=== PATIENT | male | born 1970 | race Caucasian/White ===

== ENCOUNTER 2020-05-20 10:20 | Outpatient (CLI) | payer MEDICAID, SELFPAY ==
[2020-05-22 00:15] LABS: COVID-19 RT-PCR Result NEGATIVE (Negative)
== END 2020-05-20 10:40 ==
PROVIDERS: PCP Family Medicine; Visit Provider Surgery
DX: Z01.818 Encounter for other preprocedural examination (principal)
CPT/HCPCS: U0003

== ENCOUNTER 2020-05-25 12:01 | Day surgery (SDC) | payer MEDICAID, SELFPAY ==
--- NOTE | 2020-05-24 04:38 | W.PREOPHP ---
Date of service: 05/24/20 Assessment and Plan Assessment and plan (1) Rectal cancer: Status: Acute Assessment and plan: A\\ Mr. Huang is a pleasant 49-year-old gentleman who unfortunately was diagnosed with T3 rectal cancer. He will be starting neoadjuvant chemotherapy in the near future and we have been asked by the oncologist Dr. Hunt to place a Mediport. COVID-19 Test was performed and is negative P\\ 1. Will discharge patient today 05/24/20 and will do surgery tomorrow. Patient was reminded not to eat after midnight. No chewing tobacco, gum of lozanges after midnight. May have water up until 9 am. He is to arrive at hospital at 12. 2. Subclavian vein Mediport placement under fluoroscopy. Risks, benefits, complications of Mediport placement were reviewed with the patient. Complications include but are not limited to bleeding, infection, wound dehiscence, skin necrosis, seroma, hematoma, injury to subclavian vein or superior vena cava, pneumothorax, venous thrombosis and malfunction of the port. Questions were entertained and answered to his satisfaction and he wished to proceed. No guarantees were given or implied. History of Present Illness History of Present Illness Chief Complaint: Rectal Cancer Narrative: Mr. Huang is a pleasant 41-year-old gentleman who was just diagnosed with rectal cancer, T3c, Nx, M0. He is scheduled to start chemotherapy in the next week or so. We were asked by his oncologist to place a Mediport for the chemotherapy. He has lost about 30 lb over the last few months. He is having frequent BM's and urgency. He continues to have rectal bleeding due to the rectal mass. His CEA has gone from 20 to 125 in a short amount of time. The plan is for neoadjuvant CHemotherapy and radiation, followed by surgery. PMHx is significant for alcoholism Unfortunately the patient ate 2 chocolate chip cookies and drank fluid at 6 am. This was discussed with anesthesia. The patient would not be able to have surgery until 2 pm. Review of Systems Constitutional Constitutional: Denies fever(s), Denies headache(s), Reports poor appetite and Reports weight loss Eyes Eyes: Denies change in vision ENT Ears, Nose, Mouth, and Throat: Denies change in voice, Denies dysphagia, Denies headache(s) and Denies hoarseness Cardiovascular Cardiovascular: Denies chest pain, Denies chest pain at rest, Denies irregular heart rhythm, Denies palpitations, Denies dyspnea and Denies dyspnea on exertion Respiratory Respiratory: Denies cough, Denies hemoptysis, Denies dyspnea and Denies dyspnea on exertion Gastrointestinal Gastrointestinal: Reports as per HPI, Denies dysphagia, Denies dyspepsia, Denies heartburn, Reports vomiting and Reports other (dry heaves) Genitourinary Genitourinary: Denies oliguria and Denies difficulty urinating Musculoskeletal Musculoskeletal: Reports system reviewed and no additional complaints, except as documented Integumentary/Breasts Skin/Breast: Reports system reviewed and no additional complaints, except as documented Neurologic Neurologic: Reports system reviewed and no additional complaints, except as documented and Denies headache(s) Psychiatric Psychiatric: Reports anxiety and Reports depression Endocrine Endocrine: Reports system reviewed and no additional complaints, except as documented and Denies palpitations Hematologic/Lymphatic Hematologic/Lymphatic: Denies easy bleeding, Denies easy bruising and Denies lymphadenopathy PFSH Medical History Excessive drinking alcohol (Acute) Surgical History (Updated 05/24/20 @ 04:47 by Dora Garcia MD) H/O esophagogastroduodenoscopy (Chronic) Hx of colonoscopy (Chronic) Family History (Updated 05/24/20 @ 04:52 by Dora Garcia MD) Father Colon cancer Paternal Uncle Brain malignancy Maternal Grandmother Brain malignancy Social History Smoking/Tobacco Use Status: Current every day Tobacco Type: smokeless tobacco Alcohol Intake: current Alcohol Intake frequency: 3 or more drinks per day Alcohol type: beer Drug use: Never Substance use type: does not use Details: 12 pack a day Do you feel safe at home: Yes Do you feel safe in your relationship?: Yes Meds Home Medications and Allergies Home Medications Medication Instructions Recorded Confirmed Type prochlorperazine maleate 10 mg PO .EVERY 6 HRS PRN 05/20/20 05/20/20 History Boost ml PO 05/24/20 History Allergies Allergy/AdvReac Type Severity Reaction Status Date / Time No Known Allergies Allergy Unverified 09/23/19 14:46 Exam Const General: cooperative, comfortable and no acute distress Orientation: alert and oriented x3 HENMT Head: normocephalic and atraumatic Resp Effort & Inspection: normal respiratory effort Auscultation: clear to auscultation bilaterally Cardio Rate: regular rate Rhythm: regular rhythm Heart Sounds: no gallops, no murmurs and no rubs GI Inspection: normal to inspection Palpation: soft, no hepatosplenomegaly and nontender Rectal Exam: deferred General: deferred
--- NOTE | 2020-05-24 04:55 | W.PM.DSUDISC ---
Discharge Plan Disposition Patient Disposition: HOME Condition: Stable Discharge Details Reason For Visit: RECTAL CA Attending Provider: Dora Garcia Primary Care Provider: Freddy Juarez Home Meds and New Rx's Prescriptions: Continued prochlorperazine maleate 10 mg tablet 10 mg PO .EVERY 6 HRS PRN (Reason: Nausea) RF: 0 Boost 0.04 gram- 1 kcal/mL Liquid PO RF: 0 Discharge Instructions Instructions: Tunneled Central Lines (DC) Additional Instructions: Activity at Home after surgery: 1. Make sure you walk outside at least 4 times per day 2. You should be able to climb a flight of stairs 3. No driving while in pain or taking pain medications 4. Do not lift arm above your head for long periods of time Diet, Nutrition, & wound healin. Avoid alcohol until after you are recovered from your surgery 2. Make sure to eat plenty of lean protein (meat, fish, eggs, cottage cheese, beans) 3. Eat a variety of fruits and vegetables. Eat plenty of high fiber foods to avoid constipation. 4. Drink plenty of liquids to stay hydrated and avoid constipation Pain Medications: 1. Tylenol 650 mg every 6 hours and Ibuprofen 600 mg every 6 hours ( May alternate between the 2 medications every 3 hours) 2. If a narcotic has been prescribed take as directed only for breakthrough pain For Constipation: 1. Take Milk of Magnesia or MiraLax as needed for constipation Other: 1. You may shower daily. Do not scrub the incisions 2. Do not soak the incisions for 1 week 3. You may alternate ice and heat as needed for pain and swelling Wound Care: 1. Keep the incisions clean and dry Please call our office if you develop: 1. Fevers >101.5 2. Nausea or Vomiting 3. Worsening pain 4. Redness and thick discharge from the wounds 5. Shortness of Breath If after hours please call the Hospital at and ask to speak to the on-call surgeon Activity:: Activity as Tolerated Shower/Bathe:: 24 hours Diet:: As Tolerated DS: Diagnosis Discharge Diagnosis (1) Rectal cancer: Status: Acute
--- NOTE | 2020-05-24 04:59 | W.PM.OP ---
Date of service: 05/24/20 Operative Note Operative Note DATE OF PROCEDURE: 05/24/20 PRE-OP DIAGNOSIS: Rectal Cancer, IV access needed for Chemotherapy POST-OP DIAGNOSIS: same PROCEDURE: Subclavian vein Single lumen Mediport placement SURGEON: Dora Garcia ANESTHESIA: MAC (ASA/ ) and local (exparel mixed with 0.25% Bupivocaine) PATHOLOGY: none sent COMPLICATIONS: None Patient was transported to: same day Patient's condition: stable Indications: Mr. Huang is a pleasant 49-year-old gentleman who was recently diagnosed with a T3 rectal cancer. He will be starting neoadjuvant chemotherapy in the near future. I have been asked by Dr. Hunt to place a single-lumen Mediport for chemotherapy. Risks, benefits, complications of Mediport placement were reviewed with the patient. Complications include but are not limited to bleeding, infection, wound dehiscence, skin necrosis, seroma, hematoma, injury to subclavian vein or superior vena cava, pneumothorax, venous thrombosis and malfunction of the port. Questions were entertained and answered to his satisfaction and he wished to proceed. No guarantees were given or implied. Procedure Description: After informed consent was obtained the patient was taken to the operating room and placed in supine position. The patient was placed under deep sedation and once comfortable the right and left chest were prepped and draped in a sterile surgical fashion. At this point a timeout was done. The patient's name, date of , procedure to be done, potential complications, DVT prophylaxis, antibiotic given were all reviewed. Fire risk was assessed. Next 2% lidocaine mixed with half percent Marcaine with epi was injected around the clavicle on the left side as well as along the old scar and into the subcutaneous tissue. A power port kit was opened and using the large 18-gauge needle the subclavian vein was found and venous blood was easily aspirated. The syringe was removed and the guidewire was placed without any difficulty into the subclavian vein. The needle was removed. Fluoroscopy was then done which confirmed the placement of the guidewire. A small incision was made in the skin with the guidewire entered. The old scar was also opened with a 15 blade. Using cautery a new pocket was created for the port. Using the tunneler the catheter was tunneled from the newly created pocket to the guidewire. The dilator and sheath were then placed over the guidewire into the subclavian vein. The dilator and guidewire were removed. The catheter was then advanced through the sheath into the subclavian vein. While holding the catheter in place at the skin the sheath was removed. Fluoroscopy was then used again and the catheter was noted to be within the atrium and so it was pulled up until it was just above the atrium. The catheter was then cut to the right length and attached to the port. The port was placed into the pocket and fit snugly. The port was flushed with normal saline. 10 cc of blood was then withdrawn and discarded and then 20 cc of blood were drawn out of the port and placed into a red, green, blue and purple top and sent to the lab. The port was then flushed with another 10 cc of normal saline and then heparin. The skin was closed using 4-0 Vicryl. The skin was cleaned and dried and skin affix was applied to the port site as well as to the small stab incision underneath the clavicle. The patient was woken up and taken back to same day surgery in stable condition. Sponge, instrument, and needle counts were correct at the end of the case. A stat chest x-ray was ordered and done in same-day surgery it was read by me and it looked good good positioning of the catheter and no pneumothorax.
--- NOTE | 2020-05-25 06:57 | ROE_ITS ---
Date of service: 05/25/20 Time of Service: 15:20 Operative Note Operative Note DATE OF PROCEDURE: 05/25/20 PRE-OP DIAGNOSIS: rectal cancer IV access needed for chemotherapy POST-OP DIAGNOSIS: same PROCEDURE: Left Subclavian vein port-a-cath placement SURGEON: Dora Garcia ANESTHESIA: MICHELLEA (Kellie Ma CRNA) ESTIMATED BLOOD LOSS: 5 PATHOLOGY: none sent COMPLICATIONS: None Patient was transported to: same day Patient's condition: stable Implants: Power Port isp MRI REF [id number] EXP 2021-07-20 Indications: Mr. Huang is a pleasant 49-year-old gentleman who unfortunately was diagnosed with T3 rectal cancer. He will be starting neoadjuvant chemotherapy in the near future and we have been asked by the oncologist Dr. Hunt to place a Mediport. Procedure Description: After informed consent was obtained the patient was taken to the operating room and placed in supine position. The patient was placed under deep sedation and once comfortable the left chest was prepped and draped in a sterile surgical fashion. At this point a timeout was done. The p atient's name, date of , procedure to be done, potential complications, DVT prophylaxis, antibiotic given were all reviewed. Fire risk was assessed. Next 2% lidocaine mixed with half percent Marcaine with epi was injected around the clavicle on the left side. A power port kit was opened and using the large 18-gauge needle the subclavian vein was found and venous blood was easily aspirated. The syringe was removed and the guidewire was placed without any difficulty into the subclavian vein. The needle was removed. Fluoroscopy was then done which confirmed the placement of the guidewire. A small incision was made in the skin were the guidewire entered. The local anesthetic was injected into the dermis and subcutaneous tissue about an inch above the left nipple.using a 15 blade a 2 cm incision was made into the skin. Using cautery a pocket was created for the port. Using the tunneler the catheter was tunneled from the newly created pocket to the guidewire. The di lator and sheath were then placed over the guidewire into the subclavian vein. The dilator and guidewire were removed. The catheter was then advanced through the sheath into the subclavian vein. While holding the catheter in place at the skin the sheath was removed. Fluoroscopy was then used again and the catheter was noted to be within the atrium and so it was pulled up until it was just abov e the atrium. The catheter was then cut to the right length and attached to the port. The port was placed into the pocket and fit snugly. The port was then flushed with another 10 cc of heparin. The skin was closed using 4-0 Vicryl. The skin was cleaned and dried and skin affix was applied to the port site as well as to the small stab incision underneath the clavicle. The patient was woken up and taken back to same day surgery in stable condition. Sponge, instrument, and needle counts were correct at the end of the case. A stat chest x-ray was ordered and done in same-day surgery it was read by me and it looked in good position and I did not see a pneumothorax.
--- NOTE | 2020-05-25 06:59 | W.PM.DSUDISC ---
Discharge Plan Disposition Patient Disposition: HOME Condition: Stable Discharge Details Reason For Visit: RECTAL CA Attending Provider: Dora Garcia Primary Care Provider: Freddy Juarez Home Meds and New Rx's Prescriptions: Continued prochlorperazine maleate 10 mg tablet 10 mg PO .EVERY 6 HRS PRN (Reason: Nausea) RF: 0 Boost 0.04 gram- 1 kcal/mL Liquid 180 ml PO PRN PRNRF: 0 Discharge Instructions Instructions: Tunneled Central Lines (DC) Additional Instructions: Activity at Home after surgery: 1. Make sure you walk outside at least 4 times per day 2. You should be able to climb a flight of stairs 3. No driving while in pain or taking pain medications 4. Do not lift arm above your head for long periods of time Diet, Nutrition, & wound healin. Avoid alcohol until after you are recovered from your surgery 2. Make sure to eat plenty of lean protein (meat, fish, eggs, cottage cheese, beans) 3. Eat a variety of fruits and vegetables. Eat plenty of high fiber foods to avoid constipation. 4. Drink plenty of liquids to stay hydrated and avoid constipation Pain Medications: 1. Tylenol 650 mg every 6 hours and Ibuprofen 600 mg every 6 hours ( May alternate between the 2 medications every 3 hours) 2. If a narcotic has been prescribed take as directed only for breakthrough pain For Constipation: 1. Take Milk of Magnesia or MiraLax as needed for constipation Other: 1. You may shower daily. Do not scrub the incisions 2. Do not soak the incisions for 1 week 3. You may alternate ice and heat as needed for pain and swelling Wound Care: 1. Keep the incisions clean and dry Please call our office if you develop: 1. Fevers >101.5 2. Nausea or Vomiting 3. Worsening pain 4. Redness and thick discharge from the wounds 5. Shortness of Breath If after hours please call the Hospital at and ask to speak to the on-call surgeon Activity:: Activity as Tolerated Shower/Bathe:: 24 hours Diet:: As Tolerated Discharge Orders Discharge Orders: Discharge Order (Routine); Ordered 05/24/20 Ordered By: Dora Garcia DS: Diagnosis Discharge Diagnosis (1) Rectal cancer: Status: Acute
[2020-05-25 12:03] VITALS: BP 132/91; PULSE 100; RESP 18; TEMP 36.8; O2SAT 97
[2020-05-25] MEDS: Lactated Ringers 1,000 ML 80 ML IV (12:30)
--- NOTE | 2020-05-25 13:30 | DI.RAD_ITS ---
EXAM: RF LINE PLACEMENT OR CLINICAL HISTORY: cancer. TECHNIQUE: 2D and realtime digital imaging was performed. CONTRAST MATERIAL: Oral barium Oral water soluble contrast was administered. COMPARISON: No exams were available for comparison FINDINGS: C-arm fluoroscopy was utilized by Dr. Garcia during placement subclavian catheter. Hard copy shows left subclavian catheter insertion with the tip overlying the superior vena cava. Fluoro time 14 seconds IMPRESSION:
[2020-05-25] MEDS: ceFAZolin 2 GM/50 ML BAG IVPB (15:09)
[2020-05-25] MEDS: Lidocaine 2% Multi-Dose 50 ML VIAL (15:18)
[2020-05-25] MEDS: Heparin 500 UNITS/5 ML SYRINGE (15:23)
--- NOTE | 2020-05-25 16:00 | DI.RAD_ITS ---
EXAM: XR PORTABLE CHEST AP POST LINE CLINICAL HISTORY: s/p port placement TECHNIQUE: COMPARISON: No exams were available for comparison FINDINGS: Portable AP chest at 1610 hours. Heart is not enlarged. Lungs are predominantly clear with some pre dominantly linear areas of scarring and/or atelectasis at the left lung base, consolidation or mass n ot entirely excluded, follow-up PA and lateral chest recommended. There is a left Port-A-Cath in position the tip of which lies in the superior vena cava. No pneumoth orax identified. IMPRESSION: Port-A-Cath in good position. No pneumothorax. Left basilar radiodensities of questionable signific ance, pneumonia or neoplasm not excluded, PA and lateral chest suggested for follow-up in the absence of prior studies.
[2020-05-25 16:30] VITALS: BP 136/103; PULSE 86; RESP 16; TEMP 36.4; O2SAT 96
--- NOTE | 2020-05-26 10:41 | PDOC.ANES ---
Date of service: 05/26/20 Time of Service: 10:41 Anesthesia Note Report Anesthesia Note: On post-op call patient expressed concerns over his feeling nauseated and dizzy once he got home. I contact him at home and discussed that sometimes anesthesia medications can make you feel that way and that he should feel better by the end of the day. He states that his nausea and dizziness are resolved this morning, but that he still feels a little weak. We discussed that it is possible for medication residual to have some effects for 24 hrs, and the medications combine with surgery can effect people for a day or so. All his questions where answered.
== END 2020-05-25 16:44 | disposition home or self-care (01) ==
LOC: SUR 12:02
PROVIDERS: PCP Family Medicine; Visit Provider Surgery
PROC: (CPT 36561; principal; 2020-05-25 13:15)
DX: C20 Malignant neoplasm of rectum (principal); Z45.2 Encounter for adjustment and management of vascular access device
CPT/HCPCS: 36561; 71045; 77001; NC; C1788; J0690; J2001; J3010

== ENCOUNTER 2020-06-17 04:39 | Outpatient (RCR) | payer MEDICAID, SELFPAY ==
[2020-06-03] MEDS: Heparin 500 UNITS/5 ML SYRINGE IV (09:28)
[2020-06-03] MEDS: Normal Saline Flush 10 ML SYR IVP (09:28)
[2020-06-03 09:33] LABS: Abs Immature Grans 0.02 10^3/uL (0.0-0.06); Absolute Basophil Count 0.04 10^3/uL (0.0-0.2); Absolute Eosinophil Count 0.19 10^3/uL (0.0-0.7); Absolute Lymphocyte Count 0.98 10^3/uL (1.2-3.4); Absolute Monocyte Count 0.52 10^3/uL (0.1-0.8); Basophils % 1.1; Eosinophils % 5.1; HCT 33.2 % (40.0-50.0); HGB 10.2 g/dL (13.5-17.5); Immature Grans % 0.5; Lymphocytes % 26.1; MCH 23.6 pg (27.0-33.0); MCHC 30.7 % (32.0-36.0); MCV 76.9 fL (80-95); MPV 9.3 fL (8.0-11.0); Monocytes % 13.9; Neutrophils % 53.3; Nucleated RBC 0 %; Platelet Count 320 10^3/uL (130-400); RBC 4.32 10^6/uL (4.36-5.78); RDW 18.7 % (11.8-14.1); RDW-SD 51.2 fL; WBC 3.75 10^3/uL (4.4-10.8)
[2020-06-03 10:00] LABS: ALT 88 U/L (16-63); AST 96 U/L (15-37); Alkaline Phosphatase 182 U/L (46-116); Anion Gap 5.2 mmol/L (3-11); BUN 10 mg/dL (7-18); Bilirubin, Total 0.4 mg/dL (0.2-1.0); CO2 28.8 mmol/L (21.0-32.0); CREATININE 0.86 mg/dL (0.70-1.30); Calcium 8.7 mg/dL (8.5-10.1); Chloride 103 mmol/L (98-107); Glucose 121 mg/dL (74-106); Potassium 4.5 mmol/L (3.5-5.1); Sodium 137 mmol/L (136-145)
[2020-06-06 09:12] LABS: CEA 28.9 ng/mL (See Note)
[2020-06-17] MEDS: Normal Saline Flush 10 ML SYR IVP ×2 (09:40→10:07)
[2020-06-17] MEDS: Heparin 500 UNITS/5 ML SYRINGE IV (09:40)
[2020-06-17 10:06] LABS: Abs Immature Grans 0.02 10^3/uL (0.0-0.06); Absolute Basophil Count 0.01 10^3/uL (0.0-0.2); Absolute Eosinophil Count 0.15 10^3/uL (0.0-0.7); Absolute Lymphocyte Count 1.03 10^3/uL (1.2-3.4); Absolute Monocyte Count 0.26 10^3/uL (0.1-0.8); Basophils % 0.5; Eosinophils % 6.9; HCT 34.1 % (40.0-50.0); HGB 10.2 g/dL (13.5-17.5); Immature Grans % 0.9; Lymphocytes % 47.5; MCH 24.2 pg (27.0-33.0); MCHC 29.9 % (32.0-36.0); MPV 9.3 fL (8.0-11.0); Neutrophils % 32.2; Nucleated RBC 0 %; Platelet Count 361 10^3/uL (130-400); RBC 4.21 10^6/uL (4.36-5.78); RDW 20.3 % (11.8-14.1); RDW-SD 54.3 fL; WBC 2.17 10^3/uL (4.4-10.8)
[2020-06-17 10:14] LABS: ALT 101 U/L (16-63); AST 75 U/L (15-37); Albumin 3.1 g/dL (3.4-5.0); Alkaline Phosphatase 139 U/L (46-116); BUN 6 mg/dL (7-18); Bilirubin, Total 0.2 mg/dL (0.2-1.0); CREATININE 0.79 mg/dL (0.70-1.30); Calcium 8.7 mg/dL (8.5-10.1); Chloride 107 mmol/L (98-107); Glucose 108 mg/dL (74-106); Potassium 4.2 mmol/L (3.5-5.1); Sodium 142 mmol/L (136-145); Total Protein 6.9 g/dL (6.4-8.2)
[2020-06-17 10:32] LABS: Anisocytosis 2+; Basophilic Stippling Present; Diff Comment Diff Reviewed; Hypochromasia 1+; Macrocytosis 1+; Microcytosis 1+; Poikilocytes 1+
[2020-06-20 09:14] LABS: CEA 19.5 ng/mL (See Note)
== END 2020-06-20 23:59 | disposition home or self-care (01) ==
LOC: INF 04:39
PROVIDERS: PCP Family Medicine; Visit Provider Internal Medicine Hematology & Oncology
DX: C20 Malignant neoplasm of rectum (principal); Z45.2 Encounter for adjustment and management of vascular access device
CPT/HCPCS: 36591; 80053; 82378; 85025

== ENCOUNTER 2020-07-15 04:29 | Outpatient (RCR) | payer MEDICAID, SELFPAY ==
[2020-06-21] MEDS: Heparin 500 UNITS/5 ML SYRINGE IV (09:35)
[2020-06-21] MEDS: Normal Saline Flush 10 ML SYR IVP (09:35)
[2020-06-21 09:42] LABS: Abs Immature Grans 0.01 10^3/uL (0.0-0.06); Absolute Basophil Count 0.02 10^3/uL (0.0-0.2); Absolute Lymphocyte Count 1.15 10^3/uL (1.2-3.4); Absolute Monocyte Count 0.41 10^3/uL (0.1-0.8); Absolute Neutrophil Count 0.91 10^3/uL (1.2-6.7); Basophils % 0.7; Eosinophils % 7.4; HCT 34.9 % (40.0-50.0); HGB 10.7 g/dL (13.5-17.5); Immature Grans % 0.4; Lymphocytes % 42.6; MCH 24.8 pg (27.0-33.0); MCHC 30.7 % (32.0-36.0); MCV 80.8 fL (80-95); MPV 9.1 fL (8.0-11.0); Monocytes % 15.2; Neutrophils % 33.7; Nucleated RBC 0 %; Platelet Count 263 10^3/uL (130-400); RBC 4.32 10^6/uL (4.36-5.78); RDW 20.9 % (11.8-14.1); RDW-SD 58.3 fL
[2020-06-21 10:01] LABS: Anisocytosis 1+; Basophilic Stippling Present; Diff Comment Diff Reviewed; Hypochromasia 1+
[2020-06-21 10:02] LABS: ALT 110 U/L (16-63); AST 90 U/L (15-37); Albumin 3.3 g/dL (3.4-5.0); Alkaline Phosphatase 153 U/L (46-116); Anion Gap 8.8 mmol/L (3-11); BUN 9 mg/dL (7-18); Bilirubin, Total 0.4 mg/dL (0.2-1.0); CO2 25.2 mmol/L (21.0-32.0); CREATININE 0.82 mg/dL (0.70-1.30); Calcium 8.7 mg/dL (8.5-10.1); Chloride 105 mmol/L (98-107); Glucose 120 mg/dL (74-106); Polychromasia Present; Potassium 4.4 mmol/L (3.5-5.1); Sodium 139 mmol/L (136-145)
[2020-06-21 18:37] LABS: CEA 18.6 ng/mL (See Note)
[2020-06-29] MEDS: Normal Saline Flush 10 ML SYR IVP (10:48)
[2020-06-29] MEDS: Heparin 500 UNITS/5 ML SYRINGE IV (10:49)
[2020-06-29 10:54] LABS: Abs Immature Grans 0.06 10^3/uL (0.0-0.06); Absolute Basophil Count 0.04 10^3/uL (0.0-0.2); Absolute Eosinophil Count 0.11 10^3/uL (0.0-0.7); Absolute Lymphocyte Count 1.24 10^3/uL (1.2-3.4); Absolute Monocyte Count 0.69 10^3/uL (0.1-0.8); Absolute Neutrophil Count 2.65 10^3/uL (1.2-6.7); Basophils % 0.8; Eosinophils % 2.3; HCT 35.7 % (40.0-50.0); HGB 10.9 g/dL (13.5-17.5); Immature Grans % 1.3; Lymphocytes % 25.9; MCH 24.6 pg (27.0-33.0); MCHC 30.5 % (32.0-36.0); MCV 80.6 fL (80-95); MPV 9.2 fL (8.0-11.0); Monocytes % 14.4; Neutrophils % 55.3; Nucleated RBC 0 %; Platelet Count 331 10^3/uL (130-400); RBC 4.43 10^6/uL (4.36-5.78); RDW 20.4 % (11.8-14.1); RDW-SD 58.8 fL; WBC 4.79 10^3/uL (4.4-10.8)
[2020-06-29 11:07] LABS: Diff Comment RBC Morph Reviewed
[2020-06-29 11:08] LABS: Anisocytosis 2+; Poikilocytes 1+; Polychromasia Present
[2020-06-29 11:11] LABS: ALT 81 U/L (16-63); AST 58 U/L (15-37); Albumin 3.2 g/dL (3.4-5.0); Alkaline Phosphatase 129 U/L (46-116); BUN 8 mg/dL (7-18); Bilirubin, Total 0.3 mg/dL (0.2-1.0); CREATININE 0.85 mg/dL (0.70-1.30); Calcium 8.7 mg/dL (8.5-10.1); Chloride 104 mmol/L (98-107); Glucose 110 mg/dL (74-106); Potassium 4.1 mmol/L (3.5-5.1); Sodium 139 mmol/L (136-145); Total Protein 6.9 g/dL (6.4-8.2)
[2020-07-15] MEDS: Heparin 500 UNITS/5 ML SYRINGE IV (08:52)
[2020-07-15] MEDS: Normal Saline Flush 10 ML SYR IVP (08:52)
[2020-07-15 08:55] LABS: Abs Immature Grans 0.04 10^3/uL (0.0-0.06); Absolute Basophil Count 0.03 10^3/uL (0.0-0.2); Absolute Eosinophil Count 0.19 10^3/uL (0.0-0.7); Absolute Lymphocyte Count 1.18 10^3/uL (1.2-3.4); Absolute Monocyte Count 0.42 10^3/uL (0.1-0.8); Absolute Neutrophil Count 1.73 10^3/uL (1.2-6.7); Basophils % 0.8; Eosinophils % 5.3; HCT 36.6 % (40.0-50.0); HGB 11.3 g/dL (13.5-17.5); Immature Grans % 1.1; Lymphocytes % 32.9; MCH 25.7 pg (27.0-33.0); MCHC 30.9 % (32.0-36.0); MCV 83.2 fL (80-95); MPV 9.1 fL (8.0-11.0); Monocytes % 11.7; Neutrophils % 48.2; Nucleated RBC 0 %; Platelet Count 221 10^3/uL (130-400); RDW 21.9 % (11.8-14.1); RDW-SD 64.7 fL; WBC 3.59 10^3/uL (4.4-10.8)
[2020-07-15 09:08] LABS: ALT 59 U/L (16-63); AST 49 U/L (15-37); Albumin 3.3 g/dL (3.4-5.0); Alkaline Phosphatase 121 U/L (46-116); Anion Gap 7.2 mmol/L (3-11); BUN 5 mg/dL (7-18); Bilirubin, Total 0.4 mg/dL (0.2-1.0); CO2 25.8 mmol/L (21.0-32.0); Calcium 8.8 mg/dL (8.5-10.1); Chloride 106 mmol/L (98-107); Glucose 92 mg/dL (74-106); Potassium 4.1 mmol/L (3.5-5.1); Sodium 139 mmol/L (136-145); Total Protein 6.8 g/dL (6.4-8.2)
[2020-07-15 22:12] LABS: CEA 11.5 ng/mL (See Note)
== END 2020-07-20 23:59 | disposition home or self-care (01) ==
LOC: INF 04:29
PROVIDERS: PCP Family Medicine; Visit Provider Internal Medicine Hematology & Oncology
DX: C20 Malignant neoplasm of rectum (principal); Z45.2 Encounter for adjustment and management of vascular access device
CPT/HCPCS: 36591; 80053; 82378; 85025

== ENCOUNTER 2020-08-19 03:48 | Outpatient (RCR) | payer MEDICAID, SELFPAY ==
[2020-07-29] MEDS: Heparin 500 UNITS/5 ML SYRINGE IV (10:37)
[2020-07-29] MEDS: Normal Saline Flush 10 ML SYR IVP (10:38)
[2020-07-29 10:49] LABS: Abs Immature Grans 0.23 10^3/uL (0.0-0.06); Absolute Basophil Count 0.04 10^3/uL (0.0-0.2); Absolute Eosinophil Count 0.14 10^3/uL (0.0-0.7); Absolute Lymphocyte Count 1.23 10^3/uL (1.2-3.4); Absolute Monocyte Count 0.36 10^3/uL (0.1-0.8); Absolute Neutrophil Count 2.62 10^3/uL (1.2-6.7); Basophils % 0.9; HCT 40.2 % (40.0-50.0); HGB 12.6 g/dL (13.5-17.5); Lymphocytes % 26.6; MCH 26.7 pg (27.0-33.0); MCHC 31.3 % (32.0-36.0); MCV 85.2 fL (80-95); MPV 9.3 fL (8.0-11.0); Monocytes % 7.8; Neutrophils % 56.7; Nucleated RBC 0 %; Platelet Count 237 10^3/uL (130-400); RBC 4.72 10^6/uL (4.36-5.78); RDW 22.6 % (11.8-14.1); WBC 4.62 10^3/uL (4.4-10.8)
[2020-07-29 11:04] LABS: ALT 78 U/L (16-63); AST 54 U/L (15-37); Albumin 3.4 g/dL (3.4-5.0); Alkaline Phosphatase 157 U/L (46-116); Anion Gap 11.5 mmol/L (3-11); BUN 5 mg/dL (7-18); Bilirubin, Total 0.2 mg/dL (0.2-1.0); CO2 23.5 mmol/L (21.0-32.0); CREATININE 0.78 mg/dL (0.70-1.30); Calcium 8.9 mg/dL (8.5-10.1); Chloride 106 mmol/L (98-107); Glucose 115 mg/dL (74-106); Potassium 4.2 mmol/L (3.5-5.1); Sodium 141 mmol/L (136-145); Total Protein 7.1 g/dL (6.4-8.2)
[2020-07-29 18:45] LABS: CEA 9.4 ng/mL (See Note)
== END 2020-08-20 23:59 | disposition home or self-care (01) ==
LOC: INF 03:48
PROVIDERS: PCP Family Medicine; Visit Provider Internal Medicine Hematology & Oncology
DX: C20 Malignant neoplasm of rectum (principal); Z45.2 Encounter for adjustment and management of vascular access device
CPT/HCPCS: 36591; 80053; 82378; 85025

== ENCOUNTER 2020-08-30 00:51 | Outpatient (CLI) | payer MEDICAID, SELFPAY ==
--- NOTE | 2020-08-30 10:48 | DI.RAD_ITS ---
EXAM: RF CATHETER PATENCY CHECK W CLINICAL HISTORY: METASTATIC RECTAL CA,C20,C77.5,MEDIPORT NOT DRAW BLOOD,CHECK PLACEMENT,FX TECHNIQUE: 2D and realtime digital imaging was performed. CONTRAST MATERIAL: Water soluble contrast was administered. COMPARISON: No exams were available for comparison FINDINGS: Fluoroscopy was provided for Dr. Kwong during the performance of a MediPort evaluation. There is no evidence of obstruction of the MediPort. No extravasation of contrast is noted. Findings were disc ussed with the [facility] on the date of the examination. Fluoro time: 1 minute RADIATION DOSE DELIVERED:
== END 2020-08-30 01:11 ==
PROVIDERS: PCP Family Medicine; Visit Provider Internal Medicine Hematology & Oncology
DX: C20 Malignant neoplasm of rectum (principal); C77.5 Secondary and unspecified malignant neoplasm of intrapelvic lymph nodes
CPT/HCPCS: 76000

== ENCOUNTER 2020-09-09 04:49 | Outpatient (RCR) | payer MEDICAID, SELFPAY ==
[2020-08-26] MEDS: Normal Saline Flush 10 ML SYR IVP (14:00)
[2020-08-26] MEDS: Heparin 500 UNITS/5 ML SYRINGE IV (14:00)
[2020-08-26 14:58] LABS: Abs Immature Grans 0.02 10^3/uL (0.0-0.06); Absolute Basophil Count 0.04 10^3/uL (0.0-0.2); Absolute Eosinophil Count 0.03 10^3/uL (0.0-0.7); Absolute Lymphocyte Count 1.02 10^3/uL (1.2-3.4); Absolute Monocyte Count 0.55 10^3/uL (0.1-0.8); Absolute Neutrophil Count 3.88 10^3/uL (1.2-6.7); Basophils % 0.7; Eosinophils % 0.5; HGB 12.7 g/dL (13.5-17.5); Immature Grans % 0.4; Lymphocytes % 18.4; MCH 28.3 pg (27.0-33.0); MCHC 32.6 % (32.0-36.0); MCV 87.1 fL (80-95); MPV 9.3 fL (8.0-11.0); Monocytes % 9.9; Neutrophils % 70.1; Nucleated RBC 0 %; Platelet Count 165 10^3/uL (130-400); RBC 4.48 10^6/uL (4.36-5.78); RDW 20.4 % (11.8-14.1); RDW-SD 64.5 fL; WBC 5.54 10^3/uL (4.4-10.8)
[2020-08-26 15:01] LABS: ALT 75 U/L (16-63); AST 92 U/L (15-37); Albumin 3.5 g/dL (3.4-5.0); Alkaline Phosphatase 187 U/L (46-116); Anion Gap 15.8 mmol/L (3-11); BUN 3 mg/dL (7-18); Bilirubin, Total 0.4 mg/dL (0.2-1.0); CO2 22.2 mmol/L (21.0-32.0); CREATININE 0.71 mg/dL (0.70-1.30); Calcium 8.4 mg/dL (8.5-10.1); Chloride 102 mmol/L (98-107); Glucose 94 mg/dL (74-106); Potassium 3.8 mmol/L (3.5-5.1); Sodium 140 mmol/L (136-145); Total Protein 7.2 g/dL (6.4-8.2)
[2020-08-26 15:10] LABS: Anisocytosis 2+; Diff Comment RBC Morph Reviewed
[2020-08-29 16:44] LABS: CEA 9.1 ng/ml
[2020-09-09] MEDS: Normal Saline Flush 10 ML SYR IVP (13:40)
[2020-09-09] MEDS: Heparin 500 UNITS/5 ML SYRINGE IV (13:40)
[2020-09-09 14:07] LABS: Abs Immature Grans 0.18 10^3/uL (0.0-0.06); Absolute Basophil Count 0.07 10^3/uL (0.0-0.2); Absolute Eosinophil Count 0.11 10^3/uL (0.0-0.7); Absolute Lymphocyte Count 1.21 10^3/uL (1.2-3.4); Absolute Monocyte Count 1.22 10^3/uL (0.1-0.8); Absolute Neutrophil Count 4.68 10^3/uL (1.2-6.7); Basophils % 0.9; Eosinophils % 1.5; HCT 39.9 % (40.0-50.0); HGB 12.9 g/dL (13.5-17.5); Immature Grans % 2.4; Lymphocytes % 16.2; MCH 29.7 pg (27.0-33.0); MCHC 32.3 % (32.0-36.0); MCV 91.9 fL (80-95); MPV 9.5 fL (8.0-11.0); Monocytes % 16.3; Neutrophils % 62.7; Nucleated RBC 0 %; Platelet Count 172 10^3/uL (130-400); RBC 4.34 10^6/uL (4.36-5.78); RDW 18.7 % (11.8-14.1); RDW-SD 62.1 fL; WBC 7.47 10^3/uL (4.4-10.8)
[2020-09-09 14:14] LABS: ALT 135 U/L (16-63); AST 81 U/L (15-37); Albumin 3.5 g/dL (3.4-5.0); Alkaline Phosphatase 244 U/L (46-116); Anion Gap 8.8 mmol/L (3-11); BUN 3 mg/dL (7-18); Bilirubin, Total 0.2 mg/dL (0.2-1.0); CO2 28.2 mmol/L (21.0-32.0); CREATININE 0.78 mg/dL (0.70-1.30); Calcium 9.1 mg/dL (8.5-10.1); Chloride 104 mmol/L (98-107); Glucose 121 mg/dL (74-106); Sodium 141 mmol/L (136-145); Total Protein 7.3 g/dL (6.4-8.2)
== END 2020-09-19 23:59 | disposition home or self-care (01) ==
LOC: INF 04:49
PROVIDERS: PCP Family Medicine; Visit Provider Internal Medicine Hematology & Oncology
DX: C20 Malignant neoplasm of rectum (principal); Z45.2 Encounter for adjustment and management of vascular access device
CPT/HCPCS: 36415; 36591; 80053; 82378; 85025

== ENCOUNTER 2020-09-23 03:44 | Outpatient (CLI) | payer MEDICAID, SELFPAY ==
--- NOTE | 2020-09-23 | DI.CT_ITS ---
EXAM: CT CHEST/ABD/PEL W CLINICAL HISTORY: RECTAL CA METASTAZIED TO LYMPH NODE,C20,C77.5,ASSESS TREATMENT RESPONSE. TECHNIQUE: Imaging Protocol: Axial computed tomography images with coronal and sagittal reformatted images were created and reviewed CONTRAST MATERIAL: Intravenous: Omnipaque 350 Contrast volume:100 ml Oral: Yes COMPARISON: Prior CT scan 04/30/2010 FINDINGS: CHEST: LUNGS: Mild benign-appearing increased markings are noted in the lingular segment of the left lung. No ominous pulmonary nodules. There are no pleural effusions.. No significant findings in the trach ea and mainstem bronchi. MEDIASTINUM: There is no hilar nor mediastinal adenopathy. Visualized thyroid unremarkable.There is n o axillary or supraclavicular adenopathy. CARDIAC: Heart size is normal. There is no pericardial effusion.Caliber of the thoracic aorta is wit hin normal limits. OSSEOUS: No significant osseous lesions.. ABDOMEN: There is no ascites. LIVER: Liver is profoundly hypodense implying severe steatosis. There are no discrete focal hepatic lesions identified GALLBLADDER/BILIARY: No obvious gallbladder pathology. CBD is not dilated. PANCREAS: Pancreatic head and body appear unremarkable. There are densities just above the pancreati c tail which have similar density to the pancreas and are probably benign given that this is unchange d from 2010. SPLEEN: Spleen is not enlarged. There are no intrasplenic lesions. Splenic and portal veins are julian nt. ADRENALS: There are no significant adrenal masses. KIDNEYS: No calculi nor hydronephrosis. No solid renal masses. No cysts evident. ABDOMINAL AORTA: Abdominal aorta is not enlarged and there is no [id number] adenopat hy. ABDOMINAL WALL/GI: No evidence of signature anterior abdominal wall hernia. No bowel obstruction. Abnormal thickening of the rectum consistent with an annular malignant lesion. There are no prominen t regional lymph nodes noted. No free fluid. There is no bowel obstruction above this level. There is sigmoid diverticula but without evidence of obvious acute diverticulitis. No appendicitis. PELVIS: LYMPH NODES: There is no intrapelvic nor inguinal adenopathy. GI: No evidence of appendicitis.No evidence of sigmoid diverticulitis. URINARY BLADDER: No calculi nor masses evident REPRODUCTIVE: Prostate gland is not enlarged. Seminal vesicles appear unremarkable. OSSEOUS: No significant osseous lesions. IMPRESSION: 1. There is an ominous area of abnormal mural thickening of the rectum which is highly suspicious for malignancy. There is no obvious adjacent no regional adenopathy. No free fluid. 2. No metastatic lesions evident in the liver although the liver is noted the be profoundly hypodense implying severe steatosis. 3. There are no lytic osseous lesions identified. 4. There are densities adjacent to the pancreatic tail which exhibit similar density to the pancreati c parenchyma there possibly just developmental extension of the pancreatic tail given that these appe ar unchanged from prior CT scan of 2009. No other significant pancreatic findings. RADIATION DOSE DELIVERED: 1,604.32mGy.cm Total DLP DATA REPOSITORY: All CT scans at this facility are submitted to the National Radiology Data Registry (NRDR) Dose Index Registry (DIR) with the [employer] (A[employer]). RADIATION OPTIMIZATION: All CT scans at this facility use at least one of these dose optimization te chniques: automated exposure control; mA and/or kV adjustment per patient size (includes targeted exa ms where dose is matched to clinical indication); or iterative reconstruction.
[2020-09-23] MEDS: Omnipaque 350 MG/ML 50 ML BTL IJ (08:11)
[2020-09-23] MEDS: Breeza Beverage 473 ML BTL PO ×2 (08:12)
[2020-09-23] MEDS: Omnipaque 350 MG/ML 100 ML BTL IV (09:42)
[2020-09-23] MEDS: Normal Saline Flush 10 ML SYR IVP (09:43)
[2020-09-23] MEDS: Normal Saline - Diluent 50 ML VIAL IV (09:43)
== END 2020-09-23 04:04 ==
PROVIDERS: PCP Family Medicine; Visit Provider Internal Medicine Hematology & Oncology
DX: C20 Malignant neoplasm of rectum (principal); C77.5 Secondary and unspecified malignant neoplasm of intrapelvic lymph nodes
CPT/HCPCS: 74177; 80053; 71260; 82378; 85025; J3490; Q9967

== ENCOUNTER 2020-10-18 02:49 | Outpatient (RCR) | payer MEDICAID, SELFPAY ==
[2020-09-23] MEDS: Normal Saline Flush 10 ML SYR IVP (08:06)
[2020-09-23 08:22] LABS: Abs Immature Grans 0.19 10^3/uL (0.0-0.06); Absolute Basophil Count 0.04 10^3/uL (0.0-0.2); Absolute Lymphocyte Count 1.51 10^3/uL (1.2-3.4); Absolute Monocyte Count 0.75 10^3/uL (0.1-0.8); Absolute Neutrophil Count 2.99 10^3/uL (1.2-6.7); Basophils % 0.7; Eosinophils % 1.8; HCT 38.9 % (40.0-50.0); HGB 12.9 g/dL (13.5-17.5); Immature Grans % 3.4; Lymphocytes % 27.1; MCH 30.5 pg (27.0-33.0); MCHC 33.2 % (32.0-36.0); MPV 9.7 fL (8.0-11.0); Monocytes % 13.4; Neutrophils % 53.6; Nucleated RBC 0 %; Platelet Count 198 10^3/uL (130-400); RBC 4.23 10^6/uL (4.36-5.78); RDW 17.7 % (11.8-14.1); RDW-SD 59.7 fL; WBC 5.58 10^3/uL (4.4-10.8)
[2020-09-23 08:33] LABS: ALT 101 U/L (16-63); AST 56 U/L (15-37); Albumin 3.4 g/dL (3.4-5.0); Alkaline Phosphatase 244 U/L (46-116); Anion Gap 6.7 mmol/L (3-11); BUN 6 mg/dL (7-18); Bilirubin, Total 0.2 mg/dL (0.2-1.0); CO2 26.3 mmol/L (21.0-32.0); CREATININE 0.82 mg/dL (0.70-1.30); Calcium 8.4 mg/dL (8.5-10.1); Chloride 103 mmol/L (98-107); Glucose 89 mg/dL (74-106); Potassium 3.9 mmol/L (3.5-5.1); Sodium 136 mmol/L (136-145)
[2020-09-23] MEDS: Heparin 500 UNITS/5 ML SYRINGE IV (08:45)
[2020-09-23 17:40] LABS: CEA 5.5 ng/mL (See Note)
[2020-10-07] MEDS: Normal Saline Flush 10 ML SYR IVP (14:39)
[2020-10-07] MEDS: Heparin 500 UNITS/5 ML SYRINGE IV (14:40)
[2020-10-07 15:17] LABS: Abs Immature Grans 0.27 10^3/uL (0.0-0.06); Absolute Basophil Count 0.03 10^3/uL (0.0-0.2); Absolute Eosinophil Count 0.03 10^3/uL (0.0-0.7); Absolute Lymphocyte Count 1.09 10^3/uL (1.2-3.4); Absolute Monocyte Count 1.41 10^3/uL (0.1-0.8); Absolute Neutrophil Count 6.69 10^3/uL (1.2-6.7); Basophils % 0.3; Eosinophils % 0.3; HCT 35.3 % (40.0-50.0); HGB 11.6 g/dL (13.5-17.5); Immature Grans % 2.8; Lymphocytes % 11.4; MCH 30.8 pg (27.0-33.0); MCHC 32.9 % (32.0-36.0); MCV 93.6 fL (80-95); MPV 9.6 fL (8.0-11.0); Monocytes % 14.8; Neutrophils % 70.4; Nucleated RBC 0 %; Platelet Count 152 10^3/uL (130-400); RBC 3.77 10^6/uL (4.36-5.78); RDW 16.4 % (11.8-14.1); RDW-SD 54.9 fL; WBC 9.52 10^3/uL (4.4-10.8)
[2020-10-07 15:34] LABS: ALT 101 U/L (16-63); AST 76 U/L (15-37); Albumin 3.4 g/dL (3.4-5.0); Alkaline Phosphatase 242 U/L (46-116); Anion Gap 10.9 mmol/L (3-11); BUN 6 mg/dL (7-18); Bilirubin, Total 0.2 mg/dL (0.2-1.0); CO2 25.1 mmol/L (21.0-32.0); CREATININE 0.72 mg/dL (0.70-1.30); Calcium 8.8 mg/dL (8.5-10.1); Chloride 101 mmol/L (98-107); Glucose 116 mg/dL (74-106); Potassium 3.4 mmol/L (3.5-5.1); Sodium 137 mmol/L (136-145)
[2020-10-07 22:29] LABS: CEA 3.8 ng/mL (See Note)
[2020-10-18] MEDS: Normal Saline Flush 10 ML SYR IVP (11:09)
[2020-10-18] MEDS: Heparin 500 UNITS/5 ML SYRINGE IV (11:09)
[2020-10-18 11:17] LABS: Abs Immature Grans 0.03 10^3/uL (0.0-0.06); Absolute Basophil Count 0.03 10^3/uL (0.0-0.2); Absolute Eosinophil Count 0.05 10^3/uL (0.0-0.7); Absolute Lymphocyte Count 0.78 10^3/uL (1.2-3.4); Absolute Neutrophil Count 4.11 10^3/uL (1.2-6.7); Basophils % 0.5; Eosinophils % 0.9; HCT 37.8 % (40.0-50.0); HGB 12.4 g/dL (13.5-17.5); Immature Grans % 0.5; Lymphocytes % 13.9; MCH 30.8 pg (27.0-33.0); MCHC 32.8 % (32.0-36.0); Monocytes % 10.7; Neutrophils % 73.5; Nucleated RBC 0 %; Platelet Count 197 10^3/uL (130-400); RBC 4.02 10^6/uL (4.36-5.78); RDW 15.4 % (11.8-14.1); RDW-SD 53.6 fL
[2020-10-18 11:32] LABS: ALT 56 U/L (16-63); AST 43 U/L (15-37); Albumin 3.3 g/dL (3.4-5.0); Alkaline Phosphatase 170 U/L (46-116); Anion Gap 7.3 mmol/L (3-11); BUN 6 mg/dL (7-18); Bilirubin, Total 0.3 mg/dL (0.2-1.0); CO2 25.7 mmol/L (21.0-32.0); CREATININE 0.84 mg/dL (0.70-1.30); Calcium 8.5 mg/dL (8.5-10.1); Chloride 103 mmol/L (98-107); Glucose 92 mg/dL (74-106); Potassium 4.3 mmol/L (3.5-5.1); Sodium 136 mmol/L (136-145); Total Protein 6.9 g/dL (6.4-8.2)
[2020-10-18 17:30] LABS: CEA 5.5 ng/mL (See Note)
== END 2020-10-20 23:59 | disposition home or self-care (01) ==
LOC: INF 02:49
PROVIDERS: PCP Family Medicine; Visit Provider Internal Medicine Hematology & Oncology
DX: C20 Malignant neoplasm of rectum (principal); Z45.2 Encounter for adjustment and management of vascular access device
CPT/HCPCS: 36591; 80053; 82378; 85025

== ENCOUNTER 2020-11-18 04:57 | Outpatient (RCR) | payer MEDICAID, SELFPAY ==
[2020-10-31] MEDS: Normal Saline Flush 10 ML SYR IVP (11:11)
[2020-10-31] MEDS: Heparin 500 UNITS/5 ML SYRINGE IV (11:12)
[2020-10-31 11:19] LABS: Abs Immature Grans 0.06 10^3/uL (0.0-0.06); Absolute Basophil Count 0.03 10^3/uL (0.0-0.2); Absolute Eosinophil Count 0.12 10^3/uL (0.0-0.7); Absolute Lymphocyte Count 0.83 10^3/uL (1.2-3.4); Absolute Neutrophil Count 2.21 10^3/uL (1.2-6.7); Basophils % 0.8; Eosinophils % 3.4; HCT 38.5 % (40.0-50.0); HGB 12.7 g/dL (13.5-17.5); Immature Grans % 1.7; Lymphocytes % 23.4; MCH 31.6 pg (27.0-33.0); MCV 95.8 fL (80-95); Monocytes % 8.5; Neutrophils % 62.2; Nucleated RBC 0 %; Platelet Count 138 10^3/uL (130-400); RBC 4.02 10^6/uL (4.36-5.78); RDW 14.9 % (11.8-14.1); RDW-SD 52.4 fL; WBC 3.55 10^3/uL (4.4-10.8)
[2020-10-31 11:31] LABS: ALT 44 U/L (16-63); AST 31 U/L (15-37); Albumin 3.4 g/dL (3.4-5.0); Alkaline Phosphatase 168 U/L (46-116); Anion Gap 7.3 mmol/L (3-11); BUN 6 mg/dL (7-18); Bilirubin, Total 0.3 mg/dL (0.2-1.0); CO2 26.7 mmol/L (21.0-32.0); CREATININE 0.93 mg/dL (0.70-1.30); Calcium 8.8 mg/dL (8.5-10.1); Chloride 104 mmol/L (98-107); Glucose 142 mg/dL (74-106); Potassium 4.1 mmol/L (3.5-5.1); Sodium 138 mmol/L (136-145)
[2020-10-31 17:07] LABS: CEA 6.6 ng/mL (See Note)
[2020-11-11] MEDS: Normal Saline Flush 10 ML SYR IVP (13:30)
[2020-11-11] MEDS: Heparin 500 UNITS/5 ML SYRINGE IV (13:31)
[2020-11-11 13:43] LABS: Abs Immature Grans 0.02 10^3/uL (0.0-0.06); Absolute Basophil Count 0.02 10^3/uL (0.0-0.2); Absolute Eosinophil Count 0.03 10^3/uL (0.0-0.7); Absolute Monocyte Count 0.29 10^3/uL (0.1-0.8); Basophils % 0.6; Eosinophils % 0.9; HCT 36.6 % (40.0-50.0); HGB 12.2 g/dL (13.5-17.5); Immature Grans % 0.6; Lymphocytes % 15.3; MCH 31.8 pg (27.0-33.0); MCHC 33.3 % (32.0-36.0); MCV 95.3 fL (80-95); MPV 8.8 fL (8.0-11.0); Monocytes % 8.9; Neutrophils % 73.7; Nucleated RBC 0 %; Platelet Count 191 10^3/uL (130-400); RBC 3.84 10^6/uL (4.36-5.78); RDW 14.6 % (11.8-14.1); WBC 3.26 10^3/uL (4.4-10.8)
[2020-11-11 13:55] LABS: ALT 46 U/L (16-63); AST 37 U/L (15-37); Albumin 3.1 g/dL (3.4-5.0); Alkaline Phosphatase 137 U/L (46-116); Anion Gap 12.7 mmol/L (3-11); BUN 5 mg/dL (7-18); Bilirubin, Total 0.3 mg/dL (0.2-1.0); CO2 24.3 mmol/L (21.0-32.0); CREATININE 0.78 mg/dL (0.70-1.30); Calcium 8.7 mg/dL (8.5-10.1); Chloride 102 mmol/L (98-107); Glucose 117 mg/dL (74-106); Potassium 3.7 mmol/L (3.5-5.1); Sodium 139 mmol/L (136-145); Total Protein 6.7 g/dL (6.4-8.2)
[2020-11-11 22:19] LABS: CEA 10.3 ng/mL (See Note)
[2020-11-18] MEDS: Heparin 500 UNITS/5 ML SYRINGE IV (12:07)
[2020-11-18] MEDS: Normal Saline Flush 10 ML SYR IVP (12:07)
[2020-11-18 12:22] LABS: Abs Immature Grans 0.02 10^3/uL (0.0-0.06); Absolute Basophil Count 0.01 10^3/uL (0.0-0.2); Absolute Eosinophil Count 0.06 10^3/uL (0.0-0.7); Absolute Lymphocyte Count 0.46 10^3/uL (1.2-3.4); Absolute Monocyte Count 0.35 10^3/uL (0.1-0.8); Absolute Neutrophil Count 1.63 10^3/uL (1.2-6.7); Basophils % 0.4; Eosinophils % 2.4; HCT 37.2 % (40.0-50.0); HGB 12.5 g/dL (13.5-17.5); Immature Grans % 0.8; Lymphocytes % 18.2; MCH 32.3 pg (27.0-33.0); MCHC 33.6 % (32.0-36.0); MCV 96.1 fL (80-95); MPV 8.8 fL (8.0-11.0); Monocytes % 13.8; Neutrophils % 64.4; Nucleated RBC 0 %; Platelet Count 129 10^3/uL (130-400); RBC 3.87 10^6/uL (4.36-5.78); RDW 15.8 % (11.8-14.1); RDW-SD 55.7 fL; WBC 2.53 10^3/uL (4.4-10.8)
[2020-11-18 12:37] LABS: ALT 40 U/L (16-63); AST 33 U/L (15-37); Albumin 3.3 g/dL (3.4-5.0); Alkaline Phosphatase 125 U/L (46-116); Anion Gap 8.9 mmol/L (3-11); BUN 5 mg/dL (7-18); Bilirubin, Total 0.4 mg/dL (0.2-1.0); CO2 24.1 mmol/L (21.0-32.0); CREATININE 0.8 mg/dL (0.70-1.30); Calcium 8.6 mg/dL (8.5-10.1); Chloride 103 mmol/L (98-107); Glucose 131 mg/dL (74-106); Sodium 136 mmol/L (136-145); Total Protein 6.9 g/dL (6.4-8.2)
[2020-11-18 22:20] LABS: CEA 12.8 ng/mL (See Note)
== END 2020-11-20 23:59 | disposition home or self-care (01) ==
LOC: INF 04:57
PROVIDERS: PCP Family Medicine; Visit Provider Internal Medicine Hematology & Oncology
DX: C20 Malignant neoplasm of rectum (principal); Z45.2 Encounter for adjustment and management of vascular access device
CPT/HCPCS: 36591; 80053; 82378; 85025

== ENCOUNTER 2020-12-16 12:00 | Outpatient (RCR) | payer MEDICAID, SELFPAY ==
[2020-11-25] MEDS: Normal Saline Flush 10 ML SYR IVP (12:10)
[2020-11-25] MEDS: Heparin 500 UNITS/5 ML SYRINGE IV (12:10)
[2020-11-25 12:30] LABS: Abs Immature Grans 0.02 10^3/uL (0.0-0.06); Absolute Basophil Count 0.01 10^3/uL (0.0-0.2); Absolute Eosinophil Count 0.08 10^3/uL (0.0-0.7); Absolute Lymphocyte Count 0.43 10^3/uL (1.2-3.4); Absolute Monocyte Count 0.32 10^3/uL (0.1-0.8); Absolute Neutrophil Count 1.67 10^3/uL (1.2-6.7); Basophils % 0.4; Eosinophils % 3.2; HCT 37.5 % (40.0-50.0); HGB 12.8 g/dL (13.5-17.5); Immature Grans % 0.8; MCH 33.4 pg (27.0-33.0); MCHC 34.1 % (32.0-36.0); MCV 97.9 fL (80-95); MPV 8.9 fL (8.0-11.0); Monocytes % 12.6; Nucleated RBC 0 %; Platelet Count 151 10^3/uL (130-400); RBC 3.83 10^6/uL (4.36-5.78); RDW 16.8 % (11.8-14.1); RDW-SD 60.2 fL; WBC 2.53 10^3/uL (4.4-10.8)
[2020-11-25 12:45] LABS: ALT 49 U/L (16-63); AST 45 U/L (15-37); Albumin 3.3 g/dL (3.4-5.0); Alkaline Phosphatase 123 U/L (46-116); Anion Gap 9.3 mmol/L (3-11); BUN 4 mg/dL (7-18); Bilirubin, Total 0.3 mg/dL (0.2-1.0); CO2 25.7 mmol/L (21.0-32.0); CREATININE 0.7 mg/dL (0.70-1.30); Calcium 8.6 mg/dL (8.5-10.1); Chloride 104 mmol/L (98-107); Glucose 116 mg/dL (74-106); Potassium 3.9 mmol/L (3.5-5.1); Sodium 139 mmol/L (136-145)
[2020-11-25 22:11] LABS: CEA 11.3 ng/mL (See Note)
[2020-12-02 12:09] LABS: Abs Immature Grans 0.01 10^3/uL (0.0-0.06); Absolute Basophil Count 0.01 10^3/uL (0.0-0.2); Absolute Eosinophil Count 0.06 10^3/uL (0.0-0.7); Absolute Lymphocyte Count 0.25 10^3/uL (1.2-3.4); Basophils % 0.4; Eosinophils % 2.3; HCT 36.1 % (40.0-50.0); HGB 12.5 g/dL (13.5-17.5); Immature Grans % 0.4; Lymphocytes % 9.5; MCH 33.5 pg (27.0-33.0); MCHC 34.6 % (32.0-36.0); MCV 96.8 fL (80-95); MPV 9.3 fL (8.0-11.0); Monocytes % 11.4; Nucleated RBC 0 %; Platelet Count 153 10^3/uL (130-400); RBC 3.73 10^6/uL (4.36-5.78); RDW 17.1 % (11.8-14.1); RDW-SD 60.4 fL; WBC 2.63 10^3/uL (4.4-10.8)
[2020-12-02 12:22] LABS: ALT 54 U/L (16-63); AST 45 U/L (15-37); Albumin 3.3 g/dL (3.4-5.0); Alkaline Phosphatase 118 U/L (46-116); Anion Gap 8.9 mmol/L (3-11); BUN 6 mg/dL (7-18); Bilirubin, Total 0.3 mg/dL (0.2-1.0); CO2 25.1 mmol/L (21.0-32.0); CREATININE 0.8 mg/dL (0.70-1.30); Calcium 8.6 mg/dL (8.5-10.1); Chloride 102 mmol/L (98-107); Glucose 115 mg/dL (74-106); Potassium 3.8 mmol/L (3.5-5.1); Sodium 136 mmol/L (136-145); Total Protein 6.9 g/dL (6.4-8.2)
[2020-12-02 18:53] LABS: CEA 9.4 ng/mL (See Note)
[2020-12-09 12:31] LABS: ALT 53 U/L (16-63); AST 45 U/L (15-37); Albumin 3.4 g/dL (3.4-5.0); Alkaline Phosphatase 123 U/L (46-116); Anion Gap 8.2 mmol/L (3-11); BUN 5 mg/dL (7-18); Bilirubin, Total 0.3 mg/dL (0.2-1.0); CO2 27.8 mmol/L (21.0-32.0); CREATININE 0.8 mg/dL (0.70-1.30); Calcium 8.9 mg/dL (8.5-10.1); Chloride 103 mmol/L (98-107); Glucose 119 mg/dL (74-106); Sodium 139 mmol/L (136-145); Total Protein 7.2 g/dL (6.4-8.2)
[2020-12-09 13:06] LABS: Abs Immature Grans 0.01 10^3/uL (0.0-0.06); Absolute Basophil Count 0.02 10^3/uL (0.0-0.2); Absolute Eosinophil Count 0.09 10^3/uL (0.0-0.7); Absolute Lymphocyte Count 0.27 10^3/uL (1.2-3.4); Absolute Monocyte Count 0.34 10^3/uL (0.1-0.8); Absolute Neutrophil Count 1.39 10^3/uL (1.2-6.7); Basophils % 0.9; Eosinophils % 4.2; HCT 36.4 % (40.0-50.0); HGB 12.5 g/dL (13.5-17.5); Immature Grans % 0.5; Lymphocytes % 12.7; MCHC 34.3 % (32.0-36.0); MCV 98.9 fL (80-95); MPV 9.1 fL (8.0-11.0); Neutrophils % 65.7; Nucleated RBC 0 %; Platelet Count 170 10^3/uL (130-400); RBC 3.68 10^6/uL (4.36-5.78); RDW 17.2 % (11.8-14.1); RDW-SD 61.4 fL; WBC 2.12 10^3/uL (4.4-10.8)
[2020-12-16 12:15] LABS: Abs Immature Grans 0.01 10^3/uL (0.0-0.06); Absolute Basophil Count 0.02 10^3/uL (0.0-0.2); Absolute Eosinophil Count 0.07 10^3/uL (0.0-0.7); Absolute Monocyte Count 0.38 10^3/uL (0.1-0.8); Absolute Neutrophil Count 1.91 10^3/uL (1.2-6.7); Basophils % 0.7; Eosinophils % 2.6; HCT 37.5 % (40.0-50.0); HGB 13.2 g/dL (13.5-17.5); Immature Grans % 0.4; Lymphocytes % 11.2; MCH 34.6 pg (27.0-33.0); MCHC 35.2 % (32.0-36.0); MCV 98.4 fL (80-95); MPV 8.9 fL (8.0-11.0); Monocytes % 14.1; Nucleated RBC 0 %; Platelet Count 176 10^3/uL (130-400); RBC 3.81 10^6/uL (4.36-5.78); RDW 16.8 % (11.8-14.1); RDW-SD 60.2 fL; WBC 2.69 10^3/uL (4.4-10.8)
[2020-12-16 12:40] LABS: ALT 58 U/L (16-63); AST 45 U/L (15-37); Albumin 3.2 g/dL (3.4-5.0); Alkaline Phosphatase 123 U/L (46-116); Anion Gap 10.3 mmol/L (3-11); BUN 5 mg/dL (7-18); Bilirubin, Total 0.3 mg/dL (0.2-1.0); CO2 23.7 mmol/L (21.0-32.0); CREATININE 0.8 mg/dL (0.70-1.30); Calcium 8.4 mg/dL (8.5-10.1); Chloride 103 mmol/L (98-107); Glucose 103 mg/dL (74-106); Potassium 4.1 mmol/L (3.5-5.1); Sodium 137 mmol/L (136-145); Total Protein 6.9 g/dL (6.4-8.2)
== END 2020-12-18 23:59 | disposition home or self-care (01) ==
LOC: INF 12:00
PROVIDERS: PCP Family Medicine; Visit Provider Internal Medicine Hematology & Oncology
DX: C20 Malignant neoplasm of rectum (principal); Z45.2 Encounter for adjustment and management of vascular access device
CPT/HCPCS: 36415; 80053; 96523; 82378; 85025

== ENCOUNTER 2021-01-05 00:50 | Outpatient (CLI) | payer MEDICAID, SELFPAY ==
[2021-01-05] MEDS: Omnipaque 350 MG/ML 50 ML BTL IJ (08:57)
[2021-01-05] MEDS: Breeza Beverage 473 ML BTL PO ×2 (08:58→08:59)
[2021-01-05] MEDS: Omnipaque 350 MG/ML 100 ML BTL IJ (10:25)
[2021-01-05] MEDS: Normal Saline - Diluent 50 ML VIAL IV (10:31)
[2021-01-05] MEDS: Normal Saline Flush 10 ML SYR IVP (10:32)
--- NOTE | 2021-01-05 10:32 | DI.CT_ITS ---
EXAM: CT CHEST/ABD/PEL W CLINICAL HISTORY: RECTAL CA METASTASIZED TO LYMPH NODE,C20,C77.5,ASSESS TREATMENT RESPONSE. TECHNIQUE: Imaging Protocol: Axial computed tomography images with coronal and sagittal reformatted images were created and reviewed CONTRAST MATERIAL: Intravenous: Omnipaque 350 Contrast volume:100 ml Oral: yes COMPARISON: CT CT CHEST/ABD/PEL W from 09/23/2020 FINDINGS: CHEST: Thyroid: Unremarkable. Tracheobronchial tree: Patent where visualized. Mediastinum and Jeanne: No dominant adenopathy or fluid collection. Pulmonary parenchyma: No consolidation or dominant measurable mass. Bibasilar atelectasis. Pleura: No effusion or pneumothorax. Lymph nodes: Within normal limits. Aorta: Thoracic portion non-dilated. Heart: Normal size. Mild coronary artery calcifications. Bones: No significant degenerative changes. No lytic or blastic lesions. Soft tissues: Port overlying the left pectoral muscle. ABDOMEN: Liver: Enlarged. Severe hepatic steatosis.. No measurable mass. Gallbladder and biliary tract: No radiodense calculus or dilation. Pancreas: Normal density, no abnormal calcifications or inflammatory process. Spleen: Normal. Kidneys: Normal size, contour and axis. No radiodense stones or obstructive uropathy. No masses seen. Adrenal glands: No masses seen. Aorta: Abdominal portion non-dilated. Lymph nodes: Tiny para aortic lymph nodes, 10 millimeters in size are less common not visibly changed . Multiple tiny scattered mesenteric lymph nodes, less than a centimeter in size, not visibly change d. PELVIS: Bladder: Symmetric distention, no gross wall thickening. Bowel: Normal appendix. Mild sigmoid diverticulosis. Focal area of wall thickening in the rectum, l ess prominent when compared with the previous exam. Peritoneal cavity: No ascites, collection or mesenteric inflammatory response. Bones: Degenerative disc changes at L4-5 and L5-S1. No lytic or blastic lesions. Reproductive organs: Within normal limits. Lymph nodes: Tiny perirectal lymph nodes, left less than 5 millimeters in size. No significant ascencio e. IMPRESSION: Interval decrease in prominence rectal mass. Stable tiny para-aortic, mesenteric and perirectal lymp h nodes. Severe hepatic steatosis. No new findings. RADIATION DOSE DELIVERED: 1,696.32mGy.cm Total DLP DATA REPOSITORY: All CT scans at this facility are submitted to the National Radiology Data Registry (NRDR) Dose Index Registry (DIR) with the [employer] (ACR). RADIATION OPTIMIZATION: All CT scans at this facility use at least one of these dose optimization te chniques: automated exposure control; mA and/or kV adjustment per patient size (includes targeted exa ms where dose is matched to clinical indication); or iterative reconstruction.
== END 2021-01-05 01:10 ==
PROVIDERS: PCP Family Medicine; Visit Provider Nurse Practitioner Family
DX: C20 Malignant neoplasm of rectum (principal); C77.5 Secondary and unspecified malignant neoplasm of intrapelvic lymph nodes; K76.0 Fatty (change of) liver, not elsewhere classified
CPT/HCPCS: 74177; 71260; J3490; Q9967

== ENCOUNTER 2021-01-15 13:23 | Inpatient (IN) | payer MEDICAID, SELFPAY ==
[2021-01-15] VITALS (30 sets, daily range): BP systolic 112–149; BP diastolic 85–101; PULSE 84–114; RESP 16–26; TEMP 36–37.3; O2SAT 88–95
--- NOTE | 2021-01-15 13:30 | RT.EKG_ITS ---
APPROVED REPORT Exam: Resting ECG Patient Location: E HR:96 bpm ECG Measurements Heart Rate 96 AXIS NJ 141 P 45 QRSd 96 QRS -14 QT 337 T 37 QTc 427 Conclusion Sinus rhythm...normal P axis, V-rate 60- 99 I have reviewed and interpreted ECG and agree with software generated interpretation.
--- NOTE | 2021-01-15 13:37 | W.ED.GENAD ---
Discharge Plan Disposition Patient Disposition: [facility] INPATIENT Condition: Stable Discharge Details Clinical Impression: Nausea and vomiting, Acute pancreatitis, Alcohol withdrawal Primary Care Provider: Freddy Juarez ED Provider: Susanna Leonardo Home Meds and New Rx's Prescriptions: No Action prochlorperazine maleate 10 mg tablet 10 mg PO .EVERY 6 HRS PRN (Reason: Nausea) RF: 0 Boost 0.04 gram- 1 kcal/mL Liquid 180 ml PO PRN PRNRF: 0 Medical Decision Making 50-year-old male with a history of chronic daily alcohol abuse and rectal cancer diagnosed 1 year ago with completion of chemotherapy in the last few months and of radiation of the last few weeks presents for nausea and dry heaving for the last few weeks. Heart rate 110s on arrival. Blood pressure 124/104. Patient appears in no acute distress without tremors or diaphoresis. Patient does not appear to be acutely in alcohol withdrawal. EKG on arrival notes a rate of 96, sinus, no STEMI, nondiagnostic. Abdomen soft and nontender. No focal deficits. Inspection of rectum note hyperpigmentation of skin but no abscess mass or hemorrhoids. Differential diagnosis includes viral illness, gastroenteritis, radiation reaction, alcohol withdrawal, electrolyte abnormality, dehydration, UTI, etc. Will place an IV, bolus IV fluids, screening labs, CT abdomen and pelvis and give Zofran and reassess. Labs and imaging reviewed. White blood cell count 2.48 which has been patient's baseline for several months. Hemoglobin 13. Platelets 154. AST 122. ALT 88. Alk phos 282. Lipase 986. Troponin negative. Urinalysis negative. Alcohol 88. UDS negative. CT abdomen and pelvis notes: IMPRESSION: 1. Severe fatty liver disease is again noted. 2. No significant change in rectal wall thickening and perirectal inflammatory change consistent with history of rectal carcinoma. Case discussed with hospitalist who accepts patient for admission for acute pancreatitis and potential for alcohol withdrawal. Dr. Lujan evaluated patient at bedside. He has ordered phenobarbital for treatment of alcohol withdrawal. Medical Records Medical records reviewed: Yes I reviewed the patient's medical records. Imaging Data Radiologic Study: Radiologist's impression: CT Abdomen And Pelvis With Contrast Exam date and time: 01/15/2021 2:34 PM Age: 50 years old Clinical indication: Other: Vomiting, elevated lfts, lipase, R/O gallstones TECHNIQUE: Imaging protocol: Computed tomography of the abdomen and pelvis with contrast. Contrast material: OMNIPAQUE 350; Contrast volume: 100 ml; Contrast route: INTRAVENOUS (IV); COMPARISON: CT CHEST/ABD/PEL W 01/05/2021 10:25 AM FINDINGS: Liver: Severe diffuse decreased density of the liver. Gallbladder and bile ducts: Normal. No calcified stones. No ductal dilation. Pancreas: Normal. No ductal dilation. Spleen: Normal. No splenomegaly. Adrenal glands: Normal. No mass. Kidneys and ureters: Normal. No hydronephrosis. Stomach and bowel: No significant change in rectal wall thickening and perirectal inflammatory change. This may be secondary to neoplasm or treatment of neoplasm. Appendix: No evidence of appendicitis. Intraperitoneal space: Unremarkable. No free air. No significant fluid collection. Vasculature: Unremarkable. No abdominal aortic aneurysm. Lymph nodes: Unremarkable. No enlarged lymph nodes. Urinary bladder: Unremarkable as visualized. Reproductive: Unremarkable as visualized. Bones/joints: Chronic degenerative changes of the spine are present. Soft tissues: Unremarkable. IMPRESSION: 1. Severe fatty liver disease is again noted. 2. No significant change in rectal wall thickening and perirectal inflammatory change consistent with history of rectal carcinoma. Lab Data Lab results reviewed: Yes I reviewed the patient's lab results. Labs: Laboratory Tests Range/Units 01/15/21 01/15/21 01/15/21 13:40 13:40 14:51 WBC (4.4-10.8) 10^3/uL 2.48 L RBC (4.36-5.78) 10^6/uL 4.12 L Hgb (13.5-17.5) g/dL 13.9 Hct (40.0-50.0) % 40.5 MCV (80-95) fL 98.3 H MCH (27.0-33.0) pg 33.7 H MCHC (32.0-36.0) % 34.3 RDW (11.8-14.1) % 14.2 H Plt Count (130-400) 10^3/uL 154 MPV (8.0-11.0) fL 9.2 Immature Gran % 0.4 Neutrophils % 69.0 Lymphocytes % 13.7 Monocytes % 10.9 Eosinophils % 4.8 Basophils % 1.2 Nucleated RBC % % 0 Absolute Neutrophils (1.2-6.7) 10^3/uL 1.71 Absolute Lymphocytes (1.2-3.4) 10^3/uL 0.34 L Absolute Monocytes (0.1-0.8) 10^3/uL 0.27 Absolute Eosinophils (0.0-0.7) 10^3/uL 0.12 Absolute Basophils (0.0-0.2) 10^3/uL 0.03 Sodium (136-145) mmol/L 136 Potassium (3.5-5.1) mmol/L 3.6 Chloride (98-107) mmol/L 98 Carbon Dioxide (21.0-32.0) mmol/L 24.0 Anion Gap (3-11) mmol/L 14.0 H BUN (7-18) mg/dL 4 L Creatinine (0.70-1.30) mg/dL 0.8 Estimated GFR/1.73 m2 (mL/min/1.73m2) >= 60.00 Glucose (74-106) mg/dL 118 H Calcium (8.5-10.1) mg/dL 8.9 Magnesium (1.8-2.4) mg/dL 2.1 Total Bilirubin (0.2-1.0) mg/dL 0.6 AST (15-37) U/L 122 H ALT (16-63) U/L 88 H Alkaline Phosphatase (46-116) U/L 282 H Troponin I (<0.06) ng/mL < 0.05 Total Protein (6.4-8.2) g/dL 7.5 Albumin (3.4-5.0) g/dL 3.4 Lipase (73-393) U/L 986 H Urine Color (Yellow) Urine Clarity (Clear) Urine pH (5-8) Ur Specific [place] (1.005-1.025) Urine Protein (Negative) mg/dL Urine Ketones (Negative) mg/dL Urine Blood (Negative) Urine Nitrite (Negative) Urine Bilirubin (Negative) Urine Urobilinogen (Up TO 0.2) EU/dL Ur Leukocyte Esterase (Negative) Urine Glucose (Negative) mg/dL Urine Opiates Screen (Negative) Negative Urine Methadone Screen (Negative) Negative Ur Barbiturates Screen (Negative) Negative Ur Tricyclics Screen (Negative) Negative Ur Amphetamines Screen (Negative) Negative U Benzodiazepines Scrn (Negative) Negative Urine Cocaine Screen (Negative) Negative Ur THC Screen (Negative) Negative Ethyl Alcohol (<3) mg/dL 88.8 Range/Units 01/15/21 14:51 WBC (4.4-10.8) 10^3/uL RBC (4.36-5.78) 10^6/uL Hgb (13.5-17.5) g/dL Hct (40.0-50.0) % MCV (80-95) fL MCH (27.0-33.0) pg MCHC (32.0-36.0) % RDW (11.8-14.1) % Plt Count (130-400) 10^3/uL MPV (8.0-11.0) fL Immature Gran % Neutrophils % Lymphocytes % Monocytes % Eosinophils % Basophils % Nucleated RBC % % Absolute Neutrophils (1.2-6.7) 10^3/uL Absolute Lymphocytes (1.2-3.4) 10^3/uL Absolute Monocytes (0.1-0.8) 10^3/uL Absolute Eosinophils (0.0-0.7) 10^3/uL Absolute Basophils (0.0-0.2) 10^3/uL Sodium (136-145) mmol/L Potassium (3.5-5.1) mmol/L Chloride (98-107) mmol/L Carbon Dioxide (21.0-32.0) mmol/L Anion Gap (3-11) mmol/L BUN (7-18) mg/dL Creatinine (0.70-1.30) mg/dL Estimated GFR/1.73 m2 (mL/min/1.73m2) Glucose (74-106) mg/dL Calcium (8.5-10.1) mg/dL Magnesium (1.8-2.4) mg/dL Total Bilirubin (0.2-1.0) mg/dL AST (15-37) U/L ALT (16-63) U/L Alkaline Phosphatase (46-116) U/L Troponin I (<0.06) ng/mL Total Protein (6.4-8.2) g/dL Albumin (3.4-5.0) g/dL Lipase (73-393) U/L Urine Color (Yellow) Yellow Urine Clarity (Clear) Clear Urine pH (5-8) 6.0 Ur Specific [place] (1.005-1.025) <= 1.005 Urine Protein (Negative) mg/dL Negative Urine Ketones (Negative) mg/dL Negative Urine Blood (Negative) Negative Urine Nitrite (Negative) Negative Urine Bilirubin (Negative) Negative Urine Urobilinogen (Up TO 0.2) EU/dL 0.2 Ur Leukocyte Esterase (Negative) Negative Urine Glucose (Negative) mg/dL Negative Urine Opiates Screen (Negative) Urine Methadone Screen (Negative) Ur Barbiturates Screen (Negative) Ur Tricyclics Screen (Negative) Ur Amphetamines Screen (Negative) U Benzodiazepines Scrn (Negative) Urine Cocaine Screen (Negative) Ur THC Screen (Negative) Ethyl Alcohol (<3) mg/dL ECG Data Attestation: I personally reviewed and interpreted this ECG (s) as follows: Interpretation: Rate of 96, sinus, no acute ST elevation or depression. IA 141. QRS 96. QTc 427. HPI General Mode of arrival: ambulatory. Date/Time Provider Initiated Documentation: 01/15/21 13:29. Limitations to Documentation: no limitations. Information obtained by: patient. HPI Narrative: Patient is a 50 yo M w/ a h/o rectal cancer and alcohol abuse who presents to the ED w/ a c/o nausea and dry heaves for the past few weeks. Patient states he was diagnosed with rectal cancer 1 year ago and finished chemotherapy several months ago and radiation a few weeks ago. Patient states he has had dry heaving and nausea for the past 2 weeks since finishing radiation. Patient states he has not been able to vomit or bring up any vomitus has only been dry heaving. He does admit to frequent watery bloody diarrhea which he states is not new and has had this since his rectal cancer diagnosis. Patient denies any fever, cough, chest pain, shortness of breath, abdominal pain, urinary symptoms. He denies any recent hospital admissions or new medications. Related Data Home Medications Medication Instructions Recorded Confirmed prochlorperazine maleate 10 mg PO .EVERY 6 HRS PRN 05/20/20 01/15/21 Boost 180 ml PO PRN PRN 05/24/20 01/15/21 Allergies Allergy/AdvReac Type Severity Reaction Status Date / Time No Known Allergies Allergy Unverified 01/15/21 13:31 General Stated Complaint: Nausea/Vomit/Diar FARHAN: 3 Review of Systems All systems reviewed & are unremarkable except as noted in HPI and below Constitutional Constitutional: Reports as per HPI, Denies chills, Reports fatigue, Denies fever(s), Reports lethargy and Reports poor appetite Eyes Eyes: Denies blurry vision ENT Ears, Nose, Mouth, and Throat: Denies dizziness, Denies sore throat and Denies throat swelling Cardiovascular Cardiovascular: Denies chest pain and Denies dyspnea Respiratory Respiratory: Denies cough and Denies dyspnea Gastrointestinal Gastrointestinal: Denies abdominal pain, Reports diarrhea, Reports nausea and Denies vomiting Genitourinary Genitourinary: Denies hematuria and Denies dysuria Musculoskeletal Musculoskeletal: Denies back pain and Denies numbness Integumentary/Breasts Skin/Breast: Denies lesions and Denies rash Neurologic Neurologic: Denies dizziness, Denies localized weakness and Denies numbness Endocrine Endocrine: Reports fatigue Allergic/Immunologic Allergic/Immunologic: Denies throat swelling [facility] Medical History (Updated 01/15/21 @ 17:37 by Susanna Leonardo DO) Alcohol abuse Rectal cancer Surgical History H/O esophagogastroduodenoscopy Hx of colonoscopy Family History (Updated 05/24/20 @ 04:52 by Dora Garcia MD) Father Colon cancer Paternal Uncle Brain malignancy Maternal Grandmother Brain malignancy Social History Smoking/Tobacco Use Status: Current every day Tobacco Type: smokeless tobacco Smoking risk assessment performed?: Yes Alcohol Intake: current Alcohol Intake frequency: 3 or more drinks per day Alcohol type: beer Drug use: Never Substance use type: does not use Details: 12 pack a day Do you feel safe at home: Yes Do you feel safe in your relationship?: Yes Exam Const General: cooperative and no acute distress Orientation: alert, awake and oriented x3 HENMT Head: normal to inspection Face and sinus: normal facial exam Eyes General: appearance normal, both eyes and all related structures EOM: EOM intact bilaterally Neck Neck: normal visual inspection and No submandibular swelling Lymphatic: no lymphadenopathy noted Chest Chest: normal inspection of the chest and no tenderness Resp Effort & Inspection: normal respiratory effort and able to speak in complete sentences Auscultation: clear to auscultation bilaterally Cardio Rate: regular rate Rhythm: regular rhythm GI Inspection: normal to inspection Palpation: soft, not firm, not rigid and nontender Auscultation: normal bowel sounds Rectal Exam: other (skin appears dark in color around rectum) Skin General skin exam: no rashes or lesions noted Neuro General: patient alert, patient awake and patient oriented x3 Cognition: normal cognition Speech: speech normal Motor: muscle tone normal throughout Sensory Exam: no sensory deficits noted Extrem General: normal to inspection, full ROM, capillary refill normal, no calf tenderness bilaterally and no edema Psych Appearance: grossly normal Mental Status: mental status grossly normal Speech and Movement: speech and movement normal Affect: normal affect Course Vital Signs Vital signs: Vital Signs Temperature 97.0 F L 01/15/21 13:28 Pulse 114 H 01/15/21 13:28 Respiratory Rate 20 01/15/21 13:28 Blood Pressure 124/101 H 01/15/21 13:28 Pulse Oximetry 95 01/15/21 13:28 Temperature 97.0 F L 01/15/21 13:28 Temperature Source Skin 01/15/21 13:28 Pulse 114 H 01/15/21 13:28 Respiratory Rate 20 01/15/21 13:28 Respiratory Effort Non-Labored 01/15/21 13:31 Blood Pressure 124/101 H 01/15/21 13:28 Blood Pressure Position Sitting 01/15/21 13:28 Pulse Oximetry 95 01/15/21 13:28 Oxygen Delivery Method Room Air 01/15/21 13:28 Oxygen Flow Rate 0 01/15/21 13:28 Pain Level 0 01/15/21 13:28
[2021-01-15 13:47] LABS: Abs Immature Grans 0.01 10^3/uL (0.0-0.06); Absolute Basophil Count 0.03 10^3/uL (0.0-0.2); Absolute Eosinophil Count 0.12 10^3/uL (0.0-0.7); Absolute Lymphocyte Count 0.34 10^3/uL (1.2-3.4); Absolute Monocyte Count 0.27 10^3/uL (0.1-0.8); Absolute Neutrophil Count 1.71 10^3/uL (1.2-6.7); Basophils % 1.2; Eosinophils % 4.8; HCT 40.5 % (40.0-50.0); HGB 13.9 g/dL (13.5-17.5); Immature Grans % 0.4; Lymphocytes % 13.7; MCH 33.7 pg (27.0-33.0); MCHC 34.3 % (32.0-36.0); MCV 98.3 fL (80-95); MPV 9.2 fL (8.0-11.0); Monocytes % 10.9; Nucleated RBC 0 %; Platelet Count 154 10^3/uL (130-400); RBC 4.12 10^6/uL (4.36-5.78); RDW 14.2 % (11.8-14.1); RDW-SD 52.1 fL; WBC 2.48 10^3/uL (4.4-10.8)
[2021-01-15] MEDS: Ondansetron 4 MG/2 ML VIAL IVP (14:00)
[2021-01-15] MEDS: Normal Saline 1,000 ML 1000 ML IV (14:00)
[2021-01-15] MEDS: Normal Saline Flush 10 ML SYR IVP ×2 (14:01→18:35)
[2021-01-15 14:02] LABS: ALT 88 U/L (16-63); AST 122 U/L (15-37); Albumin 3.4 g/dL (3.4-5.0); Alkaline Phosphatase 282 U/L (46-116); BUN 4 mg/dL (7-18); Bilirubin, Total 0.6 mg/dL (0.2-1.0); CREATININE 0.8 mg/dL (0.70-1.30); Calcium 8.9 mg/dL (8.5-10.1); Chloride 98 mmol/L (98-107); ETHANOL BLOOD 88.8 mg/dL (<3); Glucose 118 mg/dL (74-106); Lipase 986 U/L (73-393); Magnesium 2.1 mg/dL (1.8-2.4); Potassium 3.6 mmol/L (3.5-5.1); Sodium 136 mmol/L (136-145); Total Protein 7.5 g/dL (6.4-8.2); Troponin I < 0.05 ng/mL (<0.06)
--- NOTE | 2021-01-15 14:26 | DI.CT_ITS ---
EXAM: CT ABDOMEN PELVIS W CLINICAL HISTORY: vomiting, elevated LFTs, lipase, r/o gallstones. TECHNIQUE: Imaging Protocol: Axial computed tomography images with coronal and sagittal reformatted images were created and reviewed CONTRAST MATERIAL: Intravenous: Omnipaque 100cc Oral: None COMPARISON: CT CT CHEST/ABD/PEL W from 01/05/2021 FINDINGS: VISUALIZED LUNG BASES: Mild atelectasis again noted. No pleural effusions. ABDOMEN: There is no ascites. LIVER: Profound hypodensity of the liver again noted consistent with severe hepatic steatosis. There are no metastatic appearing lesions in the liver. GALLBLADDER/BILIARY: No obvious acute gallbladder pathology. CBD is not dilated. PANCREAS: No evidence of pancreatic mass nor dilatation of the pancreatic duct. SPLEEN: Spleen is not enlarged. No obvious intrasplenic lesions. Splenic and portal veins are paten t. ADRENALS: There are no significant adrenal masses. KIDNEYS:No cysts evident. No solid renal masses. No calculi nor hydronephrosis.. Both ureters are slightly prominent caliber entire distance but without calculus or mass at the ureterovesical junctio ns nor within the urinary bladder. ABDOMINAL AORTA: Abdominal aorta is not enlarged. LYMPH NODES:There is no retroperitineal nor paraaortic adenopathy. ABDOMINAL WALL/GI: No evidence of significant anterior abdominal wall hernia. No bowel obstruction. PELVIS: GI: No evidence of appendicitis.There is sigmoid diverticuli without evidence of acute diverticulitis .There is thickening of the wall of the rectum perirectal streaking. No drainable fluid collection. No prominent adenopathy. LYMPH NODES: There is no intrapelvic nor inguinal adenopathy. REPRODUCTIVE: Prostate size upper normal. URINARY BLADDER: No calculi nor obvious masses evident OSSEOUS: No significant osseous lesions. Chronic degenerative disc disease lower lumbar spine IMPRESSION: 1. Severe [place] steatosis is again noted. 2. Rectal wall thickening and perirectal inflammatory changes are again noted. No new fluid collecti on in this region. Apparently there was a history of rectal malignancy. RADIATION DOSE DELIVERED: 901.46mGy.cm Total DLP DATA REPOSITORY: All CT scans at this facility are submitted to the National Radiology Data Registry (NRDR) Dose Index Registry (DIR) with the [employer] (ACR). RADIATION OPTIMIZATION: All CT scans at this facility use at least one of these dose optimization te chniques: automated exposure control; mA and/or kV adjustment per patient size (includes targeted exa ms where dose is matched to clinical indication); or iterative reconstruction.
[2021-01-15] MEDS: Normal Saline - Diluent 50 ML VIAL IV (14:39)
[2021-01-15] MEDS: Omnipaque 350 MG/ML 100 ML BTL IJ (14:40)
[2021-01-15 15:00] LABS: Bilirubin Negative (Negative); Blood Negative (Negative); Clarity Clear (Clear); Glucose Negative (Negative); Ketones Negative (Negative); Leukocyte Esterase Negative (Negative); Nitrite Negative (Negative); Specific Gravity <= 1.005 (1.005-1.025); Urobilinogen 0.2 EU/dL (Up TO 0.2)
[2021-01-15 15:13] LABS: *AMPHETAMINES SCREEN URINE Negative (Negative); *BARBITURATES SCREEN URINE Negative (Negative); *BENZODIAZEPINES SCREEN URINE Negative (Negative); Cannabinoids THC Negative (Negative); Cocaine Screen,Urine Negative (Negative); METHADONE URINE SCREEN Negative (Negative); OPIATES URINE SCREEN Negative (Negative)
[2021-01-15 15:14] LABS: Tricyclic Antidepressants Negative (Negative)
--- NOTE | 2021-01-15 15:17 | DI.VRAD_ITS ---
PROCEDURE INFORMATION: Exam: CT Abdomen And Pelvis With Contrast Exam date and time: 01/15/2021 2:34 PM Age: 50 years old Clinical indication: Other: Vomiting, elevated lfts, lipase, R/O gallstones TECHNIQUE: Imaging protocol: Computed tomography of the abdomen and pelvis with contrast. Contrast material: OMNIPAQUE 350; Contrast volume: 100 ml; Contrast route: INTRAVENOUS (IV); COMPARISON: CT CHEST/ABD/PEL W 01/05/2021 10:25 AM FINDINGS: Liver: Severe diffuse decreased density of the liver. Gallbladder and bile ducts: Normal. No calcified stones. No ductal dilation. Pancreas: Normal. No ductal dilation. Spleen: Normal. No splenomegaly. Adrenal glands: Normal. No mass. Kidneys and ureters: Normal. No hydronephrosis. Stomach and bowel: No significant change in rectal wall thickening and perirectal inflammatory change. This may be secondary to neoplasm or treatment of neoplasm. Appendix: No evidence of appendicitis. Intraperitoneal space: Unremarkable. No free air. No significant fluid collection. Vasculature: Unremarkable. No abdominal aortic aneurysm. Lymph nodes: Unremarkable. No enlarged lymph nodes. Urinary bladder: Unremarkable as visualized. Reproductive: Unremarkable as visualized. Bones/joints: Chronic degenerative changes of the spine are present. Soft tissues: Unremarkable. IMPRESSION: 1. Severe fatty liver disease is again noted. 2. No significant change in rectal wall thickening and perirectal inflammatory change consistent with history of rectal carcinoma. Dictated and Authenticated by: Tai Arevalo MD. Ordering:МАРИНА Mullins MD
--- NOTE | 2021-01-15 15:44 | HPE_ITS ---
Date of service: 01/15/21 Time of Service: 15:44 Assessment and Plan Assessment and plan (1) Acute pancreatitis: Status: Acute Assessment and plan: Keep n.p.o., give IV fluids and antiemetics. Once his nausea and vomiting are controlled we will give him a trial of clear liquids and advance his diet as tolerated. We will repeat his labs in the morning Qualifiers: Pancreatitis type: alcohol induced Acute pancreatitis complication: no infection or necrosis Qualified Code(s): K85.20 - Alcohol induced acute pancreatitis without necrosis or infection (2) Alcohol withdrawal: Status: Acute Assessment and plan: Although patient has evidence of fatty liver changes on his CT scan the fact that he had normal LFTs about a month ago and the lack of cirrhotic changes on CT scanning suggest that he should be able to tolerate phenobarbital. Patient will be started on loading dose of 15 mg/kg of phenobarbital and then use phenobarbital 130 mg -260 mg IV every 30 minutes as needed CIWA scale greater than 8. We will also give him a banana bag. Qualifiers: Complication of substance-induced condition: uncomplicated Qualified Code(s): F10.230 - Alcohol dependence with withdrawal, uncomplicated (3) Nausea and vomiting: Status: Acute Assessment and plan: As above. Treat nausea and vomiting with as needed use of Zofran and Reglan. Start on a PPI for GI protection. Keep n.p.o. until nausea and vomiting are controlled then gradually reintroduce a clear liquid diet. Qualifiers: Vomiting type: bilious vomiting Qualified Code(s): R11.14 - Bilious vomiting History of Present Illness History of Present Illness Chief Complaint: nausea and vomiting Narrative: 50-year-old male with history of rectal carcinoma status post chemotherapy and radiation therapy which he received through [facility] and [facility] which she just completed a few we eks ago. He has a history of alcoholism and admits to drinking up to a 12 pack of beer per day. While he was undergoing chemotherapy he had cut down on his alcohol use but admits recently since completion of his treatments he has increased his alcohol intake. Says he has been severely nauseated and had protracted vomiting for the past week. He denies any hematemesis or melena. However he does have some chronic hematochezia with some bloody diarrhea which is not new since he was diagnosed with rectal carcinoma. He denies any abdominal pain, fever, chills, rigors, chest pain, dyspnea. He has had no loss of sense of taste or smell and to the best of his knowledge she has not been exposed to anybody with COVID-19. Evaluation emergency room demonstrated mild hypertension on admission with diastolic blood pressures in the high 90s to low 100s and systolic pressures into the 130s to 140s. He is tachycardic with heart rate in the low 100s. He is somewhat tremulous but not having any hallucinations or diaphoresis. His oxygen saturation is in the low to mid 90s on room air. Diagnostic work-up included routine labs and a CT scan of his abdomen. CBC demonstrates a mild leukopenia with a white count of 2480 with an absolute lymphocyte count of 340. CMP demonstrated normal electrolytes but an increase in anion gap of 14 with normal BUN and creatinine. Transaminases are modestly elevated with an AST of 122, ALT 88, alkaline phosphatase 282 with a normal total bilirubin of 0.6. 1 month ago his transaminases were nearly normal. His lipase is elevated at 986. Urine drug screen was negative for drugs of abuse his blood alcohol level was 88 mg/dL. CT of the abdomen and pelvis was performed and showed fatty liver changes and no significant change in his rectal wall thickening and perirectal inflammatory changes. Gallbladder and bile ducts were normal with no stones or dilatation and surprisingly pancreas appear to be normal. Patient was treated in the emergency department with a bolus of normal saline thousand mill liters and given 4 mg of Zofran for his nausea. Dr. Leonardo, emergency room attending, requested admission for treatment of intractable nausea and vomiting and acute pancreatitis. At this time his nasopharyngeal swab for Covid is pending and until this comes back negative he will be placed as a PUI. Review of Systems Constitutional Constitutional: Reports lethargy, Reports malaise and Reports poor appetite Cardiovascular Cardiovascular: Reports system reviewed and no additional complaints, except as documented Respiratory Respiratory: Reports system reviewed and no additional complaints, except as documented Gastrointestinal Gastrointestinal: Reports as per HPI Genitourinary Genitourinary: Reports system reviewed and no additional complaints, except as documented Musculoskeletal Musculoskeletal: Reports system reviewed and no additional complaints, except as documented Integumentary/Breasts Skin/Breast: Reports system reviewed and no additional complaints, except as documented Neurologic Neurologic: Reports system reviewed and no additional complaints, except as documented Psychiatric Psychiatric: Reports system reviewed and no additional complaints, except as documented Endocrine Endocrine: Reports system reviewed and no additional complaints, except as documented Hematologic/Lymphatic Hematologic/Lymphatic: Reports system reviewed and no additional complaints, except as documented Allergic/Immunologic Allergic/Immunologic: Reports system reviewed and no additional complaints, except as documented [facility] Medical History Alcohol abuse Rectal cancer Surgical History H/O esophagogastroduodenoscopy Hx of colonoscopy Family History Father Colon cancer Paternal Uncle Brain malignancy Maternal Grandmother Brain malignancy Social History Smoking/Tobacco Use Status: Current every day Tobacco Type: smokeless tobacco Smoking risk assessment performed?: Yes Alcohol Intake: current Alcohol Intake frequency: 3 or more drinks per day Alcohol type: beer Drug use: Never Substance use type: does not use Details: 12 pack a day Do you feel safe at home: Yes Do you feel safe in your relationship?: Yes Meds Home Medications and Allergies Allergies Allergy/AdvReac Type Severity Reaction Status Date / Time No Known Allergies Allergy Unverified 01/15/21 13:31 Home Medications Medication Instructions Recorded Confirmed Type prochlorperazine maleate 10 mg PO .EVERY 6 HRS PRN 05/20/20 01/15/21 History Boost 180 ml PO PRN PRN 05/24/20 01/15/21 History Exam Narrative Exam Narrative: Middle-age male who appears disheveled. HEENT is remarkable for dry mucous membranes Neck is supple no JVD normal carotid pulses slightly tachycardic but regular without bruits no adenopathy. Lungs are clear to auscultation Heart is regular but tachycardic without murmur rub Chest wall reveals left upper chest has a subcutaneous Mediport without palpable induration or fluctuance and no erythema. Abdomen soft nondistended no guarding or rebound tenderness no palpable masses no bruits. Extremities without peripheral cyanosis or edema no diaphoresis Neuro exam grossly intact he is somewhat tremulous in his hands. No focal cranial nerve deficits no focal motor deficits. Results Labs Result diagrams: 01/15/21 13:40 01/15/21 13:40 Labs: Laboratory Results - last 24 hr 01/15/21 01/15/21 01/15/21 13:40 13:40 14:51 WBC 2.48 L RBC 4.12 L Hgb 13.9 Hct 40.5 MCV 98.3 H MCH 33.7 H MCHC 34.3 RDW 14.2 H Plt Count 154 MPV 9.2 Immature Gran % 0.4 Neutrophils % 69.0 Lymphocytes % 13.7 Monocytes % 10.9 Eosinophils % 4.8 Basophils % 1.2 Nucleated RBC % 0 Absolute Neutrophils 1.71 Absolute Lymphocytes 0.34 L Absolute Monocytes 0.27 Absolute Eosinophils 0.12 Absolute Basophils 0.03 Sodium 136 Potassium 3.6 Chloride 98 Carbon Dioxide 24.0 Anion Gap 14.0 H BUN 4 L Creatinine 0.8 Estimated GFR/1.73 m2 >= 60.00 Glucose 118 H Calcium 8.9 Magnesium 2.1 Total Bilirubin 0.6 AST 122 H ALT 88 H Alkaline Phosphatase 282 H Troponin I < 0.05 Total Protein 7.5 Albumin 3.4 Lipase 986 H Urine Color Urine Clarity Urine pH Ur Specific [place] Urine Protein Urine Ketones Urine Blood Urine Nitrite Urine Bilirubin Urine Urobilinogen Ur Leukocyte Esterase Urine Glucose Urine Opiates Screen Negative Urine Methadone Screen Negative Ur Barbiturates Screen Negative Ur Tricyclics Screen Negative Ur Amphetamines Screen Negative U Benzodiazepines Scrn Negative Urine Cocaine Screen Negative Ur THC Screen Negative Ethyl Alcohol 88.8 01/15/21 14:51 WBC RBC Hgb Hct MCV MCH MCHC RDW Plt Count MPV Immature Gran % Neutrophils % Lymphocytes % Monocytes % Eosinophils % Basophils % Nucleated RBC % Absolute Neutrophils Absolute Lymphocytes Absolute Monocytes Absolute Eosinophils Absolute Basophils Sodium Potassium Chloride Carbon Dioxide Anion Gap BUN Creatinine Estimated GFR/1.73 m2 Glucose Calcium Magnesium Total Bilirubin AST ALT Alkaline Phosphatase Troponin I Total Protein Albumin Lipase Urine Color Yellow Urine Clarity Clear Urine pH 6.0 Ur Specific [place] <= 1.005 Urine Protein Negative Urine Ketones Negative Urine Blood Negative Urine Nitrite Negative Urine Bilirubin Negative Urine Urobilinogen 0.2 Ur Leukocyte Esterase Negative Urine Glucose Negative Urine Opiates Screen Urine Methadone Screen Ur Barbiturates Screen Ur Tricyclics Screen Ur Amphetamines Screen U Benzodiazepines Scrn Urine Cocaine Screen Ur THC Screen Ethyl Alcohol Last Vital Signs Temp 36.6 C 01/15/21 15:00 Pulse 93 H 01/15/21 15:00 Resp 16 01/15/21 15:00 BP 130/91 H 01/15/21 15:00 Pulse Ox 94 01/15/21 15:00 COVID-19 Screening Have you, or household traveled for leisure in last 14 days?: No Had IN PERSON contact w/suspected or confirmed C-19 person: No
[2021-01-15] MEDS: PHENobarbital 130 MG/ML VIAL 117 MG IVP (16:04)
[2021-01-15] MEDS: Normal Saline 50 ML 400 ML (16:05)
--- NOTE | 2021-01-15 16:34 | NUR.NOTE ---
Nursing Note: Called [facility] requesting inpatient dose of loading dose of Phenobarbital be released for ER use, Pharmacist would like to clarify dosing with Prescriber before given. Hospitalist name and # given to Pharmacist for clarification, KAVIN Haywood also aware and will text page Prescriber to contact Pharmacist. Pt will remain in the ER until loading dose administered, report given to KAVIN Haywood.
[2021-01-15 21:29] LABS: COVID-19 PCR Negative (Negative)
[2021-01-16] VITALS (16 sets, daily range): BP systolic 104–142; BP diastolic 75–100; PULSE 78–107; RESP 18–20; TEMP 36.4–37.4; O2SAT 89–95
--- NOTE | 2021-01-16 00:42 | NUR.NOTE ---
PT WAS SEEN BY OTHER STAFF TO BE USING CHEWING TOBACCO. EXPAINED TO PT THAT TOBACCO PRODUCTS ARE NOT ALLOWED IN HOSPITAL SETTING. ALSO, EXPAINED IT MAY NOT BE GOOD FOR HIS STOMACH AT THIS TIME. PT REPLIED BY SAYING YOU ARENT GOING TO TAKE MY TIN AWAY. ASSURED PT I WOULD NOT TAKE IT FROM HIM BUT HE NEEDS TO RESTRAIN FROM USING IT. OFFERED TO GET A NICOTINE SUBSTITUTE SUCH GUM OR AN INHALER. WHEN ASKED IF HE WOULD LIKE THIS PT SAID HE GUESSED SO. CLINICAL COORDINATOR AND NURSING SOLID WASTE ANALYST AWARE AND REQUESTED THIS NURSE SPEAK TO PT. ursing Note:
[2021-01-16] MEDS: Normal Saline Flush 10 ML SYR IVP ×3 (01:37→08:29)
[2021-01-16] MEDS: PHENobarbital 130 MG/ML VIAL IVP ×3 (01:38→08:28)
[2021-01-16 06:46] LABS: Absolute Basophil Count 0.02 10^3/uL (0.0-0.2); Absolute Eosinophil Count 0.11 10^3/uL (0.0-0.7); Absolute Lymphocyte Count 0.31 10^3/uL (1.2-3.4); Absolute Monocyte Count 0.29 10^3/uL (0.1-0.8); Basophils % 0.9; Eosinophils % 4.7; HGB 11.8 g/dL (13.5-17.5); Lymphocytes % 13.3; MCH 33.2 pg (27.0-33.0); MCHC 32.8 % (32.0-36.0); MCV 101.4 fL (80-95); MPV 9.5 fL (8.0-11.0); Monocytes % 12.4; Neutrophils % 68.7; Nucleated RBC 0 %; Platelet Count 127 10^3/uL (130-400); RBC 3.55 10^6/uL (4.36-5.78); RDW 14.3 % (11.8-14.1); RDW-SD 53.7 fL; WBC 2.33 10^3/uL (4.4-10.8)
[2021-01-16 07:10] LABS: PHOSPHORUS 3.5 mg/dL (2.6-4.7)
[2021-01-16 07:13] LABS: ETHANOL BLOOD < 3.0 mg/dL (<3)
[2021-01-16 07:14] LABS: ALT 62 U/L (16-63); AST 72 U/L (15-37); Albumin 2.8 g/dL (3.4-5.0); Alkaline Phosphatase 217 U/L (46-116); BUN 4 mg/dL (7-18); Bilirubin, Total 0.6 mg/dL (0.2-1.0); CREATININE 0.9 mg/dL (0.70-1.30); Calcium 8.5 mg/dL (8.5-10.1); Chloride 104 mmol/L (98-107); Glucose 117 mg/dL (74-106); Lipase 871 U/L (73-393); Magnesium 2.1 mg/dL (1.8-2.4); Potassium 4.2 mmol/L (3.5-5.1); Sodium 139 mmol/L (136-145); Total Protein 6.2 g/dL (6.4-8.2)
[2021-01-16] MEDS: MULTIVITAMIN 10 ML, THIAMINE 100 MG, FOLIC ACID 1 MG in DEXTROSE 5%-0.45% SALINE 1,000 ML 42 ML IV (08:30)
--- NOTE | 2021-01-16 09:47 | INITIAL_ITS ---
- If Service Date Differs Date of service: 01/16/21 Time of Service: 09:47 Care Management Initial Assess REASON FOR HOSPITALIZATION:: Acute pancreatitis PAST MEDICAL HISTORY/PAST SURGICAL HISTORY:: Medical History . Alcohol abuse. Rectal cancer. Surgical History . H/O esophagogastroduodenoscopy. Hx of colonoscopy PREVIOUS FUNCTIONAL STATUS/SOCIAL/FAMILY SUPPORTS:: Idris lives in a single family home in [facility] with his mother. He is currently from his . Idris has 2 children, a 1 1/2 year old son and a 2 1/2 year old daughter who are in his 's custody. Idris has 3 siblings, a brother and 2 sisters. He describes his sisters as supportive but his brother is not. Idris is unemployed and receives disability. CURRENT FUNCTIONAL STATUS:: Idris was sitting up in bed when CM met with him. He was irritable, stating that he had been sleeping well until the nurse came in and woke him up. He was disinclined to converse with CM after answering the questions posed, stating that he wanted to go back to sleep. ADVANCE DIRECTIVES:: None on file Has patient been provided with info about the portal/API?: Yes Did the patient sign up for the portal?: No CODE STATUS:: Full Code INSURANCE COVERAGE / FINANCIAL ISSUES:: Medicaid CURRENT HOME/COMMUNITY SERVICES/EQUIPMENT:: none currently PRIMARY CARE PHYSICIAN:: Freddy Juarez POTENTIAL DISCHARGE NEEDS:: Follow up with PCP and discharge plan of care PATIENT/FAMILY EDUCATION NEEDS:: Review of discharge instructions, folllow up plan, Limitations, Ask Me Three TRANSPORTATION:: via private vehicle with family/friends PLAN:: Idris will likely be discharged home with no new services. He will follow up with his PCP and discharge plan of care and transport with family. CM will continue to support patient and assess for discharge planning needs.
--- NOTE | 2021-01-16 10:03 | PGE_ITS ---
Date of Service Date of service: 01/16/21 Time of Service: 10:03 Assessment and Plan Assessment and plan (1) Nausea and vomiting: Status: Acute Assessment and plan: probably d/t alcoholic gastritis rather than from pancreatitis given the lack of CT findings on his pancreas and lack of abdominal pains. I will start him on protonix and carafate and discharge home this afternoon Qualifiers: Vomiting type: bilious vomiting Qualified Code(s): R11.14 - Bilious vomiting (2) Alcoholic gastritis: Status: Acute Assessment and plan: as above Qualifiers: Chronicity: unspecified Gastritis bleeding: without bleeding Qualified Code(s): K29.20 - Alcoholic gastritis without bleeding (3) Acute pancreatitis: Status: Acute Assessment and plan: he has lab evidence of pancreatitis but no structural changes on CT such as pancreatic edema, nor phlemgmon or pseudocyst nor peripancreatic edema/fluid. He has no gall stones. I think given that his presenting symptoms of protracted nausea and vomiting have improved and he tolerated a regular diet for breakfast suggests that his primary presenting problem was probably a gastritis rather than from pancreatitis. His lipase is only mildly elevated. I will check lipid profile from his a.m. labs to rule out other causes however given his chronic alcoholism, his elevated lipase comes as no surprise. Qualifiers: Pancreatitis type: alcohol induced Acute pancreatitis complication: no infection or necrosis Qualified Code(s): K85.20 - Alcohol induced acute pancreatitis without necrosis or infection (4) Alcohol withdrawal: Status: Acute Assessment and plan: patient has history of alcohol withdrawal, he was started on phenobarbital to head off any severe acute withdrawal. His CIWA scores have been relatively low. I think that he can be safely discharged without continued inpatient monitoring particularly given the long half life of phenobarbital. I do not think that he needs any outpatient meds for withdrawal. He will most likely go back to drinking alcohol now that his nausea has resolved. Qualifiers: Complication of substance-induced condition: uncomplicated Qualified Code(s): F10.230 - Alcohol dependence with withdrawal, uncomplicated Subjective Subjective Interval history since last seen: Patient denies any nausea or vomiting or abdominal pains. He feels a little anxious but no hallucinations. He has been receiving phenobarbital IV for alcohol withdrawal. He has had a total of 1417 mg total. His calculated limit is 25 mg/kg ideal body weight (74 kg) which corresponds to total dose of 1850 mg. His CIWA score has 0 to 8. current level is 7. He would like to be discharged. His lipase however is only down to 871 from 986 yesterday, however his LFT have improved (AST 72, ALT 62, alk. phos. 217 and total bili 0.6). I explained to Idris that as long as he continues to drink alcohol he is going to inflame his pancreas and cause alcoholic gastritis. Interestingly his CT of his abdomen did not show inflammatory changes (i.e. swelling of pancreas or peripancreatic edema) but more importantly no biliary obstruction such as mass or stones. I suspect that his protracted nausea and vomting are more d/t alcoholic gastritis than pancreatitis particularly since he has had no abdominal pains. I will put him on carafate and protnix. He would like to go home. I told him that if he is tolerating his lunch then he can be discharged this afternoon. Exam Narrative Exam Narrative: Middle-age male who appears to be calm nondiaphoretic alert and oriented person place time circumstance. Abdomen is obese but soft nontender nondistended normal active bowel sounds no masses no rebound tenderness or guarding. Objective Last Vital Signs Temp 36.8 C 01/16/21 07:57 Pulse 104 H 01/16/21 09:36 Resp 18 01/16/21 09:36 BP 126/93 H 01/16/21 09:36 Pulse Ox 95 01/16/21 09:36 Laboratory Results - last 24 hr 01/15/21 01/15/21 01/15/21 13:40 13:40 14:51 WBC 2.48 L RBC 4.12 L Hgb 13.9 Hct 40.5 MCV 98.3 H MCH 33.7 H MCHC 34.3 RDW 14.2 H Plt Count 154 MPV 9.2 Immature Gran % 0.4 Neutrophils % 69.0 Lymphocytes % 13.7 Monocytes % 10.9 Eosinophils % 4.8 Basophils % 1.2 Nucleated RBC % 0 Absolute Neutrophils 1.71 Absolute Lymphocytes 0.34 L Absolute Monocytes 0.27 Absolute Eosinophils 0.12 Absolute Basophils 0.03 Sodium 136 Potassium 3.6 Chloride 98 Carbon Dioxide 24.0 Anion Gap 14.0 H BUN 4 L Creatinine 0.8 Estimated GFR/1.73 m2 >= 60.00 Glucose 118 H Calcium 8.9 Phosphorus Magnesium 2.1 Total Bilirubin 0.6 AST 122 H ALT 88 H Alkaline Phosphatase 282 H Troponin I < 0.05 Total Protein 7.5 Albumin 3.4 Lipase 986 H Urine Color Urine Clarity Urine pH Ur Specific [place] Urine Protein Urine Ketones Urine Blood Urine Nitrite Urine Bilirubin Urine Urobilinogen Ur Leukocyte Esterase Urine Glucose Urine Opiates Screen Negative Urine Methadone Screen Negative Ur Barbiturates Screen Negative Ur Tricyclics Screen Negative Ur Amphetamines Screen Negative U Benzodiazepines Scrn Negative Urine Cocaine Screen Negative Ur THC Screen Negative Ethyl Alcohol 88.8 COVID-19 Source SARS-CoV-2 (PCR) 01/15/21 01/15/21 01/16/21 14:51 17:25 06:30 WBC RBC Hgb Hct MCV MCH MCHC RDW Plt Count MPV Immature Gran % Neutrophils % Lymphocytes % Monocytes % Eosinophils % Basophils % Nucleated RBC % Absolute Neutrophils Absolute Lymphocytes Absolute Monocytes Absolute Eosinophils Absolute Basophils Sodium 139 Potassium 4.2 Chloride 104 Carbon Dioxide 29.0 Anion Gap 6.0 BUN 4 L Creatinine 0.9 Estimated GFR/1.73 m2 >= 60.00 Glucose 117 H Calcium 8.5 Phosphorus Magnesium 2.1 Total Bilirubin 0.6 AST 72 H ALT 62 Alkaline Phosphatase 217 H Troponin I Total Protein 6.2 L Albumin 2.8 L Lipase 871 H Urine Color Yellow Urine Clarity Clear Urine pH 6.0 Ur Specific [place] <= 1.005 Urine Protein Negative Urine Ketones Negative Urine Blood Negative Urine Nitrite Negative Urine Bilirubin Negative Urine Urobilinogen 0.2 Ur Leukocyte Esterase Negative Urine Glucose Negative Urine Opiates Screen Urine Methadone Screen Ur Barbiturates Screen Ur Tricyclics Screen Ur Amphetamines Screen U Benzodiazepines Scrn Urine Cocaine Screen Ur THC Screen Ethyl Alcohol COVID-19 Source Nasopharyx SARS-CoV-2 (PCR) Negative 01/16/21 01/16/21 01/16/21 06:30 06:30 06:30 WBC 2.33 L RBC 3.55 L Hgb 11.8 L D Hct 36.0 L MCV 101.4 H D MCH 33.2 H MCHC 32.8 RDW 14.3 H Plt Count 127 L MPV 9.5 Immature Gran % 0.0 Neutrophils % 68.7 Lymphocytes % 13.3 Monocytes % 12.4 Eosinophils % 4.7 Basophils % 0.9 Nucleated RBC % 0 Absolute Neutrophils 1.60 Absolute Lymphocytes 0.31 L Absolute Monocytes 0.29 Absolute Eosinophils 0.11 Absolute Basophils 0.02 Sodium Potassium Chloride Carbon Dioxide Anion Gap BUN Creatinine Estimated GFR/1.73 m2 Glucose Calcium Phosphorus 3.5 Magnesium Total Bilirubin AST ALT Alkaline Phosphatase Troponin I Total Protein Albumin Lipase Urine Color Urine Clarity Urine pH Ur Specific [place] Urine Protein Urine Ketones Urine Blood Urine Nitrite Urine Bilirubin Urine Urobilinogen Ur Leukocyte Esterase Urine Glucose Urine Opiates Screen Urine Methadone Screen Ur Barbiturates Screen Ur Tricyclics Screen Ur Amphetamines Screen U Benzodiazepines Scrn Urine Cocaine Screen Ur THC Screen Ethyl Alcohol < 3.0 COVID-19 Source SARS-CoV-2 (PCR)
[2021-01-16 10:38] LABS: Calculated LDL 85 mg/dL (<100); Cholesterol 192 mg/dL (<200); HDL Cholesterol 91 mg/dL (40-60); Triglyceride 82 mg/dL (<150)
[2021-01-16] MEDS: Pantoprazole 40 MG TABCR PO (10:50)
[2021-01-16] MEDS: Sucralfate 1 GM TAB PO ×2 (11:59→15:53)
--- NOTE | 2021-01-16 15:28 | DSE_ITS ---
Date of service: 01/16/21 Time of Service: 15:28 DS: Diagnosis Discharge Diagnosis (1) Nausea and vomiting: Status: Resolved (2) Alcoholic gastritis: Status: Acute Asessment and Plan: Patient is advised that he needs to quit drinking alcohol. He has been given a prescription for Protonix and Carafate. (3) Acute pancreatitis: Status: Acute Asessment and Plan: Follow patient's lipase was elevated on admission at 986 and had declined slightly overnight 871 nevertheless he had no abdominal pain and his nausea and vomiting had resolved. Furthermore his transaminases improved overnight. Lipid profile showed no hypertriglyceridemia. Triglyceride level was 82 total cholesterol [address] imaging of his pancreas showed no pseudocyst or pancreatic phlegmon. In fact there is no evidence of pancreatic edema or peripancreatic fluid. CT also showed no abnormalities of his gallbladder or biliary tract. Patient's been advised that the only way to prevent recurrent alcoholic gastritis and pancreatitis is to refrain from drinking. (4) Alcohol withdrawal: Status: Acute Asessment and Plan: Patient experienced mild alcohol withdrawal symptoms even though he came in slightly intoxicated. He was medicated with phenobarbital which she tolerated quite well without being overly sedated. He did not experience severe withdrawal symptoms. At this point patient is being discharged but does not need further medications for alcohol withdrawal. Discharge Plan Disposition Patient Disposition: HOME Condition: Improving Discharge Details Reason For Visit: PANCREATITIS, ALCOHOLISM, INTRACTABLE VOMITING Admit Date/Time: 01/15/21 15:42 Admit Provider: Jason Phillips Attending Provider: Jason Phillips Primary Care Provider: Freddy Juarez Hospital Course Hospital Course: 50-year-old male with history of rectal carcinoma status post chemotherapy and radiation therapy which he received through [facility] and [facility] which she just completed a few weeks ago. He has a history of alcoholism and admits to drinking up to a 12 pack of beer per day. While he was undergoing chemotherapy he had cut down on his alcohol use but admits recently since completion of his treatments he has increased his alcohol intake. Says he has been severely nauseated and had protracted vomiting for the past week. He denies any hematemesis or melena. However he does have some chronic hematochezia with some bloody diarrhea which is not new since he was diagnosed with rectal carcinoma. He denies any abdominal pain, fever, chills, rigors, chest pain, dyspnea. He has had no loss of sense of taste or smell and to the best of his knowledge she has not been exposed to anybody with COVID-19. Work-up included routine labs including CBC CMP lipase as well as nasopharyngeal swab for SARS-CoV-2. Nasopharyngeal swab was negative for SARS-CoV-2. CBC showed a stable leukopenia and mild anemia. White count 2300 and hemoglobin 11.8 g. CMP shows normal electrolytes and normal BUN and creatinine. His liver transaminases were elevated with an AST of 122, ALT 88, alkaline phosphatase 282 with normal total bilirubin 0.6. CT imaging of the abdomen and pelvis was performed with contrast and showed fatty liver changes but no significant change in his rectal wall thickening. Gallbladder and bile ducts appear to be normal and pancreas appear to be normal. Nevertheless his lipase was elevated at 986. He was admitted as an acute pancreatitis secondary to alcoholism however in retrospect his protracted nausea and vomiting which was not associated with abdominal pain is more likely due to an alcoholic gastritis. Patient was made n.p.o. and given IV fluid hydration and antiemetics including Reglan and Zofran and he was put on Protonix. The next morning his diet was advanced to regular diet as the patient was hungry and denying any abdominal pain and had no further vomiting since admission. Carafate was added to his regimen. Because of his history of acute alcohol withdrawal the patient was feeling somewhat agitated he was started on phenobarbital for alcohol withdrawal prevention. He was started on phenobarbital at a dose of 15 mg/kg loading dose was additional doses of 130- 260 mg IV push every 30 minutes as needed CIWA scale greater than 8. On the day of discharge his highest CIWA scale was 10 at 820 in the morning. Early a fternoon his CIWA scale was down to 0. Patient was not having any hallucinations nor having any paresthesias and he had no further nausea or vomiting. Patient was desiring to return home and after he had had both his breakfast and lunch with no abdominal pain or nausea or vomiting he was deemed medically stable to be discharged home. I educated the patient regarding his need to quit drinking altogether and that if he continues drinking he is can have further nausea and vomiting and pancreatitis and gastritis. He will be sent home on a prescription of Protonix 40 mg daily along with Carafate 1 g before meals and at bedtime. Home Meds and New Rx's Prescriptions: New sucralfate [Carafate] 1 gram tablet 1 g PO QACHS Qty: 120 RF: 0 pantoprazole [Protonix] [address] for susp in packet 40 mg PO DAILY Qty: 30 RF: 0 Continued prochlorperazine maleate 10 mg tablet 10 mg PO .EVERY 6 HRS PRN (Reason: Nausea) RF: 0 Boost 0.04 gram- 1 kcal/mL Liquid 180 ml PO PRN PRNRF: 0 Discharge Instructions Instructions: Gastritis (DC), Pancreatitis (DC), Alcohol Dependence (DC), Alcohol Use Disorder (DC) Referrals: Freddy Juarez [Primary Care Provider] - 01/18/21 2:00 pm (call the office for follow up in the next week) Activity:: Activity as Tolerated Equipment/Supplies:: No Equipment Needed Diet:: Normal Diet Discharge Orders Discharge Orders: Discharge Order (Routine); Ordered 01/16/21 Ordered By: Jason Phillips DS: Summary Time Spent with Patient providing and/or coordinating discharge services: Less than 30 minutes Status at Discharge Functional status at discharge: independent ambulation Overall status at discharge: patient is progressing back to baseline Mental Status: mental status grossly normal Speech and Movement: speech and movement normal Mood: congruent mood Affect: normal affect Exam Narrative Exam Narrative: Middle-age male who appears to be calm nondiaphoretic alert and oriented person place time circumstance. Abdomen is obese but soft nontender nondistended normal active bowel sounds no masses no rebound tenderness or guarding. Psych Mental Status: mental status grossly normal Speech and Movement: speech and movement normal Mood: congruent mood Affect: normal affect DS: Data Vitals/I&O Vitals and I&O: Vital Signs Temperature 36.4 C L 01/16/21 11:40 Temperature Source Tympanic 01/16/21 07:57 Pulse 92 H 01/16/21 11:40 Pulse Rhythm Regular 01/15/21 23:35 Pulse 102 H 01/15/21 17:50 Respiratory Rate 18 01/16/21 11:40 Respiratory Effort Non-Labored 01/16/21 08:00 Respiratory Depth Normal 01/16/21 08:00 Respiratory Pattern Normal 01/16/21 08:00 Blood Pressure 124/90 01/16/21 11:40 Blood Pressure Mean 94 01/15/21 17:58 Blood Pressure Position Sitting 01/15/21 13:28 Pulse Oximetry 95 01/16/21 11:40 Oxygen Delivery Method Room Air 01/16/21 11:40 Oxygen Flow Rate 0 01/16/21 11:40 Pain Level 0 01/16/21 11:40 Comment 01/16/21 05:00 Intake & Output 01/15/21 01/16/21 01/16/21 23:59 11:59 23:59 Intake Total 1913.333 / 0379.833 6974 / 2710 240 / 2710 Output Total 250 / 250 900 / 900 Balance 1663.333 / 6746.646 9520 / 1810 240 / 1810 Weight 81.647 kg 93.2 kg Intake: IV 1913.333 / 1959.169 7381 / 1840 Oral 630 / 870 240 / 870 Output: Urine 250 / 250 900 / 900 Other: Urine Color [place] Yellow Urine Appearance Clear Urine Odor Normal Normal Comment pt voided independently Emesis Description Retching None Voiding Methods Toilet Urinal Data Completed and Pending Labs on day of discharge: Labs from last 24 hours 01/16/21 01/16/21 01/16/21 06:30 06:30 06:30 WBC RBC Hgb Hct MCV MCH MCHC RDW Plt Count MPV Immature Gran % Neutrophils % Lymphocytes % Monocytes % Eosinophils % Basophils % Nucleated RBC % Absolute Neutrophils Absolute Lymphocytes Absolute Monocytes Absolute Eosinophils Absolute Basophils Sodium Potassium Chloride Carbon Dioxide Anion Gap BUN Creatinine Estimated GFR/1.73 m2 Glucose Calcium Phosphorus 3.5 Magnesium Total Bilirubin AST ALT Alkaline Phosphatase Total Protein Albumin Triglycerides 82 Total Cholesterol 192 LDL Cholesterol, Calc 85 HDL Cholesterol 91 Lipase Ethyl Alcohol < 3.0 COVID-19 Source SARS-CoV-2 (PCR) 01/16/21 01/16/21 01/15/21 06:30 06:30 17:25 WBC 2.33 L RBC 3.55 L Hgb 11.8 L D Hct 36.0 L MCV 101.4 H D MCH 33.2 H MCHC 32.8 RDW 14.3 H Plt Count 127 L MPV 9.5 Immature Gran % 0.0 Neutrophils % 68.7 Lymphocytes % 13.3 Monocytes % 12.4 Eosinophils % 4.7 Basophils % 0.9 Nucleated RBC % 0 Absolute Neutrophils 1.60 Absolute Lymphocytes 0.31 L Absolute Monocytes 0.29 Absolute Eosinophils 0.11 Absolute Basophils 0.02 Sodium 139 Potassium 4.2 Chloride 104 Carbon Dioxide 29.0 Anion Gap 6.0 BUN 4 L Creatinine 0.9 Estimated GFR/1.73 m2 >= 60.00 Glucose 117 H Calcium 8.5 Phosphorus Magnesium 2.1 Total Bilirubin 0.6 AST 72 H ALT 62 Alkaline Phosphatase 217 H Total Protein 6.2 L Albumin 2.8 L Triglycerides Total Cholesterol LDL Cholesterol, Calc HDL Cholesterol Lipase 871 H Ethyl Alcohol COVID-19 Source Nasopharyx SARS-CoV-2 (PCR) Negative [facility] Medical History Alcohol abuse Rectal cancer Surgical History H/O esophagogastroduodenoscopy Hx of colonoscopy Family History Father Colon cancer Paternal Uncle Brain malignancy Maternal Grandmother Brain malignancy Social History Smoking/Tobacco Use Status: Current every day Tobacco Type: smokeless tobacco Smoking risk assessment performed?: Yes Alcohol Intake: current Alcohol Intake frequency: 3 or more drinks per day Alcohol type: beer Drug use: Never Substance use type: does not use Details: 12 pack a day Do you feel safe at home: Yes Do you feel safe in your relationship?: Yes
== END 2021-01-16 16:32 | disposition home or self-care (01) | DRG 391 ==
LOC: ER 17:37 → MS 18:11
PROVIDERS: Admitting Provider Internal Medicine; Emergency Provider Physician Assistant; PCP Family Medicine; Visit Provider Internal Medicine
DX: K29.20 Alcoholic gastritis without bleeding (principal); K85.20 Alcohol induced acute pancreatitis without necrosis or infection; F10.239 Alcohol dependence with withdrawal, unspecified; K92.1 Melena; R11.14 Bilious vomiting; K76.0 Fatty (change of) liver, not elsewhere classified; Z20.822 Contact with and (suspected) exposure to COVID-19; Z72.0 Tobacco use; Z85.048 Personal history of other malignant neoplasm of rectum, rectosigmoid junction, and anus; Z92.3 Personal history of irradiation
CPT/HCPCS: 36415; 80053; 80061; 80307; 83690; 87635; 93005; 96361; 96365; 96375; 99220; 99232; 99238; 99285; 74177; 80320; 81003; 83735; 84100; 84484; 85025; 93010; 99223; J2405; J2560; J3490

== ENCOUNTER 2021-01-29 20:38 | Inpatient (IN) | payer MEDICAID, SELFPAY ==
[2021-01-29] VITALS (28 sets, daily range): BP systolic 130–158; BP diastolic 85–98; PULSE 84–123; RESP 18–27; TEMP 37.2; O2SAT 91–97
--- NOTE | 2021-01-29 21:00 | RT.EKG_ITS ---
APPROVED REPORT Exam: Resting ECG Patient Location: E HR:100 bpm ECG Measurements Heart Rate 100 AXIS AZ 144 P 39 QRSd 85 QRS -27 QT 328 T 32 QTc 423 Conclusion Sinus tachycardia...rate> 99 Normal [place] There are no significant changes compared to prior EKG performed on 01/15/2021 at 13:49.
--- NOTE | 2021-01-29 21:09 | ED.GENADUL_ITS ---
Discharge Plan Disposition Patient Disposition: [facility] INPATIENT Condition: Stable Discharge Details Clinical Impression: Alcohol withdrawal, Alcoholic gastritis, Alcoholic pancreatitis Primary Care Provider: Freddy Juarez ED Provider: Cinthia Guillen Medical Decision Making 50-year-old male presents the ER chief complaint of midepigastric abdominal pain and fullness. He rates his abdominal pain about a 7 out of 10. He states that this has been apparent and unchanged since discharge from the hospital for pancreatitis approximately 10 days ago. He does have a history of rectal cancer, alcoholic gastritis, pancreatitis and alcohol withdrawal. He states that he is unable to keep down any food. He is able to keep down liquids including alcohol which he reports has had about 7 beers today last drink was approximately 1 hour prior to arrival. He denies taking any antacids or medicine at home on a daily basis. He denies hematemesis. He does report rectal bleeding which he states is at his baseline he does have a history of rectal cancer and is being followed by [facility]. Labs show white blood cell count of 3.13 which is largely unchanged from, January 16 reading of 2.33, hemoglobin 13.6, hematocrit 39.4 platelets are 115 which which are decreased from 127 on January 16, lactate is 2.1, sodium 136, potassium 3.4, chloride 96, anion gap 15.8, BUN 3, creatinine 0.8 GFR greater than 60. His liver function tests are largely elevated from last result AST is 148 up from 72, ALT is 81 up from 62, alk phos is 352 up from 217, lipase is 822, 01/16/2021 lipase was 871. Urinalysis is negative for blood or any evidence of infection. Pending CT results will offer admission and discussion with hospitalist. CT ABDOMEN PELVIS W 01/15/2021 2:41 PM FINDINGS: Lungs: Mild bibasilar atelectasis. Liver: Marked fatty liver unchanged from prior study. Gallbladder and bile ducts: Normal. No calcified stones. No ductal dilation. Pancreas: Normal. No ductal dilation. Spleen: Normal. No splenomegaly. Adrenal glands: Normal. No mass. Kidneys and ureters: Normal. No hydronephrosis. Stomach and bowel: There is focal wall thickening involving the rectum with perirectal edema, unchanged from previous study. Appendix: No evidence of appendicitis. Intraperitoneal space: Unremarkable. No free air. No significant fluid collection. Vasculature: Unremarkable. No abdominal aortic aneurysm. Lymph nodes: Unremarkable. No enlarged lymph nodes. Urinary bladder: Unremarkable as visualized. Reproductive: Unremarkable as visualized. Bones/joints: Unremarkable. No acute fracture. Soft tissues: Small, fat containing periumbilical hernia again seen. IMPRESSION: 1. No change significant fatty infiltration of the liver. 2. No change proctitis, possible radiation related. Thank you for allowing us to participate in the care of your patient. Dictated and Authenticated by: Sayra Rodriguez MD [id number]: Discussed patient case and details with hospitalist Dr. Baptiste regarding admission. Dr. Baptiste is here in department for bedside evaluation.Patient to be admitted. Plan of care discussed with patient and he is in agreement. Medical Records Medical records reviewed: Yes I reviewed the patient's medical records. Lab Data Lab results reviewed: Yes I reviewed the patient's lab results. HPI General Date/Time Provider Initiated Documentation: 01/29/21 20:44 . Limitations to Documentation: no limitations . Information obtained by: patient, RN notes reviewed and old records reviewed . HPI Narrative: 50-year-old male presents the ER chief complaint of intractable vomiting, midepigastric abdominal pain and fullness. He rates his abdominal pain about a 7 out of 10. He states that this has been apparent and unchanged since discharge from the hospital for pancreatitis approximately 10 days ago. He does have a history of rectal cancer, alcoholic gastritis, pancreatitis and alcohol withdrawal. He states that he is unable to keep down any food. He is able to keep down liquids including alcohol which he reports has had about 7 beers today last drink was approximately 1 hour prior to arrival. He denies taking any antacids or medicine at home on a daily basis. He denies hematemesis. He does report rectal bleeding which he states is at his baseline he does have a history of rectal cancer and is being followed by [facility]. Upon initial exam he is tachycardic at 118, tremulous upper extremities. Related Data Allergies Allergy/AdvReac Type Severity Reaction Status Date / Time No Known Allergies Allergy Verified 01/29/21 21:43 General Stated Complaint: Abd Prob FARHAN: 3 Review of Systems Narrative: Constitutional: alert and oriented, disheveled, normal body habitus, appears uncomfortable. HEENT: Denies trauma, headaches, blurry vision, nasal discharge, sore throat, trouble swallowing. Chest: Denies chest pain, palpitations, irregular rhythm, hypertension. Respiratory: Denies Shortness of breath, cough, hemoptysis. GI: History of pancreatitis, reports abdominal midepigastric pain and fullness, history of rectal bleeding and rectal cancer. Denies vomiting blood. : Denies dysuria, hematuria, flank pain Neuro: Denies dizziness, blurry vision, syncope, headache or facial numbness. He is tremulous. Hematologic: Denies easy bruising, intolerance to heat or cold, hair loss. [facility] Medical History Alcohol abuse Rectal cancer Surgical History H/O esophagogastroduodenoscopy Hx of colonoscopy Family History Father Colon cancer Paternal Uncle Brain malignancy Maternal Grandmother Brain malignancy Social History Smoking/Tobacco Use Status: Current every day Tobacco Type: smokeless tobacco Smoking risk assessment performed?: Yes Alcohol Intake: current Alcohol Intake frequency: 3 or more drinks per day Alcohol type: beer Drug use: Never Substance use type: does not use Details: 12 pack a day. Cut self down to 6 or 7 beers today Do you feel safe at home: Yes Do you feel safe in your relationship?: Yes Exam Narrative Exam Narrative: Constitutional: Alert and oriented x3. Appears stated age. Normal body habitus. Head: Normocephalic, no trauma. Eyes: Pupils PERRLA, Red reflex noted, EOM's intact. Eyelids symmetrical without lesions, discharge, or swelling. ENT: Bilateral TM's WNL, External ear normal to inspection, no mastoid TTP, swelling, or erythema, Nasal turbinates WNL, no nasal discharge. Normal dentition, Posterior pharynx WNL, no exudate. Dry mucous membranes. Smooth glassy tongue. Chest: Tachycardic at 120, normal S1, S2, distal pulses intact. Resp: Lungs clear to auscultation bilaterally, no wheezes, rales, or rhonchi. Musculoskeletal: Normal gait, 5/5 strength to all four extremities. Does have upper extremity tremors. Skin: No suspicious rashes or lesions. Capillary refill less than 2 sec. Neurologic: Cranial nerves II-XII intact. Alert and oriented x 3. Hematologic/Lymphatic: No ecchymosis, no lymphadenopathy. Course Vital Signs Vital signs: Vital Signs Temperature 37.2 C 01/29/21 20:58 Pulse 118 H 01/29/21 20:58 Respiratory Rate 20 01/29/21 20:58 Blood Pressure 131/85 01/29/21 20:58 Pulse Oximetry 97 01/29/21 20:58 Temperature 37.2 C 01/29/21 20:58 Temperature Source Axillary 01/29/21 20:58 Pulse 118 H 01/29/21 20:58 Respiratory Rate 20 01/29/21 20:58 Respiratory Effort Non-Labored 01/29/21 21:02 Blood Pressure 131/85 01/29/21 20:58 Blood Pressure Position Sitting 01/29/21 20:58 Pulse Oximetry 97 01/29/21 20:58 Oxygen Delivery Method Room Air 01/29/21 20:58 Oxygen Flow Rate 0 01/29/21 20:58 Pain Level 0 01/29/21 20:58
[2021-01-29] MEDS: Normal Saline 1,000 ML 1000 ML IV (21:33)
[2021-01-29 21:36] LABS: Abs Immature Grans 0.01 10^3/uL (0.0-0.06); Absolute Basophil Count 0.02 10^3/uL (0.0-0.2); Absolute Eosinophil Count 0.04 10^3/uL (0.0-0.7); Absolute Lymphocyte Count 0.27 10^3/uL (1.2-3.4); Absolute Monocyte Count 0.22 10^3/uL (0.1-0.8); Absolute Neutrophil Count 2.57 10^3/uL (1.2-6.7); Basophils % 0.6; Eosinophils % 1.3; HCT 39.4 % (40.0-50.0); HGB 13.6 g/dL (13.5-17.5); Immature Grans % 0.3; Lymphocytes % 8.6; MCHC 34.5 % (32.0-36.0); MCV 95.6 fL (80-95); MPV 9.2 fL (8.0-11.0); Neutrophils % 82.2; Nucleated RBC 0 %; Platelet Count 115 10^3/uL (130-400); RBC 4.12 10^6/uL (4.36-5.78); RDW 13.7 % (11.8-14.1); RDW-SD 48.2 fL; WBC 3.13 10^3/uL (4.4-10.8)
[2021-01-29 21:37] LABS: Lactate 2.1 mmol/L (0.6-1.4)
[2021-01-29 21:53] LABS: Lipase 822 U/L (73-393)
[2021-01-29 21:58] LABS: ALT 81 U/L (16-63); AST 148 U/L (15-37); Albumin 3.6 g/dL (3.4-5.0); Alkaline Phosphatase 352 U/L (46-116); Anion Gap 15.8 mmol/L (3-11); BUN 3 mg/dL (7-18); Bilirubin, Total 0.9 mg/dL (0.2-1.0); CO2 24.2 mmol/L (21.0-32.0); CREATININE 0.8 mg/dL (0.70-1.30); Calcium 9.1 mg/dL (8.5-10.1); Chloride 96 mmol/L (98-107); Glucose 103 mg/dL (74-106); Potassium 3.4 mmol/L (3.5-5.1); Sodium 136 mmol/L (136-145); Total Protein 7.7 g/dL (6.4-8.2)
[2021-01-29 21:59] LABS: Troponin I < 0.05 ng/mL (<0.06)
[2021-01-29] MEDS: LORazepam 2 MG/ML VIAL 0.5 MG IVP (22:09)
[2021-01-29] MEDS: Pantoprazole 40 MG VIAL IVP (22:09)
[2021-01-29] MEDS: Omnipaque 350 MG/ML 100 ML BTL IJ (22:13)
[2021-01-29] MEDS: Normal Saline - Diluent 50 ML VIAL IV (22:14)
[2021-01-29 22:19] LABS: Bilirubin Negative (Negative); Blood Negative (Negative); Clarity Clear (Clear); Glucose Negative (Negative); Ketones Negative (Negative); Leukocyte Esterase Negative (Negative); Nitrite Negative (Negative); Urobilinogen 0.2 EU/dL (Up TO 0.2); pH 6.5 (5-8)
--- NOTE | 2021-01-29 22:25 | DI.CT_ITS ---
EXAM: CT ABDOMEN PELVIS W CLINICAL HISTORY: hx of Pancreatitis, rectal CA, abd pain. TECHNIQUE: Imaging Protocol: Axial computed tomography images with coronal and sagittal reformatted images were created and reviewed CONTRAST MATERIAL: Intravenous: Omnipaque 100cc Oral: None COMPARISON: CT CT ABDOMEN PELVIS W from 01/15/2021 FINDINGS: VISUALIZED LUNG BASES: No nodules nor pleural effusions evident. ABDOMEN: There is no ascites. LIVER: The liver is again noted be very hypodense implying severe steatosis, unchanged. There are no discrete focal hepatic lesions nor dilatation of intrahepatic ducts. GALLBLADDER/BILIARY: No obvious gallbladder pathology. CBD is not dilated. PANCREAS: No evidence of pancreatic mass nor dilatation of the pancreatic duct. SPLEEN: Spleen is not enlarged. No obvious intrasplenic lesions. Splenic and portal veins are paten t. ADRENALS: There are no significant adrenal masses. KIDNEYS:No cysts evident. No solid renal masses. No calculi nor hydronephrosis.. Both ureters are again noted be slightly prominent diameter throughout their length without evidence of calculi within the ureters and without evidence of obvious mass in the urinary bladder. There does appear to be so me thickening of the posterior wall of bladder. This may be related to radiation from rectal maligna ncy. ABDOMINAL AORTA: Abdominal aorta is not enlarged. LYMPH NODES:There is no retroperitineal nor paraaortic adenopathy. ABDOMINAL WALL/GI: No evidence of significant anterior abdominal wall hernia. There is circumferenti al thickening of the rectal wall and streaking in the perirectal fat, slightly more than previous. T his is most probably related to a combination of the malignancy and the radiation treatments. There is no drainable abscess in this region. PELVIS: GI: No evidence of appendicitis.There are sigmoid diverticuli but no evidence of obvious acute divert iculitis. LYMPH NODES: There is no intrapelvic nor inguinal adenopathy. REPRODUCTIVE: Age-appropriate URINARY BLADDER: Mild thickening of the posterior wall. This may be related to post radiation change . OSSEOUS: No significant osseous lesions. Multilevel chronic degenerative disc disease noted at L4-5 and L5-S1 levels. There is also Schmorl's node invagination into the inferior endplate of L3 incidentally noted. There are no lytic osseous l esions. Coccyx appears intact (rectal radiation treatment). IMPRESSION: 1. Compared to the prior CT scan 01/15/2021 there is again noted circumferential rectal thickening an d streaking in the perirectal tissues perhaps slightly increased from previous and this is most proba avni related to radiation treatment. There is no prominent regional lymphadenopathy nor adenopathy el sewhere in the pelvis and abdomen. There is no ascites. 2. The liver is again noted to be profoundly hypodense implying severe steatosis, unchanged. However , there no focal metastatic lesions evident in the liver. 3. No lytic osseous lesions identified. 4. Coccyx appears intact (rectal radiation treatment). RADIATION DOSE DELIVERED: 874.9mGy.cm Total DLP DATA REPOSITORY: All CT scans at this facility are submitted to the National Radiology Data Registry (NRDR) Dose Index Registry (DIR) with the [employer] (ACR). RADIATION OPTIMIZATION: All CT scans at this facility use at least one of these dose optimization te chniques: automated exposure control; mA and/or kV adjustment per patient size (includes targeted exa ms where dose is matched to clinical indication); or iterative reconstruction.
[2021-01-29 22:38] LABS: Source Nasal/Nares
--- NOTE | 2021-01-29 22:57 | DI.VRAD_ITS ---
PROCEDURE INFORMATION: Exam: CT Abdomen And Pelvis With Contrast Exam date and time: 01/29/2021 10:16 PM Age: 50 years old Clinical indication: Generalized; Prior surgery; Surgery date: 6+ months; Surgery type: Hernia repair years ago. ; Patient HX: Increasing abdominal pain. HX of pancreatitis. HX of rectal cancer x1 year ago. No current chemo or radiation treatments. TECHNIQUE: Imaging protocol: Computed tomography of the abdomen and pelvis with contrast. Radiation optimization: All CT scans at this facility use at least one of these dose optimization techniques: automated exposure control; mA and/or kV adjustment per patient size (includes targeted exams where dose is matched to clinical indication); or iterative reconstruction. Contrast material: OMNIPAQUE 350; Contrast volume: 100 ml; Contrast route: INTRAVENOUS (IV); COMPARISON: CT ABDOMEN PELVIS W 01/15/2021 2:41 PM FINDINGS: Lungs: Mild bibasilar atelectasis. Liver: Marked fatty liver unchanged from prior study. Gallbladder and bile ducts: Normal. No calcified stones. No ductal dilation. Pancreas: Normal. No ductal dilation. Spleen: Normal. No splenomegaly. Adrenal glands: Normal. No mass. Kidneys and ureters: Normal. No hydronephrosis. Stomach and bowel: There is focal wall thickening involving the rectum with perirectal edema, unchanged from previous study. Appendix: No evidence of appendicitis. Intraperitoneal space: Unremarkable. No free air. No significant fluid collection. Vasculature: Unremarkable. No abdominal aortic aneurysm. Lymph nodes: Unremarkable. No enlarged lymph nodes. Urinary bladder: Unremarkable as visualized. Reproductive: Unremarkable as visualized. Bones/joints: Unremarkable. No acute fracture. Soft tissues: Small, fat containing periumbilical hernia again seen. IMPRESSION: 1. No change significant fatty infiltration of the liver. 2. No change proctitis, possible radiation related. Dictated and Authenticated by: Sayra Rodriguez MD. Ordering:ANNA MARIE Vicente MD
--- NOTE | 2021-01-29 23:30 | HPE_ITS ---
Date of service: 01/29/21 Time of Service: 23:30 Assessment and Plan Assessment and plan (1) Alcoholism: Status: Acute Assessment and plan: Alcoholism, with signs early withdrawal, and nausea related to some unknown combination of pancreatitis, gastritis and alcoholic hepatitis. Will place NPO, PPI, IVF and withdrawal protocol with banana bag and CIWA. Will also start scheduled low dose Librium and give single dose beta lucila. History of Present Illness History of Present Illness Chief Complaint: nausea Narrative: 50 male alcoholic, here with 2 weeks of nausea/anorexia. 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 In ER w/u of note for tremulousness, EtOH 26, Lipase 822, AST 148, ALT 81, CT showing fatty liver, no signs pancreatitis. Patient given Ativan 0.5, Protonix 40 and admitted for further management. Review of Systems All systems reviewed & are unremarkable except as noted in HPI and below PFSH Medical History Alcohol abuse Rectal cancer Surgical History H/O esophagogastroduodenoscopy Hx of colonoscopy Family History Father Colon cancer Paternal Uncle Brain malignancy Maternal Grandmother Brain malignancy Social History Smoking/Tobacco Use Status: Current every day Tobacco Type: smokeless tobacco Smoking risk assessment performed?: Yes Alcohol Intake: current Alcohol Intake frequency: 3 or more drinks per day Alcohol type: beer Drug use: Never Substance use type: does not use Details: 12 pack a day. Cut self down to 6 or 7 beers today Do you feel safe at home: Yes Do you feel safe in your relationship?: Yes Meds Home Medications and Allergies Allergies Allergy/AdvReac Type Severity Reaction Status Date / Time No Known Allergies Allergy Verified 01/29/21 21:43 Exam Narrative Exam Narrative: 135/86, 98, 37.2, 20, 93% RA. HEENT atraumatic, anicteric; neck supple; lungs clear; guzman RRR; abdomen soft and NT; xtremities w/o edema; neuro resting tremor, Ox3, moves all 4s. Results Labs Result diagrams: 01/29/21 21:30 01/29/21 21:30 Labs: Laboratory Results - last 24 hr 01/29/21 01/29/21 01/29/21 21:30 21:30 21:30 WBC RBC Hgb Hct MCV MCH MCHC RDW Plt Count MPV Immature Gran % Neutrophils % Lymphocytes % Monocytes % Eosinophils % Basophils % Nucleated RBC % Absolute Neutrophils Absolute Lymphocytes Absolute Monocytes Absolute Eosinophils Absolute Basophils VBG Lactate 2.1 H Sodium 136 Potassium 3.4 L Chloride 96 L Carbon Dioxide 24.2 Anion Gap 15.8 H BUN 3 L Creatinine 0.8 Estimated GFR/1.73 m2 >= 60.00 Glucose 103 Calcium 9.1 Magnesium 2.0 Total Bilirubin 0.9 AST 148 H ALT 81 H Alkaline Phosphatase 352 H Troponin I < 0.05 Total Protein 7.7 Albumin 3.6 Lipase 822 H Urine Color Urine Clarity Urine pH Ur Specific [place] Urine Protein Urine Ketones Urine Blood Urine Nitrite Urine Bilirubin Urine Urobilinogen Ur Leukocyte Esterase Urine Glucose Ethyl Alcohol 26.0 COVID-19 Source 01/29/21 01/29/21 01/29/21 21:30 22:00 22:35 WBC 3.13 L RBC 4.12 L Hgb 13.6 Hct 39.4 L MCV 95.6 H MCH 33.0 MCHC 34.5 RDW 13.7 Plt Count 115 L MPV 9.2 Immature Gran % 0.3 Neutrophils % 82.2 Lymphocytes % 8.6 Monocytes % 7.0 Eosinophils % 1.3 Basophils % 0.6 Nucleated RBC % 0 Absolute Neutrophils 2.57 Absolute Lymphocytes 0.27 L Absolute Monocytes 0.22 Absolute Eosinophils 0.04 Absolute Basophils 0.02 VBG Lactate Sodium Potassium Chloride Carbon Dioxide Anion Gap BUN Creatinine Estimated GFR/1.73 m2 Glucose Calcium Magnesium Total Bilirubin AST ALT Alkaline Phosphatase Troponin I Total Protein Albumin Lipase Urine Color Yellow Urine Clarity Clear Urine pH 6.5 Ur Specific [place] 1.010 Urine Protein Negative Urine Ketones Negative Urine Blood Negative Urine Nitrite Negative Urine Bilirubin Negative Urine Urobilinogen 0.2 Ur Leukocyte Esterase Negative Urine Glucose Negative Ethyl Alcohol COVID-19 Source Nasal/nares Last Vital Signs Temp 37.2 C 01/29/21 20:58 Pulse 102 H 01/29/21 23:00 Resp 20 01/29/21 23:10 BP 135/86 01/29/21 23:00 Pulse Ox 93 01/29/21 23:10 COVID-19 Screening Have you, or household traveled for leisure in last 14 days?: No Had IN PERSON contact w/suspected or confirmed C-19 person: No
[2021-01-29] MEDS: Metoprolol 25 MG TAB PO (23:48)
[2021-01-30 00:47] VITALS: BP 147/95; PULSE 88; RESP 19; TEMP 37.4; O2SAT 95
[2021-01-30 00:55] VITALS: BP 158/97; PULSE 84; RESP 25; TEMP 37.2; O2SAT 93
[2021-01-30] MEDS: LORazepam 1 MG TAB PO/SL (01:43)
[2021-01-30] MEDS: MAGNESIUM SULFATE 8.12 MEQ, MULTIVITAMIN 10 ML, THIAMINE 100 MG, FOLIC ACID 1 MG in Nor... 168.867 MG IV (01:43)
[2021-01-30] MEDS: chlordiazePOXIDE 25 MG CAP PO ×2 (01:51→08:27)
[2021-01-30 07:11] LABS: ALT 70 U/L (16-63); AST 112 U/L (15-37); Lipase 726 U/L (73-393)
[2021-01-30 07:15] VITALS: BP 161/95; PULSE 85; RESP 18; TEMP 37.1; O2SAT 97
[2021-01-30] MEDS: Pantoprazole 40 MG VIAL IVP (08:27)
[2021-01-30] MEDS: Normal Saline Flush 10 ML SYR IVP (08:28)
--- NOTE | 2021-01-30 08:41 | INITIAL_ITS ---
- If Service Date Differs Date of service: 01/30/21 Time of Service: 08:41 Care Management Initial Assess REASON FOR HOSPITALIZATION:: Alcoholism PAST MEDICAL HISTORY/PAST SURGICAL HISTORY:: Medical History . Alcohol abuse. Rectal cancer. Surgical History . H/O esophagogastroduodenoscopy. Hx of colonoscopy PREVIOUS FUNCTIONAL STATUS/SOCIAL/FAMILY SUPPORTS:: Idris lives in a single family home in [facility] with his mother. He is currently from his . Idris has 2 children, a 1 1/2 year old son and a 2 1/2 year old daughter who are in his 's custody. Idris has 3 siblings, a brother and 2 sisters. He describes his sisters as supportive but his brother is not. Idris is unemployed and receives disability. ADVANCE DIRECTIVES:: None on file Has patient been provided with info about the portal/API?: Yes Did the patient sign up for the portal?: No CODE STATUS:: Full Code INSURANCE COVERAGE / FINANCIAL ISSUES:: Medicaid CURRENT HOME/COMMUNITY SERVICES/EQUIPMENT:: none PRIMARY CARE PHYSICIAN:: Freddy Juarez POTENTIAL DISCHARGE NEEDS:: Follow up with PCP and discharge plan of care PATIENT/FAMILY EDUCATION NEEDS:: Review of discharge instructions, folllow up plan, Limitations, Ask Me Three TRANSPORTATION:: via private vehicle with family/friends PLAN:: Idris will likely be discharged home with no new services. He will follow up with his PCP and discharge plan of care and transport with family. CM will continue to support patient and assess for discharge planning needs.
--- NOTE | 2021-01-30 08:53 | W.PM.DS.N ---
Date of service: 01/30/21 Time of Service: 08:53 DS: Diagnosis Discharge Diagnosis (1) Alcoholism: Status: Acute Discharge Plan Disposition Patient Disposition: HOME Condition: Stable Discharge Details Reason For Visit: ALCOHOLISM, NAUSEA Admit Date/Time: 01/29/21 23:39 Admit Provider: Mitch Baptiste Attending Provider: Mitch Baptiste Primary Care Provider: Freddy Juarez Hospital Course Hospital Course: This is a 50 year old male with history of alcohol abuse, pancreatitis, with recent hospitalization for pancreatitis who presented to the ED with c/o recurrent abdominal pain. He continue to drink and last drank 1 hour prior to arrival. His labs show elevated liver function and lipase. he is given IV fluids and admitted to med/surg for fluids, bowel rest and pain management. overnight his symptoms resolved and he began tolerating a regular diet and requesting discharge. He will be discharged with recommendation to avoid alcohol and start omeprazole for gastritis. he will follow up with pcp or return sooner for new or worsening symptoms. discussed with DR Acevedo [place] Meds and New Rx's Prescriptions: New omeprazole magnesium [Acid Traffic Signal Repairer (omeprazole)] 20 mg capsule,delayed release(DR/EC) 20 mg PO BID Qty: 60 RF: 0 Discharge Instructions Instructions: Abuse of Alcohol (DC), Acute Nausea and Vomiting (DC) Additional Instructions: avoid alcohol clear liquids and advance as tolerated Stand Alone Forms: Nursing Discharge Form Referrals: Freddy Juarez [Primary Care Provider] - 02/07/21 1:40 am Activity:: Activity as Tolerated Equipment/Supplies:: No Equipment Needed Diet:: As Tolerated Discharge Orders Discharge Orders: Discharge Order (Routine); Ordered 01/30/21 Ordered By: Karissa Portillo Discharge Data Discharge Date/Time-TO BE ENTERED AT DEPARTURE: 01/30/21 09:54 DS: Summary Time Spent with Patient providing and/or coordinating discharge services: Less than 30 minutes Status at Discharge Functional status at discharge: independent ambulation Overall status at discharge: patient is back to baseline Mental Status: mental status grossly normal Speech and Movement: speech and movement normal Mood: congruent mood Affect: normal affect Exam Narrative Exam Narrative: Constitutional: Alert and oriented x3. Appears stated age. Normal body habitus. Head: Normocephalic, no trauma. Chest: RRR, pink dry well perfused Resp: respirations even and unlabored Musculoskeletal: Normal gait, 5/5 strength to all four extremities. Skin: No rashes or lesions. Capillary refill less than 2 sec. Neurologic: Alert and oriented x 3. Hematologic/Lymphatic: No ecchymosis, no lymphadenopathy. Psych Mental Status: mental status grossly normal Speech and Movement: speech and movement normal Mood: congruent mood Affect: normal affect DS: Data Vitals/I&O Vitals and I&O: Vital Signs Temperature 37.1 C 01/30/21 07:15 Temperature Source Tympanic 01/30/21 07:15 Pulse 85 01/30/21 07:15 Pulse Rhythm Regular 01/30/21 00:47 Pulse 99 H 01/29/21 23:40 Respiratory Rate 18 01/30/21 07:15 Respiratory Effort Non-Labored 01/30/21 00:47 Respiratory Depth Normal 01/30/21 00:47 Respiratory Pattern Normal 01/30/21 00:47 Blood Pressure 161/95 H 01/30/21 07:15 Blood Pressure Mean 110 01/29/21 23:39 Blood Pressure Position Sitting 01/29/21 20:58 Pulse Oximetry 97 01/30/21 07:15 Oxygen Delivery Method Room Air 01/30/21 07:15 Oxygen Flow Rate 0 01/30/21 07:15 Pain Level 0 01/30/21 00:55 Intake & Output 01/29/21 01/29/21 01/30/21 11:59 23:59 11:59 Intake Total 1000 / 1000 1013.2 / 1013.2 Balance 1000 / 1000 1013.2 / 1013.2 Weight 80.2 kg Intake: IV 1000 / 1000 1013.2 / 1013.2 Other: Urine Appearance Clear Data Completed and Pending Labs on day of discharge: Labs from last 24 hours 01/30/21 01/29/21 01/29/21 06:18 22:35 22:00 WBC RBC Hgb Hct MCV MCH MCHC RDW Plt Count MPV Immature Gran % Neutrophils % Lymphocytes % Monocytes % Eosinophils % Basophils % Nucleated RBC % Absolute Neutrophils Absolute Lymphocytes Absolute Monocytes Absolute Eosinophils Absolute Basophils VBG Lactate Sodium Potassium Chloride Carbon Dioxide Anion Gap BUN Creatinine Estimated GFR/1.73 m2 Glucose Calcium Magnesium Total Bilirubin AST 112 H ALT 70 H Alkaline Phosphatase Troponin I Total Protein Albumin Lipase 726 H Urine Color Yellow Urine Clarity Clear Urine pH 6.5 Ur Specific [place] 1.010 Urine Protein Negative Urine Ketones Negative Urine Blood Negative Urine Nitrite Negative Urine Bilirubin Negative Urine Urobilinogen 0.2 Ur Leukocyte Esterase Negative Urine Glucose Negative Ethyl Alcohol COVID-19 Source Nasal/nares SARS-CoV-2 (PCR) Pending 01/29/21 01/29/21 01/29/21 21:30 21:30 21:30 WBC 3.13 L RBC 4.12 L Hgb 13.6 Hct 39.4 L MCV 95.6 H MCH 33.0 MCHC 34.5 RDW 13.7 Plt Count 115 L MPV 9.2 Immature Gran % 0.3 Neutrophils % 82.2 Lymphocytes % 8.6 Monocytes % 7.0 Eosinophils % 1.3 Basophils % 0.6 Nucleated RBC % 0 Absolute Neutrophils 2.57 Absolute Lymphocytes 0.27 L Absolute Monocytes 0.22 Absolute Eosinophils 0.04 Absolute Basophils 0.02 VBG Lactate 2.1 H Sodium 136 Potassium 3.4 L Chloride 96 L Carbon Dioxide 24.2 Anion Gap 15.8 H BUN 3 L Creatinine 0.8 Estimated GFR/1.73 m2 >= 60.00 Glucose 103 Calcium 9.1 Magnesium 2.0 Total Bilirubin 0.9 AST 148 H ALT 81 H Alkaline Phosphatase 352 H Troponin I < 0.05 Total Protein 7.7 Albumin 3.6 Lipase Urine Color Urine Clarity Urine pH Ur Specific [place] Urine Protein Urine Ketones Urine Blood Urine Nitrite Urine Bilirubin Urine Urobilinogen Ur Leukocyte Esterase Urine Glucose Ethyl Alcohol COVID-19 Source SARS-CoV-2 (PCR) 01/29/21 21:30 WBC RBC Hgb Hct MCV MCH MCHC RDW Plt Count MPV Immature Gran % Neutrophils % Lymphocytes % Monocytes % Eosinophils % Basophils % Nucleated RBC % Absolute Neutrophils Absolute Lymphocytes Absolute Monocytes Absolute Eosinophils Absolute Basophils VBG Lactate Sodium Potassium Chloride Carbon Dioxide Anion Gap BUN Creatinine Estimated GFR/1.73 m2 Glucose Calcium Magnesium Total Bilirubin AST ALT Alkaline Phosphatase Troponin I Total Protein Albumin Lipase 822 H Urine Color Urine Clarity Urine pH Ur Specific [place] Urine Protein Urine Ketones Urine Blood Urine Nitrite Urine Bilirubin Urine Urobilinogen Ur Leukocyte Esterase Urine Glucose Ethyl Alcohol 26.0 COVID-19 Source SARS-CoV-2 (PCR) [facility] Medical History Alcohol abuse Rectal cancer Surgical History H/O esophagogastroduodenoscopy Hx of colonoscopy Family History Father Colon cancer Paternal Uncle Brain malignancy Maternal Grandmother Brain malignancy Social History Smoking/Tobacco Use Status: Current every day Tobacco Type: smokeless tobacco Smoking risk assessment performed?: Yes Alcohol Intake: current Alcohol Intake frequency: 3 or more drinks per day Alcohol type: beer Drug use: Never Substance use type: does not use Details: 12 pack a day. Cut self down to 6 or 7 beers today Do you feel safe at home: Yes Do you feel safe in your relationship?: Yes
[2021-01-30 09:55] LABS: COVID-19 PCR Negative (Negative)
== END 2021-01-30 09:54 | disposition home or self-care (01) | DRG 433 ==
LOC: ER 23:50 → MS 01-30 00:39
PROVIDERS: Admitting Provider General Practice; Emergency Provider Registered Nurse Emergency; PCP Family Medicine; Visit Provider General Practice
DX: K70.10 Alcoholic hepatitis without ascites (principal); F10.239 Alcohol dependence with withdrawal, unspecified; K62.5 Hemorrhage of anus and rectum; K29.20 Alcoholic gastritis without bleeding; Z85.048 Personal history of other malignant neoplasm of rectum, rectosigmoid junction, and anus; Z72.0 Tobacco use
CPT/HCPCS: 36415; 80053; 83690; 87635; 93005; 96361; 96374; 96375; 99222; 99285; 74177; 80320; 81003; 83605; 83735; 84450; 84460; 84484; 85025; 93010; 99238; J2060; J3490

== ENCOUNTER 2021-05-06 17:47 | Inpatient (IN) | payer MEDICAID, SELFPAY ==
[2021-05-06 18:01] VITALS: BP 131/94; PULSE 89; RESP 18; TEMP 36.6; O2SAT 99
--- NOTE | 2021-05-06 18:18 | W.ED.GENAD ---
Discharge Plan Disposition Patient Disposition: [facility] INPATIENT Condition: Stable Discharge Details Clinical Impression: Alcoholic pancreatitis, Vomiting Admit Date/Time: 05/06/21 21:25 Admit Provider: Mitch Pierce Attending Provider: Mitch Pierce Primary Care Provider: Freddy Juarez ED Provider: Cinthia Guillen Discharge Data Discharge Date/Time-TO BE ENTERED AT DEPARTURE: 05/06/21 23:16 Medical Decision Making 50-year-old male with a history of rectal cancer status post colostomy placement in February, alcoholic gastritis, alcoholic pancreatitis presents with nausea vomiting unable to keep anything down for the last month and dry heaving. He is an alcoholic he does did endorse 4 beers today. He denies any hemataemesis or hematochezia. Denies any pain no chest pain abdominal pain no dysuria. He does endorse urinary urgency, exertional shortness of breath. No fever no chills. CBC shows white blood cell count 2.94 which is largely at patient's baseline, hemoglobin 12.2, hematocrit 38.6, sodium 134 chloride 97, anion gap 11.8 BUN 3 creatinine 0.9 GFR greater than 60. Glucose 118 transaminitis noted with AST 189, ALT 115, alk phos 396 lipase is greater than 1000, 1139. Urinalysis within normal limits no leukocytes no nitrites. Suspect pancreatitis versus alcoholic hepatitis, will add on a CT abdomen pelvis with contrast. V rad CT abdomen pelvis with contrast: IMPRESSION: 1. Mild peripancreatic fat stranding likely acute interstitial edematous pancreatitis. Correlate with lipase. No discrete peripancreatic fluid collection. No evidence of pancreatic necrosis. 2. No evidence of splenic or portal vein thrombus. 3. Hepatic steatosis. Thank you for allowing us to participate in the care of your patient. Dictated and Authenticated by: Silvana Salinas MD Discussed CT results and lab results with patient and family who verbalized understanding. Will page hospitalist for possible admission for alcoholic pancreatitis and vomiting. Patient is beginning to have some upper extremity tremors last alcohol intake was at approximately 5 PM. 2122: Spoke with Dr. Pierce regarding patient case and details he agrees to accept patient for admission for alcoholic pancreatitis. Verified with greenhouse florist that [facility] can manage CIWA protocols on the floor. Patient remained hemodynamically stable throughout stay, transported to floor by staff research scientist. HPI General Mode of arrival: ambulatory. Date/Time Provider Initiated Documentation: 05/06/21 18:09. Limitations to Documentation: no limitations. Information obtained by: patient. HPI Narrative: 50-year-old male with a history of rectal cancer status post colostomy placement in February, alcoholic gastritis, alcoholic pancreatitis presents with nausea vomiting unable to keep anything down for the last month and dry heaving. He is an alcoholic he does did endorse 4 beers today. He denies any hemataemesis or hematochezia. Denies any pain no chest pain abdominal pain no dysuria. He does endorse urinary urgency, exertional shortness of breath. No fever no chills. Related Data Home Medications Medication Instructions Recorded Confirmed Unknown [No Known Home Meds] 05/06/21 05/06/21 Allergies Allergy/AdvReac Type Severity Reaction Status Date / Time No Known Allergies Allergy Verified 05/06/21 18:07 General Stated Complaint: Nausea/Vomit/Diar FARHAN: 3 Review of Systems Narrative: Constitutional: Negative for weight loss, alert and oriented, well groomed, thin, positive fatigue, weakness. HEENT: Denies trauma, headaches, blurry vision, nasal discharge, sore throat, trouble swallowing. Chest: Denies chest pain, palpitations, irregular rhythm, hypertension. Respiratory: Denies Shortness of breath, cough, hemoptysis. GI: Denies abdominal pain, constipation. Positive nausea vomiting, colostomy with loose stools. : Denies dysuria, hematuria, flank pain, rectal bleeding. Neuro: Denies dizziness, blurry vision, syncope, headache or facial numbness. Generalized weakness. Hematologic: Denies easy bruising, intolerance to heat or cold, hair loss. PFS Medical History Alcohol abuse Rectal cancer Surgical History H/O esophagogastroduodenoscopy Hx of colonoscopy Family History Father Colon cancer Paternal Uncle Brain malignancy Maternal Grandmother Brain malignancy Social History Smoking/Tobacco Use Status: Current every day Tobacco Type: smokeless tobacco Smoking risk assessment performed?: Yes Alcohol Intake: current Alcohol Intake frequency: 3 or more drinks per day Alcohol type: beer Drug use: Never Substance use type: does not use Details: 12 pack a day. Cut self down to 6 or 7 beers today Do you feel safe at home: Yes Do you feel safe in your relationship?: Yes Exam Narrative Exam Narrative: Constitutional: Alert and oriented x3. Appears stated age. Thin body habitus. Head: Normocephalic, no trauma. Eyes: Pupils PERRLA, Red reflex noted, EOM's intact. Eyelids symmetrical without lesions, discharge, or swelling. ENT: Bilateral TM's WNL, External ear normal to inspection, no mastoid TTP, swelling, or erythema, Nasal turbinates WNL, no nasal discharge. Normal dentition, Posterior pharynx WNL, no exudate. Chest: RRR, Normal S1, S2, distal pulses intact. Resp: Lungs clear to auscultation bilaterally, no wheezes, rales, or rhonchi. Abdomen: Soft, nondistended nontender to palpation all 4 quadrants, does have a stoma noted to the left upper quadrant with brownish-yellow loose watery stools noted in the colostomy bag. Musculoskeletal: Normal gait, 5/5 strength to all four extremities. Skin: No suspicious rashes or lesions. Capillary refill less than 2 sec. Neurologic: Cranial nerves II-XII intact. Alert and oriented x 3. DTR's intact. Hematologic/Lymphatic: No ecchymosis, no lymphadenopathy. Course Vital Signs Vital signs: Vital Signs Temperature 36.6 C 05/06/21 18:01 Pulse 89 05/06/21 18:01 Respiratory Rate 18 05/06/21 18:01 Blood Pressure 131/94 H 05/06/21 18:01 Pulse Oximetry 99 05/06/21 18:01 Temperature 36.6 C 05/06/21 18:01 Temperature Source Temporal Artery Scan 05/06/21 18:01 Pulse 89 05/06/21 18:01 Respiratory Rate 18 05/06/21 18:01 Respiratory Effort Non-Labored 05/06/21 18:07 Blood Pressure 131/94 H 05/06/21 18:01 Blood Pressure Position Sitting 05/06/21 18:01 Pulse Oximetry 99 05/06/21 18:01 Oxygen Delivery Method Room Air 05/06/21 18:01 Oxygen Flow Rate 0 05/06/21 18:01 Pain Level 8 05/06/21 18:01
[2021-05-06 18:30] LABS: Abs Immature Grans 0.01 10^3/uL (0.0-0.06); Absolute Basophil Count 0.02 10^3/uL (0.0-0.2); Absolute Eosinophil Count 0.07 10^3/uL (0.0-0.7); Absolute Lymphocyte Count 0.42 10^3/uL (1.2-3.4); Absolute Monocyte Count 0.29 10^3/uL (0.1-0.8); Absolute Neutrophil Count 2.13 10^3/uL (1.2-6.7); Basophils % 0.7; Eosinophils % 2.4; HCT 38.6 % (40.0-50.0); HGB 12.2 g/dL (13.5-17.5); Immature Grans % 0.3; Lymphocytes % 14.3; MCHC 31.6 % (32.0-36.0); MCV 85.4 fL (80-95); MPV 8.8 fL (8.0-11.0); Monocytes % 9.9; Neutrophils % 72.4; Nucleated RBC 0 %; Platelet Count 180 10^3/uL (130-400); RBC 4.52 10^6/uL (4.36-5.78); RDW 15.1 % (11.8-14.1); RDW-SD 47.1 fL; WBC 2.94 10^3/uL (4.4-10.8)
[2021-05-06 18:45] LABS: Lipase 1139 U/L (73-393)
[2021-05-06 18:50] LABS: ALT 115 U/L (16-63); AST 189 U/L (15-37); Albumin 3.5 g/dL (3.4-5.0); Alkaline Phosphatase 396 U/L (46-116); Anion Gap 11.8 mmol/L (3-11); BUN 3 mg/dL (7-18); Bilirubin, Total 0.4 mg/dL (0.2-1.0); CO2 25.2 mmol/L (21.0-32.0); CREATININE 0.9 mg/dL (0.70-1.30); Calcium 8.9 mg/dL (8.5-10.1); Chloride 97 mmol/L (98-107); Glucose 118 mg/dL (74-106); Magnesium 2.1 mg/dL (1.8-2.4); Potassium 3.7 mmol/L (3.5-5.1); Sodium 134 mmol/L (136-145); Total Protein 7.9 g/dL (6.4-8.2)
--- NOTE | 2021-05-06 19:00 | DI.CT_ITS ---
Exam(s) CT ABDOMEN PELVIS W EXAM: CT ABDOMEN PELVIS W CLINICAL HISTORY: Vomiting, R/O Pancreatitis. TECHNIQUE: Imaging Protocol: Axial computed tomography images with coronal and sagittal reformatted images were created and reviewed CONTRAST MATERIAL: Intravenous: Omnipaque 100cc Oral: None COMPARISON: CT CT ABDOMEN PELVIS W from 01/29/2021 FINDINGS: VISUALIZED LUNG BASES: Mild atelectasis in the left lung base again noted.. There is a 2-3 millimete r noncalcified nodule in the lateral basal segment of the left lower lobe evident.. Not evident prev iously. Therefore possibly significant. There are no pleural effusions. ABDOMEN: There is no ascites. LIVER: Liver is again noted be profoundly hypodense implying severe steatosis. However there is also now a new subcapsular nodule in the anterior left hepatic lobe measuring 7 x 7 millimeters, not prev iously present. Therefore somewhat concerning given the history here. GALLBLADDER/BILIARY: No obvious acute gallbladder pathology. CBD is not dilated. PANCREAS: No evidence of pancreatic mass nor dilatation of the pancreatic duct. However, there appea rs to be some very mild streaking around the pancreatic body and tail now evident. SPLEEN: Spleen is not enlarged. No obvious intrasplenic lesions. Splenic and portal veins are paten t. ADRENALS: There are no significant adrenal masses. KIDNEYS:No cysts evident. No solid renal masses. No calculi nor hydronephrosis.. ABDOMINAL AORTA: Abdominal aorta is not enlarged. LYMPH NODES:There is no retroperitineal nor paraaortic adenopathy. ABDOMINAL WALL: No evidence of significant anterior abdominal wall hernia. GI: There is now a left sided colostomy. This is located approximately 5 cm lateral to the umbilicus . There is no bowel obstruction. No free air. No abscess. Rectum has been removed. There is no f ree fluid or abscess in the pelvis. PELVIS: GI: No evidence of appendicitis.No evidence of sigmoid diverticulitis. LYMPH NODES: There is no intrapelvic nor inguinal adenopathy. REPRODUCTIVE: Prostate is not enlarged. URINARY BLADDER: Slight uniformly thickened urinary bladder wall. OSSEOUS: No significant osseous lesions. Chronic degenerative disc disease space narrowing at L4-5 and L5-S1 levels. Other disc spaces exhibi t normal height. IMPRESSION: 1. Compared to the CT scan of 01/29/2021 there has been interval removal of the rectum and there has been creation of a left-sided colostomy. This appears unremarkable and there is no bowel obstruction . No new masses nor fluid in the pelvis and no lymphadenopathy evident. 2. However, there is now a solitary 7 millimeter relatively hyperdense nodule in the subcapsular ante rior aspect of the left hepatic lobe, not previously present and therefore this small finding is susp icious for possible metastatic disease, given the history here. There are no other foci new focal he patic findings. Severe [place] steatosis is again noted. 3. There is a small 3 millimeter nodule now evident in the lateral basal segment of the left lower lo be. This may be significant given that it does not appear to been present on the prior study. Recom mend chest CT scan 4. There is very mild streaking around the pancreatic body and tail. Correlation a clinical and bloo d work findings of pancreatitis recommended. There is no peripancreatic fluid collection. RADIATION DOSE DELIVERED: 742.54mGy.cm Total DLP DATA REPOSITORY: All CT scans at this facility are submitted to the National Radiology Data Registry (NRDR) Dose Index Registry (DIR) with the [employer] (ACR). RADIATION OPTIMIZATION: All CT scans at this facility use at least one of these dose optimization te chniques: automated exposure control; mA and/or kV adjustment per patient size (includes targeted exa ms where dose is matched to clinical indication); or iterative reconstruction.
[2021-05-06 19:07] LABS: Bilirubin Negative (Negative); Blood Negative (Negative); Clarity Clear (Clear); Glucose Negative (Negative); Ketones Negative (Negative); Leukocyte Esterase Negative (Negative); Nitrite Negative (Negative); Specific Gravity <= 1.005 (1.005-1.025); Urobilinogen 0.2 EU/dL (Up TO 0.2); pH 5.5 (5-8)
[2021-05-06] MEDS: Omnipaque 350 MG/ML 100 ML BTL IJ (19:21)
[2021-05-06] MEDS: Ondansetron 4 MG/2 ML VIAL IVP (19:26)
[2021-05-06] MEDS: Normal Saline - Diluent 50 ML VIAL IV (19:36)
[2021-05-06] MEDS: Normal Saline Flush 10 ML SYR IVP (19:36)
--- NOTE | 2021-05-06 19:57 | DI.VRAD_ITS ---
PROCEDURE INFORMATION: Exam: CT Abdomen And Pelvis With Contrast Exam date and time: 05/06/2021 7:04 PM Age: 50 years old Clinical indication: Prior surgery; Surgery date: 1-6 months; Surgery type: H/o rectal cancer, surgery in February 2021; Patient HX: Vomiting, R/O pancreatitis TECHNIQUE: Imaging protocol: Computed tomography of the abdomen and pelvis with contrast. Total images: 1309 Radiation optimization: All CT scans at this facility use at least one of these dose optimization techniques: automated exposure control; mA and/or kV adjustment per patient size (includes targeted exams where dose is matched to clinical indication); or iterative reconstruction. Contrast material: OMNIPAQUE 350; Contrast volume: 100 ml; Contrast route: INTRAVENOUS (IV); COMPARISON: CT ABDOMEN PELVIS W 01/29/2021 10:17 PM FINDINGS: Liver: The liver is diffusely low in attenuation. Gallbladder and bile ducts: Normal. No calcified stones. No ductal dilation. Pancreas: There is mild peripancreatic inflammatory fat stranding. No peripancreatic fluid collection. The pancreas enhances homogeneously. No peripancreatic gas. Spleen: Normal. No splenomegaly. Adrenal glands: Normal. No mass. Kidneys and ureters: There are simple appearing cysts in the left kidney. Stomach and bowel: There is a left lower quadrant end colostomy. The rectum is absent. No dilated loops of bowel to suggest obstruction. Appendix: No evidence of appendicitis. Intraperitoneal space: Unremarkable. No free air. No significant fluid collection. Vasculature: No evidence of splenic or portal vein thrombus. No abdominal aortic aneurysm. Lymph nodes: Unremarkable. No enlarged lymph nodes. Urinary bladder: Unremarkable as visualized. Reproductive: Unremarkable as visualized. Bones/joints: Unremarkable. No acute fracture. Soft tissues: Unremarkable. IMPRESSION: 1. Mild peripancreatic fat stranding likely acute interstitial edematous pancreatitis. Correlate with lipase. No discrete peripancreatic fluid collection. No evidence of pancreatic necrosis. 2. No evidence of splenic or portal vein thrombus. 3. Hepatic steatosis. Dictated and Authenticated by: Silvana Salinas MD. Ordering:ANNA MARIE Vicente MD
[2021-05-06] MEDS: Normal Saline 1,000 ML 1000 ML IV (20:00)
--- NOTE | 2021-05-06 21:40 | W.PM.HP.N ---
Date of service: 05/06/21 Time of Service: 21:40 Assessment and Plan Assessment and plan (1) Acute pancreatitis: Start date: 05/06/21 Status: Acute Assessment and plan: This is a 50-year-old gentleman presenting with intractable nausea and vomiting over the last several week and minimal abdominal pain but having elevated serum lipase and CT findings consistent with acute pancreatitis without abscess or pseudocyst. Patient will be treated with IV fluids and bowel rest with patient desiring clear fluids and feeling hungry at this time. This will be started slowly and if patient has recurrent nausea vomiting he should remain n.p.o. Trend lipase and symptoms. Qualifiers: Acute pancreatitis complication: no infection or necrosis Pancreatitis type: alcohol induced Qualified Code(s): K85.20 - Alcohol induced acute pancreatitis without necrosis or infection (2) Alcoholic gastritis: Start date: 05/06/21 Status: Acute Assessment and plan: IV PPI and advance diet slowly. Patient should stop drinking alcohol. He may need repeat EGD if persistent symptoms. Just will not need to be done during this acute hospitalization. Qualifiers: Chronicity: unspecified Gastritis bleeding: without bleeding Qualified Code(s): K29.20 - Alcoholic gastritis without bleeding (3) Alcoholic hepatitis without ascites: Start date: 05/06/21 Status: Acute Assessment and plan: Patient's liver enzymes are elevated with drinking a 12 pack of beer daily. Trend lab and supportive care with symptom treatment. Long-term he should stop alcohol. (4) Alcoholism: Status: Chronic Assessment and plan: Patient is a chronic alcoholic and now with his additional problems with rectal cancer needs to consider outpatient alcohol cessation treatment program for better support systems are maintained abstinence of alcohol abuse. (5) Rectal cancer: Status: Chronic Assessment and plan: Patient is follow-up at [facility] for rectal cancer. He has lost about 20 pounds since diagnosis and needs close monitoring with his PCP with dietary supplementation as needed. This problem appears to be stable and most likely not contribute to his acute problem. History of Present Illness History of Present Illness Chief Complaint: Persistent nausea and vomiting with daily alcohol intake Narrative: This is a 50-year-old male patient who is status post radiation and chemotherapy for rectal cancer since February 2021 status post colostomy placement in the same month. For the last 3 weeks he has been having difficulty holding food down with persistent nausea and vomiting denying hematemesis or change in bowel habits. He has had no melena or hematochezia. He denies any significant abdominal pain and has had some urinary urgency but no dysuria. He has lost 20 pounds since his diagnosis of rectal cancer but most of his loss in the last several weeks. He does drink a 12 pack of beer daily and has had problems with alcoholism and self treatment for mood disorder in the past. He does have a family history of alcoholism. In the ED he was evaluated and found to have elevated lipase with CT findings of pancreatitis without abscess. He also had elevated liver functions indicating alcoholic hepatitis. The patient does not have a history of alcoholic cirrhosis and has had an EGD with no mention of esophageal varices. He denies any bleeding with his emesis as mentioned. He is with his mother and his fairly active and independent. Review of Systems Narrative: 13 point review of systems otherwise unrevealing or stable. [facility] Medical History Alcohol abuse Rectal cancer Surgical History H/O esophagogastroduodenoscopy Hx of colonoscopy Family History Father Colon cancer Paternal Uncle Brain malignancy Maternal Grandmother Brain malignancy Social History Smoking/Tobacco Use Status: Current every day Tobacco Type: smokeless tobacco Smoking risk assessment performed?: Yes Alcohol Intake: current Alcohol Intake frequency: 3 or more drinks per day Alcohol type: beer Drug use: Never Substance use type: does not use Details: 12 pack a day. Cut self down to 6 or 7 beers today Do you feel safe at home: Yes Do you feel safe in your relationship?: Yes Meds Allergies and Home Medications Allergies Allergy/AdvReac Type Severity Reaction Status Date / Time No Known Allergies Allergy Verified 05/06/21 18:07 Home Medications Medication Instructions Recorded Confirmed Type lorazepam See Rx Instructions .ROUTE 05/07/21 Rx .COMPLEX PRN #30 tab Exam Narrative Exam Narrative: General: Patient appears appropriate for age, thin but not cachectic. He is comfortable and in no acute distress. He does have a flattened affect with poor eye contact and slowed speech. He is alert and oriented x3. HEENT: Normocephalic, eyes with pupils equal and reactive to light symmetrically, extraocular movement intact and sclera anicteric. Oropharynx with slightly dry mucosa and fair dentition. Neck: Supple without JVD. Lungs: Fair aeration and clear to auscultation and percussion. Back: Stooped posture without CVA tenderness. Heart: Regular rate and rhythm with no murmurs or gallops appreciated. Abdomen: Slightly protuberant but soft to palpation with no guarding or focalizing tenderness. No palpable hepatosplenomegaly. Colostomy bag in left lower quadrant full of brown stool and gas. Genitalia/rectal: Exam deferred. Extremities: Without clubbing, cyanosis or pitting edema. Peripheral pulses intact. Skin: Pale, warm and dry. Neuro: Cranial nerves II to XII grossly intact, no focalizing motor deficits. Psych: Flattened affect with depressed mood. Slow monotonous tone to voice. No abnormal thought processes. Remote and recent memory grossly intact. Results Imaging EKG: report reviewed Imaging Studies: Exam: CT Abdomen And Pelvis With Contrast Exam date and time: 05/06/2021 7:04 PM Age: 50 years old Clinical indication: Prior surgery; Surgery date: 1-6 months; Surgery type: H/o rectal cancer, surgery in February 2021; Patient HX: Vomiting, R/O pancreatitis TECHNIQUE: Imaging protocol: Computed tomography of the abdomen and pelvis with contrast. Total images: 1309 Radiation optimization: All CT scans at this facility use at least one of these dose optimization techniques: automated exposure control; mA and/or kV adjustment per patient size (includes targeted exams where dose is matched to clinical indication); or iterative reconstruction. Contrast material: OMNIPAQUE 350; Contrast volume: 100 ml; Contrast route: INTRAVENOUS (IV); COMPARISON: CT ABDOMEN PELVIS W 01/29/2021 10:17 PM FINDINGS: Liver: The liver is diffusely low in attenuation. Gallbladder and bile ducts: Normal. No calcified stones. No ductal dilation. Pancreas: There is mild peripancreatic inflammatory fat stranding. No peripancreatic fluid collection. The pancreas enhances homogeneously. No peripancreatic gas. Spleen: Normal. No splenomegaly. Adrenal glands: Normal. No mass. Kidneys and ureters: There are simple appearing cysts in the left kidney. Stomach and bowel: There is a left lower quadrant end colostomy. The rectum is absent. No dilated loops of bowel to suggest obstruction. Appendix: No evidence of appendicitis. Intraperitoneal space: Unremarkable. No free air. No significant fluid collection. Vasculature: No evidence of splenic or portal vein thrombus. No abdominal aortic aneurysm. Lymph nodes: Unremarkable. No enlarged lymph nodes. Urinary bladder: Unremarkable as visualized. Reproductive: Unremarkable as visualized. Bones/joints: Unremarkable. No acute fracture. Soft tissues: Unremarkable. IMPRESSION: 1. Mild peripancreatic fat stranding likely acute interstitial edematous pancreatitis. Correlate with lipase. No discrete peripancreatic fluid collection. No evidence of pancreatic necrosis. 2. No evidence of splenic or portal vein thrombus. 3. Hepatic steatosis. Labs Result diagrams: 05/07/21 06:33 05/07/21 06:33 Labs: Laboratory Results - last 24 hr 05/06/21 05/06/21 05/06/21 18:15 18:22 18:22 WBC RBC Hgb Hct MCV MCH MCHC RDW Plt Count MPV Immature Gran % Neutrophils % Lymphocytes % Monocytes % Eosinophils % Basophils % Nucleated RBC % Absolute Neutrophils Absolute Lymphocytes Absolute Monocytes Absolute Eosinophils Absolute Basophils Sodium 134 L Potassium 3.7 Chloride 97 L Carbon Dioxide 25.2 Anion Gap 11.8 H BUN 3 L Creatinine 0.9 Estimated GFR/1.73 m2 >= 60.00 Glucose 118 H Calcium 8.9 Magnesium 2.1 Total Bilirubin 0.4 AST 189 H ALT 115 H Alkaline Phosphatase 396 H Total Protein 7.9 Albumin 3.5 Lipase 1139 H Urine Color Yellow Urine Clarity Clear Urine pH 5.5 Ur Specific [place] <= 1.005 Urine Protein Negative Urine Ketones Negative Urine Blood Negative Urine Nitrite Negative Urine Bilirubin Negative Urine Urobilinogen 0.2 Ur Leukocyte Esterase Negative Urine Glucose Negative 05/06/21 18:22 WBC 2.94 L RBC 4.52 Hgb 12.2 L Hct 38.6 L MCV 85.4 MCH 27.0 MCHC 31.6 L RDW 15.1 H Plt Count 180 MPV 8.8 Immature Gran % 0.3 Neutrophils % 72.4 Lymphocytes % 14.3 Monocytes % 9.9 Eosinophils % 2.4 Basophils % 0.7 Nucleated RBC % 0 Absolute Neutrophils 2.13 Absolute Lymphocytes 0.42 L Absolute Monocytes 0.29 Absolute Eosinophils 0.07 Absolute Basophils 0.02 Sodium Potassium Chloride Carbon Dioxide Anion Gap BUN Creatinine Estimated GFR/1.73 m2 Glucose Calcium Magnesium Total Bilirubin AST ALT Alkaline Phosphatase Total Protein Albumin Lipase Urine Color Urine Clarity Urine pH Ur Specific [place] Urine Protein Urine Ketones Urine Blood Urine Nitrite Urine Bilirubin Urine Urobilinogen Ur Leukocyte Esterase Urine Glucose Last Vital Signs Temp 36.6 C 05/06/21 18:01 Pulse 89 05/06/21 18:01 Resp 18 05/06/21 18:01 BP 131/94 H 05/06/21 18:01 Pulse Ox 99 05/06/21 18:01
[2021-05-06 21:55] VITALS: BP 116/85; PULSE 96; RESP 16; O2SAT 93
[2021-05-06] MEDS: LORazepam 2 MG/ML VIAL 1 MG IVP (21:55)
[2021-05-06 22:16] LABS: *AMPHETAMINES SCREEN URINE Negative (Negative); *BARBITURATES SCREEN URINE Negative (Negative); *BENZODIAZEPINES SCREEN URINE Negative (Negative); Cannabinoids THC Negative (Negative); Cocaine Screen,Urine Negative (Negative); METHADONE URINE SCREEN Negative (Negative); OPIATES URINE SCREEN Negative (Negative)
[2021-05-06 22:21] LABS: Tricyclic Antidepressants Negative (Negative)
[2021-05-06 22:34] LABS: Source Nasal/Nares
[2021-05-06 22:59] VITALS: BP 147/63; PULSE 106; RESP 20; TEMP 37.2; O2SAT 96
[2021-05-06 23:23] LABS: COVID-19 PCR Negative (Negative)
[2021-05-06 23:58] VITALS: BP 110/76; PULSE 104; RESP 16; TEMP 37.2; O2SAT 95
[2021-05-07] MEDS: Normal Saline 1,000 ML 150 ML IV ×2 (00:40→06:45)
[2021-05-07] MEDS: Normal Saline Flush 10 ML SYR IVP (00:40)
[2021-05-07] MEDS: Pantoprazole 40 MG VIAL IVP (00:40)
[2021-05-07 02:15] VITALS: BP 114/73; PULSE 93; RESP 20; TEMP 37.2; O2SAT 95
[2021-05-07] MEDS: LORazepam 1 MG TAB PO/SL ×4 (02:16→11:44)
[2021-05-07 04:40] VITALS: BP 123/72; PULSE 99; RESP 18; TEMP 37.3; O2SAT 96
[2021-05-07 06:42] VITALS: BP 126/85; PULSE 86; RESP 18; TEMP 37.6; O2SAT 96
[2021-05-07 06:58] LABS: Abs Immature Grans 0.02 10^3/uL (0.0-0.06); Absolute Basophil Count 0.02 10^3/uL (0.0-0.2); Absolute Eosinophil Count 0.07 10^3/uL (0.0-0.7); Absolute Monocyte Count 0.33 10^3/uL (0.1-0.8); Absolute Neutrophil Count 1.99 10^3/uL (1.2-6.7); Basophils % 0.7; Eosinophils % 2.5; HGB 10.5 g/dL (13.5-17.5); Immature Grans % 0.7; Lymphocytes % 14.1; MCH 27.1 pg (27.0-33.0); MCHC 31.8 % (32.0-36.0); MCV 85.3 fL (80-95); MPV 10.2 fL (8.0-11.0); Monocytes % 11.7; Neutrophils % 70.3; Nucleated RBC 0 %; Platelet Count 145 10^3/uL (130-400); RBC 3.87 10^6/uL (4.36-5.78); RDW 15.5 % (11.8-14.1); RDW-SD 47.7 fL; WBC 2.83 10^3/uL (4.4-10.8)
[2021-05-07 07:16] LABS: INR 1.1 (0.9-1.1); Prothrombin Time 10.6 sec (9.3-11.0)
[2021-05-07 07:41] LABS: ALT 87 U/L (16-63); AST 126 U/L (15-37); Albumin 2.9 g/dL (3.4-5.0); Alkaline Phosphatase 315 U/L (46-116); Anion Gap 9.6 mmol/L (3-11); BUN 4 mg/dL (7-18); Bilirubin, Total 0.6 mg/dL (0.2-1.0); CO2 26.4 mmol/L (21.0-32.0); CREATININE 0.7 mg/dL (0.70-1.30); Calcium 8.4 mg/dL (8.5-10.1); Chloride 107 mmol/L (98-107); Glucose 92 mg/dL (74-106); Potassium 4.2 mmol/L (3.5-5.1); Sodium 143 mmol/L (136-145); Total Protein 6.5 g/dL (6.4-8.2)
[2021-05-07 07:48] LABS: Lipase 874 U/L (73-393)
[2021-05-07 08:00] VITALS: BP 127/82; PULSE 89; RESP 16; TEMP 37.7; O2SAT 96
[2021-05-07 08:53] VITALS: BP 120/78; PULSE 92; RESP 18; TEMP 37.1; O2SAT 96
[2021-05-07 11:30] VITALS: BP 122/81; PULSE 90; RESP 18; TEMP 37.3; O2SAT 95
--- NOTE | 2021-05-07 12:33 | DSE_ITS ---
Date of service: 05/07/21 Time of Service: 12:33 DS: Diagnosis Discharge Diagnosis (1) Acute pancreatitis: Status: Acute (2) Alcoholic gastritis: Status: Acute (3) Alcoholic hepatitis without ascites: Status: Acute (4) Alcoholism: Status: Chronic (5) Rectal cancer: Status: Chronic Discharge Plan Disposition Patient Disposition: HOME Condition: Stable Discharge Details Reason For Visit: Acute pancreatitis,alcoholic hepatitis,Alcoholism, Admit Date/Time: 05/06/21 21:25 Admit Provider: Mitch Pierce Attending Provider: Mitch Pierce Primary Care Provider: Freddy Juarez Hospital Course Hospital Course: This is a 50-year-old male with a history of rectal cancer status post diverting colostomy placement in February, alcoholic gastritis, alcoholic pancreatitis presents with nausea vomiting unable to keep anything down for the last month and dry heaving. He endorses drinking 4 beers on the day of admission. He denied any hemataemesis or hematochezia. No chest pain, abdominal pain. He endorsed urinary urgency, but no dysuria. No exertional shortness of breath. No fever no chills. He was admitted and placed on alcohol withdrawal precautions and ativan prn for withdrawal symptoms. He did tolerate clear liquids. He required no pain medications and felt he could return home and maintain hydration. He would like to stop drinking and was planning to taper off alcohol. He will, instead, go home on a lorazepam taper and continue to abstain from alcohol. A football coach consult was obtained. He was amenable to continuing contact with football coach and interested in community resource options to support him in his efforts to remain sober. Follow up with PCP in 1-2 weeks. Home Meds and New Rx's Prescriptions: New lorazepam 1 mg tablet See Rx Instructions .ROUTE .COMPLEX PRNQty: 30 RF: 0 Discharge Instructions Instructions: Pancreatitis (DC), Abuse of Alcohol (DC) Stand Alone Forms: Nursing Discharge Form Referrals: Freddy Juarez [Primary Care Provider] - Activity:: Activity as Tolerated Equipment/Supplies:: No Equipment Needed Diet:: As Tolerated Discharge Orders Discharge Orders: Discharge Order (Routine); Ordered 05/07/21 Ordered By: Skip Acevedo DS: Summary Time Spent with Patient providing and/or coordinating discharge services: Less than 30 minutes Status at Discharge Functional status at discharge: independent ambulation Overall status at discharge: patient is progressing back to baseline Mental Status: mental status grossly normal Speech and Movement: speech clear Mood: congruent mood Affect: normal affect Exam Const General: cooperative and no acute distress Nutritional Appearance: thin Orientation: alert and oriented x3 Neck Neck: full ROM Resp Effort & Inspection: normal respiratory effort Auscultation: clear to auscultation bilaterally and diminished lung sounds Cardio Rate: regular rate Rhythm: regular rhythm Heart Sounds: S1 normal and S2 normal GI Palpation: soft and nontender Auscultation: normal bowel sounds Skin General skin exam: no rashes or lesions noted Neuro General: no focal motor deficits and not confused Motor: tremor (Bilateral hands) Extrem General: no pedal edema and no calf tenderness Psych Mental Status: mental status grossly normal Speech and Movement: speech clear Mood: congruent mood Affect: normal affect DS: Data Vitals/I&O Vitals and I&O: Vital Signs Temperature 37.3 C 05/07/21 11:30 Temperature Source Tympanic 05/07/21 11:30 Pulse 90 05/07/21 11:30 Pulse Rhythm Regular 05/07/21 08:50 Respiratory Rate 18 05/07/21 11:30 Respiratory Effort Non-Labored 05/07/21 08:50 Respiratory Depth Normal 05/07/21 08:50 Respiratory Pattern Normal 05/07/21 08:50 Blood Pressure 122/81 05/07/21 11:30 Blood Pressure Position Sitting 05/06/21 18:01 Pulse Oximetry 95 05/07/21 11:30 Oxygen Delivery Method Room Air 05/07/21 11:30 Oxygen Flow Rate 0 05/07/21 11:30 Pain Level 0 05/07/21 11:30 Comment 05/06/21 21:55 Intake & Output 05/06/21 05/07/21 05/07/21 23:59 11:59 23:59 Intake Total 1000 / 1000 1332.5 / 1332.5 Output Total 875 / 875 Balance 1000 / 1000 457.5 / 457.5 Weight 70.4 kg 70.9 kg Intake: IV 1000 / 1000 932.5 / 932.5 Oral 400 / 400 Output: Urine 800 / 800 Stool 75 / 75 Other: Urine Color Yellow Urine Appearance Clear Urine Odor Normal Stool Characteristics Soft Voiding Methods Urinal Data Completed and Pending Labs on day of discharge: Labs from last 24 hours 05/07/21 05/07/21 05/07/21 06:33 06:33 06:33 WBC 2.83 L RBC 3.87 L Hgb 10.5 L Hct 33.0 L MCV 85.3 MCH 27.1 MCHC 31.8 L RDW 15.5 H Plt Count 145 MPV 10.2 Immature Gran % 0.7 Neutrophils % 70.3 Lymphocytes % 14.1 Monocytes % 11.7 Eosinophils % 2.5 Basophils % 0.7 Nucleated RBC % 0 Absolute Neutrophils 1.99 Absolute Lymphocytes 0.40 L Absolute Monocytes 0.33 Absolute Eosinophils 0.07 Absolute Basophils 0.02 PT INR Sodium 143 Potassium 4.2 Chloride 107 Carbon Dioxide 26.4 Anion Gap 9.6 BUN 4 L Creatinine 0.7 Estimated GFR/1.73 m2 >= 60.00 Glucose 92 Calcium 8.4 L Phosphorus Magnesium Total Bilirubin 0.6 AST 126 H ALT 87 H Alkaline Phosphatase 315 H Total Protein 6.5 Albumin 2.9 L Lipase 874 H Urine Color Urine Clarity Urine pH Ur Specific [place] Urine Protein Urine Ketones Urine Blood Urine Nitrite Urine Bilirubin Urine Urobilinogen Ur Leukocyte Esterase Urine Glucose Urine Opiates Screen Urine Methadone Screen Ur Barbiturates Screen Ur Tricyclics Screen Ur Amphetamines Screen U Benzodiazepines Scrn Urine Cocaine Screen Ur THC Screen COVID-19 Source SARS-CoV-2 (PCR) 05/07/21 05/07/21 05/06/21 06:33 06:33 22:30 WBC RBC Hgb Hct MCV MCH MCHC RDW Plt Count MPV Immature Gran % Neutrophils % Lymphocytes % Monocytes % Eosinophils % Basophils % Nucleated RBC % Absolute Neutrophils Absolute Lymphocytes Absolute Monocytes Absolute Eosinophils Absolute Basophils PT 10.6 INR 1.1 Sodium Potassium Chloride Carbon Dioxide Anion Gap BUN Creatinine Estimated GFR/1.73 m2 Glucose Calcium Phosphorus 4.0 Magnesium Total Bilirubin AST ALT Alkaline Phosphatase Total Protein Albumin Lipase Urine Color Urine Clarity Urine pH Ur Specific [place] Urine Protein Urine Ketones Urine Blood Urine Nitrite Urine Bilirubin Urine Urobilinogen Ur Leukocyte Esterase Urine Glucose Urine Opiates Screen Urine Methadone Screen Ur Barbiturates Screen Ur Tricyclics Screen Ur Amphetamines Screen U Benzodiazepines Scrn Urine Cocaine Screen Ur THC Screen COVID-19 Source Nasal/Nares SARS-CoV-2 (PCR) Negative 05/06/21 05/06/21 05/06/21 18:22 18:22 18:22 WBC 2.94 L RBC 4.52 Hgb 12.2 L Hct 38.6 L MCV 85.4 MCH 27.0 MCHC 31.6 L RDW 15.1 H Plt Count 180 MPV 8.8 Immature Gran % 0.3 Neutrophils % 72.4 Lymphocytes % 14.3 Monocytes % 9.9 Eosinophils % 2.4 Basophils % 0.7 Nucleated RBC % 0 Absolute Neutrophils 2.13 Absolute Lymphocytes 0.42 L Absolute Monocytes 0.29 Absolute Eosinophils 0.07 Absolute Basophils 0.02 PT INR Sodium 134 L Potassium 3.7 Chloride 97 L Carbon Dioxide 25.2 Anion Gap 11.8 H BUN 3 L Creatinine 0.9 Estimated GFR/1.73 m2 >= 60.00 Glucose 118 H Calcium 8.9 Phosphorus Magnesium 2.1 Total Bilirubin 0.4 AST 189 H ALT 115 H Alkaline Phosphatase 396 H Total Protein 7.9 Albumin 3.5 Lipase 1139 H Urine Color Urine Clarity Urine pH Ur Specific [place] Urine Protein Urine Ketones Urine Blood Urine Nitrite Urine Bilirubin Urine Urobilinogen Ur Leukocyte Esterase Urine Glucose Urine Opiates Screen Urine Methadone Screen Ur Barbiturates Screen Ur Tricyclics Screen Ur Amphetamines Screen U Benzodiazepines Scrn Urine Cocaine Screen Ur THC Screen COVID-19 Source SARS-CoV-2 (PCR) 05/06/21 05/06/21 18:15 18:15 WBC RBC Hgb Hct MCV MCH MCHC RDW Plt Count MPV Immature Gran % Neutrophils % Lymphocytes % Monocytes % Eosinophils % Basophils % Nucleated RBC % Absolute Neutrophils Absolute Lymphocytes Absolute Monocytes Absolute Eosinophils Absolute Basophils PT INR Sodium Potassium Chloride Carbon Dioxide Anion Gap BUN Creatinine Estimated GFR/1.73 m2 Glucose Calcium Phosphorus Magnesium Total Bilirubin AST ALT Alkaline Phosphatase Total Protein Albumin Lipase Urine Color Yellow Urine Clarity Clear Urine pH 5.5 Ur Specific [place] <= 1.005 Urine Protein Negative Urine Ketones Negative Urine Blood Negative Urine Nitrite Negative Urine Bilirubin Negative Urine Urobilinogen 0.2 Ur Leukocyte Esterase Negative Urine Glucose Negative Urine Opiates Screen Negative Urine Methadone Screen Negative Ur Barbiturates Screen Negative Ur Tricyclics Screen Negative Ur Amphetamines Screen Negative U Benzodiazepines Scrn Negative Urine Cocaine Screen Negative Ur THC Screen Negative COVID-19 Source SARS-CoV-2 (PCR) [facility] Medical History Alcohol abuse Rectal cancer Surgical History H/O esophagogastroduodenoscopy Hx of colonoscopy Family History Father Colon cancer Paternal Uncle Brain malignancy Maternal Grandmother Brain malignancy Social History Smoking/Tobacco Use Status: Current every day Tobacco Type: smokeless tobacco Smoking risk assessment performed?: Yes Alcohol Intake: current Alcohol Intake frequency: 3 or more drinks per day Alcohol type: beer Drug use: Never Substance use type: does not use Details: 12 pack a day. Cut self down to 6 or 7 beers today Do you feel safe at home: Yes Do you feel safe in your relationship?: Yes
== END 2021-05-07 13:56 | disposition home or self-care (01) | DRG 439 ==
LOC: ER 21:35 → MS 22:54
PROVIDERS: Admitting Provider Family Medicine; Emergency Provider Registered Nurse Emergency; PCP Family Medicine; Visit Provider Family Medicine
DX: K85.20 Alcohol induced acute pancreatitis without necrosis or infection (principal); C20 Malignant neoplasm of rectum; K29.70 Gastritis, unspecified, without bleeding; F10.20 Alcohol dependence, uncomplicated; F17.210 Nicotine dependence, cigarettes, uncomplicated; Z93.3 Colostomy status; Z20.822 Contact with and (suspected) exposure to COVID-19
CPT/HCPCS: 36415; 80053; 80307; 83690; 87635; 96361; 96374; 96375; 99285; 74177; 81003; 83735; 84100; 85025; 85610; 99223; 99239; J2060; J2405; J3490

== ENCOUNTER 2021-07-18 12:33 | Outpatient (RCR) | payer MEDICAID, SELFPAY ==
[2021-07-18 13:34] LABS: Abs Immature Grans 0.01 10^3/uL (0.0-0.06); Absolute Basophil Count 0.03 10^3/uL (0.0-0.2); Absolute Eosinophil Count 0.06 10^3/uL (0.0-0.7); Absolute Monocyte Count 0.45 10^3/uL (0.1-0.8); Absolute Neutrophil Count 2.21 10^3/uL (1.2-6.7); Basophils % 0.9; Eosinophils % 1.7; HCT 34.2 % (40.0-50.0); HGB 10.4 g/dL (13.5-17.5); Immature Grans % 0.3; Lymphocytes % 20.2; MCH 25.9 pg (27.0-33.0); MCHC 30.4 % (32.0-36.0); MCV 85.1 fL (80-95); MPV 9.2 fL (8.0-11.0); Neutrophils % 63.9; Nucleated RBC 0 %; Platelet Count 231 10^3/uL (130-400); RBC 4.02 10^6/uL (4.36-5.78); RDW 15.7 % (11.8-14.1); RDW-SD 49.3 fL; WBC 3.46 10^3/uL (4.4-10.8)
[2021-07-18 13:43] LABS: ALT 39 U/L (16-63); AST 35 U/L (15-37); Albumin 3.5 g/dL (3.4-5.0); Alkaline Phosphatase 140 U/L (46-116); Anion Gap 6.9 mmol/L (3-11); BUN 8 mg/dL (7-18); Bilirubin, Total 0.3 mg/dL (0.2-1.0); CO2 28.1 mmol/L (21.0-32.0); CREATININE 0.8 mg/dL (0.70-1.30); Calcium 8.9 mg/dL (8.5-10.1); Chloride 105 mmol/L (98-107); Glucose 95 mg/dL (74-106); Potassium 4.3 mmol/L (3.5-5.1); Sodium 140 mmol/L (136-145); Total Protein 7.3 g/dL (6.4-8.2)
[2021-07-18 23:24] LABS: CEA <2.0 ng/mL (See Note)
== END 2021-07-20 23:59 | disposition home or self-care (01) ==
LOC: INF 12:33
PROVIDERS: PCP Family Medicine; Visit Provider Internal Medicine Hematology & Oncology
DX: C20 Malignant neoplasm of rectum (principal)
CPT/HCPCS: 36415; 80053; 82378; 85025

== ENCOUNTER 2021-08-14 07:39 | Outpatient (CLI) | payer MEDICAID, SELFPAY ==
--- NOTE | 2021-08-14 | DI.CT_ITS ---
Exam(s) CT CHEST/ABD/PEL W EXAM: CT CHEST/ABD/PEL W CLINICAL HISTORY: RECTAL CA,S/P CHEMO,RT,RESTAGING EXAM,INDETERMINATE LIVER AND LUNG NODULES. TECHNIQUE: Imaging Protocol: Axial computed tomography images with coronal and sagittal reformatted images were created and reviewed CONTRAST MATERIAL: Intravenous: Omnipaque 350 Contrast volume:100 ml Oral: Yes. Oral contrast was administered for bowel opacification. COMPARISON: CT CT CHEST/ABD/PEL W from 09/23/[address] CHEST/ABD/PEL W from 09/23/[address] ABDOMEN PELVIS W from 01/15/[address] ABDOMEN PELVIS W from 01/29/[address] ABDOMEN PELVIS W from 01/29/[address] ABDOMEN PELVIS W from 05/06/[address] ABDOMEN PELVIS W from 05/06/2021 FINDINGS: CHEST: LUNGS: In the right lung there is a noncalcified subpleural nodule measuring 5 millimeter in the righ t lower lobe, not previously present on the September 2020 study and therefore possibly metastatic. T here are no other significant focal right lung findings. In the left lung the small 2 millimeter sub pleural nodule in the lateral basal segment of the left lower lobe is unchanged. There are also unch anged atelectasis-infiltrate markings in the lingular segment of the left lung. There are no pleural effusions. MEDIASTINUM: There is no hilar nor mediastinal adenopathy. Visualized thyroid unremarkable. CARDIAC: Heart size is normal. There is no pericardial effusion.Caliber of the thoracic aorta is wit hin normal limits. OSSEOUS: No significant osseous lesions.. ABDOMEN: There is no ascites. LIVER: Profound hepatic steatosis is again noted. There are no new significant findings in the right lobe. In the anterior subcapsular aspect of the left hepatic lobe there is a concerning nodule whic h was not evident in September 2020 nor on the study of 01/15/2021 nor on 01/30/2021. It was evident on 05/06/2021 but has slightly increased in size. Previously measured 7 x 7 millimeters. Presently measures 12 by 13mm. Most probably metastatic. GALLBLADDER/BILIARY: No obvious gallbladder pathology. CBD is not dilated. PANCREAS: No evidence of pancreatic mass nor dilatation of the pancreatic duct. SPLEEN: Spleen is not enlarged. There are no intrasplenic lesions. Splenic and portal veins are julian nt. ADRENALS: There are no significant adrenal masses. KIDNEYS: No calculi nor hydronephrosis. No solid renal masses. No cysts evident. ABDOMINAL AORTA: Abdominal aorta is not enlarged. LYMPH NODES: There is no retroperitoneal nor paraaortic adenopathy. ABDOMINAL WALL: Appearance of the left-sided colostomy is stable. Rectum is surgically absent GI: There is no evidence of bowel obstruction. PELVIS: LYMPH NODES: There is no intrapelvic nor inguinal adenopathy. GI: No evidence of appendicitis.No evidence of diverticulitis. URINARY BLADDER: No calculi nor masses evident REPRODUCTIVE: Prostate gland not enlarged. OSSEOUS: No significant osseous lesions. IMPRESSION: 1. There is a new 5 millimeter subpleural nodule in the right lung which measures 5 millimeter and th is probably metastatic. This was not evident on the prior CT scan of September 2020. The smaller nod ule in the left lower lobe is unchanged in size. No other pulmonary nodules. No pleural effusions. No intrathoracic adenopathy. 2. Solitary metastatic lesion left hepatic lobe has increased from 7 millimeters to 1.3mm size 3. Hepatic steatosis again noted. No ascites. 4. RADIATION DOSE DELIVERED: 1,806.37mGy.cm Total DLP DATA REPOSITORY: All CT scans at this facility are submitted to the National Radiology Data Registry (NRDR) Dose Index Registry (DIR) with the [employer] (ACR). RADIATION OPTIMIZATION: All CT scans at this facility use at least one of these dose optimization te chniques: automated exposure control; mA and/or kV adjustment per patient size (includes targeted exa ms where dose is matched to clinical indication); or iterative reconstruction.
[2021-08-14] MEDS: Omnipaque 350 MG/ML 100 ML BTL IJ (09:28)
[2021-08-14] MEDS: Normal Saline - Diluent 50 ML VIAL IV (09:29)
[2021-08-14] MEDS: Normal Saline Flush 10 ML SYR IVP (09:30)
[2021-08-14] MEDS: Breeza Beverage 473 ML BTL PO (09:31)
[2021-08-14] MEDS: Omnipaque 350 MG/ML 50 ML BTL IJ (09:33)
== END 2021-08-14 07:59 ==
PROVIDERS: PCP Family Medicine; Visit Provider Internal Medicine Hematology & Oncology
DX: C20 Malignant neoplasm of rectum (principal); C77.5 Secondary and unspecified malignant neoplasm of intrapelvic lymph nodes; Z92.21 Personal history of antineoplastic chemotherapy; Z92.3 Personal history of irradiation; R91.1 Solitary pulmonary nodule; J98.4 Other disorders of lung; K76.0 Fatty (change of) liver, not elsewhere classified; K76.89 Other specified diseases of liver
CPT/HCPCS: 74177; 71260; J3490; Q9967

== ENCOUNTER 2021-09-22 01:08 | Inpatient (IN) | payer MEDICAID, SELFPAY ==
[2021-09-22] VITALS (27 sets, daily range): BP systolic 128–148; BP diastolic 72–92; PULSE 73–106; RESP 17–31; TEMP 36.5–37.2; O2SAT 91–98
--- NOTE | 2021-09-22 01:16 | ED.GENADUL_ITS ---
Discharge Plan Disposition Patient Disposition: [facility] INPATIENT Condition: Poor Discharge Details Clinical Impression: Alcohol withdrawal, Alcoholic pancreatitis Primary Care Provider: Freddy Juarez ED Provider: Blaine Welch Home Meds and New Rx's Prescriptions: No Action No Known Home Meds RF: 0 Medical Decision Making Patient presenting with acute alcohol withdrawal due to his attempt to wean himself off alcohol. He is tachycardic though blood pressure is reasonable. He has a benign abdomen. He is tremulous throughout. Will place IV and check labo ratory studies. Given his report of liver problems and follow-up with liver specialist next month will not use phenobarbital. Will score CIWA and dose with Ativan. Will determine disposition based on labs and response to benzodiazepine. Patient denies alcohol withdrawal seizures in the past. He is here with family who is supportive. Patient markedly improved with just 2 mg of IV Ativan. Laboratory studies significant for neutropenia which is chronic as well as anemia which is chronic. Liver function mildly elevated as it has been in the past. Lipase elevated consistent with pancreatitis. Electrolytes and renal function normal. He does have a little anion gap which should respond to fluids. Due to be pancreatitis we will make him n.p.o. Thiamine 100 mg IV ordered and then will start D5 LR. Case discussed with hospitalist for admission for management of alcohol withdrawal and alcohol pancreatitis. Given how well he responded to just a single dose of Ativan suspect he will be okay on [facility] telemetry bed which hospitalist agrees with. Medical Records Medical records reviewed: Yes I reviewed the patient's medical records. Lab Data Lab results reviewed: Yes I reviewed the patient's lab results. ECG Data Attestation: I personally reviewed and interpreted this ECG (s) as follows: Prior ECG tracings: available for review Interpretation: see EKG HPI General Mode of arrival: ambulatory . Date/Time Provider Initiated Documentation: 09/22/21 01:16 . Limitations to Documentation: no limitations . Information obtained by: patient . HPI Narrative: Patient presents to the ED with shakes, nausea, dry heaves, epigastric pain after decreasing the amount of alcohol he typically drinks in the last 24 hours. Patient has history of alcoholism. He does report periods of sobriety but then starts drinking again thinking he can control it and ultimately spiraling back out of control. At this point in time he is drinking about a 12 pack of beer a day. Today he has had only four. Symptoms began in the afternoon and continued to get worse tonight. Denies fever, chest pain, shortness of breath, neurologic change. Does have prior history of pancreatitis from drinking. Also reports history of liver problems and is supposed to see a liver specialist next week. Has had treatment for rectal cancer and has a colostomy in the left lower quadrant. Related Data Home Medications Medication Instructions Recorded Confirmed Unknown [No Known Home Meds] 09/22/21 09/22/21 Allergies Allergy/AdvReac Type Severity Reaction Status Date / Time No Known Allergies Allergy Verified 09/22/21 01:19 General FARHAN: 3 Review of Systems Narrative: 08/03 Review of Systems completed and is negative except as stated above in HPI (Systems reviewed: Const, Eyes, ENT, Resp, CV, GI, , MSK, Skin, Neuro) PFSH Active Problem List Alcoholic hepatitis without ascites (Acute) Vomiting (Acute) Alcoholism (Chronic) Alcoholic pancreatitis (Acute) Alcoholic gastritis (Acute) Acute pancreatitis (Acute) Alcohol withdrawal (Acute) Excessive drinking alcohol (Acute) Medical History (Updated 09/22/21 @ 02:32 by Blaine Welch MD) Alcohol abuse Colostomy in place Rectal cancer Surgical History H/O esophagogastroduodenoscopy History of colon resection Hx of colonoscopy Family History Father Colon cancer Paternal Uncle Brain malignancy Maternal Grandmother Brain malignancy Social History Smoking/Tobacco Use Status: Current every day Tobacco Type: smokeless tobacco Smoking risk assessment performed?: Yes Alcohol Intake: current Alcohol Intake frequency: 3 or more drinks per day Alcohol type: beer Drug use: Never Substance use type: does not use Details: 12 pack a day. Cut self down to 6 or 7 beers today Do you feel safe at home: Yes Do you feel safe in your relationship?: Yes Exam Narrative Exam Narrative: Const: WDWN male in NAD. HEENT: NC/AT. Normal facial exam. Eyes: Normal conjunctiva and sclera. Neck: Supple. Trachea midline. Lungs: Normal respiratory effort. Cor: RRR. Good radial pulses. GI: Soft. NT/ND. No guarding or rebound. Ostomy bag LLQ Neuro: A+O x 3. Normal speech, mentation. Cranial nerves II - XII grossly intact. No gross motor or sensory deficit. Diffuse significant tremor/shake Ext: No C/C/E. Skin: Warm and dry without rash. Critical Care Time Critical Care Time Critical Care Time: Yes Total Critical Care Time: 40 Attestation: Upon my evaluation, this patient had a high probability of imminent or life- threatening deterioration, which required my direct attention, intervention, and personal management. I have personally provided 40 minutes of critical care time exclusive of time spent on separately billable procedures. Time includes review of laboratory data, radiology results, discussion with consultants, and monitoring for potential decompensation. Interventions were performed as documented above.
--- NOTE | 2021-09-22 01:30 | RT.EKG_ITS ---
APPROVED REPORT Exam: Resting ECG Reason for Exam: alcohol withdrawal Patient Location: E HR:83 bpm ECG Measurements Heart Rate 83 AXIS IN 160 P 42 QRSd 90 QRS -15 QT 362 T 31 QTc 425 Conclusion Sinus rhythm...normal P axis, V-rate 60- 99 Normal [place] There are no significant changes compared to prior EKG performed on 01/29/2021 at 21:20.
[2021-09-22] MEDS: Normal Saline 1,000 ML 1000 ML IV (01:35)
[2021-09-22] MEDS: LORazepam 2 MG/ML VIAL IVP (01:36)
[2021-09-22 01:37] LABS: Absolute Basophil Count 0.04 10^3/uL (0.0-0.2); Absolute Eosinophil Count 0.06 10^3/uL (0.0-0.7); Absolute Lymphocyte Count 0.45 10^3/uL (1.2-3.4); Absolute Monocyte Count 0.27 10^3/uL (0.1-0.8); Absolute Neutrophil Count 1.19 10^3/uL (1.2-6.7); HCT 37.4 % (40.0-50.0); HGB 11.7 g/dL (13.5-17.5); Lymphocytes % 22.4; MCH 24.8 pg (27.0-33.0); MCHC 31.3 % (32.0-36.0); MCV 79.4 fL (80-95); MPV 8.9 fL (8.0-11.0); Monocytes % 13.4; Neutrophils % 59.2; Nucleated RBC 0 %; Platelet Count 158 10^3/uL (130-400); RBC 4.71 10^6/uL (4.36-5.78); RDW 18.1 % (11.8-14.1); RDW-SD 51.7 fL; WBC 2.01 10^3/uL (4.4-10.8)
[2021-09-22 01:56] LABS: ETHANOL BLOOD 80.3 mg/dL (<10); Lipase 863 U/L (73-393); Magnesium 2.1 mg/dL (1.8-2.4)
[2021-09-22 01:59] LABS: Troponin I < 0.05 ng/mL (<0.06)
[2021-09-22 02:00] LABS: ALT 124 U/L (16-63); AST 214 U/L (15-37); Albumin 4.1 g/dL (3.4-5.0); Alkaline Phosphatase 288 U/L (46-116); Anion Gap 15.9 mmol/L (3-11); BUN 6 mg/dL (7-18); Bilirubin, Total 0.9 mg/dL (0.2-1.0); CO2 24.1 mmol/L (21.0-32.0); CREATININE 0.9 mg/dL (0.70-1.30); Calcium 9.2 mg/dL (8.5-10.1); Chloride 96 mmol/L (98-107); Glucose 103 mg/dL (74-106); Potassium 3.9 mmol/L (3.5-5.1); Sodium 136 mmol/L (136-145); Total Protein 7.7 g/dL (6.4-8.2)
[2021-09-22] MEDS: THIAMINE 100 MG in Normal Saline 100 ML 200 MG IVPB (02:21)
[2021-09-22 02:45] LABS: Source Nasal/Nares
[2021-09-22] MEDS: DEXTROSE 5%-LACTATED RINGERS 1,000 ML 125 ML IV ×2 (02:48→10:45)
[2021-09-22 03:00] LABS: *AMPHETAMINES SCREEN URINE Negative (Negative); *BARBITURATES SCREEN URINE Negative (Negative); *BENZODIAZEPINES SCREEN URINE Negative (Negative); Cannabinoids THC Negative (Negative); Cocaine Screen,Urine Negative (Negative); METHADONE URINE SCREEN Negative (Negative); OPIATES URINE SCREEN Negative (Negative); Tricyclic Antidepressants Negative (Negative)
[2021-09-22] MEDS: LORazepam 1 MG TAB PO/SL ×5 (04:28→18:31)
--- NOTE | 2021-09-22 08:31 | W.PM.HP.N ---
Date of service: 09/22/21 Time of Service: 08:38 Assessment and Plan Assessment and plan (1) Alcoholic hepatitis without ascites: Status: Acute Assessment and plan: His liver functions are abnormal and will need to be followed. (2) Alcoholic pancreatitis: Status: Acute Assessment and plan: His lipase elevated is history is compatible with alcoholic pancreatitis similar to his previous episode. He feels hungry today and will start him on clear fluids and started on pantoprazole. Qualifiers: Chronicity: acute Acute pancreatitis complication: no infection or necrosis Qualified Code(s): K85.20 - Alcohol induced acute pancreatitis without necrosis or infection (3) Alcohol withdrawal: Status: Acute Assessment and plan: He received lorazepam in emergency department and his last dose was at 4 AM this morning. He does not appear to tremulous at this time. He will be started on thiamine and folic acid. I will have care management give him some resources for alcohol cessation management in the community. He does not want to go to a alcohol treatment center. Qualifiers: Complication of substance-induced condition: uncomplicated Qualified Code(s): F10.230 - Alcohol dependence with withdrawal, uncomplicated History of Present Illness History of Present Illness Chief Complaint: alcohol withdrawal and abd. pain Narrative: This 50-year-old male is here because of abdominal pain, nausea and vomiting and alcohol withdrawal. He states he drinks about 12 beers per day. It could be more than that. He thought about cutting down and says he drank only 4 beers yesterday. He had a alcohol counselor but he says that she sent a note saying she was not doing this counseling more per him. He has not gotten set up with anybody else. He was feeling shaky yesterday and came to the hospital earlier this morning. I am not sure he wants to quit alcohol completely. He cannot say when he was last sober but says he was able to cut down himself a while ago and drinks only 4-6 beers per day. He does not want flu vaccine but would accept a coronavirus vaccine. He chews tobacco daily but says he does not use this much and is aware this can cause cancer. He has 4 children a 2 and 3-year-old who he sees rarely and a 22 and 23-year-old children that he sees more often. He does have a history of pancreatitis and was here in the hospital recently. He did have colon cancer and has a colostomy now. He says has been functioning well. He also has a port in his left shoulder area that he says is clotted off but has not been removed. Review of Systems Constitutional Constitutional: Denies chills, Denies fever(s) and Reports weakness Cardiovascular Cardiovascular: Denies chest pain, Denies radiating jaw, neck or arm pain, Denies palpitations and Denies dyspnea Respiratory Respiratory: Denies dyspnea Gastrointestinal Gastrointestinal: Denies coffee ground emesis, Denies constipation, Denies diarrhea, Denies loose stools, Reports nausea, Reports vomiting and Denies hematemesis Genitourinary Genitourinary: Denies difficulty urinating and Denies dysuria Neurologic Neurologic: Denies convulsions, Reports tremor(s) and Reports weakness Endocrine Endocrine: Denies palpitations [facility] Active Problem List Alcoholic hepatitis without ascites (Acute) Vomiting (Acute) Alcoholism (Chronic) Alcoholic pancreatitis (Acute) Alcoholic gastritis (Acute) Acute pancreatitis (Acute) Alcohol withdrawal (Acute) Excessive drinking alcohol (Acute) Medical History (Updated 09/22/21 @ 02:32 by Blaine Welch MD) Alcohol abuse Colostomy in place Rectal cancer Surgical History H/O esophagogastroduodenoscopy History of colon resection Hx of colonoscopy Family History Father Colon cancer Paternal Uncle Brain malignancy Maternal Grandmother Brain malignancy Social History Smoking/Tobacco Use Status: Current every day Tobacco Type: smokeless tobacco Smoking risk assessment performed?: Yes Alcohol Intake: current Alcohol Intake frequency: 3 or more drinks per day Alcohol type: beer Drug use: Never Substance use type: does not use Details: 12 pack a day. Cut self down to 6 or 7 beers today Do you feel safe at home: Yes Do you feel safe in your relationship?: Yes Meds Allergies and Home Medications Allergies Allergy/AdvReac Type Severity Reaction Status Date / Time No Known Allergies Allergy Verified 09/22/21 01:19 Home Medications Medication Instructions Recorded Confirmed Type Unknown [No Known Home Meds] 09/22/21 09/22/21 History Exam Const General: cooperative, disheveled, not ill appearing, does not appear intoxicated and not lethargic Orientation: alert, awake and oriented x3 HENMT Mouth: oral mucosae normal and moist mucous membranes Eyes General: appearance normal, both eyes and all related structures Conjunctivae: conjunctivae normal Sclera: sclerae normal Pupils: PERRL EOM: EOM intact bilaterally Neck Neck: normal visual inspection and no lymphadenopathy Resp Effort & Inspection: normal respiratory effort and able to speak in complete sentences Auscultation: no rales, no rhonchi and no wheezes Cardio Rate: regular rate Rhythm: regular rhythm Heart Sounds: S1 normal, S2 normal, no gallops and no murmurs GI Inspection: normal to inspection Palpation: soft, no hepatosplenomegaly, nontender and No ascites Other: colostomy in RLQ Skin General skin exam: no rashes or lesions noted Neuro General: patient alert Speech: speech normal Motor: no tremors Extrem General: normal to inspection and no edema Results Labs Result diagrams: 09/22/21 01:33 09/22/21 01:33 Labs: Laboratory Results - last 24 hr 09/22/21 09/22/21 09/22/21 01:33 01:33 01:33 WBC 2.01 L RBC 4.71 Hgb 11.7 L Hct 37.4 L MCV 79.4 L MCH 24.8 L MCHC 31.3 L RDW 18.1 H Plt Count 158 MPV 8.9 Immature Gran % 0.0 Neutrophils % 59.2 Lymphocytes % 22.4 Monocytes % 13.4 Eosinophils % 3.0 Basophils % 2.0 Nucleated RBC % 0 Absolute Neutrophils 1.19 L Absolute Lymphocytes 0.45 L Absolute Monocytes 0.27 Absolute Eosinophils 0.06 Absolute Basophils 0.04 Sodium 136 Potassium 3.9 Chloride 96 L Carbon Dioxide 24.1 Anion Gap 15.9 H BUN 6 L Creatinine 0.9 Estimated GFR/1.73 m2 >= 60.00 Glucose 103 Calcium 9.2 Magnesium 2.1 Total Bilirubin 0.9 AST 214 H ALT 124 H Alkaline Phosphatase 288 H Troponin I < 0.05 Total Protein 7.7 Albumin 4.1 Lipase 863 H Urine Opiates Screen Urine Methadone Screen Ur Barbiturates Screen Ur Tricyclics Screen Ur Amphetamines Screen U Benzodiazepines Scrn Urine Cocaine Screen Ur THC Screen Ethyl Alcohol 80.3 H COVID-19 Source 09/22/21 09/22/21 02:35 02:40 WBC RBC Hgb Hct MCV MCH MCHC RDW Plt Count MPV Immature Gran % Neutrophils % Lymphocytes % Monocytes % Eosinophils % Basophils % Nucleated RBC % Absolute Neutrophils Absolute Lymphocytes Absolute Monocytes Absolute Eosinophils Absolute Basophils Sodium Potassium Chloride Carbon Dioxide Anion Gap BUN Creatinine Estimated GFR/1.73 m2 Glucose Calcium Magnesium Total Bilirubin AST ALT Alkaline Phosphatase Troponin I Total Protein Albumin Lipase Urine Opiates Screen Negative Urine Methadone Screen Negative Ur Barbiturates Screen Negative Ur Tricyclics Screen Negative Ur Amphetamines Screen Negative U Benzodiazepines Scrn Negative Urine Cocaine Screen Negative Ur THC Screen Negative Ethyl Alcohol COVID-19 Source Nasal/Nares Last Vital Signs Temp 37.0 C 09/22/21 07:43 Pulse 92 H 09/22/21 07:43 Resp 18 09/22/21 07:43 BP 147/92 H 09/22/21 07:43 Pulse Ox 93 09/22/21 07:43
--- NOTE | 2021-09-22 08:57 | PDOC.CMIN ---
- If Service Date Differs Date of service: 09/22/21 Time of Service: 08:57 Care Management Initial Assess REASON FOR HOSPITALIZATION:: Alcohol withdrawal, alcohol pancreatitis. PAST MEDICAL HISTORY/PAST SURGICAL HISTORY:: Active Problem List: Alcoholic hepatitis without ascites (Acute), Vomiting (Acute), Alcoholism (Chronic), Alcoholic pancreatitis (Acute), Alcoholic gastritis (Acute), Acute pancreatitis (Acute), Alcohol withdrawal (Acute), and Excessive drinking alcohol (Acute). Medical History: Alcohol abuse, Colostomy in place, and Rectal cancer. Surgical History: H/O esophagogastroduodenoscopy, History of colon resection, and Hx of colonoscopy. PREVIOUS FUNCTIONAL STATUS/SOCIAL/FAMILY SUPPORTS:: Idris lives in [facility] with his mother, Gabriella. He states he owns his own home but his ex- is currently living in it. Idris has 4 children: a 2 year old boy, a 3 year old daughter, and 2 adult sons. 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 He describes his sister and mother as supportive. Idris is independent with his ADLs at baseline. CURRENT FUNCTIONAL STATUS:: Idris is lying in bed when CM comes to meet with him. He appears drowsy but easily engages in conversation. He talks about going hunting with his father and shares how difficult this time of the year is for him because the two of them used to benavides and drink alcohol together. He states he had been doing really well with not drinking alcohol but then had a relapse. We discuss rehab and outpatient services. Idris would like time to think about his options before agreeing to referrals. He has worked with the [facility] in the past and is open to reconnecting with them. ADVANCE DIRECTIVES:: On file; Dae Guaman is appointed as Health Care Agent. Has patient been provided with info about the portal/API?: Yes Did the patient sign up for the portal?: No (Patient declines.) CODE STATUS:: Full Code INSURANCE COVERAGE / FINANCIAL ISSUES:: Medicaid. CURRENT HOME/COMMUNITY SERVICES/EQUIPMENT:: None. PRIMARY CARE PHYSICIAN:: Freddy Juarez MD ([facility]). POTENTIAL DISCHARGE NEEDS:: Follow up appointment with PCP, referral to rehab vs. outpatient substance use therapy, and plan of care. PATIENT/FAMILY EDUCATION NEEDS:: Review discharge instructions including limitations and follow up plan of care; discuss [employer] and self management. ANTICIPATED BARRIERS TO DISCHARGE:: No anticipated barriers to discharge at this time. TRANSPORTATION:: Via private vehicle with family. PLAN:: Idris will likely be discharged home with no services when medically cleared by provider. He will follow up with his PCP and plan of care as directed. He will be driven home via private vehicle by his mother when ready. CM will continue to follow.
[2021-09-22 09:10] LABS: COVID-19 PCR Negative (Negative)
[2021-09-22] MEDS: Folic Acid 1 MG TAB PO (10:44)
[2021-09-22] MEDS: Thiamine 100 MG TAB PO (10:44)
[2021-09-22] MEDS: Pantoprazole 40 MG TABCR PO (10:44)
[2021-09-22] MEDS: traMADol 50 MG TAB PO (11:58)
--- NOTE | 2021-09-23 09:34 | W.PM.DS.N ---
Date of service: 09/23/21 Time of Service: 00:30 DS: Diagnosis Discharge Diagnosis (1) Alcoholic hepatitis without ascites: Start date: 09/23/21 Start time: 00:30 Status: Acute Asessment and Plan: admitted for acute alcohol w/d, drinks up to 12 beers a day , but likely more. States he was down to 4 Active with drawal with Pacreatitis., abd pain, increased lipase, left AMA (2) Alcoholic pancreatitis: Start date: 09/23/21 Start time: 00:30 Status: Acute Asessment and Plan: as above (3) Alcohol withdrawal: Start date: 09/23/21 Start time: 00:30 Status: Acute Asessment and Plan: as above Discharge Plan Disposition Patient Disposition: AGAINST MEDICAL ADVICE Condition: Poor Discharge Details Reason For Visit: Alcohol Withdrawl,Alcohol Pancreatitis Admit Date/Time: 09/22/21 02:24 Admit Provider: Jordan Ji Attending Provider: Jordan Ji Primary Care Provider: Freddy Juarez Hospital Course Hospital Course: Patient admitted for alcohol w/d, see dx for note. He was also have belly pain with pancreatitis. He decided to leave, he wanted to go home and drink therefore he left against medical advice. Home Meds and New Rx's Prescriptions: No Action No Known Home Meds RF: 0 Discharge Instructions Activity:: Activity as Tolerated Equipment/Supplies:: No Equipment Needed Diet:: low fat diet Discharge Orders Discharge Orders: Discharge Order (Routine); Ordered 09/23/21 Ordered By: Alessandra Velazquez Discharge Data Discharge Date/Time-TO BE ENTERED AT DEPARTURE: 09/22/21 20:52 DS: Summary Time Spent with Patient providing and/or coordinating discharge services: Less than 30 minutes Status at Discharge Functional status at discharge: independent ambulation Overall status at discharge: patient is not back to baseline Mental Status: other Speech and Movement: other Mood: other Affect: other Exam Psych Mental Status: other Speech and Movement: other Mood: other Affect: other DS: Data Vitals/I&O Vitals and I&O: Vital Signs Temperature 36.9 C 09/22/21 16:07 Temperature Source Tympanic 09/22/21 16:07 Pulse 95 H 09/22/21 16:07 Pulse Rhythm Regular 09/22/21 16:33 Pulse 99 H 09/22/21 03:20 Respiratory Rate 17 09/22/21 16:07 Respiratory Effort Non-Labored 09/22/21 16:33 Respiratory Depth Normal 09/22/21 16:33 Respiratory Pattern Normal 09/22/21 16:33 Blood Pressure 133/90 09/22/21 16:07 Blood Pressure Position Supine 09/22/21 01:13 Pulse Oximetry 96 09/22/21 16:07 Oxygen Delivery Method Room Air 09/22/21 16:07 Oxygen Flow Rate 0 09/22/21 16:07 Pain Level 0 09/22/21 16:07 Comment 09/22/21 03:27 Intake & Output 09/22/21 09/22/21 09/23/21 11:59 23:59 11:59 Intake Total 2214.75 / 4002.667 1787.917 / 4002.667 Output Total 1575 / 2175 600 / 2175 Balance 639.75 / 5733.724 2247.917 / 1827.667 Weight 77.9 kg Intake: IV 2094.75 / 3042.667 947.917 / 3042.667 Oral 120 / 960 840 / 960 Output: Urine 1575 / 2175 600 / 2175 Other: Urine Color Light Makenzie Straw Urine Appearance Clear Clear Urine Odor Normal Normal Comment pt reports tremors affected use of urinal and contents spilled on the bed Voiding Methods Urinal Urinal # Voids 1 PFSH Active Problem List Alcoholic hepatitis without ascites (Acute) Vomiting (Acute) Alcoholism (Chronic) Alcoholic pancreatitis (Acute) Alcoholic gastritis (Acute) Acute pancreatitis (Acute) Alcohol withdrawal (Acute) Excessive drinking alcohol (Acute) Medical History Alcohol abuse Colostomy in place Rectal cancer Surgical History H/O esophagogastroduodenoscopy History of colon resection Hx of colonoscopy Family History Father Colon cancer Paternal Uncle Brain malignancy Maternal Grandmother Brain malignancy Social History Smoking/Tobacco Use Status: Current every day Tobacco Type: smokeless tobacco Smoking risk assessment performed?: Yes Alcohol Intake: current Alcohol Intake frequency: 3 or more drinks per day Alcohol type: beer Drug use: Never Substance use type: does not use Details: 12 pack a day. Cut self down to 6 or 7 beers today Do you feel safe at home: Yes Do you feel safe in your relationship?: Yes
== END 2021-09-22 20:52 | disposition left against medical advice (07) | DRG 432 ==
LOC: ER 02:32 → MS 03:23
PROVIDERS: Admitting Provider Family Medicine; Emergency Provider Emergency Medicine; PCP Family Medicine; Visit Provider Family Medicine
DX: K70.10 Alcoholic hepatitis without ascites (principal); K85.20 Alcohol induced acute pancreatitis without necrosis or infection; D64.9 Anemia, unspecified; D70.9 Neutropenia, unspecified; K29.20 Alcoholic gastritis without bleeding; Z93.3 Colostomy status; Z85.048 Personal history of other malignant neoplasm of rectum, rectosigmoid junction, and anus; Z20.822 Contact with and (suspected) exposure to COVID-19
CPT/HCPCS: 36415; 80053; 80307; 83690; 87635; 93005; 96361; 96365; 96375; 99291; 80320; 83735; 84484; 85025; 93010; 99235; J2060

== ENCOUNTER 2021-11-02 01:45 | Outpatient (CLI) | payer MEDICAID, SELFPAY ==
[2021-11-02 08:01] LABS: Abs Immature Grans 0.01 10^3/uL (0.0-0.06); Absolute Basophil Count 0.02 10^3/uL (0.0-0.2); Absolute Eosinophil Count 0.14 10^3/uL (0.0-0.7); Absolute Lymphocyte Count 0.72 10^3/uL (1.2-3.4); Absolute Monocyte Count 0.27 10^3/uL (0.1-0.8); Absolute Neutrophil Count 1.19 10^3/uL (1.2-6.7); Basophils % 0.9; HCT 39.3 % (40.0-50.0); HGB 12.3 g/dL (13.5-17.5); Immature Grans % 0.4; Lymphocytes % 30.6; MCH 25.8 pg (27.0-33.0); MCHC 31.3 % (32.0-36.0); MCV 82.6 fL (80-95); MPV 8.5 fL (8.0-11.0); Monocytes % 11.5; Neutrophils % 50.6; Nucleated RBC 0 %; Platelet Count 251 10^3/uL (130-400); RBC 4.76 10^6/uL (4.36-5.78); RDW 18.6 % (11.8-14.1); RDW-SD 56.8 fL; WBC 2.35 10^3/uL (4.4-10.8)
[2021-11-02] MEDS: Omnipaque 350 MG/ML 50 ML BTL PO (08:04)
[2021-11-02] MEDS: Breeza Beverage 473 ML BTL PO ×2 (08:05)
[2021-11-02 08:14] LABS: ALT 56 U/L (16-63); AST 52 U/L (15-37); Albumin 3.4 g/dL (3.4-5.0); Alkaline Phosphatase 133 U/L (46-116); Anion Gap 11.6 mmol/L (3-11); BUN 5 mg/dL (7-18); Bilirubin, Total 0.3 mg/dL (0.2-1.0); CO2 24.4 mmol/L (21.0-32.0); CREATININE 0.7 mg/dL (0.70-1.30); Calcium 8.3 mg/dL (8.5-10.1); Chloride 104 mmol/L (98-107); Glucose 94 mg/dL (74-106); Potassium 4.2 mmol/L (3.5-5.1); Sodium 140 mmol/L (136-145); Total Protein 7.3 g/dL (6.4-8.2)
--- NOTE | 2021-11-02 09:00 | DI.CT_ITS ---
Exam(s) CT CHEST/ABD/PEL W EXAM: CT CHEST/ABD/PEL W CLINICAL HISTORY: STAGE IV RECTAL CA, METS TO LIVER, C20, C78.7. TECHNIQUE: Imaging Protocol: Axial computed tomography images with coronal and sagittal reformatted images were created and reviewed CONTRAST MATERIAL: Intravenous: Omnipaque 350 Contrast volume:100 ml Oral: yes COMPARISON: CT CT CHEST/ABD/PEL W from 08/14/2021 FINDINGS: CHEST: A port is again noted overlying the left chest. Tracheobronchial tree: Patent where visualized. Mediastinum and Jeanne: No dominant adenopathy or fluid collection. Pulmonary parenchyma: New nodule right upper lobe 14 by 10 millimeters. Increase in size right upper lobe nodule now 9 millimeters in diameter. Slight interval increase in size of nodule peripherally in the right upper lobe, now 6 millimeters. 3 x 5 millimeter peripheral left lower lobe nodule. No consolidation.. Pleura: No effusion or pneumothorax. Lymph nodes: Within normal limits. Aorta: Thoracic portion non-dilated. Heart: Normal size. Bones: Unremarkable for age. No lytic or blastic lesions. ABDOMEN: Liver: Severe fatty infiltration. Interval increase in size of mass and anterior left lobe, now les uring 2.4 by 1.4 cm. No new lesions. Gallbladder and biliary tract: No radiodense calculus or dilation. Pancreas: Normal density, no abnormal calcifications or inflammatory process. Spleen: Normal. Kidneys: Normal size, contour and axis. No radiodense stones or obstructive uropathy. No masses seen. Adrenal glands: No masses seen. Aorta: Abdominal portion non-dilated. Lymph nodes: Within normal limits. Soft tissues: Stable appearance of left-sided colostomy. PELVIS: Bladder: Symmetric distention, no gross wall thickening. Bowel: Resection of rectum again noted. No visible recurrence mass. No obstruction or bowel wall th ickening. Peritoneal cavity: No ascites, collection or mesenteric inflammatory response. Bones: Unremarkable for age.. Reproductive organs: Within normal limits. IMPRESSION: Interval increase in size of pulmonary nodules as well as new nodules. Interval increase in size of metastasis in the left lobe of the liver. No new liver lesions. No juno dence of adenopathy in the chest abdomen or pelvis. RADIATION DOSE DELIVERED: 1,533.72mGy.cm Total DLP DATA REPOSITORY: All CT scans at this facility are submitted to the National Radiology Data Registry (NRDR) Dose Index Registry (DIR) with the [employer] (ACR). RADIATION OPTIMIZATION: All CT scans at this facility use at least one of these dose optimization te chniques: automated exposure control; mA and/or kV adjustment per patient size (includes targeted exa ms where dose is matched to clinical indication); or iterative reconstruction.
[2021-11-02] MEDS: Omnipaque 350 MG/ML 100 ML BTL IV (09:03)
[2021-11-02 18:46] LABS: CEA 4.3 ng/mL (See Note)
== END 2021-11-02 02:05 ==
PROVIDERS: PCP Family Medicine; Visit Provider Internal Medicine Hematology & Oncology
DX: C20 Malignant neoplasm of rectum (principal); C78.7 Secondary malignant neoplasm of liver and intrahepatic bile duct
CPT/HCPCS: 74177; 80053; 71260; 82378; 85025; J3490; Q9967

== ENCOUNTER 2021-12-18 07:14 | Emergency (ER) | payer MEDICAID, SELFPAY ==
[2021-12-18] VITALS (15 sets, daily range): BP systolic 117–148; BP diastolic 82–96; PULSE 70–102; RESP 11–31; TEMP 37; O2SAT 92–97
--- NOTE | 2021-12-18 07:35 | ED.GENADUL_ITS ---
Discharge Plan Disposition Patient Disposition: HOME Condition: Improving Discharge Details Clinical Impression: Vomiting, Alcohol abuse, Chronic pancreatitis, History of rectal cancer, Lung metastases, Liver metastases Primary Care Provider: Freddy Juarez ED Provider: Susanna Leonardo Home Meds and New Rx's Prescriptions: No Action No Known Home Meds 0RF Discharge Instructions Instructions: Abuse of Alcohol (ED), Acute Nausea and Vomiting (ED) Additional Instructions: Your lab work today is reassuring and shows no evidence of acute concerning findings. It does appear that you are mildly dehydrated. Drink plenty of fluids and get plenty of rest. Take the Zofran as needed and directed for nausea and vomiting. Take the Ativan if you develop symptoms of withdrawal if you stop drinking such as sweating, shaking or tremors. You were placed on care management list to help arrange for a follow-up appointment with your primary care doctor and with Dr. Hunt for further evaluation and discussion regarding your cancer. Return immediately to the emergency department if you develop any worsening or new concerning symptoms. Discharge Data Discharge Physician: Susanna Leonardo Medical Decision Making 0750 -- 51yo M w/ a history of daily alcohol abuse, alcoholic gastritis, alcoholic pancreatitis, rectal cancer with liver and lung mets status post colostomy placement in February 2021 treated with chemotherapy presents for general malaise, dry heaving and decreased appetite for 2 weeks. Vitals within normal limits. Patient appears nontoxic. No signs of alcohol withdrawal at this time. Differential diagnosis includes alcoholic gastritis, pancreatitis, gastroenteritis, electrolyte abnormality, dehydration. Will place an IV, bolus IV fluids, screening lab, banana bag, IV Pepcid and Zofran and reassess. 0900 -- white blood cell count 3 which is close to his baseline. Normal coags. Stable elevation of liver enzymes. Lipase 895 which is close to his chronic baseline. Alcohol level 66. Patient was stating he was starting to feel better. Will attempt p.o. challenge. 0940 -- patient states he is starting to feel some chills and a headache. Will continue IV fluid hydration, dose of IV Toradol and Ativan and reassess. 1000 -- patient vomiting after attempting to drink and feels shaky. A dose of Phenergan ordered. 1040 -- patient stood up to urinate and felt that shaky and off balance, Heart rate low 100s. Will continue IV hydration and give another dose of IV ativan. 1215 --patient feels much better and is requesting to go home. Discussed with patient that we can repeat a BMP to assess that his anion gap is improving but he declines and states he would like for me. He was given 2 tabs of Ativan to go to help with shakes but he states he plans on drinking again. He was given Zofran to go. Advised to follow up with the primary care doctor for re-evaluation. Patient was placed on care management's list to help arrange for a follow-up appointment with his primary care doctor and with Dr. Hunt. Usual and customary return precautions given prior to discharge. Medical Records Medical records reviewed: Yes I reviewed the patient's medical records. Lab Data Lab results reviewed: Yes I reviewed the patient's lab results. Labs: Laboratory Tests Range/Units 12/18/21 12/18/21 12/18/21 07:40 07:40 07:40 WBC (4.4-10.8) 10^3/uL 3.00 L RBC (4.36-5.78) 10^6/uL 4.63 Hgb (13.5-17.5) g/dL 12.9 L Hct (40.0-50.0) % 39.4 L MCV (80-95) fL 85.1 MCH (27.0-33.0) pg 27.9 MCHC (32.0-36.0) % 32.7 RDW (11.8-14.1) % 17.1 H Plt Count (130-400) 10^3/uL 205 MPV (8.0-11.0) fL 9.1 Immature Gran % 0.3 Neutrophils % 66.4 Lymphocytes % 16.7 Monocytes % 12.3 Eosinophils % 3.0 Basophils % 1.3 Nucleated RBC % % 0 Absolute Neutrophils (1.2-6.7) 10^3/uL 1.99 Absolute Lymphocytes (1.2-3.4) 10^3/uL 0.50 L Absolute Monocytes (0.1-0.8) 10^3/uL 0.37 Absolute Eosinophils (0.0-0.7) 10^3/uL 0.09 Absolute Basophils (0.0-0.2) 10^3/uL 0.04 PT (9.3-11.0) sec 11.0 INR (0.9-1.1) 1.1 APTT (21.0-27.5) sec 25.1 Sodium (136-145) mmol/L 134 L Potassium (3.5-5.1) mmol/L 3.6 Chloride (98-107) mmol/L 97 L Carbon Dioxide (21.0-32.0) mmol/L 21.8 Anion Gap (3-11) mmol/L 15.2 H BUN (7-18) mg/dL 3 L Creatinine (0.70-1.30) mg/dL 0.8 Estimated GFR/1.73 m2 (mL/min/1.73m2) >= 60.00 Glucose (74-106) mg/dL 103 Calcium (8.5-10.1) mg/dL 9.2 Magnesium (1.8-2.4) mg/dL 2.1 Total Bilirubin (0.2-1.0) mg/dL 0.8 AST (15-37) U/L 163 H ALT (16-63) U/L 94 H Alkaline Phosphatase (46-116) U/L 272 H Troponin I (<or=60) ng/L < 50 Total Protein (6.4-8.2) g/dL 7.7 Albumin (3.4-5.0) g/dL 3.6 Lipase (73-393) U/L 895 H Urine Color (Yellow) Urine Clarity (Clear) Urine pH (5-8) Ur Specific Santa (1.005-1.025) Urine Protein (Negative) mg/dL Urine Ketones (Negative) mg/dL Urine Blood (Negative) Urine Nitrite (Negative) Urine Bilirubin (Negative) Urine Urobilinogen (Up TO 0.2) EU/dL Ur Leukocyte Esterase (Negative) Urine Glucose (Negative) mg/dL Ethyl Alcohol (<10) mg/dL 66.9 H Range/Units 12/18/21 12/18/21 07:40 10:40 WBC (4.4-10.8) 10^3/uL RBC (4.36-5.78) 10^6/uL Hgb (13.5-17.5) g/dL Hct (40.0-50.0) % MCV (80-95) fL MCH (27.0-33.0) pg MCHC (32.0-36.0) % RDW (11.8-14.1) % Plt Count (130-400) 10^3/uL MPV (8.0-11.0) fL Immature Gran % Neutrophils % Lymphocytes % Monocytes % Eosinophils % Basophils % Nucleated RBC % % Absolute Neutrophils (1.2-6.7) 10^3/uL Absolute Lymphocytes (1.2-3.4) 10^3/uL Absolute Monocytes (0.1-0.8) 10^3/uL Absolute Eosinophils (0.0-0.7) 10^3/uL Absolute Basophils (0.0-0.2) 10^3/uL PT (9.3-11.0) sec INR (0.9-1.1) APTT (21.0-27.5) sec Sodium (136-145) mmol/L Potassium (3.5-5.1) mmol/L Chloride (98-107) mmol/L Carbon Dioxide (21.0-32.0) mmol/L Anion Gap (3-11) mmol/L BUN (7-18) mg/dL Creatinine (0.70-1.30) mg/dL Estimated GFR/1.73 m2 (mL/min/1.73m2) Glucose (74-106) mg/dL Calcium (8.5-10.1) mg/dL Magnesium (1.8-2.4) mg/dL Total Bilirubin (0.2-1.0) mg/dL AST (15-37) U/L ALT (16-63) U/L Alkaline Phosphatase (46-116) U/L Troponin I (<or=60) ng/L Total Protein (6.4-8.2) g/dL Albumin (3.4-5.0) g/dL Lipase (73-393) U/L Urine Color (Yellow) Yellow Urine Clarity (Clear) Clear Urine pH (5-8) 6.0 Ur Specific Santa (1.005-1.025) 1.015 Urine Protein (Negative) mg/dL Negative Urine Ketones (Negative) mg/dL Negative Urine Blood (Negative) Negative Urine Nitrite (Negative) Negative Urine Bilirubin (Negative) Negative Urine Urobilinogen (Up TO 0.2) EU/dL 0.2 Ur Leukocyte Esterase (Negative) Negative Urine Glucose (Negative) mg/dL Negative Ethyl Alcohol (<10) mg/dL Cancelled ECG Data Attestation: I personally reviewed and interpreted this ECG (s) as follows: Interpretation: Rate of 73, sinus, no STEMI, nondiagnostic. HPI General Mode of arrival: ambulatory . Date/Time Provider Initiated Documentation: 12/18/21 07:34 . Limitations to Documentation: no limitations . Information obtained by: patient . HPI Narrative: Pt is a 51yo M w/ a history of daily alcohol abuse, alcoholic gastritis, alcoholic pancreatitis, rectal cancer with liver and lung mets status post colostomy placement in February 2021 treated with chemotherapy presents for general malaise, dry heaving and decreased appetite for 2 weeks. Patient states he has mostly been dry heaving but has occasionally been vomiting clear phlegm. He denies any hematemesis or coffee-ground emesis. He states he has not eaten for several days. He does admit to occasional watery output in his colostomy bag but states it is mostly empty and filled with gas. Denies any hematochezia or melena. He does admit to upper abdominal discomfort at times. He states he drinks a 12 pack of beer daily, and states his last drink was at 6 AM. He states he has difficulty eating but has had no problem keeping alcohol down. He denies any symptoms of withdrawal. Patient was scheduled for liver resection at [facility] this month but states he canceled the surgery because he felt the surgeon was pushy and I had a bad feeling about it . He also states he was scheduled to start radiation this month but also canceled it due to his current symptoms. He states he has not reached out to his primary care doctor, oncologist or surgeon regarding his symptoms. Related Data Home Medications Medication Instructions Recorded Confirmed Unknown [No Known Home Meds] 09/22/21 12/18/21 Allergies Allergy/AdvReac Type Severity Reaction Status Date / Time No Known Allergies Allergy Verified 12/18/21 07:34 General Stated Complaint: GenMedical FARHAN: 3 Review of Systems All systems reviewed & are unremarkable except as noted in HPI and below Constitutional Constitutional: Reports as per HPI, Denies chills, Denies excessive sweating, Denies fatigue, Denies fever(s), Reports malaise and Reports poor appetite Eyes Eyes: Denies blurry vision ENT Ears, Nose, Mouth, and Throat: Denies dizziness, Denies sore throat and Denies throat swelling Cardiovascular Cardiovascular: Denies chest pain and Denies dyspnea Respiratory Respiratory: Denies cough and Denies dyspnea Gastrointestinal Gastrointestinal: Reports abdominal pain, Reports excessive flatus, Denies diarrhea, Reports nausea and Reports vomiting Genitourinary Genitourinary: Denies hematuria and Denies dysuria Musculoskeletal Musculoskeletal: Denies back pain and Denies numbness Integumentary/Breasts Skin/Breast: Denies lesions and Denies rash Neurologic Neurologic: Denies behavioral changes, Denies confusion, Denies dizziness, Denies localized weakness and Denies numbness Psychiatric Psychiatric: Denies behavioral changes, Denies confusion and Denies depression Endocrine Endocrine: Denies excessive sweating and Denies fatigue Hematologic/Lymphatic Hematologic/Lymphatic: Denies easy bruising and Denies lymphadenopathy Allergic/Immunologic Allergic/Immunologic: Denies throat swelling PFSH All Active Problems Vomiting (Acute) Alcohol abuse (Chronic) Chronic pancreatitis (Acute) History of rectal cancer (Acute) Lung metastases (Acute) Liver metastases (Acute) Alcoholic hepatitis without ascites (Acute) Vomiting (Acute) Alcoholism (Chronic) Alcoholic pancreatitis (Acute) Alcoholic gastritis (Acute) Acute pancreatitis (Acute) Alcohol withdrawal (Acute) Excessive drinking alcohol (Acute) Active Problem List Alcoholic hepatitis without ascites (Acute) Vomiting (Acute) Alcoholism (Chronic) Alcoholic pancreatitis (Acute) Alcoholic gastritis (Acute) Acute pancreatitis (Acute) Alcohol withdrawal (Acute) Excessive drinking alcohol (Acute) Medical History Alcohol abuse Colostomy in place Rectal cancer Surgical History H/O esophagogastroduodenoscopy History of colon resection Hx of colonoscopy Family History Father Colon cancer Paternal Uncle Brain malignancy Maternal Grandmother Brain malignancy Social History Smoking/Tobacco Use Status: Current every day Tobacco Type: smokeless tobacco Smoking risk assessment performed?: Yes Alcohol Intake: current Alcohol Intake frequency: 3 or more drinks per day Alcohol type: beer Drug use: Never Substance use type: does not use Details: 12 pack a day. Cut self down to 6 or 7 beers today Do you feel safe at home: Yes Do you feel safe in your relationship?: Yes Exam Const General: cooperative and ill appearing chronically Orientation: alert, awake and oriented x3 HENMT Head: normal to inspection Ears: hearing grossly normal bilaterally and external ears normal General nose exam: external nose normal Face and sinus: normal facial exam Mouth: oral mucosae normal Teeth and gingiva: poor dentition Throat: posterior oropharynx normal Eyes General: appearance normal, both eyes and all related structures Eyelids: eyelids normal Pupils: PERRL EOM: EOM intact bilaterally Neck Neck: normal visual inspection Lymphatic: no lymphadenopathy noted Chest Chest: normal inspection of the chest Resp Effort & Inspection: normal respiratory effort and able to speak in complete sentences Auscultation: clear to auscultation bilaterally Cardio Rate: regular rate Rhythm: regular rhythm GI Inspection: normal to inspection and other (Colostomy bag present left lower qu adrant, empty, mucosa appears normal. ) Palpation: soft, not firm, no guarding, no hepatosplenomegaly, no masses and nontender Auscultation: hypoactive bowel sounds Skin General skin exam: no rashes or lesions noted Neuro General: patient alert and patient awake Cognition: normal cognition Speech: speech normal Gait: normal gait Motor: muscle tone normal throughout Sensory Exam: no sensory deficits noted Extrem General: normal to inspection, full ROM and capillary refill normal Psych Appearance: grossly normal Mental Status: mental status grossly normal Speech and Movement: speech and movement normal Affect: normal affect Thought Process: normal Course Vital Signs Vital signs: Vital Signs Temperature 98.6 F 12/18/21 07:26 Pulse 88 12/18/21 07:26 Respiratory Rate 16 12/18/21 07:26 Blood Pressure 148/96 H 12/18/21 07:26 Pulse Oximetry 97 12/18/21 07:26 Temperature 98.6 F 12/18/21 07:26 Temperature Source Skin 12/18/21 07:26 Pulse 88 12/18/21 07:26 Respiratory Rate 16 12/18/21 07:26 Respiratory Effort 12/18/21 07:26 Blood Pressure 148/96 H 12/18/21 07:26 Blood Pressure Position Supine 12/18/21 07:26 Pulse Oximetry 97 12/18/21 07:26 Oxygen Delivery Method Room Air 12/18/21 07:26 Oxygen Flow Rate 0 12/18/21 07:26 Pain Level 4 12/18/21 07:26 PAWSS Have you Been Recently Intoxicated or Drunk Within the Last 30 days?: Yes Have you Ever Experienced Previous Episodes of Alcohol Withdrawal?: Yes Have you ever Experienced Withdrawal Seizures?: No Have you ever Experienced Delirium Tremens(DT)s?: No Have you ever undergone Alcohol Rehabilitation Treatment (i.e, inpt ot outpatient treatment programs)?: No Have you ever Experienced Blackouts?: No Have you ever Combined Alcohol with other Downers within the last 90 days?: No Have you ever Combined Alcohol with any other Substance of Abuse during the last 90 days?: No Positive Blood Alcohol level on Presentation? [PCS.BAL]: No Evidence of Increased Autonomic Activity (i.e. HR>120, tremor, sweating, agitation, nausea)?: No Result: 2
[2021-12-18] MEDS: Normal Saline 1,000 ML 1000 ML IV (07:50)
[2021-12-18] MEDS: Ondansetron 4 MG/2 ML VIAL IVP (07:54)
[2021-12-18 07:55] LABS: Abs Immature Grans 0.01 10^3/uL (0.0-0.06); Absolute Basophil Count 0.04 10^3/uL (0.0-0.2); Absolute Eosinophil Count 0.09 10^3/uL (0.0-0.7); Absolute Monocyte Count 0.37 10^3/uL (0.1-0.8); Absolute Neutrophil Count 1.99 10^3/uL (1.2-6.7); Basophils % 1.3; HCT 39.4 % (40.0-50.0); HGB 12.9 g/dL (13.5-17.5); Immature Grans % 0.3; Lymphocytes % 16.7; MCH 27.9 pg (27.0-33.0); MCHC 32.7 % (32.0-36.0); MCV 85.1 fL (80-95); MPV 9.1 fL (8.0-11.0); Monocytes % 12.3; Neutrophils % 66.4; Nucleated RBC 0 %; Platelet Count 205 10^3/uL (130-400); RBC 4.63 10^6/uL (4.36-5.78); RDW 17.1 % (11.8-14.1); RDW-SD 53.4 fL
[2021-12-18] MEDS: Famotidine 20 MG/2 ML VIAL IVP (07:57)
--- NOTE | 2021-12-18 08:00 | RT.EKG_ITS ---
APPROVED REPORT Exam: Resting ECG Reason for Exam: nausea, epigastric pain Patient Location: E HR:73 bpm ECG Measurements Heart Rate 73 AXIS ID 149 P 25 QRSd 99 QRS -17 QT 388 T 29 QTc 430 Conclusion Sinus rhythm...normal P axis, V-rate 60- 99. Sinus. No STEMI. I have reviewed and interpreted ECG and agree with software generated interpretation.
[2021-12-18 08:08] LABS: INR 1.1 (0.9-1.1); PTT Activated 25.1 sec (21.0-27.5)
[2021-12-18 08:33] LABS: ALT 94 U/L (16-63); AST 163 U/L (15-37); Albumin 3.6 g/dL (3.4-5.0); Alkaline Phosphatase 272 U/L (46-116); Anion Gap 15.2 mmol/L (3-11); BUN 3 mg/dL (7-18); Bilirubin, Total 0.8 mg/dL (0.2-1.0); CO2 21.8 mmol/L (21.0-32.0); CREATININE 0.8 mg/dL (0.70-1.30); Calcium 9.2 mg/dL (8.5-10.1); Chloride 97 mmol/L (98-107); ETHANOL BLOOD 66.9 mg/dL (<10); Glucose 103 mg/dL (74-106); Lipase 895 U/L (73-393); Magnesium 2.1 mg/dL (1.8-2.4); Potassium 3.6 mmol/L (3.5-5.1); Sodium 134 mmol/L (136-145); Total Protein 7.7 g/dL (6.4-8.2); Troponin I < 50 ng/L (<or=60)
[2021-12-18] MEDS: MAGNESIUM SULFATE 8.12 MEQ, MULTIVITAMIN 10 ML, THIAMINE 100 MG, FOLIC ACID 1 MG in Nor... 168.867 MG IV (09:12)
[2021-12-18] MEDS: Normal Saline 500 ML IV (09:25)
[2021-12-18] MEDS: Ketorolac 30 MG/ML VIAL IVP (09:58)
[2021-12-18] MEDS: Normal Saline Flush 10 ML SYR IVP (09:59)
[2021-12-18] MEDS: LORazepam 2 MG/ML VIAL 0.5 MG IVP ×2 (10:00→10:54)
--- NOTE | 2021-12-18 10:11 | NUR.NOTE ---
Administered Toradol & Ativan IVP as ordered and hung IVPB phenergan as ordered. Pt's CIWA at this time is a 9 for anxiety, tremors, nausea and headache. Pt asked can that medicine give you chest pain? Pt pointing to left nipple area and reported sharp pains that went away after approximately 5 seconds, instructed pt to call if chest pain returned or any other new symptoms, call light available and Dr Leonardo notified.
[2021-12-18 10:47] LABS: Bilirubin Negative (Negative); Blood Negative (Negative); Clarity Clear (Clear); Glucose Negative (Negative); Ketones Negative (Negative); Leukocyte Esterase Negative (Negative); Nitrite Negative (Negative); Specific Gravity 1.015 (1.005-1.025); Urobilinogen 0.2 EU/dL (Up TO 0.2)
--- NOTE | 2021-12-18 12:28 | NUR.NOTE ---
Nursing Note: Pt info given to pcp and care management to be seen next week for nausea & vomiting. Malia, ED
[2021-12-18] MEDS: LORazepam 0.5 MG TAB 1 MG PO (12:38)
[2021-12-18] MEDS: Ondansetron O.D.T. 4 MG TABEF, 3 TABS/BTL PO (12:39)
--- NOTE | 2022-01-03 16:49 | NUR.NOTE ---
Mag sulfate 8.12meq, multivitamin 10ml, thiamine 100mg, folic acid 1mg in NS 1000ML was stopped at 1230 pm due to discharge orders.
== END 2021-12-18 12:41 | disposition home or self-care (01) ==
PROVIDERS: Emergency Provider Physician Assistant; PCP Family Medicine
DX: R11.2 Nausea with vomiting, unspecified (principal); K86.0 Alcohol-induced chronic pancreatitis; F10.10 Alcohol abuse, uncomplicated; C20 Malignant neoplasm of rectum; C78.00 Secondary malignant neoplasm of unspecified lung; C78.7 Secondary malignant neoplasm of liver and intrahepatic bile duct; R10.13 Epigastric pain
CPT/HCPCS: 36415; 80053; 83690; 93005; 99284; 80320; 81003; 83735; 84484; 85025; 85610; 85730; 93010; J1885; J2060; J2405

== ENCOUNTER 2022-03-01 12:31 | Emergency (ER) | payer MEDICAID, SELFPAY ==
[2022-03-01 12:40] VITALS: BP 123/88; PULSE 93; RESP 16; TEMP 36.3; O2SAT 97
--- NOTE | 2022-03-01 13:23 | ED.GENADUL_ITS ---
Discharge Plan Disposition Patient Disposition: HOME Condition: Stable Discharge Details Clinical Impression: Alcohol intoxication, Nausea Primary Care Provider: Freddy Juarez ED Provider: Jason Morfin Home Meds and New Rx's Prescriptions: New ondansetron 4 mg tablet,disintegrating 4 mg PO TID 3 Days Qty: 9 0RF Discharge Instructions Instructions: Alcohol Intoxication (ED), Acute Nausea and Vomiting (ED) Additional Instructions: Zofran as directed. I strongly recommend that you decrease your alcohol intake. Plenty of fluids to avoid dehydration. Please watch for new or worsening symptoms and return to the ER for any concerns. If you had stopped taking all of your medications and are no longer going to proceed with any therapy, I strongly recommend that you reach out to your primary care provider tomorrow to make them aware of this and discuss ongoing options with his palliative care and/or hospice. Discharge Data Discharge Date/Time-TO BE ENTERED AT DEPARTURE: 03/01/22 15:08 Medical Decision Making 56-year-old gentleman, chronic alcohol abuse, reports metastatic rectal cancer, not taking any of his medications or pursuing therapy for his cancer, presents for acute on chronic abdominal pain, nausea, poor appetite, concern for dehydration. His mother reports that in the past when he is like this he has had a pancreatitis flareup. Plan is to obtain IV access, give IV Zofran and fluid and obtain routine screening laboratory values. I had a very transparent conversation both with the patient and his mother regarding his lack of proactivity and his own medical care and if he is truly not feeling to take any medications or seek any therapy for his cancer then he may want to talk with his primary care provider about palliative care and eventually hospice care if that is the direction he chooses. Both patient and mother understand this. Laboratory values reveal a white blood cell count of 3.27 hemoglobin 12.3 hematocrit 37.4 platelet count 100. All of this appears to be near his baseline, patient has had thrombocytopenia in the past. Potassium 3.6. Creatinine 0.8 with a GFR greater than 60. Glucose 126. Total bili 0.4 AST 120 ALT 65 alk phosphatase 221. Lipase 152. Urinalysis unremarkable. Alcohol level of 434. Patient received IV fluid and Zofran. No vomiting while under my care. Discussed laboratory values and work-up both with patient and mother. No signs of pancreatitis. Patient reports that he feels well and would like to be discharged. Mother is comfortable taking him home in his current condition. Again we discussed the gravity of his situation and the need to talk with his primary care provider about realistic expectations and potential for palliative care if he chooses to go that direction. Standard discharge and return precautions were provided. Patient understands, is agreeable to this plan, and has no additional questions or concerns upon discharge. This documentation was generated using [employer] system, please disregard any oddities of phrase or misspellings. Medical Records Medical records reviewed: Yes I reviewed the patient's medical records. Lab Data Lab results reviewed: Yes I reviewed the patient's lab results. Labs: Laboratory Tests Range/Units 03/01/22 03/01/22 03/01/22 13:40 13:50 13:50 WBC (4.4-10.8) 10^3/uL 3.27 L RBC (4.36-5.78) 10^6/uL 4.60 Hgb (13.5-17.5) g/dL 12.3 L Hct (40.0-50.0) % 37.4 L MCV (80-95) fL 81 MCH (27.0-33.0) pg 26.7 L MCHC (32.0-36.0) % 32.9 RDW (11.8-14.1) % 15.9 H Plt Count (130-400) 10^3/uL 100 L MPV (8.0-11.0) fL 9.8 Immature Gran % 0.3 Neutrophils % 37.0 Lymphocytes % 47.1 Monocytes % 11.0 Eosinophils % 3.1 Basophils % 1.5 Nucleated RBC % (0.0-0.3) % 0.0 Absolute Neutrophils (1.2-6.7) 10^3/uL 1.21 Absolute Lymphocytes (1.2-3.4) 10^3/uL 1.54 Absolute Monocytes (0.1-0.8) 10^3/uL 0.36 Absolute Eosinophils (0.0-0.7) 10^3/uL 0.10 Absolute Basophils (0.0-0.2) 10^3/uL 0.05 Sodium (136-145) mmol/L 136 Potassium (3.5-5.1) mmol/L 3.6 Chloride (98-107) mmol/L 97 L Carbon Dioxide (21.0-32.0) mmol/L 24.1 Anion Gap (3-11) mmol/L 14.9 H BUN (7-18) mg/dL 3 L Creatinine (0.70-1.30) mg/dL 0.8 Estimated GFR/1.73 m2 (mL/min/1.73m2) >= 60.00 Glucose (74-106) mg/dL 126 H Calcium (8.5-10.1) mg/dL 8.3 L Total Bilirubin (0.2-1.0) mg/dL 0.4 AST (15-37) U/L 120 H ALT (16-63) U/L 65 H Alkaline Phosphatase (46-116) U/L 221 H Total Protein (6.4-8.2) g/dL 8.0 Albumin (3.4-5.0) g/dL 3.9 Lipase (73-393) U/L 152 Urine Color (Yellow) Yellow Urine Clarity (Clear) Clear Urine pH (5-8) 5.5 Ur Specific [place] (1.005-1.025) <= 1.005 Urine Protein (Negative) mg/dL Negative Urine Ketones (Negative) mg/dL Negative Urine Blood (Negative) Negative Urine Nitrite (Negative) Negative Urine Bilirubin (Negative) Negative Urine Urobilinogen (Up TO 0.2) EU/dL 0.2 Ur Leukocyte Esterase (Negative) Negative Urine Glucose (Negative) mg/dL Negative Ethyl Alcohol (<10) mg/dL Range/Units 03/01/22 13:50 WBC (4.4-10.8) 10^3/uL RBC (4.36-5.78) 10^6/uL Hgb (13.5-17.5) g/dL Hct (40.0-50.0) % MCV (80-95) fL MCH (27.0-33.0) pg MCHC (32.0-36.0) % RDW (11.8-14.1) % Plt Count (130-400) 10^3/uL MPV (8.0-11.0) fL Immature Gran % Neutrophils % Lymphocytes % Monocytes % Eosinophils % Basophils % Nucleated RBC % (0.0-0.3) % Absolute Neutrophils (1.2-6.7) 10^3/uL Absolute Lymphocytes (1.2-3.4) 10^3/uL Absolute Monocytes (0.1-0.8) 10^3/uL Absolute Eosinophils (0.0-0.7) 10^3/uL Absolute Basophils (0.0-0.2) 10^3/uL Sodium (136-145) mmol/L Potassium (3.5-5.1) mmol/L Chloride (98-107) mmol/L Carbon Dioxide (21.0-32.0) mmol/L Anion Gap (3-11) mmol/L BUN (7-18) mg/dL Creatinine (0.70-1.30) mg/dL Estimated GFR/1.73 m2 (mL/min/1.73m2) Glucose (74-106) mg/dL Calcium (8.5-10.1) mg/dL Total Bilirubin (0.2-1.0) mg/dL AST (15-37) U/L ALT (16-63) U/L Alkaline Phosphatase (46-116) U/L Total Protein (6.4-8.2) g/dL Albumin (3.4-5.0) g/dL Lipase (73-393) U/L Urine Color (Yellow) Urine Clarity (Clear) Urine pH (5-8) Ur Specific [place] (1.005-1.025) Urine Protein (Negative) mg/dL Urine Ketones (Negative) mg/dL Urine Blood (Negative) Urine Nitrite (Negative) Urine Bilirubin (Negative) Urine Urobilinogen (Up TO 0.2) EU/dL Ur Leukocyte Esterase (Negative) Urine Glucose (Negative) mg/dL Ethyl Alcohol (<10) mg/dL 434.6 H HPI General Mode of arrival: ambulatory . Date/Time Provider Initiated Documentation: 03/01/22 12:57 . Limitations to Documentation: no limitations . Information obtained by: patient and family . HPI Narrative: This is a 51-year-old gentleman, history of chronic alcohol abuse, alcoholic pancreatitis, alcoholic gastritis, metastatic rectal cancer, presenting to the ER for evaluation of decreased appetite, nausea, vomiting, concern for dehydration. He states that he has stopped taking all medications and he is not pursuing any therapy for his stage IV rectal cancer. He denies recent illness, trauma, headache, fever, chest pain, shortness of breath, blood in his vomit, coffee-ground emesis, back pain, dysuria, hematuria, black tarry stools or bright red blood in his stools. Patient admits to drinking approximately 12 beers daily. He has no interest in stopping his alcohol intake. He reports occasionally having abdominal pain but denies any abdominal pain now. Related Data Home Medications Medication Instructions Recorded Confirmed ondansetron 4 mg disintegrating 4 mg PO TID 3 days #9 tabs 03/01/22 tablet Previous Rx's Medication Instructions Recorded ondansetron 4 mg disintegrating 4 mg PO TID 3 days #9 tabs 03/01/22 tablet Allergies Allergy/AdvReac Type Severity Reaction Status Date / Time No Known Allergies Allergy Verified 03/01/22 12:49 General Stated Complaint: Abd Prob FARHAN: 3 Review of Systems Constitutional Constitutional: Denies fever(s) and Denies weakness Cardiovascular Cardiovascular: Denies chest pain and Denies dyspnea Respiratory Respiratory: Denies cough and Denies dyspnea Gastrointestinal Gastrointestinal: Reports abdominal pain (None currently), Reports diarrhea (Occasional), Reports nausea and Reports vomiting Genitourinary Genitourinary: Denies dysuria Musculoskeletal Musculoskeletal: Denies back pain Integumentary/Breasts Skin/Breast: Denies rash Neurologic Neurologic: Denies weakness PFSH All Active Problems Alcohol intoxication (Acute) Nausea (Acute) Erectile dysfunction (Acute) Alcoholic hepatitis without ascites (Acute) Vomiting (Acute) Alcoholism (Chronic) Alcoholic pancreatitis (Acute) Alcoholic gastritis (Acute) Acute pancreatitis (Acute) Alcohol withdrawal (Acute) Excessive drinking alcohol (Acute) Medical History Alcohol abuse Colostomy in place Rectal cancer Surgical History H/O esophagogastroduodenoscopy History of colon resection Hx of colonoscopy Family History Father Colon cancer Paternal Uncle Brain malignancy Maternal Grandmother Brain malignancy Social History Smoking/Tobacco Use Status: Current every day Tobacco Type: smokeless tobacco Smoking risk assessment performed?: Yes Alcohol Intake: current Alcohol Intake frequency: 3 or more drinks per day Alcohol type: beer Drug use: Never Substance use type: does not use Details: 12 pack a day. Cut self down to 6 or 7 beers today Do you feel safe at home: Yes Do you feel safe in your relationship?: Yes Exam Const General: cooperative, comfortable, no acute distress and ill appearing chronically Orientation: alert, awake and oriented x3 Other: EtOH-like substance on breath HENMT Head: normal to inspection, normocephalic and atraumatic Face and sinus: normal facial exam Mouth: moist mucous membranes abnormal (Slightly dry) Eyes General: appearance normal, both eyes and all related structures Conjunctivae: conjunctivae normal Neck Neck: normal visual inspection, full ROM, trachea midline and supple Resp Effort & Inspection: normal respiratory effort and able to speak in complete sentences Auscultation: clear to auscultation bilaterally Cardio Rate: regular rate Rhythm: regular rhythm GI Palpation: soft, not firm, no guarding, no pulsatile masses and No ascites Auscultation: normal bowel sounds Back/Spine/Pelvis Back: No back tenderness Skin General skin exam: no rashes or lesions noted Neuro General: patient alert, patient awake, moves all extremities and no focal motor deficits Cognition: normal cognition Speech: speech normal Gait: normal gait Sensory Exam: no sensory deficits noted Psych Appearance: grossly normal Mental Status: mental status grossly normal Course Vital Signs Vital signs: Vital Signs Temperature 36.3 C L 03/01/22 12:40 Pulse 93 H 03/01/22 12:40 Respiratory Rate 16 03/01/22 12:40 Blood Pressure 123/88 03/01/22 12:40 Pulse Oximetry 97 03/01/22 12:40 Temperature 36.3 C L 03/01/22 12:40 Temperature Source Skin 03/01/22 12:40 Pulse 93 H 03/01/22 12:40 Respiratory Rate 16 03/01/22 12:40 Blood Pressure 123/88 03/01/22 12:40 Blood Pressure Position Sitting 03/01/22 12:40 Pulse Oximetry 97 03/01/22 12:40 Oxygen Delivery Method Room Air 03/01/22 12:40 Oxygen Flow Rate 0 03/01/22 12:40 Pain Level 8 03/01/22 12:40
[2022-03-01] MEDS: Normal Saline 1,000 ML 1000 ML IV (13:40)
[2022-03-01 13:50] LABS: Bilirubin Negative (Negative); Blood Negative (Negative); Clarity Clear (Clear); Glucose Negative (Negative); Ketones Negative (Negative); Leukocyte Esterase Negative (Negative); Nitrite Negative (Negative); Specific Gravity <= 1.005 (1.005-1.025); Urobilinogen 0.2 EU/dL (Up TO 0.2); pH 5.5 (5-8)
[2022-03-01 13:59] LABS: Abs Immature Grans 0.01 10^3/uL (0.0-0.06); Absolute Basophil Count 0.05 10^3/uL (0.0-0.2); Absolute Lymphocyte Count 1.54 10^3/uL (1.2-3.4); Absolute Monocyte Count 0.36 10^3/uL (0.1-0.8); Absolute Neutrophil Count 1.21 10^3/uL (1.2-6.7); Basophils % 1.5; Eosinophils % 3.1; HCT 37.4 % (40.0-50.0); HGB 12.3 g/dL (13.5-17.5); Immature Grans % 0.3; Lymphocytes % 47.1; MCH 26.7 pg (27.0-33.0); MCHC 32.9 % (32.0-36.0); MCV 81 fL (80-95); MPV 9.8 fL (8.0-11.0); Platelet Count 100 10^3/uL (130-400); RDW 15.9 % (11.8-14.1); RDW-SD 46.7 fL; WBC 3.27 10^3/uL (4.4-10.8)
[2022-03-01 14:15] LABS: ALT 65 U/L (16-63); AST 120 U/L (15-37); Albumin 3.9 g/dL (3.4-5.0); Alkaline Phosphatase 221 U/L (46-116); Anion Gap 14.9 mmol/L (3-11); BUN 3 mg/dL (7-18); Bilirubin, Total 0.4 mg/dL (0.2-1.0); CO2 24.1 mmol/L (21.0-32.0); CREATININE 0.8 mg/dL (0.70-1.30); Calcium 8.3 mg/dL (8.5-10.1); Chloride 97 mmol/L (98-107); Glucose 126 mg/dL (74-106); Lipase 152 U/L (73-393); Potassium 3.6 mmol/L (3.5-5.1); Sodium 136 mmol/L (136-145)
[2022-03-01 14:27] LABS: ETHANOL BLOOD 434.6 mg/dL (<10)
[2022-03-01 15:06] VITALS: BP 128/77; PULSE 85; RESP 20; TEMP 37.1; O2SAT 95
--- NOTE | 2022-03-02 13:37 | PDOC.ERCMPRO ---
- If Service Date Differs Date of service: 03/02/22 Time of Service: 13:37 Care Management Progress Note Idris is seen in the ED for nausea and alcohol intoxication. At the request of ED provider, CM checks in with Idris by telephone to offer resources. We briefly discuss palliative care which Idris declines at this time.
== END 2022-03-01 15:08 | disposition home or self-care (01) ==
PROVIDERS: Emergency Provider Physician Assistant; PCP Family Medicine
DX: F10.129 Alcohol abuse with intoxication, unspecified (principal); Y90.8 Blood alcohol level of 240 mg/100 ml or more; R11.0 Nausea
CPT/HCPCS: 80053; 83690; 96360; 99284; 80320; 81003; 85025; 99283

== ENCOUNTER 2022-03-08 23:42 | Emergency (ER) | payer MEDICAID, SELFPAY ==
--- NOTE | 2022-03-08 23:45 | DI.CT_ITS ---
Exam(s) CT ABDOMEN PELVIS WO EXAM: CT ABDOMEN PELVIS WO CLINICAL HISTORY: ostomy patient, complaining of pain around ostomy. TECHNIQUE: Imaging Protocol: Axial computed tomography images with coronal and sagittal reformatted images were created and reviewed. COMPARISON: CT CT CHEST/ABD/PEL W from 11/02/2021 FINDINGS: The examination is limited due to patient motion artifact. ABDOMEN: Lung Bases: There is a 0.7 cm pulmonary nodule in the posterior aspect of the right upper lobe on the initial images of the examination. This nodule measured 5 mm in October 2021. Liver: There is diffuse fatty infiltration of the liver. There has been interval increase in size of the mass in the left in lobe of the liver. It measures 3 x 2 cm compared with 2 x 1.3 cm. No new h epatic masses are seen. Gallbladder and biliary tract: No radiodense calculus or biliary ductal dilation. Pancreas: Normal density. No abnormal calcifications. Question of mild stranding around the pancrea s. Spleen: Normal. Kidneys: Normal size, contour and axis.There is a 2 mm nonobstructing stone in the lower pole of the right kidney. No masses seen. Adrenal glands: No mass is seen. Lymph nodes: Within normal limits. Abdominal Aorta: Abdominal portion non-dilated. PELVIS: Bladder:Symmetric distention. Stable appearance of the urinary bladder wall. Bowel: The patient is status post resection of a portion of the descending colon, the sigmoid colon a nd rectum. There is a left lower quadrant ostomy. There is mild skin thickening seen around the sto ma, but no inflammatory stranding is present. No evidence of peristomal hernia or focal fluid collec tion is seen. There is no evidence of bowel obstruction or inflammation normal appendix is present. Appendix is unremarkable. Peritoneal cavity: No ascites, collection or mesenteric inflammatory response. No free air. Reproductive organs: Within normal limits. Bones: Within normal limits. Soft Tissues: Within normal limits. IMPRESSION: 1. No evidence of inflammation, fluid collection or hernia associated with the ostomy. 2. Increase in size of the visualized pulmonary nodule and hepatic mass. 3. Hepatic steatosis. 4. Mild stranding around the pancreas. Please correlate for evidence of pancreatitis. RADIATION DOSE DELIVERED: 772.89mGy.cm Total DLP DATA REPOSITORY: All CT scans at this facility are submitted to the National Radiology Data Registry (NRDR) Dose Index Registry (DIR) with the [employer] (A[employer]). RADIATION OPTIMIZATION: All CT scans at this facility use at least one of these dose optimization te chniques: automated exposure control; mA and/or kV adjustment per patient size (includes targeted exa ms where dose is matched to clinical indication); or iterative reconstruction.
[2022-03-08 23:46] VITALS: BP 143/102; PULSE 97; RESP 18; TEMP 36.4; O2SAT 98
[2022-03-08 23:49] VITALS: RESP 18
--- NOTE | 2022-03-08 23:59 | W.ED.GENAD ---
Discharge Plan Disposition Patient Disposition: HOME Condition: Stable Discharge Details Clinical Impression: Complication of ostomy, Excessive drinking alcohol, Liver mass Primary Care Provider: Freddy Juarez ED Provider: Braulio Paulson Discharge Instructions Additional Instructions: As we discussed together there is no significant abnormality noted on urostomy at this time. However you do have a large hepatic/liver mass. You also do have irritation of your pancreas. It is vitally important that you follow-up with your oncologist and do not miss any additional appointments. Please do your very best to cut down on your alcohol use as this is not helping your long-term prognosis good wellness. If you notice any worsening of your symptoms, or any new symptoms such as vomiting, diarrhea, fever, chills, shortness of breath, chest pain, numbness, weakness, or fainting , please return immediately to the emergency department for reevaluation. Please follow up with your primary care provider as soon as possible for reassessment and reevaluation. As always, it was a pleasure participating in your medical care today. Referrals: Joseph Breen [ NON-[facility] STAFF PHYSICIAN] - Freddy Juarez MD [Primary Care Provider] - Medical Decision Making This is a 51-year-old male with a past medical history of alcohol abuse, previous rectal cancer with subsequent partial colectomy and ostomy, who presents today for ostomy pain. Patient states that for the last 2 to 3 days he has had pain at the site of his ostomy. He describes it as achy. It is present only at the ostomy itself and denies any other abdominal pain. He states that he did have 1 episode of vomiting this morning but has been able to tolerate p.o., including alcohol today. He denies any change in output from his ostomy. He denies any blood in his ostomy. He denies any change in position or color for his ostomy. He denies any epigastric pain. No trauma. No other complaints at this time. Physical exam demonstrates a well-appearing ostomy. No pallor, no signs of vascular compromise. Bedside ultrasound was performed demonstrates good vascular flow throughout the entirety of the ostomy. No tenderness around the ostomy or on the abdomen on palpation. Patient does have minimal tenderness with palpation of the ostomy itself. It does reduce well. It is prolapsed about 1 to 2 cm maximum, and both the patient and his mother who are at bedside states that this is its normal look and not further out than normal. Patient has no signs of tach appearance otherwise. Uncertain as to what the cause of the pain is. With his single episode of vomiting earlier today, this history of cancer that caused the presence of the ostomy, we will get a CT scan to evaluate for mass. We are currently in a national shortage for contrast for CT scans. However although IV contrast is not emergently indicated at this time based on the other clinical findings and assessment, I do feel that oral contrast is indicated, and we will utilize this. 3:[address] scan results have returned, patient does have an enlarging right pulmonary nodule in the hepatic mass as noted. He also has mild stranding around pancreas. Stable bladder wall thickening. No significant abnormality for the ostomy itself. On reassessment patient has complete resolution of his pain. I have reviewed the patient's records from [facility] and it appears that he has been unfortunately missing multiple visits, and phone calls. I discussed all of this with the patient, he states he drinks at a minimum a 12 pack a day, his mother who is at bedside states that it closer to 24 to 34 cups of beer per day. I discussed these mass findings with the patient, and he states I do not want anyone fucking touching stuff in my lungs, maybe I will have them look at the liver stuff. I made it very clear that the patient's alcohol, and the malignancy noted will likely end his life very shortly if he does not get them changed or managed. He states that he understands this and we will figure it out by myself.. I did explain all of this to the mother as well, and she understands and feels that there is nothing more that she can do. I did offer for the patient to stay a bit longer fluids at continued monitoring, the patient outrightly refuses and states im getting the fuck out of here. I have emphasized with the patient the importance of close follow-up with his oncologist. He and his mother understand. Of note he now states that he has complete resolution of the pain at his ostomy. He feels well. HeI have extensively reviewed the treatment plan and discharge instructions with the patient and their family. I have addressed all patient concerns at this time. The patient and family was made aware of what symptoms to monitor for that would warrant a return to the emergency department. Discussed the plan with the patient and family, they demonstrate verbal understanding and agreement with our assessment and plan at this time. The documentation in this chart was dictated using [employer] dictation software. Please excuse any dictation errors. FINDINGS: Lungs: 7 mm nodule at the right lung base, slightly increased. Liver: Hepatic fatty infiltration. 2.7 cm mass in segment 3 appears slightly larger although evaluation is limited without intravenous contrast enhancement. Gallbladder and bile ducts: Normal. No calcified stones. No ductal dilation. Pancreas: Slight stranding around the pancreas. No ductal dilation. Spleen: Normal. No splenomegaly. Adrenal glands: Normal. No mass. Kidneys and ureters: Normal. No hydronephrosis. Stomach and bowel: Status post partial colectomy with a left lower quadrant colostomy. No evidence of bowel obstruction. No fluid collections or significant inflammation around the colostomy. Appendix: Normal appendix. Intraperitoneal space: Unremarkable. No free air. No significant fluid collection. Vasculature: Unremarkable. No abdominal aortic aneurysm. Lymph nodes: Unremarkable. No enlarged lymph nodes. Urinary bladder: Stable bladder wall thickening anteriorly. Reproductive: Unremarkable as visualized. Bones/joints: Degenerative disc disease at L4-L5 and L5-S1. No acute fracture. Soft tissues: Unremarkable. IMPRESSION: 1. Enlarging right pulmonary nodule and hepatic mass as above. 2. Hepatic steatosis. 3. Slight stranding around the pancreas. Mild pancreatitis is not excluded. 4. Stable bladder wall thickening. Thank you for allowing us to participate in the care of your patient. Dictated and Authenticated by: Bryon Ambrosio MD 03/09/2022 2:17 AM Eastern Time ([place] & [place]). Spoke at 9 mg if he here okay fine thanks [facility] General Date/Time Provider Initiated Documentation: 03/08/22 23:44. [facility] Narrative: This is a 51-year-old male with a past medical history of alcohol abuse, previous rectal cancer with subsequent partial colectomy and ostomy, who presents today for ostomy pain. Patient states that for the last 2 to 3 days he has had pain at the site of his ostomy. He describes it as achy. It is present only at the ostomy itself and denies any other abdominal pain. He states that he did have 1 episode of vomiting this morning but has been able to tolerate p.o., including alcohol today. He denies any change in output from his ostomy. He denies any blood in his ostomy. He denies any change in position or color for his ostomy. He denies any epigastric pain. No trauma. No other complaints at this time. Related Data Allergies Allergy/AdvReac Type Severity Reaction Status Date / Time No Known Allergies Allergy Verified 03/08/22 23:51 General Stated Complaint: GenMedical FARHAN: 3 Review of Systems All systems reviewed & are unremarkable except as noted in HPI and below PFSH All Active Problems Alcohol intoxication (Acute) Nausea (Acute) Complication of ostomy (Acute) Liver mass (Acute) Erectile dysfunction (Acute) Alcoholic hepatitis without ascites (Acute) Vomiting (Acute) Alcoholism (Chronic) Alcoholic pancreatitis (Acute) Alcoholic gastritis (Acute) Acute pancreatitis (Acute) Alcohol withdrawal (Acute) Excessive drinking alcohol (Acute) Medical History Alcohol abuse Colostomy in place Rectal cancer Surgical History H/O esophagogastroduodenoscopy History of colon resection Hx of colonoscopy Family History Father Colon cancer Paternal Uncle Brain malignancy Maternal Grandmother Brain malignancy Social History Smoking/Tobacco Use Status: Current every day Tobacco Type: smokeless tobacco Smoking risk assessment performed?: Yes Alcohol Intake: current Alcohol Intake frequency: 3 or more drinks per day Alcohol type: beer Drug use: Never Substance use type: does not use Details: 12 pack a day. Cut self down to 6 or 7 beers today Do you feel safe at home: Yes Do you feel safe in your relationship?: Yes Exam Narrative Exam Narrative: 1.Const: Well-nourished, Well-developed, appearing stated age 2.Eyes: PERRL, no conjunctival injection, and symmetrical lids. 3.ENT: Atraumatic external nose and ears. Moist MM. Neck: Symmetric, trachea midline, No thyromegaly. 4.CVS: +S1/S2, No murmurs or gallops. Peripheral pulses 2+ and equal in all extremities. Brisk capillary refill in all extremities. 5.RESP: Unlabored respiratory effort. Clear to auscultation bilaterally. No wheezes rales or rhonchi 6.GI: Soft, Nontender/Nondistended, No hepatosplenomegaly. No guarding or rebound. The patient's ostomy itself is very unremarkable. The ostomy is pink, moist, and shows no evidence of pallor. Bedside ultrasound demonstrates good vascular flow surrounding the ostomy, and for all components of the ostomy. It does appears to be minimally prolapsed by about 1 to 2 cm, however both the patient and his mother who was at bedside state that this is the normal look and displacement of the ostomy, and it is not out more than normal. It is easily reduced, and shows no signs clinically of strangulation 7.MSK: Normocephalic/Atraumatic, Extremities w/o deformity or ttp No cyanosis or clubbing, Normal movement of all extremities 8.Skin: Warm, Dry. No rashes or lesions. 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 Sensation grossly intact, no focal neurologic deficits. 10.Psych: (AAO) x3. Appropriate mood and affect Course Vital Signs Vital signs: Vital Signs Temperature 36.4 C L 03/08/22 23:46 Pulse 97 H 03/08/22 23:46 Respiratory Rate 18 03/08/22 23:46 Blood Pressure 143/102 H 03/08/22 23:46 Pulse Oximetry 98 03/08/22 23:46 Temperature 36.4 C L 03/08/22 23:46 Temperature Source Skin 03/08/22 23:46 Pulse 97 H 03/08/22 23:46 Respiratory Rate 18 03/08/22 23:49 Respiratory Effort 03/08/22 23:49 Respiratory Depth Normal 03/08/22 23:49 Respiratory Pattern Normal 03/08/22 23:49 Blood Pressure 143/102 H 03/08/22 23:46 Blood Pressure Position Supine 03/08/22 23:46 Pulse Oximetry 98 03/08/22 23:46 Oxygen Delivery Method Room Air 03/08/22 23:46 Oxygen Flow Rate 0 03/08/22 23:46 Pain Level 8 03/08/22 23:46
[2022-03-09] MEDS: HYDROcodone 5/Acetaminophen 325 TAB PO (00:05)
--- NOTE | 2022-03-09 02:17 | DI.VRAD_ITS ---
PROCEDURE INFORMATION: Exam: CT Abdomen And Pelvis Without Contrast Exam date and time: 03/09/2022 12:52 AM Age: 51 years old Clinical indication: Abdominal pain; Other: Ostomy patient, complaining of pain around ostomy; Prior surgery; Surgery date: 6+ months; Surgery type: February 2021 colostomy TECHNIQUE: Imaging protocol: Computed tomography of the abdomen and pelvis without contrast. Radiation optimization: All CT scans at this facility use at least one of these dose optimization techniques: automated exposure control; mA and/or kV adjustment per patient size (includes targeted exams where dose is matched to clinical indication); or iterative reconstruction. Other contrast: Oral, gastrografin/ breeza , 25ml gastro, 16oz breeza ; COMPARISON: CT CHEST/ABD/PEL W 11/02/2021 8:56 AM FINDINGS: Lungs: 7 mm nodule at the right lung base, slightly increased. Liver: Hepatic fatty infiltration. 2.7 cm mass in segment 3 appears slightly larger although evaluation is limited without intravenous contrast enhancement. Gallbladder and bile ducts: Normal. No calcified stones. No ductal dilation. Pancreas: Slight stranding around the pancreas. No ductal dilation. Spleen: Normal. No splenomegaly. Adrenal glands: Normal. No mass. Kidneys and ureters: Normal. No hydronephrosis. Stomach and bowel: Status post partial colectomy with a left lower quadrant colostomy. No evidence of bowel obstruction. No fluid collections or significant inflammation around the colostomy. Appendix: Normal appendix. Intraperitoneal space: Unremarkable. No free air. No significant fluid collection. Vasculature: Unremarkable. No abdominal aortic aneurysm. Lymph nodes: Unremarkable. No enlarged lymph nodes. Urinary bladder: Stable bladder wall thickening anteriorly. Reproductive: Unremarkable as visualized. Bones/joints: Degenerative disc disease at L4-L5 and L5-S1. No acute fracture. Soft tissues: Unremarkable. IMPRESSION: 1. Enlarging right pulmonary nodule and hepatic mass as above. 2. Hepatic steatosis. 3. Slight stranding around the pancreas. Mild pancreatitis is not excluded. 4. Stable bladder wall thickening. Dictated and Authenticated by: Bryon Ambrosio MD. Ordering:ROBERT Ramsey MD
[2022-03-09 02:52] VITALS: BP 100/79; PULSE 70; RESP 18; O2SAT 94
[2022-03-09 04:25] VITALS: BP 111/82; PULSE 67; RESP 18; O2SAT 98
== END 2022-03-09 04:15 | disposition home or self-care (01) ==
PROVIDERS: Emergency Provider Student in an Organized Health Care Education/Training Program; PCP Family Medicine
DX: K94.09 Other complications of colostomy (principal); F10.10 Alcohol abuse, uncomplicated; R16.0 Hepatomegaly, not elsewhere classified
CPT/HCPCS: 99284; 74176; 99283

== ENCOUNTER 2022-03-09 16:35 | Emergency (ER) | payer MEDICAID, SELFPAY ==
[2022-03-09 17:09] VITALS: BP 129/87; PULSE 77; RESP 18; TEMP 37.2; O2SAT 96
--- NOTE | 2022-03-09 17:30 | RT.EKG_ITS ---
APPROVED REPORT Exam: Resting ECG Reason for Exam: leonardoky Patient Location: E HR:85 bpm ECG Measurements Heart Rate 85 AXIS GA 164 P 32 QRSd 93 QRS -26 QT 351 T 40 QTc 418 Conclusion Sinus rhythm...normal P axis, V-rate 60- 99
--- NOTE | 2022-03-09 17:36 | W.ED.GENAD ---
Discharge Plan Disposition Patient Disposition: HOME Condition: Poor Discharge Details Clinical Impression: Excessive drinking alcohol, Vomiting, Nausea, Alcohol withdrawal Primary Care Provider: Freddy Juarez ED Provider: Latisha Carrera Home Meds and New Rx's Prescriptions: New ondansetron 4 mg tablet,disintegrating 4 mg PO Q6H PRN (Reason: nausea and vomiting) Qty: 7 0RF No Action lidocaine 5 % adhesive patch,medicated 1 patch topical DAILY Qty: 30 2RF Rx Instructions: leave on most painful area for up to 12 hrs Discharge Instructions Instructions: Ondansetron (By mouth), Acute Nausea and Vomiting (ED) Additional Instructions: Your labs appear to be at your normal levels today. However, I am concerned that your shakiness and general unwell is associated with reduction of alcohol. While I do encourage you to do this, please do so safely and consider assistance as we discussed such as recovery operator. If you change your mind and would like to speak with the recovery operator please call [phone]. Mental health may also be reached at [phone]. Please consider counseling as discussed. A referral has been send for palliative care as discussed. If you develop recurrent nausea/vomiting, please use the zofran as prescribed. Encourage water intake and advance diet as tolerated. If you develop thoughts of self harm, fevers/chills, abdominal pain, inability to stay hydrated or other new/worsening symptoms please seek care urgently once again. Please follow up with primary care in the next week for reevaluation. Referrals: Freddy Juarez MD [Primary Care Provider] - Discharge Data Discharge Date/Time-TO BE ENTERED AT DEPARTURE: 03/09/22 22:11 Medical Decision Making Patient is a pleasant 51-year-old male, brought in by his mother, chief complaint of general malaise. Patient was seen here late last night, discharged just after midnight this morning. He was here last, there is concerning findings for metastatic rectal cancer. Patient has concerning lesions in the lungs as well liver. Patient came in last night, his primary concern was for ostomy discomfort which resolved while here. He states his back pain has not returned. However, states that he has been having dry heaves with intermittent output, general malaise and fatigue. Feels like he may be dehydrated but is not able to clarify why he feels this way. Patient reports that he has had 4 beers today. Compared to note dated last night, concern potential withdrawal. Patient is feeling shaky at the time at this time. He denies any fever or chills. No change in ostomy output. On exam, patient appears anxious and shaky. His appearance is most consistent with alcohol withdrawal. While he did have ETOH today, much less than his typical. He otherwise has no acute focal findings. Denies SI or HI. He has limited personal insight. Mom is very supportive. As above, concerned for possible withdrawal. Will give ativan. Also concerned for possible electrolyte abnormality. Will assess with blood work, hydrate the patient. Labs reviewed. Patient is a low white count at 2.89 which is baseline for the patient. He is also slightly anemic with a hemoglobin of 12.1, again patient has baseline anemia. Platelet count is low at 113, this is up slightly for 100 on recent evaluation. Hyponatremic at 132, patient discussed with the patient this is likely associate with him only drinking beer for sustenance. His AST ALT and alk phos are all elevated but consistent with baseline for the patient. Lipase is slightly elevated at 432. However, I further evaluate the patient he has no abdominal discomfort, no fevers or chills. I have low suspicion for pancreatitis at this time. More consistent with alcohol withdrawal. Patient I had a lengthy discussion regarding his current symptoms. patient's symptoms likely not truly dehydrated rather, I think the patient is try to cut back on alcohol as he was instructed to do so yesterday or by healthcare professional and is now having withdrawal symptoms. Patient did receive Ativan and is slightly improved. Offered multiple avenues to help with his alcohol consumption including recovery operator, medical management, mental health evaluation, versus assisting to find an inpatient bed for systems. Patient reports that he stopped drinking multiple times historically, has never had DTs or seizures. He declines all of these interventions right now. He states that he has his recovery operator as well as alternative methods historically. He states that he is only been drinking a significant amount for the past 2 weeks, otherwise has been drinking approximately 2 beers per night. Associates this with a large amount of increased social stressors. Patient is agreeable to palliative care consult. At this time, he is pausing his care with Dr. Majano and oncology team. He is aware of the risks associated with this. We will send home with Александр in the event he has recurrence of his nausea or vomiting. Return precautions discussed. We will also provide patient contact information for MH and recovery operator. He declined MH evaluation here but feels that he would get benefit out of counseling. Encouraged close f/u with PCP. Return precautions discussed. All of his quesitons and concerns were addressed, he is in agreement with this plan. HPI General Date/Time Provider Initiated Documentation: 03/09/22 17:20. Limitations to Documentation: no limitations. Information obtained by: patient, family, RN notes reviewed and old records reviewed. History of Present Illness 51 year old M presents to the emergency department with the chief complaint of general malaise, nausea, vomiting, dehydration, described as severe, Patient started experiencing this hour(s) and it has been constant. No relieving factors improve symptom(s), No exacerbating factors reported . Patient notes loss of appetite, malaise and nausea/vomiting; denies chest pain, cough, diaphoresis, fever/chills, rash, seizure and shortness of breath. Patient did receive the following treatments prior to arrival, none Related Data Home Medications Medication Instructions Recorded Confirmed ondansetron 4 mg disintegrating 4 mg PO Q6H PRN nausea and 03/09/22 tablet vomiting #7 tabs lidocaine 5 % topical patch 1 patch topical DAILY #30 ea 03/20/22 03/20/22 Previous Rx's Medication Instructions Recorded ondansetron 4 mg disintegrating 4 mg PO Q6H PRN nausea and 03/09/22 tablet vomiting #7 tabs lidocaine 5 % topical patch 1 patch topical DAILY #30 ea 03/20/22 Allergies Allergy/AdvReac Type Severity Reaction Status Date / Time No Known Allergies Allergy Verified 03/20/22 11:31 General Stated Complaint: Recheck FARHAN: 4 Review of Systems Constitutional Constitutional: Reports as per HPI, Denies chills and Denies fever(s) Cardiovascular Cardiovascular: Reports as per HPI, Denies chest pain and Denies dyspnea Respiratory Respiratory: Reports as per HPI, Denies cough and Denies dyspnea Gastrointestinal Gastrointestinal: Reports as per HPI Genitourinary Genitourinary: Denies system reviewed and no additional complaints, except as documented (patient denies any change in urinary habits) Musculoskeletal Musculoskeletal: Reports as per HPI and Denies back pain Integumentary/Breasts Skin/Breast: Reports as per HPI and Denies rash Neurologic Neurologic: Reports as per HPI PFSH All Active Problems Prostatism (Acute) Shoulder pain, right (Acute) Alcohol intoxication (Acute) Nausea (Acute) Complication of ostomy (Acute) Liver mass (Acute) Erectile dysfunction (Acute) Alcoholic hepatitis without ascites (Acute) Vomiting (Acute) Alcoholism (Chronic) Alcoholic pancreatitis (Acute) Alcoholic gastritis (Acute) Acute pancreatitis (Acute) Alcohol withdrawal (Acute) Excessive drinking alcohol (Acute) Medical History Alcohol abuse Colostomy in place Rectal cancer Surgical History H/O esophagogastroduodenoscopy History of colon resection Hx of colonoscopy Family History Father Colon cancer Paternal Uncle Brain malignancy Maternal Grandmother Brain malignancy Social History Smoking/Tobacco Use Status: Current every day Tobacco Type: smokeless tobacco Smoking risk assessment performed?: Yes Alcohol Intake: current Alcohol Intake frequency: 3 or more drinks per day Alcohol type: beer Drug use: Never Substance use type: does not use Details: 12 pack a day. Cut self down to 6 or 7 beers today Do you feel safe at home: Yes Do you feel safe in your relationship?: Yes Exam Const General: cooperative, uncomfortable, no acute distress, well developed, anxious and ill appearing acutely (appears shaky, consistent with alcohol withdrawal) Nutritional Appearance: average body habitus and well nourished Orientation: alert and awake [facility] Head: normal to inspection Mouth: moist mucous membranes Eyes General: appearance normal, both eyes and all related structures (no jaundice noted) Resp Effort & Inspection: normal respiratory effort, able to speak in complete sentences and no respiratory distress Auscultation: clear to auscultation bilaterally, no rales, no rhonchi and no wheezes Cardio Rate: regular rate Rhythm: regular rhythm Heart Sounds: S1 normal and S2 normal GI Inspection: normal to inspection and non-distended Palpation: soft, no hepatosplenomegaly, no guarding, no masses, not rigid and nontender Percussion: normal to percussion Auscultation: normal bowel sounds Back/Spine/Pelvis Back: no CVA tenderness Skin General skin exam: no rashes or lesions noted Trauma: no lacerations or abrasions Neuro General: patient alert and patient awake Cognition: normal cognition Speech: speech normal Gait: normal gait Psych Appearance: grossly normal and disheveled Mental Status: mental status grossly normal Speech and Movement: restless Mood: anxious mood Course Vital Signs Vital signs: Vital Signs Temperature 37.2 C 03/09/22 17:09 Pulse 77 03/09/22 17:09 Respiratory Rate 18 03/09/22 17:09 Blood Pressure 129/87 03/09/22 17:09 Pulse Oximetry 96 03/09/22 17:09 Temperature 37.2 C 03/09/22 17:09 Pulse 77 03/09/22 17:09 Respiratory Rate 18 03/09/22 17:09 Blood Pressure 129/87 03/09/22 17:09 Blood Pressure Position Sitting 03/09/22 17:09 Pulse Oximetry 96 03/09/22 17:09 Oxygen Delivery Method Room Air 03/09/22 17:09 Oxygen Flow Rate 0 03/09/22 17:09 Pain Level 0 03/09/22 17:09 Comment 03/09/22 17:09
[2022-03-09 19:51] LABS: Abs Immature Grans 0.01 10^3/uL (0.0-0.06); Absolute Basophil Count 0.03 10^3/uL (0.0-0.2); Absolute Eosinophil Count 0.07 10^3/uL (0.0-0.7); Absolute Lymphocyte Count 0.82 10^3/uL (1.2-3.4); Absolute Monocyte Count 0.31 10^3/uL (0.1-0.8); Absolute Neutrophil Count 1.65 10^3/uL (1.2-6.7); Eosinophils % 2.4; HCT 37.3 % (40.0-50.0); HGB 12.1 g/dL (13.5-17.5); Immature Grans % 0.3; Lymphocytes % 28.4; MCH 26.7 pg (27.0-33.0); MCHC 32.4 % (32.0-36.0); MCV 82 fL (80-95); Monocytes % 10.7; Neutrophils % 57.2; Platelet Count 113 10^3/uL (130-400); RBC 4.53 10^6/uL (4.36-5.78); RDW 16.7 % (11.8-14.1); RDW-SD 50.2 fL; WBC 2.89 10^3/uL (4.4-10.8)
[2022-03-09 20:00] LABS: ALT 86 U/L (16-63); AST 164 U/L (15-37); Albumin 4.1 g/dL (3.4-5.0); Alkaline Phosphatase 275 U/L (46-116); Anion Gap 11.1 mmol/L (3-11); BUN 3 mg/dL (7-18); Bilirubin, Total 0.8 mg/dL (0.2-1.0); CO2 25.9 mmol/L (21.0-32.0); CREATININE 0.8 mg/dL (0.70-1.30); Calcium 9.2 mg/dL (8.5-10.1); Chloride 95 mmol/L (98-107); Glucose 94 mg/dL (74-106); Lipase 432 U/L (73-393); Magnesium 2.5 mg/dL (1.8-2.4); Potassium 3.7 mmol/L (3.5-5.1); Sodium 132 mmol/L (136-145); Total Protein 8.5 g/dL (6.4-8.2); Troponin I < 50 ng/L (<or=60)
[2022-03-09] MEDS: LORazepam 2 MG/ML VIAL 1 MG IVP (21:09)
[2022-03-09] MEDS: Ondansetron O.D.T. 4 MG TABEF, 3 TABS/BTL PO (21:50)
--- NOTE | 2022-03-10 03:48 | NUR.NOTE ---
Referral to Care Management to get patient established with Palliative Care.Nursing Note:
== END 2022-03-09 22:11 | disposition home or self-care (01) ==
PROVIDERS: Emergency Provider Physician Assistant; PCP Family Medicine
DX: F10.139 Alcohol abuse with withdrawal, unspecified (principal); R11.2 Nausea with vomiting, unspecified; R25.1 Tremor, unspecified
CPT/HCPCS: 80053; 83690; 93005; 96374; 99284; 83735; 84484; 85025; 93010; J2060

== ENCOUNTER 2022-03-22 03:13 | Outpatient (CLI) | payer MEDICAID, SELFPAY | END 2022-03-22 03:14 | disposition home or self-care (01) | LOC: LOS 03:17 | PROVIDERS: PCP Family Medicine; Visit Provider Family Medicine | DX: Z12.5 Encounter for screening for malignant neoplasm of prostate (principal) | CPT/HCPCS: 36415; 84153 ==

== ENCOUNTER 2022-06-13 12:25 | Emergency (ER) | payer MEDICAID, SELFPAY ==
[2022-06-13 12:54] VITALS: BP 140/75; PULSE 115; RESP 18; TEMP 36.8; O2SAT 96
--- NOTE | 2022-06-13 16:55 | NUR.NOTE ---
Nursing Note: Per Access the police found a competent adult to stay with the patient and left with him @ [id number]
== END 2022-06-13 13:52 | disposition left before discharge ==
LOC: ER 12:32
PROVIDERS: PCP Family Medicine
DX: Z53.21 Procedure and treatment not carried out due to patient leaving prior to being seen by health care provider (principal)

== ENCOUNTER → 2022-08-13 01:40 | Outpatient (CLI) | payer MEDICARE, MEDICAID, SELFPAY ==
--- NOTE | 2022-08-13 | DI.CT_ITS ---
Exam(s) CT CHEST/ABD/PEL W EXAM: CT CHEST/ABD/PEL W CLINICAL HISTORY: RECTAL CA METASTASIZED TO LIVER,C20,C78.7,METASTATUC LUNG CA, RESTAGING EXA. TECHNIQUE: Imaging Protocol: Axial computed tomography images with coronal and sagittal reformatted images were created and reviewed CONTRAST MATERIAL: Intravenous: Omnipaque 350 Contrast volume:100 ml Oral: yes / COMPARISON: CT CT CHEST/ABD/PEL W from 11/02/[address] ABDOMEN PELVIS WO from 03/09/2022 FINDINGS: CHEST: Tracheobronchial tree: Patent where visualized. Mediastinum and Jeanne: No dominant adenopathy or fluid collection. Pulmonary parenchyma: Marked interval increase in size of previously noted nodule in the right upper lobe, now measuring 4.0 X 3.2 cm. Increase in size nodule at the lateral right upper lobe now measuri ng 10 millimeters. Stable tiny nodule left lower lobe. Previously noted nodule in the anterior left upper lobe is no longer visible. Pleura: No effusion or pneumothorax. Lymph nodes: Within normal limits. Aorta: Thoracic portion non-dilated. Heart: Normal size. No pericardial effusion. Bones: Unremarkable for age. No lytic or blastic lesions. A port is noted over the left pectoral muscle. ABDOMEN: Liver: Severe fatty infiltration.. Interval increase in size metastatic lesion in inferior left lobe of the liver, now measuring roughly 4.5 x 2.7 cm . No new liver masses. Gallbladder and biliary tract: No radiodense calculus or dilation. Pancreas: Normal density, no abnormal calcifications or inflammatory process. Spleen: Normal. Kidneys: Normal size, contour and axis. No radiodense stones or obstructive uropathy. No masses seen. Adrenal glands: No masses seen. Aorta: Abdominal portion non-dilated. Lymph nodes: Within normal limits. Soft tissues: Unremarkable. PELVIS: Bladder: Symmetric distention, no gross wall thickening. Bowel: Resection of the rectosigmoid. Unremarkable left sided colostomy. No obstruction or bowel wall thickening. Peritoneal cavity: No ascites, collection or mesenteric inflammatory response. Bones: No suspicious lesions. Degenerative disc changes L4-5 and L5-S1. Reproductive organs: Within normal limits. IMPRESSION: 1. Marked interval increase in size of right upper lobe metastasis. And interval increase in size of smaller nodule lateral right upper lobe. 2. Significant interval increase in size metastasis in the left lobe of the liver. 3. No new sites of metastasis. RADIATION DOSE DELIVERED: 1,432.53mGy.cm Total DLP DATA REPOSITORY: All CT scans at this facility are submitted to the National Radiology Data Registry (NRDR) Dose Index Registry (DIR) with the [employer] (ACR). RADIATION OPTIMIZATION: All CT scans at this facility use at least one of these dose optimization te chniques: automated exposure control; mA and/or kV adjustment per patient size (includes targeted exa ms where dose is matched to clinical indication); or iterative reconstruction.
[2022-08-13] MEDS: Barium Sulfate 2% W/V-Berry Smoothie 450 ML BTL PO ×3 (08:04→08:25)
[2022-08-13 08:21] LABS: Abs Immature Grans 0.01 10^3/uL (0.0-0.06); Absolute Basophil Count 0.03 10^3/uL (0.0-0.2); Absolute Eosinophil Count 0.17 10^3/uL (0.0-0.7); Absolute Lymphocyte Count 0.65 10^3/uL (1.2-3.4); Absolute Monocyte Count 0.32 10^3/uL (0.1-0.8); Absolute Neutrophil Count 2.38 10^3/uL (1.2-6.7); Basophils % 0.8; Eosinophils % 4.8; HCT 39.5 % (40.0-50.0); HGB 12.8 g/dL (13.5-17.5); Immature Grans % 0.3; Lymphocytes % 18.3; MCH 27.5 pg (27.0-33.0); MCHC 32.4 % (32.0-36.0); MCV 85 fL (80-95); MPV 8.6 fL (8.0-11.0); Neutrophils % 66.8; Platelet Count 239 10^3/uL (130-400); RBC 4.66 10^6/uL (4.36-5.78); RDW 17.7 % (11.8-14.1); RDW-SD 54.5 fL; WBC 3.56 10^3/uL (4.4-10.8)
[2022-08-13 08:38] LABS: ALT 76 U/L (16-63); AST 74 U/L (15-37); Albumin 3.5 g/dL (3.4-5.0); Alkaline Phosphatase 140 U/L (46-116); Anion Gap 8.6 mmol/L (3-11); BUN 5 mg/dL (7-18); Bilirubin, Total 0.3 mg/dL (0.2-1.0); CO2 26.4 mmol/L (21.0-32.0); CREATININE 0.7 mg/dL (0.70-1.30); Calcium 8.6 mg/dL (8.5-10.1); Chloride 102 mmol/L (98-107); Estimated GFR 112.25 (mL/min/1.73m2); Glucose 97 mg/dL (74-106); Potassium 3.9 mmol/L (3.5-5.1); Sodium 137 mmol/L (136-145); Total Protein 7.6 g/dL (6.4-8.2)
[2022-08-13] MEDS: Omnipaque 350 MG/ML 500 ML BTL-Imaging package IJ (10:11)
[2022-08-13] MEDS: Normal Saline Flush 10 ML SYR IVP (10:12)
[2022-08-13 18:36] LABS: CEA 16.6 ng/mL (See Note)
== END ==
PROVIDERS: PCP Family Medicine; Visit Provider Internal Medicine Hematology & Oncology
DX: C20 Malignant neoplasm of rectum (principal); C78.7 Secondary malignant neoplasm of liver and intrahepatic bile duct; C78.01 Secondary malignant neoplasm of right lung; Z93.3 Colostomy status
CPT/HCPCS: 74177; 80053; 71260; 82378; 85025

== ENCOUNTER → 2022-12-21 10:54 | Outpatient (BNVA) | payer MEDICARE, MEDICAID, SELFPAY | PROVIDERS: PCP Family Medicine; Referring Provider Family Medicine; Visit Provider Surgery | DX: C20 Malignant neoplasm of rectum (principal); N40.0 Benign prostatic hyperplasia without lower urinary tract symptoms; K70.10 Alcoholic hepatitis without ascites; F10.20 Alcohol dependence, uncomplicated; Z93.3 Colostomy status; Z72.0 Tobacco use | CPT/HCPCS: 36590; 99242 ==

== ENCOUNTER 2023-01-05 23:45 | Emergency (ER) | payer MEDICAID, SELFPAY ==
--- NOTE | 2023-01-05 23:45 | RT.EKG_ITS ---
APPROVED REPORT Exam: Resting ECG Reason for Exam: SOB Patient Location: E HR:106 bpm ECG Measurements Heart Rate 106 AXIS WA 155 P 19 QRSd 93 QRS -29 QT 328 T 23 QTc 437 Conclusion Sinus tachycardia...rate> 99 Probable left atrial enlargement...P >50mS, <-0.10mV V1. Sinus. No STEMI. I have reviewed and interpreted ECG and agree with software generated interpretation.
[2023-01-05 23:48] VITALS: BP 132/96; PULSE 107; RESP 23; TEMP 36.6; O2SAT 95
[2023-01-05 23:51] VITALS: PULSE 110; RESP 29
--- NOTE | 2023-01-05 23:51 | ED.GENADUL_ITS ---
Discharge Plan Disposition Patient Disposition: Home Condition: Improving Discharge Details Clinical Impression: Pneumonia Primary Care Provider: Freddy Juarez ED Provider: Susanna Leonardo Home Meds and New Rx's Prescriptions: New amoxicillin-pot clavulanate 875-125 mg tablet 1 tab PO BID 7 Days Qty: 14 0RF doxycycline hyclate 100 mg tablet 100 mg PO BID 7 Days Qty: 14 0RF Continued lidocaine 5 % adhesive patch,medicated 1 patch topical DAILY Qty: 30 2RF Rx Instructions: leave on most painful area for up to 12 hrs acetaminophen [Tylenol Extra Strength] 500 mg tablet 1,000 mg PO Q6H PRN ondansetron HCl 8 mg tablet 8 mg PO Q8H PRN Discharge Instructions Instructions: Pneumonia (ED) Additional Instructions: The CT scan of your chest today showed that you may have a pneumonia in your right lung. There were a few abnormalities noted on your blood tests today. Your platelets were low, your bilirubin and liver enzymes were high. It is recommended you discuss these abnormalities with your primary care doctor and/or oncology team for further discussion and recheck of these blood tests. The CT scan of your head and abdomen today showed no new acute findings. Use the albuterol inhaler as needed and directed for shortness of breath, increased cough or wheezing. Prescriptions for 2 antibiotics have been sent electronically to your pharmacy to take as directed until finished. Follow-up with your primary care doctor in 1 week. Call your oncology team at [facility] on Saturday morning to schedule follow-up appointment for reevaluation within the next week. Return to the emergency department with any worsening or new concerning symptoms. 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 EKG notes a rate of 106, sinus, no STEMI and nondiagnostic. Heart rate low 100s. Remainder vitals within normal limits. He is afebrile. Lung sounds clear throughout. He has a colostomy bag with soft brown stool present. Abdomen soft and nontender. Moving all extremities. PERRLA. EOMI. No focal deficits. As patient states his blurry vision has been chronic for several years and improved with reading glasses, history of presentation does not appear consistent with CVA or brain mets. Considering his history, consider new brain metastasis so will obtain CT head. Considering his cancer history, consider PE. As he has a slightly worsening cough, also consider pneumonia, COVID, influenza, RSV, bronchitis. We will give IV fluids and DuoNeb. Will obtain screening labs in addition to CT chest abdomen and pelvis. 0230 --Labs and imaging reviewed. White blood cell count 3.69 which is consistent with recent baseline. Platelets 84 which are lower than recent baseline. Sodium 128. Glucose 124. Anion gap 13.5 which is similar to recent baseline. T. bili 2.2 which is elevated compared to recent baseline. Elevation of LFTs which are not significantly changed compared to recent baseline. Troponin negative. Lipase within normal limits. Alcohol 14.4. CT chest notes a stable 4 cm right suprahilar mass. There is also a focal groundglass opacity in the lateral right upper lobe. CT head and CT abdomen and pelvis negative for new acute findings. In the setting of increased productive cough and shortness of breath, will treat for possible pneumonia. Patient was given 1 dose of Augmentin and doxycycline here and prescriptions sent electronically to his pharmacy. He was given an albuterol inhaler to go. Patient was advised to call his PCP and oncology team on Saturday for reevaluation within the next week and for recheck of his platelets, bilirubin and liver enzymes. Usual and customary return precautions given prior to discharge. Medical Records Medical records reviewed: Yes I reviewed the patient's medical records. Imaging Data Radiologic Study: Radiologist's impression: CT Head Without Contrast Exam date and time: 01/06/2023 12:28 AM Age: 52 years old Clinical indication: Other: Blurry vision TECHNIQUE: Imaging protocol: Computed tomography of the head without contrast. COMPARISON: CT HEAD WITHOUT CONTRAST 07/13/2016 12:00 AM FINDINGS: Brain: Diffuse mild cerebral atrophy. No large territory acute CVA. No mass or edema. No intracranial hemorrhage. Cerebral ventricles: No ventriculomegaly. Paranasal sinuses: Visualized sinuses are unremarkable. No fluid levels. Mastoid air cells: Visualized mastoid air cells are well aerated. Bones/joints: Intact calvarium. Mastoid bones are well aerated. Soft tissues: Unremarkable. IMPRESSION: 1. ? No acute findings. 2. ? No significant change since 07/13/2016. CTA Chest With Contrast CTA Abdomen and Pelvis With Contrast Exam date and time: 01/06/2023 12:55 AM Age: 52 years old Clinical indication: Cough and shortness of breath; Difficulty breathing or dyspnea and other: Nausea, h/o rectal cancer e/ liver/lung mets TECHNIQUE: Imaging protocol: Computed tomographic angiography of the chest with contrast. Computed tomographic angiography of the abdomen and pelvis with contrast. 3D rendering (Not supervised by radiologist): MIP and/or 3D reconstructed images were created by the technologist. Contrast material: 350; Contrast volume: 100 ml; Contrast route: INTRAVENOUS (IV);? COMPARISON: CT CHEST/ABD/PEL W 08/13/2022 10:02 AM FINDINGS: VASCULATURE: Pulmonary arteries: Normal. No pulmonary emboli. Aorta: No aortic aneurysm. No aortic dissection. Celiac trunk and mesenteric arteries: No occlusion or significant stenosis. Renal arteries: No occlusion or significant stenosis. Right iliac arteries: No occlusion or significant stenosis. Left iliac arteries: No occlusion or significant stenosis. CHEST: Lungs: Persistent 4.1 cm right suprahilar mass. Nonspecific minimal focal ground-glass opacity in the lateral right upper lobe. Pleural spaces: Unremarkable. No pneumothorax. No pleural effusion. Heart: Unremarkable. No cardiomegaly. No pericardial effusion. ABDOMEN AND PELVIS: Liver: Hepatic steatosis. Gallbladder and bile ducts: Unremarkable. No calcified stones. No ductal dilation. Pancreas: Unremarkable. No mass. No ductal dilation. Spleen: Unremarkable. No splenomegaly. Adrenal glands: Unremarkable. No mass. Kidneys and ureters: Unremarkable. No solid mass. No hydronephrosis. Stomach and bowel: Left mid abdominal ostomy. Status post distal colectomy. No bowel obstruction. Appendix: No evidence of appendicitis. Intraperitoneal space: Unremarkable. No free air. No significant fluid collection. Urinary bladder: Unremarkable. No mass. Reproductive: Unremarkable as visualized. Lymph nodes: Unremarkable. No enlarged lymph nodes. Bones/joints: Unremarkable. No acute fracture. Soft tissues: Unremarkable. IMPRESSION: 1. ? Persistent 4.1 cm right suprahilar mass. 2. ? Nonspecific minimal focal ground-glass opacity in the lateral right upper lobe. Lab Data Lab results reviewed: Yes I reviewed the patient's lab results. Labs: Laboratory Tests Range/Units 01/05/23 01/05/23 01/05/23 00:04 23:55 23:55 WBC (4.4-10.8) 10^3/uL RBC (4.36-5.78) 10^6/uL Hgb (13.5-17.5) g/dL Hct (40.0-50.0) % MCV (80-95) fL MCH (27.0-33.0) pg MCHC (32.0-36.0) % RDW (11.8-14.1) % Plt Count (130-400) 10^3/uL MPV (8.0-11.0) fL Immature Gran % Neutrophils % Lymphocytes % Monocytes % Eosinophils % Basophils % Nucleated RBC % (0.0-0.3) % Absolute Neutrophils (1.2-6.7) 10^3/uL Absolute Lymphocytes (1.2-3.4) 10^3/uL Absolute Monocytes (0.1-0.8) 10^3/uL Absolute Eosinophils (0.0-0.7) 10^3/uL Absolute Basophils (0.0-0.2) 10^3/uL Sodium (136-145) mmol/L 128 L Potassium (3.5-5.1) mmol/L 3.6 Chloride (98-107) mmol/L 93 L Carbon Dioxide (21.0-32.0) mmol/L 21.5 Anion Gap (3-11) mmol/L 13.5 H BUN (7-18) mg/dL 6 L Creatinine (0.70-1.30) mg/dL 0.7 Est GFR (CKD-EPI 2020) (mL/min/1.73m2) 111.56 Glucose (74-106) mg/dL 124 H Calcium (8.5-10.1) mg/dL 8.8 Magnesium (1.8-2.4) mg/dL 1.9 Total Bilirubin (0.2-1.0) mg/dL 2.2 H AST (15-37) U/L 193 H ALT (16-63) U/L 96 H Alkaline Phosphatase (46-116) U/L 258 H Troponin I (<or=60) ng/L < 50 Total Protein (6.4-8.2) g/dL 8.3 H Albumin (3.4-5.0) g/dL 3.1 L Lipase (16-77) U/L 20 Ethyl Alcohol (<10) mg/dL COVID-19 Source Nasopharynx SARS-CoV-2 (PCR) (Negative) Negative Influenza Type A (PCR) (Negative) Negative Influenza Type B (PCR) (Negative) Negative RSV (PCR) (Negative) Negative Range/Units 01/05/23 01/05/23 23:55 23:55 WBC (4.4-10.8) 10^3/uL 3.69 L RBC (4.36-5.78) 10^6/uL 4.33 L Hgb (13.5-17.5) g/dL 13.6 Hct (40.0-50.0) % 39.0 L MCV (80-95) fL 90 MCH (27.0-33.0) pg 31.4 MCHC (32.0-36.0) % 34.9 RDW (11.8-14.1) % 13.9 Plt Count (130-400) 10^3/uL 84 L MPV (8.0-11.0) fL 9.6 Immature Gran % 0.5 Neutrophils % 74.3 Lymphocytes % 12.2 Monocytes % 12.5 Eosinophils % 0.0 Basophils % 0.5 Nucleated RBC % (0.0-0.3) % 0.0 Absolute Neutrophils (1.2-6.7) 10^3/uL 2.74 Absolute Lymphocytes (1.2-3.4) 10^3/uL 0.45 L Absolute Monocytes (0.1-0.8) 10^3/uL 0.46 Absolute Eosinophils (0.0-0.7) 10^3/uL 0.00 Absolute Basophils (0.0-0.2) 10^3/uL 0.02 Sodium (136-145) mmol/L Potassium (3.5-5.1) mmol/L Chloride (98-107) mmol/L Carbon Dioxide (21.0-32.0) mmol/L Anion Gap (3-11) mmol/L BUN (7-18) mg/dL Creatinine (0.70-1.30) mg/dL Est GFR (CKD-EPI 2020) (mL/min/1.73m2) Glucose (74-106) mg/dL Calcium (8.5-10.1) mg/dL Magnesium (1.8-2.4) mg/dL Total Bilirubin (0.2-1.0) mg/dL AST (15-37) U/L ALT (16-63) U/L Alkaline Phosphatase (46-116) U/L Troponin I (<or=60) ng/L Total Protein (6.4-8.2) g/dL Albumin (3.4-5.0) g/dL Lipase (16-77) U/L Ethyl Alcohol (<10) mg/dL 14.4 H COVID-19 Source SARS-CoV-2 (PCR) (Negative) Influenza Type A (PCR) (Negative) Influenza Type B (PCR) (Negative) RSV (PCR) (Negative) ECG Data Attestation: I personally reviewed and interpreted this ECG (s) as follows: Interpretation: Rate of 106, sinus, no STEMI. HPI General Mode of arrival: ambulatory . Date/Time Provider Initiated Documentation: 01/05/23 23:45 . Limitations to Documentation: no limitations . Information obtained by: patient . HPI Narrative: Patient is a 52-year-old male with a history of stage IV rectal cancer with liver and lung mets with history of colostomy, chronic alcohol abuse, alcoholic pancreatitis, gastritis and hepatitis presents for worsening shortness of breath over the past week. He states he has had a chronic cough for several months and states it is slightly worse over the past week with his shortness of breath. He states he frequently coughs up white sputum. He denies any hemoptysis. Patient also states that he has had chronic blurry vision for the past several years and states this usually resolves with reading glasses. He states he chronically has had a poor appetite since being diagnosed with rectal cancer few years ago. Patient denies any known fever. He states he had been drinking 18 beers daily at his worst but is currently drinking 6 beers daily over the last few weeks. Patient denies any chest pain, abdominal pain, back pain, diarrhea or urinary symptoms. He states he frequently has vomiting after forceful coughing. Related Data Home Medications Medication Instructions Recorded Confirmed lidocaine 5 % topical patch 1 patch topical DAILY #30 ea 03/20/22 12/23/22 acetaminophen 500 mg tablet 1,000 mg PO Q6H PRN 12/05/22 12/23/22 (Tylenol Extra Strength) ondansetron HCl 8 mg tablet 8 mg PO Q8H PRN 12/13/22 12/23/22 amoxicillin 875 mg-potassium 1 tab PO BID 7 days #14 tabs 01/06/23 clavulanate 125 mg tablet doxycycline hyclate 100 mg tablet 100 mg PO BID 7 days #14 tabs 01/06/23 Previous Rx's Medication Instructions Recorded lidocaine 5 % topical patch 1 patch topical DAILY #30 ea 03/20/22 amoxicillin 875 mg-potassium 1 tab PO BID 7 days #14 tabs 01/06/23 clavulanate 125 mg tablet doxycycline hyclate 100 mg tablet 100 mg PO BID 7 days #14 tabs 01/06/23 Allergies Allergy/AdvReac Type Severity Reaction Status Date / Time No Known Allergies Allergy Verified 12/21/22 11:16 General Stated Complaint: SOB FARHAN: 3 Review of Systems All systems reviewed & are unremarkable except as noted in HPI and below Constitutional Constitutional: Reports as per HPI, Denies chills and Denies fever(s) Eyes Eyes: Reports blurry vision ENT Ears, Nose, Mouth, and Throat: Denies dizziness, Denies sore throat and Denies throat swelling Cardiovascular Cardiovascular: Denies chest pain and Reports dyspnea Respiratory Respiratory: Reports cough and Reports dyspnea Gastrointestinal Gastrointestinal: Denies abdominal pain, Denies diarrhea, Reports nausea and Denies vomiting Genitourinary Genitourinary: Denies hematuria and Denies dysuria Musculoskeletal Musculoskeletal: Denies back pain and Denies numbness Integumentary/Breasts Skin/Breast: Denies lesions and Denies rash Neurologic Neurologic: Denies dizziness, Denies localized weakness and Denies numbness Allergic/Immunologic Allergic/Immunologic: Denies throat swelling PFSH All Active Problems Pneumonia (Acute) Chews tobacco (Acute) Prostatism (Acute) Shoulder pain, right (Acute) Erectile dysfunction (Acute) Alcoholic hepatitis without ascites (Acute) Vomiting (Acute) Alcoholism (Chronic) Alcoholic pancreatitis (Acute) Alcoholic gastritis (Acute) Acute pancreatitis (Acute) Alcohol withdrawal (Acute) Excessive drinking alcohol (Acute) Medical History (Updated 01/06/23 @ 02:41 by Susanna Leonardo DO) Acute postoperative anemia due to greater than expected blood loss Alcohol abuse Colostomy in place History of chemotherapy History of radiation therapy Port-A-Cath in place removed 12/2022 Rectal cancer Surgical History H/O esophagogastroduodenoscopy History of colon resection Hx of colonoscopy Family History Father Colon cancer Paternal Uncle Brain malignancy Maternal Grandmother Brain malignancy Social History Smoking/Tobacco Use Status: Current every day Tobacco Type: smokeless tobacco Smoking risk assessment performed?: Yes Alcohol Intake: current Alcohol Intake frequency: 3 or more drinks per day Alcohol type: beer Drug use: Never Substance use type: does not use Details: 12 pack a day. Cut self down to 6 or 7 beers today Do you feel safe at home: Yes Do you feel safe in your relationship?: Yes Exam Const General: cooperative and no acute distress Orientation: alert, awake and oriented x3 HENMT Head: normal to inspection Ears: hearing grossly normal bilaterally, external ears normal and TM's normal bilaterally General nose exam: external nose normal Face and sinus: normal facial exam Throat: posterior oropharynx normal Eyes General: appearance normal, both eyes and all related structures Pupils: PERRL EOM: EOM intact bilaterally Neck Neck: normal visual inspection and No submandibular swelling Lymphatic: no lymphadenopathy noted Chest Chest: normal inspection of the chest and no tenderness Resp Effort & Inspection: normal respiratory effort and able to speak in complete sentences Auscultation: clear to auscultation bilaterally, no rhonchi and no wheezes Cardio Rate: regular rate Rhythm: regular rhythm GI Inspection: normal to inspection and other (Colostomy bag left lower quadrant) Palpation: soft, not firm, not rigid and nontender Auscultation: hypoactive bowel sounds Back/Spine/Pelvis Thoracic/Lumbar Spine: thoracic and lumbar spine normal to inspection Skin General skin exam: no rashes or lesions noted Neuro General: patient alert, patient awake and patient oriented x3 Cognition: normal cognition Speech: speech normal Motor: muscle tone normal throughout and strength 5/5 throughout Sensory Exam: no sensory deficits noted Extrem General: normal to inspection, full ROM, capillary refill normal, no calf tenderness bilaterally and no edema Psych Appearance: grossly normal Mental Status: mental status grossly normal Speech and Movement: speech and movement normal Affect: normal affect
[2023-01-05 23:53] VITALS: BP 132/96; PULSE 106; PULSE 110; RESP 19; RESP 21; O2SAT 94
[2023-01-06] VITALS (26 sets, daily range): BP systolic 110–136; BP diastolic 72–88; PULSE 103–119; RESP 17–31; O2SAT 88–97
[2023-01-06 00:09] LABS: Abs Immature Grans 0.02 10^3/uL (0.0-0.06); Absolute Basophil Count 0.02 10^3/uL (0.0-0.2); Absolute Lymphocyte Count 0.45 10^3/uL (1.2-3.4); Absolute Monocyte Count 0.46 10^3/uL (0.1-0.8); Absolute Neutrophil Count 2.74 10^3/uL (1.2-6.7); Basophils % 0.5; HGB 13.6 g/dL (13.5-17.5); Immature Grans % 0.5; Lymphocytes % 12.2; MCH 31.4 pg (27.0-33.0); MCHC 34.9 % (32.0-36.0); MCV 90 fL (80-95); MPV 9.6 fL (8.0-11.0); Monocytes % 12.5; Neutrophils % 74.3; RBC 4.33 10^6/uL (4.36-5.78); RDW 13.9 % (11.8-14.1); RDW-SD 46.1 fL; WBC 3.69 10^3/uL (4.4-10.8)
[2023-01-06 00:12] LABS: Platelet Count 84 10^3/uL (130-400)
--- NOTE | 2023-01-06 00:15 | DI.CT_ITS ---
Exam(s) CT HEAD WO EXAM: CT HEAD WO CLINICAL HISTORY: blurry vision/h/o rectal ca w/ lung/liver mets. TECHNIQUE: Imaging Protocol: Axial computed tomography images with coronal and sagittal reformatted images were created and reviewed COMPARISON: CT HEAD WITHOUT CONTRAST from 07/13/2016 FINDINGS: Ventricles and Extra axial spaces: Normal in size and morphology for the patient's age. Hemorrhage: None. Cerebral parenchyma: There is no evidence of an acute territorial infarct. Midline shift: None. Brainstem/Cerebellum: Normal. Calvarium: Normal. Visualized Paranasal sinuses/Mastoids: Clear. Soft Tissues: Unremarkable. IMPRESSION: No acute intracranial process. RADIATION DOSE DELIVERED: 711.76mGy.cm Total DLP DATA REPOSITORY: All CT scans at this facility are submitted to the National Radiology Data Registry (NRDR) Dose Index Registry (DIR) with the [employer] ([employer]). RADIATION OPTIMIZATION: All CT scans at this facility use at least one of these dose optimization te chniques: automated exposure control; mA and/or kV adjustment per patient size (includes targeted exa ms where dose is matched to clinical indication); or iterative reconstruction.
--- NOTE | 2023-01-06 00:15 | DI.CT_ITS ---
Exam(s) CT CHEST PE ABD PELVIS W EXAM: CT CHEST PE ABD PELVIS W CLINICAL HISTORY: difficulty breathing, nausea, cough. TECHNIQUE: Imaging Protocol: Axial CT angiography was performed with multi-slice acquisition and mu lti-planar and/or 3D reconstructions. CONTRAST MATERIAL: Intravenous: Omnipaque 350contrast volume:100 mL COMPARISON: CT CT CHEST/ABD/PEL W from 08/13/2022 FINDINGS: The examination is limited due to patient motion artifact. CHEST: Tracheobronchial tree: Patent where visualized. Pulmonary parenchyma: There has been continued increase in size of the right upper lobe mass which no w measures 4.1 x 3.5 cm. Does appear to be causing some obstruction of right upper lobe bronchi. Th ere is a peripheral infiltrate in the right upper lobe which may represent postobstructive atelectasi s or pneumonia. No architectural distortion. Pulmonary Arteries: No evidence of filling defect to suggest pulmonary emboli. Mediastinum and Jeanne: No dominant adenopathy or fluid collection. The esophagus is unremarkable. Visualized thyroid gland: Unremarkable. Pleura: No effusion or pneumothorax. Heart: The heart is not dilated. Coronary artery calcification is present. No pericardial effusion. Aorta: Thoracic aorta non-dilated. No evidence of dissection. Atherosclerosis is present. Bones: Within normal limits for the patient's age. Soft tissues: Unremarkable. ABDOMEN: Liver: There is diffuse decreased attenuation of the liver consistent with fatty infiltration. The l eft hepatic lobe lesion is again seen and is unchanged measuring 4.2 x 2.7 cm. No new hepatic masses are seen. Portal, Superior Mesenteric, and Splenic Veins: Unremarkable. Gallbladder and Biliary Tract: No radiodense calculus or dilation. Pancreas: Normal density, no abnormal calcifications or inflammatory process. Spleen: Normal. Adrenals: No masses seen. Kidneys: Normal size, contour and axis. No radiodense stones or obstructive uropathy. No masses seen. Abdominal Aorta: Abdominal portion non-dilated. Bowel: Status post rectosigmoid ectomy. There is a left lower quadrant colostomy. There is no evide nce of bowel obstruction or inflammation. Appendix is unremarkable. Peritoneal Cavity: No ascites, collection or mesenteric inflammatory response. No free air. Lymph Nodes: Within normal limits. Bones: Within normal limits for the patient's age. Soft Tissues: There is a small fat containing umbilical hernia. PELVIS: Bladder: Symmetric distention, no gross wall thickening. Reproductive Organs: Unremarkable as visualized. Lymph Nodes: Within normal limits. Bones: Within normal limits. IMPRESSION: 1. No evidence pulmonary embolism, thoracic aortic dissection or aneurysm. 2. Slight increase in size of the right upper lobe mass. 3. Ground-glass peripheral infiltrate in the right upper lobe which may represent postobstructive ate lectasis or pneumonia. 4. Stable hepatic mass/metastasis. 5. No acute abdominal or pelvic process. RADIATION DOSE DELIVERED: 1,458.55mGy.cm Total DLP DATA REPOSITORY: All CT scans at this facility are submitted to the National Radiology Data Registry (NRDR) Dose Index Registry (DIR) with the [employer] (ACR). RADIATION OPTIMIZATION: All CT scans at this facility use at least one of these dose optimization te chniques: automated exposure control; mA and/or kV adjustment per patient size (includes targeted exa ms where dose is matched to clinical indication); or iterative reconstruction.
[2023-01-06 00:21] LABS: ALT 96 U/L (16-63); AST 193 U/L (15-37); Albumin 3.1 g/dL (3.4-5.0); Alkaline Phosphatase 258 U/L (46-116); Anion Gap 13.5 mmol/L (3-11); BUN 6 mg/dL (7-18); Bilirubin, Total 2.2 mg/dL (0.2-1.0); CO2 21.5 mmol/L (21.0-32.0); CREATININE 0.7 mg/dL (0.70-1.30); Calcium 8.8 mg/dL (8.5-10.1); Chloride 93 mmol/L (98-107); Estimated GFR 111.56 (mL/min/1.73m2); Glucose 124 mg/dL (74-106); Potassium 3.6 mmol/L (3.5-5.1); Sodium 128 mmol/L (136-145); Total Protein 8.3 g/dL (6.4-8.2)
[2023-01-06 00:25] LABS: Lipase 20 U/L (16-77); Magnesium 1.9 mg/dL (1.8-2.4); Troponin I < 50 ng/L (<or=60)
[2023-01-06] MEDS: Normal Saline 1,000 ML 1000 ML IV (00:26)
[2023-01-06] MEDS: Albuterol/Ipratropium 3 ML UPD VIAL UPD (00:26)
[2023-01-06 00:43] LABS: ETHANOL BLOOD 14.4 mg/dL (<10)
[2023-01-06 00:44] LABS: COVID-19 PCR Negative (Negative); Influenza A PCR Negative (Negative); Influenza B PCR Negative (Negative); RSV PCR Negative (Negative)
[2023-01-06 00:47] LABS: Source Nasopharynx
[2023-01-06] MEDS: Normal Saline - Diluent 50 ML VIAL IJ (00:53)
[2023-01-06] MEDS: Omnipaque 350 MG/ML 100 ML BTL IJ (00:54)
--- NOTE | 2023-01-06 01:13 | DI.VRAD_ITS ---
PROCEDURE INFORMATION: Exam: CT Head Without Contrast Exam date and time: 01/06/2023 12:28 AM Age: 52 years old Clinical indication: Other: Blurry vision TECHNIQUE: Imaging protocol: Computed tomography of the head without contrast. COMPARISON: CT HEAD WITHOUT CONTRAST 07/13/2016 12:00 AM FINDINGS: Brain: Diffuse mild cerebral atrophy. No large territory acute CVA. No mass or edema. No intracranial hemorrhage. Cerebral ventricles: No ventriculomegaly. Paranasal sinuses: Visualized sinuses are unremarkable. No fluid levels. Mastoid air cells: Visualized mastoid air cells are well aerated. Bones/joints: Intact calvarium. Mastoid bones are well aerated. Soft tissues: Unremarkable. IMPRESSION: 1. No acute findings. 2. No significant change since 07/13/2016. Dictated and Authenticated by: Pepe Wasserman MD. Ordering:МАРИНА Mullins MD
[2023-01-06] MEDS: LORazepam 2 MG/ML VIAL 0.5 MG IVP (01:20)
--- NOTE | 2023-01-06 01:28 | DI.VRAD_ITS ---
PROCEDURE INFORMATION: Exam: CTA Chest With Contrast CTA Abdomen and Pelvis With Contrast Exam date and time: 01/06/2023 12:55 AM Age: 52 years old Clinical indication: Cough and shortness of breath; Difficulty breathing or dyspnea and other: Nausea, h/o rectal cancer e/ liver/lung mets TECHNIQUE: Imaging protocol: Computed tomographic angiography of the chest with contrast. Computed tomographic angiography of the abdomen and pelvis with contrast. 3D rendering (Not supervised by radiologist): MIP and/or 3D reconstructed images were created by the technologist. Contrast material: 350; Contrast volume: 100 ml; Contrast route: INTRAVENOUS (IV); COMPARISON: CT CHEST/ABD/PEL W 08/13/2022 10:02 AM FINDINGS: VASCULATURE: Pulmonary arteries: Normal. No pulmonary emboli. Aorta: No aortic aneurysm. No aortic dissection. Celiac trunk and mesenteric arteries: No occlusion or significant stenosis. Renal arteries: No occlusion or significant stenosis. Right iliac arteries: No occlusion or significant stenosis. Left iliac arteries: No occlusion or significant stenosis. CHEST: Lungs: Persistent 4.1 cm right suprahilar mass. Nonspecific minimal focal ground-glass opacity in the lateral right upper lobe. Pleural spaces: Unremarkable. No pneumothorax. No pleural effusion. Heart: Unremarkable. No cardiomegaly. No pericardial effusion. ABDOMEN AND PELVIS: Liver: Hepatic steatosis. Gallbladder and bile ducts: Unremarkable. No calcified stones. No ductal dilation. Pancreas: Unremarkable. No mass. No ductal dilation. Spleen: Unremarkable. No splenomegaly. Adrenal glands: Unremarkable. No mass. Kidneys and ureters: Unremarkable. No solid mass. No hydronephrosis. Stomach and bowel: Left mid abdominal ostomy. Status post distal colectomy. No bowel obstruction. Appendix: No evidence of appendicitis. Intraperitoneal space: Unremarkable. No free air. No significant fluid collection. Urinary bladder: Unremarkable. No mass. Reproductive: Unremarkable as visualized. Lymph nodes: Unremarkable. No enlarged lymph nodes. Bones/joints: Unremarkable. No acute fracture. Soft tissues: Unremarkable. IMPRESSION: 1. Persistent 4.1 cm right suprahilar mass. 2. Nonspecific minimal focal ground-glass opacity in the lateral right upper lobe. Dictated and Authenticated by: Seng Ba MD. Ordering:МАРИНА Mullins MD
[2023-01-06] MEDS: Albuterol HFA 8 GM 60 PUFF INH IH (02:59)
[2023-01-06] MEDS: Doxycycline Hyclate 100 MG CAP PO (02:59)
[2023-01-06] MEDS: Amoxicillin 875/Clav. 125 TAB PO (02:59)
== END 2023-01-06 03:04 | disposition home or self-care (01) ==
PROVIDERS: Emergency Provider Physician Assistant; PCP Family Medicine
DX: J18.9 Pneumonia, unspecified organism (principal); R91.8 Other nonspecific abnormal finding of lung field; R79.89 Other specified abnormal findings of blood chemistry; F17.200 Nicotine dependence, unspecified, uncomplicated; Z20.822 Contact with and (suspected) exposure to COVID-19
CPT/HCPCS: 71275; 74177; 80053; 83690; 87637; 93005; 94640; 96361; 96374; 99285; 70450; 80320; 83735; 84484; 85025; 93010; J2060; J3490; J7620

== ENCOUNTER 2023-06-11 12:26 | Outpatient (RCR) | payer MEDICAID, SELFPAY ==
[2023-06-11 22:59] LABS: CEA 20.6 ng/mL (See Note)
== END 2023-06-20 23:59 | disposition home or self-care (01) ==
LOC: INF 12:26
PROVIDERS: Radiology Radiation Oncology; PCP Family Medicine; Visit Provider Internal Medicine Hematology & Oncology
DX: C20 Malignant neoplasm of rectum (principal)
CPT/HCPCS: 36415; 82378

== ENCOUNTER → 2023-07-02 00:34 | Outpatient (CLI) | payer MEDICAID, SELFPAY ==
--- NOTE | 2023-07-02 | DI.CT_ITS ---
Exam(s) CT CHEST/ABD/PEL W EXAM: CT CHEST/ABD/PEL W CLINICAL HISTORY: MALIGNANT NEOPLASM LIVER C78.7 RECTAL CACNER C20 LUNG CANCER C78.01. TECHNIQUE: Imaging Protocol: Axial computed tomography images with coronal and sagittal reformatted images were created and reviewed CONTRAST MATERIAL: Intravenous: Omnipaque 350 Contrast volume:100 ml Oral: yes COMPARISON: CT CT CHEST PE ABD PELVIS W from 01/06/2023 FINDINGS: CHEST: Tracheobronchial tree: Upper lobe bronchi are occluded. Remaining bronchi patent. Pulmonary parenchyma: There is now complete collapse of the right upper lobe. There is been marked i nterval increase in size a the right upper lobe mass measuring 3.8 cm in diameter. Vasculature is at tenuated but not occluded. No pulmonary emboli. Pleura: No effusion or pneumothorax. Lymph nodes: Within normal limits. Aorta: Thoracic portion non-dilated. Heart: Not dilated. No pericardial effusion. Bones: Unremarkable for age. No lytic or blastic lesions.No compression fractures. ABDOMEN: Liver: Severe hepatic steatosis. Decreased size of mass in left lobe now roughly 3 x 2.3 cm. No n ew lesions visible. Gallbladder and biliary tract: No radiodense calculus or dilation. Pancreas: Normal density, no abnormal calcifications or inflammatory process. Spleen: Normal. Kidneys: Normal size, contour and axis. No radiodense stones or obstructive uropathy. No suspicious m asses seen. Adrenal glands: No masses seen. Aorta: Abdominal portion non-dilated. Lymph nodes: Within normal limits. Soft tissues: Left-sided colostomy is unremarkable. Contrast is noted in ostomy bag. Tiny fatty con taining umbilical hernia.. PELVIS: Bladder: Symmetric distention, no gross wall thickening. Bowel: Resection of the rectosigmoid again noted. No obstruction or bowel wall thickening. Peritoneal cavity: No ascites, collection or mesenteric inflammatory response. Bones: Degenerative disc changes L4-5 and L5-S1. No lytic or blastic lesions identified. Reproductive organs: Within normal limits. IMPRESSION: Interval increase in size of right upper lobe mass now with complete right upper lobe atelectasis. Stable appearance of rectosigmoid resection and colostomy. No new bowel abnormalities. Decreased size of liver lesion. RADIATION DOSE DELIVERED: 1,443.63mGy.cm Total DLP DATA REPOSITORY: All CT scans at this facility are submitted to the National Radiology Data Registry (NRDR) Dose Index Registry (DIR) with the [employer] (ACR). RADIATION OPTIMIZATION: All CT scans at this facility use at least one of these dose optimization te chniques: automated exposure control; mA and/or kV adjustment per patient size (includes targeted exa ms where dose is matched to clinical indication); or iterative reconstruction.
[2023-07-02] MEDS: Breeza Beverage 473 ML BTL PO ×2 (08:22→08:23)
[2023-07-02] MEDS: Omnipaque 350 MG/ML 50 ML BTL PO (08:22)
[2023-07-02 08:53] LABS: ALT 44 U/L (16-63); AST 74 U/L (15-37); Albumin 3.2 g/dL (3.4-5.0); Alkaline Phosphatase 244 U/L (46-116); BUN 4 mg/dL (7-18); Bilirubin, Total 0.3 mg/dL (0.2-1.0); CREATININE 0.6 mg/dL (0.70-1.30); Calcium 8.4 mg/dL (8.5-10.1); Chloride 99 mmol/L (98-107); Estimated GFR 116.87 (mL/min/1.73m2); Glucose 118 mg/dL (74-106); Potassium 3.9 mmol/L (3.5-5.1); Sodium 136 mmol/L (136-145); Total Protein 7.7 g/dL (6.4-8.2)
[2023-07-02] MEDS: Omnipaque 350 MG/ML 500 ML BTL-Imaging package IJ (09:47)
[2023-07-02] MEDS: Normal Saline - Diluent 50 ML VIAL IJ (09:48)
[2023-07-02 20:12] LABS: CEA 27.3 ng/mL (See Note)
== END ==
PROVIDERS: PCP Family Medicine; Visit Provider Nurse Practitioner
DX: C78.7 Secondary malignant neoplasm of liver and intrahepatic bile duct (principal); C20 Malignant neoplasm of rectum; C78.01 Secondary malignant neoplasm of right lung; R91.8 Other nonspecific abnormal finding of lung field
CPT/HCPCS: 74177; 80053; 71260; 82378; Q9967

== ENCOUNTER 2023-07-19 13:21 | Outpatient (RCR) | payer MEDICAID, SELFPAY ==
[2023-07-19 13:38] LABS: Abs Immature Grans 0.02 10^3/uL (0.0-0.06); Absolute Basophil Count 0.04 10^3/uL (0.0-0.2); Absolute Eosinophil Count 0.05 10^3/uL (0.0-0.7); Absolute Monocyte Count 0.33 10^3/uL (0.1-0.8); Absolute Neutrophil Count 3.11 10^3/uL (1.2-6.7); Basophils % 0.9; Eosinophils % 1.2; HCT 42.3 % (40.0-50.0); HGB 14.5 g/dL (13.5-17.5); Immature Grans % 0.5; Lymphocytes % 16.5; MCH 32.5 pg (27.0-33.0); MCHC 34.3 % (32.0-36.0); MCV 95 fL (80-95); MPV 8.2 fL (8.0-11.0); Monocytes % 7.8; Neutrophils % 73.1; Platelet Count 192 10^3/uL (130-400); RBC 4.46 10^6/uL (4.36-5.78); RDW-SD 45.6 fL; WBC 4.25 10^3/uL (4.4-10.8)
[2023-07-19 13:53] LABS: ALT 46 U/L (16-63); AST 77 U/L (15-37); Albumin 3.5 g/dL (3.4-5.0); Alkaline Phosphatase 288 U/L (46-116); Anion Gap 11.4 mmol/L (3-11); BUN 3 mg/dL (7-18); Bilirubin, Total 0.4 mg/dL (0.2-1.0); CO2 27.6 mmol/L (21.0-32.0); CREATININE 0.7 mg/dL (0.70-1.30); Calcium 9.4 mg/dL (8.5-10.1); Chloride 97 mmol/L (98-107); Estimated GFR 111.56 (mL/min/1.73m2); Glucose 106 mg/dL (74-106); Potassium 3.9 mmol/L (3.5-5.1); Sodium 136 mmol/L (136-145); Total Protein 8.4 g/dL (6.4-8.2)
[2023-07-19 22:26] LABS: CEA 48.6 ng/mL (See Note)
== END 2023-07-20 23:59 | disposition home or self-care (01) ==
LOC: INF 13:21
PROVIDERS: PCP Family Medicine; Visit Provider Internal Medicine Hematology & Oncology
DX: C18.9 Malignant neoplasm of colon, unspecified (principal); C78.00 Secondary malignant neoplasm of unspecified lung; C78.7 Secondary malignant neoplasm of liver and intrahepatic bile duct
CPT/HCPCS: 36415; 80053; 82378; 85025

== ENCOUNTER 2023-07-24 09:13 | Day surgery (SDC) | payer MEDICAID, SELFPAY ==
--- NOTE | 2023-07-24 06:51 | W.PREOPHP ---
Assessment and Plan Assessment and plan (1) Metastatic colon cancer to liver: Status: Acute Assessment and plan: Patient is seen in same-day surgery. We discussed the procedure of Mediport placement. I will attempt to place it on the left side again just like last time. If there is too much scar tissue I may have to put it on the right side. 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 We reviewed the procedure itself as well as the possible risks, benefits and complications. Complications include but are not limited to bleeding, infection, Mediport dysfunction, DVT, pneumothorax, injury to the left subclavian vein or artery and wound dehiscence. There is also complications of the anesthetic which may include hypoxia, hypotension and bradycardia. Patient understands the procedure as well as the possible complications and wishes to proceed. No guarantees were given or implied. Proceed with left subclavian vein Mediport placement possible right subclavian vein Mediport placement History of Present Illness Narrative: Mr. Huang is a pleasant 52-year-old gentleman who unfortunately was diagnosed with rectal cancer back in 2019. He underwent radiation and chemotherapy. I placed a Port-A-Cath in the left subclavian vein at that time. We just removed it back in December 2022. Unfortunately the patient now has metastatic disease of his rectal cancer in the liver and lung. He is just undergone radiation treatments to try to shrink both the liver and lung mets. He is having some shortness of breath secondary to the lung mass. He is not requiring oxygen. 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 He did develop pneumonia a while ago but is doing better from that standpoint. He has no cough.. Review of Systems All systems reviewed & are unremarkable except as noted in HPI and below PFSH All Active Problems Metastatic colon cancer to liver (Acute) Chews tobacco (Acute) Prostatism (Acute) Shoulder pain, right (Acute) Erectile dysfunction (Acute) Alcoholic hepatitis without ascites (Acute) Vomiting (Acute) Alcoholism (Chronic) Alcoholic pancreatitis (Acute) Alcoholic gastritis (Acute) Acute pancreatitis (Acute) Alcohol withdrawal (Acute) Excessive drinking alcohol (Acute) Medical History Acute postoperative anemia due to greater than expected blood loss Alcohol abuse Colostomy in place History of chemotherapy History of radiation therapy Port-A-Cath in place removed 12/2022 Rectal cancer Surgical History H/O esophagogastroduodenoscopy History of colon resection Hx of colonoscopy Family History Father Colon cancer Paternal Uncle Brain malignancy Maternal Grandmother Brain malignancy Social History Smoking/Tobacco Use Status: Current every day Tobacco Type: smokeless tobacco Smoking risk assessment performed?: Yes Alcohol Intake: current Alcohol Intake frequency: 3 or more drinks per day Alcohol type: beer Drug use: Never Substance use type: does not use Details: 12 pack a day. Cut self down to 6 or 7 beers today Housing: house Do you feel safe at home: Yes Do you feel safe in your relationship?: Yes Meds Allergies and Home Medications Allergies Allergy/AdvReac Type Severity Reaction Status Date / Time No Known Allergies Allergy Verified 07/24/23 09:32 Home Medications Medication Instructions Recorded Confirmed Type lidocaine 5 % topical patch 1 patch topical DAILY #30 ea 03/20/22 07/24/23 Rx acetaminophen 500 mg tablet 1,000 mg PO Q6H PRN 12/05/22 07/24/23 History (Tylenol Extra Strength) ondansetron HCl 8 mg tablet 8 mg PO Q8H PRN 12/13/22 07/24/23 History Exam Const General: comfortable and no acute distress Nutritional Appearance: average body habitus Orientation: alert and oriented x3 HENMT Head: normocephalic and atraumatic Chest Chest: normal inspection of the chest Other: old port scar on the left chest Resp Effort & Inspection: normal respiratory effort Auscultation: clear to auscultation bilaterally Cardio Rate: regular rate Rhythm: regular rhythm GI Inspection: normal to inspection
--- NOTE | 2023-07-24 06:53 | W.PM.OP ---
Date of service: 07/24/23 Time of Service: 10:50 Operative Note Operative Note DATE OF PROCEDURE: 07/24/23 PRE-OP DIAGNOSIS: metastatic rectal cancer to lung and liver Need for access POST-OP DIAGNOSIS: same PROCEDURE: Attempted left subclavian Mediport placement Right subclavian vein Mediport placement SURGEON: Dora Garcia Refer to Anesthesia Record ESTIMATED BLOOD LOSS: 5 PATHOLOGY: none sent COMPLICATIONS: None Patient was transported to: same day Patient's condition: stable Indications: Idris is a pleasant 52 year old male who was diagnosed with rectal cancer back in 2019. He has just had his Mediport removed earlier this year. He was recently diagnosed with metastatic rectal cancer to his lung and liver. He has undergone radiation and it is now getting ready to start chemotherapy. He needs another port for his chemotherapy. I discussed the procedure with him in detail as well as the possible complications. 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 I did tell him that there might be scar tissue secondary to his port being in that place before but I would certainly give it a try. If I was unable to place the port on the left side I would then do it on the right side. The patient understood and wished to proceed. Findings: I was unable to pass the guidewire into the superior vena cava. It kept getting stuck in that area. No difficulties placing the port on the right side. Procedure Description: After informed consent was obtained the patient was taken to the operating room and placed in supine position. The patient was placed under deep sedation and once comfortable the right and left chest were prepped and draped in a sterile surgical fashion. At this point a timeout was done. The patient's name, date of , procedure to be done, potential complications, DVT prophylaxis, antibiotic given were all reviewed. Fire risk was assessed. Next 2% lidocaine was injected around the clavicle on the left side as well as along the dermis and into the subcutaneous tissue of his chest wall. A power port kit was opened and using the large 18-gauge needle the subclavian vein was found without difficulty and venous blood was easily aspirated. The syringe was removed and the guidewire was placed without any difficulty into the subclavian vein. After several attempts under fluoroscopy I could not advance the guidewire into the superior vena cava. The needle and guidewire were removed. Next 0.5% Marcaine with epi was injected around the clavicle on the right side as well as along the dermis and into the subcutaneous tissue of his chest wall. The large 18-gauge needle was placed into the Right subclavian vein without difficulty and venous blood was easily aspirated. The syringe was removed and the guidewire was placed without any difficulty into the subclavian vein and under fluoroscopy it was noted to easily advance to just above the right atrium. A small incision was made in the skin with the guidewire entered. An incision was made with a 15 blade into the dermis of the right chest wall after the chest wall was infiltrated with the above anesthetic. Using cautery a pocket was created for the port. Using the tunneler the catheter was tunneled from the newly created pocket to the guidewire. The dilator and sheath were then placed over the guidewire into the subclavian vein. The dilator and guidewire were removed. The catheter was then advanced through the sheath into the subclavian vein. While holding the catheter in place at the skin the sheath was removed. Fluoroscopy was then used again and the catheter was noted to be within the atrium and so it was pulled up until it was just above the atrium. The catheter was then cut to the right length and attached to the port. The port was placed into the pocket and fit snugly. Blood was aspirated from the port without difficulty. The port was then flushed with another 10 cc of heparin. The skin was closed using 4-0 Vicryl. The skin was cleaned and dried and skin affix was applied to the port site as well as to the small stab incision underneath the clavicle. The patient was woken up and taken back to same day surgery in stable condition. Sponge, instrument, and needle counts were correct at the end of the case. A stat chest x-ray was ordered and showed no Pneumothorax and good positioning of the catheter.
--- NOTE | 2023-07-24 06:54 | W.PM.DSUDISC ---
Date of service: 07/24/23 Time of Service: 11:55 Discharge Plan Disposition Patient Disposition: Home Condition: Stable Discharge Details Reason For Visit: vein access for chemo Attending Provider: Dora Garcia Primary Care Provider: Freddy Juarez Home Meds and New Rx's Prescriptions: Continued lidocaine 5 % adhesive patch,medicated 1 patch topical DAILY Qty: 30 2RF Rx Instructions: leave on most painful area for up to 12 hrs acetaminophen [Tylenol Extra Strength] 500 mg tablet 1,000 mg PO Q6H PRN ondansetron HCl 8 mg tablet 8 mg PO Q8H PRN Discharge Instructions Additional Instructions: Activity at Home after surgery: 1. As tolerated 2. No driving until tomorrow Diet, Nutrition, & wound healin. Avoid alcohol until tomorrow 2. Make sure to eat plenty of lean protein (meat, fish, eggs, cottage cheese, beans) 3. Eat a variety of fruits and vegetables. Eat plenty of high fiber foods to avoid constipation. 4. Drink plenty of liquids to stay hydrated and avoid constipation Pain Medications: 1. Tylenol 650mg every 6 hours as needed and Ibuprofen 600 mg every 6 hours as needed. You may alternate between the 2 medications every 3 hours 2. If a narcotic has been prescribed take as directed only for breakthrough pain For Constipation: 1. Take Milk of Magnesia or MiraLax as needed for constipation Other: 1. You may shower daily. Do not scrub the incisions 2. Do not soak the incisions for 1 week 3. You may alternate ice and heat as needed for pain and swelling Wound Care: 1. Keep the incisions clean and dry Please call our office if you develop: 1. Fevers >101.5 2. Nausea or Vomiting 3. Worsening pain 4. Redness and thick discharge from the wounds If after hours please call the Hospital at and ask to speak to the on-call surgeon Stand Alone Forms: Anesthesia Discharge InstTamara Sánchez (DSU) Activity:: Activity as Tolerated Diet:: As Tolerated Discharge Orders Discharge Orders: Discharge Order (Routine); Ordered 07/24/23 Ordered By: Dora Garcia DS: Diagnosis Discharge Diagnosis (1) Metastatic colon cancer to liver: Status: Acute Asessment and Plan: The patient is doing well post-op from their Right subclavian vein mediport placement.? He has having no nausea or vomiting. He is tolerating liquids and a snack. The pt is not having any chest pain. His SOB is baseline? Their pain is adequately controlled. They have been able to urinate.? CXR done is SDS shows known collapse of his right lung apex. appropriate positioning of the Port. ?HEENT:? no eye pain/drainage/redness/swelling. Mild sore throat ?Cardio- NSR, no chest pain, BP stable- see VS record ?Pulm: no sob or productive cough. No hemoptysis ?Incision- dressing is c/d/i w/ no excessive bleeding or drainage ?I discussed with the patient the findings at the time of surgery and the patient?s progress. ?We reviewed expectations at home; what the patient could expect for recovery time, and in the post-operative period.? We discussed the importance of walking to avoid blood clots and pneumonia.? We discussed and reviewed the patient's post-operative wound care and dressing needs.?? We reviewed their step-parikh pain management plan, Rx called to the pharmacy of their choice.? We reviewed activity and limitations-see discharge instructions. We reviewed warning signs, and when to seek medical attention- see d/c instructions.?? Patient was given a postoperative follow-up appointment. Patient verbalized understanding of their postoperative instructions, how do to take care of themselves and their incision, and the pain management plan. Please see discharge instructions.?
[2023-07-24 09:15] VITALS: BP 128/90; PULSE 85; RESP 20; TEMP 36.1; O2SAT 97
--- NOTE | 2023-07-24 09:32 | DI.RAD_ITS ---
Exam(s) RF FLUORO<1 HOUR EXAM: RF FLUORO<1 HOUR CLINICAL HISTORY: MEDIPORT PLACEMENT; CANCER, ACCESS NEEDED. TECHNIQUE: 2D and realtime digital imaging was performed. CONTRAST MATERIAL: Oral barium Oral water soluble contrast was administered. COMPARISON: No exams were available for comparison FINDINGS: Proximally was provided during subclavian Port-A-Cath placement performed by the surgeon. Please see surgical report for details. IMPRESSION: RADIATION DOSE DELIVERED: dhiraj Dickerson=28.50mGy
[2023-07-24] MEDS: Lactated Ringers 1,000 ML 80 ML IV (09:45)
--- NOTE | 2023-07-24 09:49 | ANES.PREOP_ITS ---
General Info Date of Service Date Performed: 07/24/23 Height: 5 ft 11 in Weight: 68.4 kg Body Mass Index (BMI): 21.0 Surgical Procedure: Operation Date: 07/24/23 10:10 Proposed Procedure Side Surgeon p Medi-Port Placement Dora Garcia MD Meds Allergies and Home Medications Allergies Allergy/AdvReac Type Severity Reaction Status Date / Time No Known Allergies Allergy Verified 07/24/23 09:32 Home Medication Medication Instructions Recorded lidocaine 5 % topical patch 1 patch topical DAILY #30 ea 03/20/22 acetaminophen 500 mg tablet 1,000 mg PO Q6H PRN 12/05/22 (Tylenol Extra Strength) ondansetron HCl 8 mg tablet 8 mg PO Q8H PRN 12/13/22 Current Visit Medications: Current Medications Generic Name Dose Route Start Last Admin Trade Name Freq PRN Reason Stop Dose Admin Ringer's Solution 1,000 mls @ 80 mls/hr 07/24/23 06:00 IV 08/22/23 23:59 INFUSION KIKA Ondansetron HCl 4 mg/ Sodium 52 mls @ 200 mls/hr 07/24/23 06:54 Chloride IVPB 08/23/23 06:53 Q6H PRN PRN IV Miscellaneous Supplies 1 each 07/24/23 06:00 Iv Access IV 08/22/23 23:59 DIRECTED KIKA Sodium Chloride 0 ml 07/24/23 06:00 Normal Saline Flush 10 Ml Syr IV 08/22/23 23:59 PRN PRN Sodium Chloride 0 ml 07/24/23 06:00 Normal Saline 10 Ml Vial IJ 08/22/23 23:59 DIRECTED PRN Sterile Water 0 ml 07/24/23 06:00 Water,Injection,Sterile 10 Ml Vial IJ 08/22/23 23:59 DIRECTED PRN Tramadol HCl 50 mg 07/24/23 06:54 Tramadol 50 Mg Tab PO 08/23/23 06:53 Q6H PRN PRN Pain PFSH Active Problems Active Problems: Problem Status Onset Code Metastatic colon cancer to liver C18.9, C78.7 Chews tobacco Z72.0 Prostatism N40.0 Shoulder pain, right M25.511 Erectile dysfunction N52.9 Alcoholic hepatitis without ascites K70.10 Vomiting R11.10 Alcoholism F10.20 Alcoholic pancreatitis K85.20 Alcoholic gastritis K29.20 Acute pancreatitis K85.90 Alcohol withdrawal F10.239 Excessive drinking alcohol F10.10 Medical History Medical History Acute postoperative anemia due to greater than expected blood loss Alcohol abuse Colostomy in place History of chemotherapy History of radiation therapy Port-A-Cath in place removed 12/2022 Rectal cancer Surgical History Surgical History H/O esophagogastroduodenoscopy History of colon resection Hx of colonoscopy Tobacco Smoking/Tobacco Use Status: Current every day Tobacco Type: smokeless tobacco Alcohol Alcohol Intake: current Alcohol intake frequency: 3 or more drinks per day Alcohol type: beer Substance Use Substance use: Never Substance use type: does not use Details: 12 pack a day. Cut self down to 6 or 7 beers today Vital Signs and Lab Results Vital Signs Most Recent Vital Signs in EMR: Most Recent Vital Signs Temp Pulse Resp BP Pulse Ox 36.1 C L 85 20 128/90 97 07/24/23 09:15 07/24/23 09:15 07/24/23 09:15 07/24/23 09:15 07/24/23 09:15 Lab Results Blood Type / Crossmatch: No Data to Display Complete Blood Count: White Blood Count 4.25 10^3/uL (4.4-10.8) L 07/19/23 13:20 Red Blood Count 4.46 10^6/uL (4.36-5.78) 07/19/23 13:20 Hemoglobin 14.5 g/dL (13.5-17.5) 07/19/23 13:20 Hematocrit 42.3 % (40.0-50.0) 07/19/23 13:20 Platelet Count 192 10^3/uL (130-400) 07/19/23 13:20 Complete Metabolic Panel: Sodium 136 mmol/L (136-145) 07/19/23 13:20 Potassium 3.9 mmol/L (3.5-5.1) 07/19/23 13:20 Chloride 97 mmol/L (98-107) L 07/19/23 13:20 Carbon Dioxide 27.6 mmol/L (21.0-32.0) 07/19/23 13:20 BUN 3 mg/dL (7-18) L 07/19/23 13:20 Creatinine 0.7 mg/dL (0.70-1.30) 07/19/23 13:20 Est GFR (CKD-EPI 2020) 111.56 (mL/min/1.73m2) 07/19/23 13:20 Calcium 9.4 mg/dL (8.5-10.1) 07/19/23 13:20 Albumin 3.5 g/dL (3.4-5.0) 07/19/23 13:20 Glucose 106 mg/dL (74-106) 07/19/23 13:20 Liver Function Panel: Alanine Aminotransferase (ALT/SGPT) 46 U/L (16-63) 07/19/23 13: 20 Aspartate Amino Transf (AST/SGOT) 77 U/L (15-37) H 07/19/23 13: 20 Coagulation Panel: No Data to Display Cardiac Panel: No Data to Display Arterial Blood Gas: No Data to Display Venous Blood Gas: No Data to Display Pancreas Panel: No Data to Display Thyroid Panel: No Data to Display Infectious Disease: No Data to Display Blood Cultures: No Data to Display Toxicology Panel: No Data to Display Anesthesia Assessment and Plan Anesthesia History Personal History: Delayed Emergence Family History: No Family History of Anesthesia Complications Exercise Tolerance Exercise Tolerance: Metabolic Equivalents<4 Pertinent Negatives Pertinent Negatives: No Major Cardiovascular Symptoms or Complaints, No Major Pulmonary Symptoms or Complaints and No History of CVA/TIA Cardiac & Pulmonary Exam Cardiac Exam: Normal S1/S2 Heart Sounds Pulmonary Exam: Rales Present (sarah upper lobes) and Active Cough or Cold (chronic/ lung nodules) Implantable Cardiac Device Does patient have a Pacemaker or an ICD?: No Airway Exam Known Difficult Airway: No Mallampati Class: 2 Mouth Opening: Normal (> 3cm) Thyromental Distance: Greater than 3 cm Neck Range of Motion: Full ROM Neck Circumference: Normal Teeth Condition: Normal Dentition ASA Classification ASA Score: ASA 3 Emergency Case?: No NPO Status NPO Status: NPO Clears >2 hours, Solids >8 hours Anesthesia Plan Resuscitation Status: Full Code Anesthesia Technique: General Anesthesia Airway Planned: Natural Airway Monitors Used: Standard Monitors
[2023-07-24 09:51] VITALS: BMI 21.0
[2023-07-24] MEDS: Lidocaine 2% Multi-Dose 20 ML VIAL (11:29)
[2023-07-24] MEDS: Heparin 500 UNITS/5 ML SYRINGE (11:30)
[2023-07-24 11:40] VITALS: BP 121/80; PULSE 104; RESP 18; TEMP 36.6; O2SAT 96
--- NOTE | 2023-07-24 11:58 | DI.RAD_ITS ---
Exam(s) XR PORTABLE CHEST AP POST LINE EXAM: XR PORTABLE CHEST AP POST LINE CLINICAL HISTORY: mediport placement. TECHNIQUE: 2D digital imaging was performed. COMPARISON: CR XR PORTABLE CHEST AP POST LINE from 05/25/[address] CHEST/ABD/PEL W from 07/02/2023 FINDINGS: Single AP portable view. There is a right subclavian Port-A-Cath in place with its distal tip in the upper right atrium. There is prominent abnormal density in the upper right chest which corresponds to the mass and collap sed lung seen at this location on chest CT scan 07/02/2023. No pneumothorax. IMPRESSION: Right subclavian Port-A-Cath. Large right-sided upper lobe region mass as seen on recent CT scan.. DATA REPOSITORY: RADIATION DOSE DELIVERED:
[2023-07-24 12:07] VITALS: BP 138/97; PULSE 94; RESP 18; TEMP 36.6; O2SAT 97
--- NOTE | 2023-07-24 12:09 | W.ANESPOSTOP ---
Postoperative Evaluation Date, Time and Location Date Performed: 07/24/23 Time Performed: 11:45 Patient Location: Day Surgery Unit Vital Signs Most Recent Imported Vital Signs: Most Recent Vital Signs Temp Pulse Resp BP Pulse Ox 36.6 C 104 H 18 121/80 96 07/24/23 11:40 07/24/23 11:40 07/24/23 11:40 07/24/23 11:40 07/24/23 11:40 Pain Score Most Recent Pain Score: Most Recent Pain Score Pain Level 0 07/24/23 11:40 Assessment Mental Status: Awake (Alert & Oriented to Patient Baseline) Airway and Respiratory Function: Patent airway with normal (patient baseline) respiratory exam Cardiovascular Function: Hemodynamically Stable Hydration Status: Adequately Hydrated Nausea & Vomiting: No Nausea or Vomiting Pain: Pt. Denies Any Pain Peripheral Nerve Block: Patient did not receive a nerve block
== END 2023-07-24 12:07 | disposition home or self-care (01) ==
PROVIDERS: PCP Family Medicine; Visit Provider Surgery
PROC: (CPT 36561; principal; 2023-07-24 10:00)
DX: C78.7 Secondary malignant neoplasm of liver and intrahepatic bile duct; C78.01 Secondary malignant neoplasm of right lung
CPT/HCPCS: 36561; 71045; 76000; J0690; J2001; J2405; J3490

== ENCOUNTER 2023-07-24 22:12 | Emergency (ER) | payer MEDICAID, SELFPAY ==
[2023-07-24 22:25] VITALS: BP 136/93; PULSE 81; RESP 18; TEMP 37.1; O2SAT 97
[2023-07-24 22:30] VITALS: RESP 18
--- NOTE | 2023-07-24 22:30 | DI.RAD_ITS ---
Exam(s) XR CHEST 2V PA LATERAL EXAM: XR CHEST 2V PA LATERAL CLINICAL HISTORY: chills, right chest port implanted today. TECHNIQUE: 2D digital imaging was performed. COMPARISON: CR XR PORTABLE CHEST AP POST LINE from 07/24/2023 FINDINGS: 2 views: Again noted is the recently placed right subclavian Port-A-Cath. Its distal tip is at the SVC-RA neptali ction. There is no evidence of pneumothorax but there is right upper lobe mass and collapse again evident, u nchanged. This corresponds to what was seen on recent CT scan. No pleural effusion. Opposite-left lung is clear. Heart size is normal. IMPRESSION: Right upper lobe mass-collapse again noted. This corresponds to the findings on CT scan of 3.No new findings. DATA REPOSITORY: RADIATION DOSE DELIVERED:
--- NOTE | 2023-07-24 22:30 | RT.EKG_ITS ---
APPROVED REPORT Exam: Resting ECG Reason for Exam: lightheaded Patient Location: E HR:82 bpm ECG Measurements Heart Rate 82 AXIS ND 173 P 34 QRSd 92 QRS -19 QT 355 T 36 QTc 414 Conclusion Sinus rhythm... V-rate 60- [address] segment or T wave abnormalities to suggest occlusive RI
--- NOTE | 2023-07-24 22:36 | ED.GENADUL_ITS ---
Discharge Plan Discharge Details Chief Complaint: [facility]Medical Primary Care Provider: Freddy Juarez ED Provider: Shawna Tinsley Home Meds and New Rx's Prescriptions: No Action lidocaine 5 % adhesive patch,medicated 1 patch topical DAILY Qty: 30 2RF Rx Instructions: leave on most painful area for up to 12 hrs acetaminophen [Tylenol Extra Strength] 500 mg tablet 1,000 mg PO Q6H PRN ondansetron HCl 8 mg tablet 8 mg PO Q8H PRN Medical Decision Making 52yo M with hx ETOH use disorder, hepatitis, stage IV rectal cancer with mets to liver and lung, s/p colostomy, presenting with subjective fever, chills, lightheadedness, and pain at chest port site this evening after insertion earlier today. Planning to start chemotherapy; has not started yet. Temp at home was 99F. Vital signs reassuring on arrival and afebrile. Non-toxic appearing, physical exam reassuring, port site is tender without any secondary signs of infection. No objective indication of infection, however given symptoms will evaluate with labs, blood cultures, CXR, UA. EKG NSR, appropriate intervals, no ST segment or T wave abnormalities to suggest occlusive AL. Signed out to overnight physician; plan to followup up results of workup above, reassess. If workup reassuring and remains afebrile, would discharge home to close outpatient followup. HPI General Mode of arrival: ambulatory . Date/Time Provider Initiated Documentation: 07/24/23 22:29 . Limitations to Documentation: no limitations . Information obtained by: patient . HPI Narrative: 52yo M with hx ETOH use disorder, hepatitis, stage IV rectal cancer with mets to liver and lung, s/p colostomy, presenting with chills and pain at chest port site. Had right chest port placed today by Dr. Shea for planned chemotherapy. Has pain at chest port site as well as at site of attempted port placement on left. This evening began to have chills, subjective fever, and lightheadedness. Temp at home was 99F. No discharge from incisions. No nausea, vomiting, or change in ostomy output. No rash. Shortness of breath at baseline which is unchanged. No dysuria or hematuria. He is otherwise in his usual state of health. Related Data Home Medications Medication Instructions Recorded Confirmed lidocaine 5 % topical patch 1 patch topical DAILY #30 ea 03/20/22 07/24/23 acetaminophen 500 mg tablet 1,000 mg PO Q6H PRN 12/05/22 07/24/23 (Tylenol Extra Strength) ondansetron HCl 8 mg tablet 8 mg PO Q8H PRN 12/13/22 07/24/23 Previous Rx's Medication Instructions Recorded lidocaine 5 % topical patch 1 patch topical DAILY #30 ea 03/20/22 Allergies Allergy/AdvReac Type Severity Reaction Status Date / Time No Known Allergies Allergy Verified 07/24/23 09:32 General Stated Complaint: [facility]Medical FARHAN: 3 Review of Systems Narrative: see HPI PFSH All Active Problems Metastatic colon cancer to liver (Acute) Chews tobacco (Acute) Prostatism (Acute) Shoulder pain, right (Acute) Erectile dysfunction (Acute) Alcoholic hepatitis without ascites (Acute) Vomiting (Acute) Alcoholism (Chronic) Alcoholic pancreatitis (Acute) Alcoholic gastritis (Acute) Acute pancreatitis (Acute) Alcohol withdrawal (Acute) Excessive drinking alcohol (Acute) Medical History Acute postoperative anemia due to greater than expected blood loss Alcohol abuse Colostomy in place History of chemotherapy History of radiation therapy Port-A-Cath in place removed 12/2022 Rectal cancer Surgical History H/O esophagogastroduodenoscopy History of colon resection Hx of colonoscopy Family History Father Colon cancer Paternal Uncle Brain malignancy Maternal Grandmother Brain malignancy Social History Smoking/Tobacco Use Status: Current every day Tobacco Type: smokeless tobacco Smoking risk assessment performed?: Yes Alcohol Intake: current Alcohol Intake frequency: 3 or more drinks per day Alcohol type: beer Drug use: Never Substance use type: does not use Details: 12 pack a day. Cut self down to 6 or 7 beers today Housing: house Do you feel safe at home: Yes Do you feel safe in your relationship?: Yes Exam Narrative Exam Narrative: General: Alert, well nourished, in no acute distress. Head: Normocephalic, atraumatic Neck: Trachea midline, Neck supple. Chest: Right chest port palpable, site tender. No overlying warmth or erythema. No discharge. Left chest incision TTP, no erythema or discharge. ENT: MMM. Cardiac: RRR, no murmurs appreciated Resp: No respiratory distress. CTAB. Abd: Soft, non-distended, nontender Ostomy in place. : No suprapubic tenderness. Extremities: No deformities. No peripheral edema. Neurologic: GCS 15. Moves all extremities freely against gravity Course Vital Signs Vital signs: Vital Signs Temperature 37.1 C 07/24/23 22:25 Pulse 81 07/24/23 22:25 Respiratory Rate 18 07/24/23 22:25 Blood Pressure 136/93 H 07/24/23 22:25 Pulse Oximetry 97 07/24/23 22:25 Temperature 37.1 C 07/24/23 22:25 Temperature Source Oral 07/24/23 22:25 Pulse 81 07/24/23 22:25 Respiratory Rate 18 07/24/23 22:30 Respiratory Effort Normal 07/24/23 22:30 Respiratory Depth Normal 07/24/23 22:30 Respiratory Pattern Normal 07/24/23 22:30 Blood Pressure 136/93 H 07/24/23 22:25 Blood Pressure Position Supine 07/24/23 22:25 Pulse Oximetry 97 07/24/23 22:25 Oxygen Delivery Method Room Air 07/24/23 22:25 Oxygen Flow Rate 0 07/24/23 22:25 Pain Level 8 07/24/23 22:25 Lab/Test Results Lab/Test Results: 07/24/23 22:30 Blood Blood Culture - Pending 07/24/23 22:30 Blood Blood Culture - Pending Sign Out Sign Out Data: Sign Out Comment: S4 colon cancer with mets to liver and lung, subjective fever and chills after right chest port placed today for planned chemotherapy. Tmax 99F at home. No overt infection on exam. Pending labs, CXR. Last updated by Shawna Tinsley MD at 07/24/23 22:57 PAWSS Have you Been Recently Intoxicated or Drunk Within the Last 30 days?: No Have you Ever Experienced Previous Episodes of Alcohol Withdrawal?: Yes Have you ever Experienced Withdrawal Seizures?: No Have you ever Experienced Delirium Tremens(DT)s?: Yes Have you ever undergone Alcohol Rehabilitation Treatment (i.e, inpt ot outpatient treatment programs)?: No Have you ever Experienced Blackouts?: No Have you ever Combined Alcohol with other Downers within the last 90 days?: No Have you ever Combined Alcohol with any other Substance of Abuse during the last 90 days?: No Positive Blood Alcohol level on Presentation? [PCS.BAL]: No Evidence of Increased Autonomic Activity (i.e. HR>120, tremor, sweating, agitation, nausea)?: No Result: 2
[2023-07-24 23:07] LABS: Abs Immature Grans 0.02 10^3/uL (0.0-0.06); Absolute Basophil Count 0.03 10^3/uL (0.0-0.2); Absolute Eosinophil Count 0.09 10^3/uL (0.0-0.7); Absolute Lymphocyte Count 0.66 10^3/uL (1.2-3.4); Absolute Monocyte Count 0.38 10^3/uL (0.1-0.8); Absolute Neutrophil Count 3.01 10^3/uL (1.2-6.7); Basophils % 0.7; Eosinophils % 2.1; HGB 12.4 g/dL (13.5-17.5); Immature Grans % 0.5; Lymphocytes % 15.8; MCH 32.3 pg (27.0-33.0); MCHC 34.4 % (32.0-36.0); MCV 94 fL (80-95); MPV 8.9 fL (8.0-11.0); Monocytes % 9.1; Neutrophils % 71.8; Platelet Count 122 10^3/uL (130-400); RBC 3.84 10^6/uL (4.36-5.78); RDW 12.6 % (11.8-14.1); RDW-SD 43.8 fL; WBC 4.19 10^3/uL (4.4-10.8)
[2023-07-24 23:26] LABS: ALT 39 U/L (16-63); AST 87 U/L (15-37); Alkaline Phosphatase 288 U/L (46-116); Anion Gap 12.4 mmol/L (3-11); BUN 4 mg/dL (7-18); Bilirubin, Total 0.4 mg/dL (0.2-1.0); CO2 22.6 mmol/L (21.0-32.0); CREATININE 0.6 mg/dL (0.70-1.30); Calcium 8.8 mg/dL (8.5-10.1); Chloride 96 mmol/L (98-107); Estimated GFR 116.87 (mL/min/1.73m2); Glucose 119 mg/dL (74-106); Potassium 3.7 mmol/L (3.5-5.1); Sodium 131 mmol/L (136-145); Total Protein 7.4 g/dL (6.4-8.2)
[2023-07-24 23:39] LABS: Procalcitonin < 0.1 ng/mL
[2023-07-24 23:40] LABS: Troponin I < 50 ng/L (<or=60)
--- NOTE | 2023-07-25 00:22 | DI.VRAD_ITS ---
PROCEDURE INFORMATION: Exam: XR Chest Exam date and time: 07/24/2023 23:58 Age: 52 years old Clinical indication: Patient HX: Chills, right chest port implanted today. PT has lung/liver CA TECHNIQUE: Imaging protocol: Radiologic exam of the chest. Views: 2 views. COMPARISON: CR XR PORTABLE CHEST AP POST LINE 07/24/2023 11:51 FINDINGS: Tubes, catheters and devices: Right chest port in satisfactory position. Lungs: Dense consolidation right upper lobe/suprahilar space contiguous with right hilum. Pleural spaces: No pleural effusion. No pneumothorax. Heart/Mediastinum: No cardiomegaly. Bones/joints: No acute fracture. IMPRESSION: Right upper lobe atelectasis and or pneumonia could be post obstructive. Dictated and Authenticated by: Dianne Rosario MD. Ordering:KELLI Matos MD
[2023-07-25 00:30] LABS: Bilirubin Negative (Negative); Blood Negative (Negative); Clarity Clear (Clear); Glucose Negative (Negative); Ketones Negative (Negative); Leukocyte Esterase Negative (Negative); Nitrite Negative (Negative); Specific Gravity <= 1.005 (1.005-1.025); Urobilinogen 0.2 mg/dL (Up to 0.2)
[2023-07-25 01:01] LABS: COVID-19 PCR Negative (Negative); Influenza A PCR Negative (Negative); Influenza B PCR Negative (Negative); RSV PCR Negative (Negative)
[2023-07-25 01:03] LABS: Source Nasopharynx
--- NOTE | 2023-07-25 01:05 | W.EDPROG ---
Date of service: 07/25/23 Time of Service: 01:05 Medical Decision Making patient's labs without significant acute abnormalities, ua and fluvid negative, xray read as atelectasis in right upper lobe vs pneumonia. Pt stable requesting d/c, he has a chronic daily morning cough that is unchanged, has clear lungs and given no documented fever over 100.4 doubt pneumonia. Discussed starting antibiotics vs watchful waiting and he prefers to hold on antibiotics which I feel is reasonable. HE will f/u with his pcp, return precautions given Imaging Data Radiologic Study: Attestation: I personally reviewed and interpreted this imaging study as follows: Imaging: X-Ray Radiologist's impression: IMPRESSION: Right upper lobe atelectasis and or pneumonia could be post obstructive. Lab Data Lab results reviewed: Yes I reviewed the patient's lab results. Sign Out Sign Out Data: Sign Out Comment: S4 colon cancer with mets to liver and lung, subjective fever and chills after right chest port placed today for planned chemotherapy. Tmax 99F at home. No overt infection on exam. Pending labs, CXR. Last updated by Shawna Tinsley MD at 07/24/23 22:57 Discharge Plan Disposition Patient Disposition: Home Condition: Stable Discharge Details Clinical Impression: Subjective fever Primary Care Provider: Freddy Juarez ED Provider: Seng Turk Home Meds and New Rx's Prescriptions: Continued lidocaine 5 % adhesive patch,medicated 1 patch topical DAILY Qty: 30 2RF Rx Instructions: leave on most painful area for up to 12 hrs acetaminophen [Tylenol Extra Strength] 500 mg tablet 1,000 mg PO Q6H PRN ondansetron HCl 8 mg tablet 8 mg PO Q8H PRN Discharge Instructions Additional Instructions: Your blood work and covid/flu test did not show concerning findings follow up with your primary care provider and oncology team If you feel more ill, have sustained fever over 100.4 or difficulty breathing return to the emergency department
== END 2023-07-25 01:37 | disposition home or self-care (01) ==
PROVIDERS: Student in an Organized Health Care Education/Training Program; Emergency Provider Emergency Medicine; PCP Family Medicine
DX: T82.848A Pain due to vascular prosthetic devices, implants and grafts, initial encounter (principal); C20 Malignant neoplasm of rectum; C78.7 Secondary malignant neoplasm of liver and intrahepatic bile duct; C78.00 Secondary malignant neoplasm of unspecified lung; F17.290 Nicotine dependence, other tobacco product, uncomplicated; Z93.3 Colostomy status
CPT/HCPCS: 80053; 84145; 87040; 87637; 93005; 99283; 71046; 81003; 83605; 84484; 85025; 93010

== ENCOUNTER 2023-08-11 00:03 | Outpatient (RCR) | payer MEDICAID, SELFPAY ==
[2023-08-09] MEDS: Normal Saline Flush 10 ML SYR IVP (10:45)
[2023-08-09 10:59] LABS: Abs Immature Grans 0.02 10^3/uL (0.0-0.06); Absolute Basophil Count 0.04 10^3/uL (0.0-0.2); Absolute Eosinophil Count 0.18 10^3/uL (0.0-0.7); Absolute Lymphocyte Count 0.89 10^3/uL (1.2-3.4); Absolute Monocyte Count 0.37 10^3/uL (0.1-0.8); Absolute Neutrophil Count 2.22 10^3/uL (1.2-6.7); Basophils % 1.1; Eosinophils % 4.8; HCT 41.2 % (40.0-50.0); HGB 14.6 g/dL (13.5-17.5); Immature Grans % 0.5; Lymphocytes % 23.9; MCH 33.5 pg (27.0-33.0); MCHC 35.4 % (32.0-36.0); MCV 95 fL (80-95); MPV 8.4 fL (8.0-11.0); Monocytes % 9.9; Neutrophils % 59.8; Platelet Count 188 10^3/uL (130-400); RBC 4.36 10^6/uL (4.36-5.78); RDW 12.4 % (11.8-14.1); RDW-SD 43.3 fL; WBC 3.72 10^3/uL (4.4-10.8)
[2023-08-09 11:17] LABS: ALT 45 U/L (16-63); AST 89 U/L (15-37); Albumin 3.3 g/dL (3.4-5.0); Alkaline Phosphatase 316 U/L (46-116); BUN 2 mg/dL (7-18); Bilirubin, Total 0.4 mg/dL (0.2-1.0); CREATININE 0.6 mg/dL (0.70-1.30); Calcium 9.1 mg/dL (8.5-10.1); Chloride 98 mmol/L (98-107); Estimated GFR 116.87 (mL/min/1.73m2); Glucose 111 mg/dL (74-106); Potassium 3.8 mmol/L (3.5-5.1); Sodium 137 mmol/L (136-145); Total Protein 8.1 g/dL (6.4-8.2)
[2023-08-09 19:34] LABS: CEA 68.4 ng/mL (See Note)
[2023-08-11 12:55] VITALS: BP 130/89; PULSE 88; RESP 16; TEMP 36.2; O2SAT 99
[2023-08-11] MEDS: Heparin 500 UNITS/5 ML SYRINGE IV (13:00)
[2023-08-11] MEDS: Normal Saline Flush 10 ML SYR IVP (13:00)
== END 2023-08-20 23:59 | disposition home or self-care (01) ==
LOC: INF 00:03
PROVIDERS: PCP Family Medicine; Visit Provider Internal Medicine Hematology & Oncology
DX: C20 Malignant neoplasm of rectum (principal); C78.00 Secondary malignant neoplasm of unspecified lung; Z45.2 Encounter for adjustment and management of vascular access device
CPT/HCPCS: 36591; 80053; 96523; 82378; 85025

== ENCOUNTER 2023-09-08 01:44 | Outpatient (RCR) | payer SELFPAY ==
[2023-08-21 00:06] VITALS: BP 130/89; PULSE 88; RESP 16; TEMP 36.2
[2023-09-06 09:08] LABS: Abs Immature Grans 0.03 10^3/uL (0.0-0.06); Absolute Basophil Count 0.03 10^3/uL (0.0-0.2); Absolute Eosinophil Count 0.09 10^3/uL (0.0-0.7); Absolute Lymphocyte Count 0.83 10^3/uL (1.2-3.4); Absolute Monocyte Count 0.36 10^3/uL (0.1-0.8); Absolute Neutrophil Count 1.89 10^3/uL (1.2-6.7); Basophils % 0.9; Eosinophils % 2.8; HCT 39.3 % (40.0-50.0); HGB 13.6 g/dL (13.5-17.5); Immature Grans % 0.9; Lymphocytes % 25.7; MCH 32.6 pg (27.0-33.0); MCHC 34.6 % (32.0-36.0); MCV 94 fL (80-95); MPV 8.7 fL (8.0-11.0); Monocytes % 11.1; Neutrophils % 58.6; Platelet Count 132 10^3/uL (130-400); RBC 4.17 10^6/uL (4.36-5.78); RDW 12.4 % (11.8-14.1); RDW-SD 43.2 fL; WBC 3.23 10^3/uL (4.4-10.8)
[2023-09-06] MEDS: Normal Saline Flush 10 ML SYR IVP (09:12)
[2023-09-06 09:29] LABS: ALT 55 U/L (16-63); AST 121 U/L (15-37); Alkaline Phosphatase 337 U/L (46-116); Anion Gap 12.7 mmol/L (3-11); BUN 2 mg/dL (7-18); Bilirubin, Total 0.4 mg/dL (0.2-1.0); CO2 26.3 mmol/L (21.0-32.0); CREATININE 0.6 mg/dL (0.70-1.30); Calcium 8.8 mg/dL (8.5-10.1); Chloride 101 mmol/L (98-107); Estimated GFR 116.87 (mL/min/1.73m2); Glucose 104 mg/dL (74-106); Potassium 3.8 mmol/L (3.5-5.1); Sodium 140 mmol/L (136-145); Total Protein 7.4 g/dL (6.4-8.2)
[2023-09-06 23:09] LABS: CEA 136.8 ng/mL (See Note)
[2023-09-08 11:28] VITALS: PULSE 122; TEMP 36.4
[2023-09-08] MEDS: Normal Saline Flush 10 ML SYR IVP (11:32)
[2023-09-08] MEDS: Heparin 500 UNITS/5 ML SYRINGE IV (11:32)
== END 2023-09-19 23:59 | disposition home or self-care (01) ==
LOC: INF 01:44
PROVIDERS: PCP Family Medicine; Visit Provider Internal Medicine Hematology & Oncology
DX: C20 Malignant neoplasm of rectum (principal); C78.00 Secondary malignant neoplasm of unspecified lung; Z45.2 Encounter for adjustment and management of vascular access device
CPT/HCPCS: 36591; 80053; 96523; 82378; 85025

== ENCOUNTER 2023-11-25 12:16 | Emergency (ER) | payer SELFPAY ==
[2023-11-25 12:21] VITALS: BP 105/68; PULSE 99; RESP 17; TEMP 36.9; O2SAT 98
--- NOTE | 2023-11-25 12:45 | DI.CT_ITS ---
Exam(s) CT HEAD WO EXAM: CT HEAD WO CLINICAL HISTORY: leg weakness. TECHNIQUE: Imaging Protocol: Axial computed tomography images with coronal and sagittal reformatted images were created and reviewed COMPARISON: CT CT HEAD WO from 01/06/2023 FINDINGS: There are no skull fractures. There is no fluid in the visualized paranasal sinuses. There is no evidence of intracranial hemorrhage, mass effect, or shift of midline structures. There are no extra-axial fluid collections. The ventricles are not enlarged or shifted and there is no blo od within the ventricular system nor within the basal cisterns. IMPRESSION: No acute intracranial findings on this noninfused CT scan of the brain. RADIATION DOSE DELIVERED: 731.54mGy.cm Total DLP DATA REPOSITORY: All CT scans at this facility are submitted to the National Radiology Data Registry (NRDR) Dose Index Registry (DIR) with the [employer] ([employer]). RADIATION OPTIMIZATION: All CT scans at this facility use at least one of these dose optimization te chniques: automated exposure control; mA and/or kV adjustment per patient size (includes targeted exa ms where dose is matched to clinical indication); or iterative reconstruction.
--- NOTE | 2023-11-25 12:45 | DI.CT_ITS ---
Exam(s) CT CHEST/ABD/PEL W EXAM: CT CHEST/ABD/PEL W CLINICAL HISTORY: leg weakness, Cancer(mets). TECHNIQUE: Imaging Protocol: Axial computed tomography images with coronal and sagittal reformatted images were created and reviewed CONTRAST MATERIAL: Intravenous: Omnipaque 350 Contrast volume:100 ml Oral: None COMPARISON: CT CT CHEST/ABD/PEL W from 07/02/2023 FINDINGS: CHEST: LUNGS: The very large malignant right upper lobe mass is again noted, centrally hypodense but not cav itated.. This invades the right-side of the mediastinum and is now partially intraluminal in the rig ht mainstem bronchus, this to within 1 cm of the aguila. There is sparing of the right lower lobe an d right middle lobe. Significant volume loss in the right upper lobe again noted The opposite-left lung remains clear. No pleural effusions on either side. MEDIASTINUM: Right hilar and mediastinal invasion by the mass as described above involving also the r ight mainstem bronchus. There is no immediate paratracheal nor anterior mediastinal adenopathy. Onl y small subcarinal lymph nodes are noted. Left hilum unremarkable. Visualized thyroid unremarkable. CARDIAC: Heart size is normal. There is no pericardial effusion.Caliber of the thoracic aorta is wit hin normal limits. OSSEOUS: There is no rib destruction in the region of the large right upper lobe mass. Also no verte bral destruction and there are no lytic nor blastic osseous lesions evident. ABDOMEN: There is no ascites. LIVER: Again noted is a solitary metastatic lesion in the liver which is in the left hepatic lobe, me asuring approximately 4.5 cm wide by 3.5 cm AP . no additional liver lesions noted. Hepatic steatosi s again noted but somewhat less than previous. GALLBLADDER/BILIARY: There is now some pericholecystic fluid and enhance mint of the gallbladder wall . Gallbladder is not distended. There are no obvious intraluminal gallstones. CBD is not dilated. PANCREAS: No evidence of pancreatic mass nor dilatation of the pancreatic duct. SPLEEN: Spleen is not enlarged. There are no intrasplenic lesions. Splenic and portal veins are julian nt. ADRENALS: There are no significant adrenal masses. KIDNEYS: No calculi nor hydronephrosis. No solid renal masses. No cysts evident. ABDOMINAL AORTA: Abdominal aorta is not enlarged. LYMPH NODES: There is no retroperitoneal nor paraaortic adenopathy. ABDOMINAL WALL: There has been subtotal colectomy and there is left-sided colostomy is again noted. There is no evidence of Magaly stomal hernia. No abnormal collection in this region. No bowel obstruc tion, free air, nor abscess. GI: There is no evidence of bowel obstruction. PELVIS: LYMPH NODES: There is no intrapelvic nor inguinal adenopathy. GI: No evidence of appendicitis.No diverticulitis. URINARY BLADDER: No calculi nor masses evident REPRODUCTIVE: Prostate not enlarged. OSSEOUS: No significant osseous lesions. No fractures. Advanced chronic disc space narrowing at L4-5 and L5-S1 levels noted. IMPRESSION: 1. The previously described large right upper lobe malignant mass is again noted. Is now seen to be invading the right mainstem bronchus to within 1 cm of the aguila. No associated regional rib destru ction and no osseous lesions seen elsewhere in the skeleton. 2. Single metastatic lesion left hepatic lobe is again noted, similar size. No new additional liver lesions evident. 3. Gallbladder wall enhances and there is some pericholecystic fluid. Gallbladder is not distended. Cannot exclude cholecystitis. CBD is not dilated. 4. Subtotal colectomy and left-sided colostomy again noted. No evidence of bowel obstruction, free a ir, nor abscess. 5. Chronic disc space narrowing at L4-5 and L5-S1 levels again noted. No lytic nor blastic osseous lesions in the lumbar and thoracic spines. No compression fractures. Called by myself to ER provider. RADIATION DOSE DELIVERED: 1,248.1mGy.cm Total DLP DATA REPOSITORY: All CT scans at this facility are submitted to the National Radiology Data Registry (NRDR) Dose Index Registry (DIR) with the [employer] ([employer]). RADIATION OPTIMIZATION: All CT scans at this facility use at least one of these dose optimization te chniques: automated exposure control; mA and/or kV adjustment per patient size (includes targeted exa ms where dose is matched to clinical indication); or iterative reconstruction.
[2023-11-25] MEDS: Lactated Ringers 1,000 ML 300 ML IV (13:19)
[2023-11-25 13:20] LABS: Abs Immature Grans 0.05 10^3/uL (0.0-0.06); Absolute Basophil Count 0.03 10^3/uL (0.0-0.2); Absolute Eosinophil Count 0.07 10^3/uL (0.0-0.7); Absolute Lymphocyte Count 0.65 10^3/uL (1.2-3.4); Absolute Monocyte Count 0.75 10^3/uL (0.1-0.8); Absolute Neutrophil Count 8.55 10^3/uL (1.2-6.7); Basophils % 0.3; Eosinophils % 0.7; HGB 12.3 g/dL (13.5-17.5); Immature Grans % 0.5; Lymphocytes % 6.4; MCH 31.2 pg (27.0-33.0); MCHC 33.2 % (32.0-36.0); MCV 94 fL (80-95); MPV 8.5 fL (8.0-11.0); Monocytes % 7.4; Neutrophils % 84.7; Platelet Count 302 10^3/uL (130-400); RBC 3.94 10^6/uL (4.36-5.78); RDW 12.4 % (11.8-14.1); RDW-SD 43.2 fL
[2023-11-25 13:26] LABS: Ammonia 16 umol/L (11-32)
[2023-11-25 13:27] VITALS: RESP 20
[2023-11-25 13:38] LABS: ALT 31 U/L (16-63); AST 58 U/L (15-37); Albumin 2.1 g/dL (3.4-5.0); Alkaline Phosphatase 176 U/L (46-116); Anion Gap 10.8 mmol/L (3-11); BUN 3 mg/dL (7-18); Bilirubin, Total 0.4 mg/dL (0.2-1.0); CO2 26.2 mmol/L (21.0-32.0); CREATININE 0.6 mg/dL (0.70-1.30); Calcium 8.6 mg/dL (8.5-10.1); Chloride 96 mmol/L (98-107); ETHANOL BLOOD 57.8 mg/dL (<10); Estimated GFR 116.15 (mL/min/1.73m2); Glucose 103 mg/dL (74-106); Magnesium 2.1 mg/dL (1.8-2.4); Potassium 3.9 mmol/L (3.5-5.1); Sodium 133 mmol/L (136-145); Total Protein 7.2 g/dL (6.4-8.2)
[2023-11-25] MEDS: Normal Saline - Diluent 50 ML VIAL IJ (14:08)
[2023-11-25 14:29] LABS: Bilirubin Negative (Negative); Blood Negative (Negative); Clarity Clear (Clear); Glucose Negative (Negative); Ketones Negative (Negative); Leukocyte Esterase Negative (Negative); Nitrite Negative (Negative); Specific Gravity <= 1.005 (1.005-1.025); Urobilinogen 0.2 mg/dL (Up to 0.2); pH 5.5 (5-8)
--- NOTE | 2023-11-25 14:33 | ED.GENADUL_ITS ---
HPI General Mode of arrival: ambulatory . Date/Time Provider Initiated Documentation: 11/25/23 12:28 . Limitations to Documentation: no limitations . Information obtained by: patient, family and RN notes reviewed . History of Present Illness 53 year old M presents to the emergency department with the chief complaint of Intermittent leg weakness, described as moderate, Patient started experiencing this month(s) and it has been intermittent. No relieving factors improve symptom(s), No exacerbating factors reported . Patient notes cough. Patient did receive the following treatments prior to arrival, none Related Data Home Medications Medication Instructions Recorded Confirmed lidocaine 5 % topical patch 1 patch topical DAILY #30 ea 03/20/22 07/24/23 acetaminophen 500 mg tablet 1,000 mg PO Q6H PRN 12/05/22 07/24/23 (Tylenol Extra Strength) ondansetron HCl 8 mg tablet 8 mg PO Q8H PRN 12/13/22 07/24/23 Previous Rx's Medication Instructions Recorded lidocaine 5 % topical patch 1 patch topical DAILY #30 ea 03/20/22 Allergies Allergy/AdvReac Type Severity Reaction Status Date / Time No Known Allergies Allergy Verified 07/24/23 09:32 General Stated Complaint: GenMedical FARHAN: 3 Review of Systems Constitutional Constitutional: Denies chills, Denies fever(s), Denies headache(s) and Reports malaise ENT Ears, Nose, Mouth, and Throat: Denies headache(s) Cardiovascular Cardiovascular: Reports chest pain, Denies syncope, Denies lightheadedness and Reports dyspnea (Chronic unchanged) Respiratory Respiratory: Reports cough and Reports dyspnea (Chronic unchanged) Gastrointestinal Gastrointestinal: Denies abdominal pain, Denies diarrhea and Denies nausea Musculoskeletal Musculoskeletal: Reports as per HPI, Reports abnormal gait, Denies back pain, Denies joint swelling, Denies limited range of motion, Reports muscle weakness, Denies numbness and Denies tingling Integumentary/Breasts Skin/Breast: Denies rash Neurologic Neurologic: Reports abnormal gait, Denies syncope, Denies headache(s), Denies localized weakness, Denies numbness and Denies tingling Exam Const General: cooperative, no acute distress, frail appearing and not ill appearing Orientation: alert, awake and oriented x3 HENMT Mouth: moist mucous membranes Resp Effort & Inspection: normal respiratory effort, able to speak in complete sentences and no respiratory distress Auscultation: clear to auscultation bilaterally Cardio Rate: regular rate Rhythm: regular rhythm Heart Sounds: S1 normal and S2 normal Back/Spine/Pelvis Thoracic/Lumbar Spine: No lumbar spinal tenderness Skin General skin exam: no rashes or lesions noted Neuro General: patient alert, patient awake, patient oriented x3, moves all extremities and no focal motor deficits Cognition: normal cognition Speech: speech normal Gait: normal gait Motor: muscle tone normal throughout, strength 5/5 throughout and no tremors Sensory Exam: no sensory deficits noted DTR's: Rt Patellar: 2+ and Lt Patellar: 2+ Extrem General: normal to inspection, full ROM and capillary refill normal Course Vital Signs Vital signs: Vital Signs Temperature 36.9 C 11/25/23 12:21 Pulse 99 H 11/25/23 12:21 Respiratory Rate 17 11/25/23 12:21 Blood Pressure 105/68 11/25/23 12:21 Pulse Oximetry 98 11/25/23 12:21 Temperature 36.9 C 11/25/23 12:21 Pulse 99 H 11/25/23 12:21 Respiratory Rate 20 11/25/23 13:27 Respiratory Effort Normal 11/25/23 13:27 Respiratory Depth Normal 11/25/23 13:27 Respiratory Pattern Normal 11/25/23 13:27 Blood Pressure 105/68 11/25/23 12:21 Blood Pressure Position Supine 11/25/23 12:21 Pulse Oximetry 98 11/25/23 12:21 Oxygen Delivery Method Room Air 11/25/23 12:21 Oxygen Flow Rate 0 11/25/23 12:21 Lab/Test Results Lab/Test Results: Laboratory Tests Range/Units 11/25/23 11/25/23 13:10 13:10 WBC (4.4-10.8) 10^3/uL 10.10 RBC (4.36-5.78) 10^6/uL 3.94 L Hgb (13.5-17.5) g/dL 12.3 L Hct (40.0-50.0) % 37.0 L MCV (80-95) fL 94 MCH (27.0-33.0) pg 31.2 MCHC (32.0-36.0) % 33.2 RDW (11.8-14.1) % 12.4 Plt Count (130-400) 10^3/uL 302 MPV (8.0-11.0) fL 8.5 Immature Gran % 0.5 Neutrophils % 84.7 Lymphocytes % 6.4 Monocytes % 7.4 Eosinophils % 0.7 Basophils % 0.3 Nucleated RBC % (0.0-0.3) % 0.0 Absolute Neutrophils (1.2-6.7) 10^3/uL 8.55 H Absolute Lymphocytes (1.2-3.4) 10^3/uL 0.65 L Absolute Monocytes (0.1-0.8) 10^3/uL 0.75 Absolute Eosinophils (0.0-0.7) 10^3/uL 0.07 Absolute Basophils (0.0-0.2) 10^3/uL 0.03 Sodium (136-145) mmol/L 133 L Potassium (3.5-5.1) mmol/L 3.9 Chloride (98-107) mmol/L 96 L Carbon Dioxide (21.0-32.0) mmol/L 26.2 Anion Gap (3-11) mmol/L 10.8 BUN (7-18) mg/dL 3 L Creatinine (0.70-1.30) mg/dL 0.6 L Est GFR (CKD-EPI 2020) (mL/min/1.73m2) 116.15 Glucose (74-106) mg/dL 103 Calcium (8.5-10.1) mg/dL 8.6 Magnesium (1.8-2.4) mg/dL 2.1 Total Bilirubin (0.2-1.0) mg/dL 0.4 AST (15-37) U/L 58 H ALT (16-63) U/L 31 Alkaline Phosphatase (46-116) U/L 176 H Ammonia (11-32) umol/L 16 Total Protein (6.4-8.2) g/dL 7.2 Albumin (3.4-5.0) g/dL 2.1 L Ethyl Alcohol Cancelled 57.8 H Medical Decision Making Patient presenting to the emergency department for chief complaint of intermittent bilateral leg weakness. He states that over the last couple months randomly when walking his legs just give out and he needs to sit for second. He denies falling and states he can mostly just let himself to the ground. He reports generalized weakness due to having cancer and stopping treatment. Denies any lightheadedness though during these events, chest pain, or difficulty breathing that is causing these and states more general muscle weakness of his legs. He cannot contribute any specific cause to when it happens. 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 He does state chronic cough that is slightly worsened recently but denies all of the symptoms. Physical exam is noncontributory and cannot find any specific findings, patient was ambulatory through the department with no obvious gait abnormality. Will perform labs and imaging given that patient has not had any recent imaging for his cancer and I do have question of possible bony metastatic disease that could be causing symptoms along with electrolyte abnormalities or other spinal abnormality. Will give patient liter of LR pending results Reviewed patient's labs and he does have chronic anemia but no significant change, platelet count is within normal range, patient does have low sodium of 133, chloride of 96, decreased BUN and creatinine, AST is 58 and alk phos of 176 which are near patient's baseline, patient albumin is significantly low at 2.1. Urinalysis is unremarkable, patient does have some alcohol on board at 58 but did admit to having a few beers before coming in due to some anxiety. Patient did state that he has had significant decreased appetite and at times finds some difficulty eating due to lack of appetite. Did encourage patient to eat a more nutritious balanced diet given I feel this could be some contributing cause as he does have some frailty. CT imaging reviewed along with radiologist interpretation that shows increasing lung cancer with some of the mass encroaching the bronchus on the right side, stable liver mets with no obvious changes, some degenerative disc disease but no metastatic disease noted to the spine. Reviewed these findings with patient who did state slight improvement after hydration. Patient encouraged to use a cane. Patient reports that he does not want to undergo any further cancer treatment. I did approach the subject of consulting with palliative care or hospice for long-term plan but after discussion with patient will refer to primary care provider but I do think this may be beneficial for patient's ongoing cancer to have a plan in place. After discussion of diagnosis and plan of care patient has no further needs, questions, or concerns and states clear understanding to return to the emergency department for any worsening symptoms. This documentation was generated using Dragon dictation system, please disregard any oddities of phrase or misspellings. Imaging Data Radiologic Study: Imaging: CT Scan Radiologist's impression: Exam(s) CT HEAD WO EXAM: CT HEAD WO CLINICAL HISTORY: leg weakness. TECHNIQUE: Imaging Protocol: Axial computed tomography images with coronal and sagittal reformatted images were created and reviewed COMPARISON: CT CT HEAD WO from 01/06/2023 FINDINGS: There are no skull fractures. There is no fluid in the visualized paranasal sinuses. There is no evidence of intracranial hemorrhage, mass effect, or shift of midline structures. There are no extra-axial fluid collections. The ventricles are not enlarged or shifted and there is no blood within the ventricular system nor within the basal cisterns. IMPRESSION: No acute intracranial findings on this noninfused CT scan of the brain. Radiologic Study #2: Imaging: CT Scan Radiologist's impression: Exam(s) CT CHEST/ABD/PEL W EXAM: CT CHEST/ABD/PEL W CLINICAL HISTORY: leg weakness, Cancer(mets). TECHNIQUE: Imaging Protocol: Axial computed tomography images with coronal and sagittal reformatted images were created and reviewed CONTRAST MATERIAL: Intravenous: Omnipaque 350 Contrast volume:100 ml Oral: None COMPARISON: CT CT CHEST/ABD/PEL W from 07/02/2023 FINDINGS: CHEST: LUNGS: The very large malignant right upper lobe mass is again noted, centrally hypodense but not cavitated.. This invades the right-side of the mediastinum and is now partially intraluminal in the right mainstem bronchus, this to within 1 cm of the aguila. There is sparing of the right lower lobe and right middle lobe. Significant volume loss in the right upper lobe again noted The opposite-left lung remains clear. No pleural effusions on either side. MEDIASTINUM: Right hilar and mediastinal invasion by the mass as described above involving also the right mainstem bronchus. There is no immediate paratracheal nor anterior mediastinal adenopathy. Only small subcarinal lymph nodes are noted. Left hilum unremarkable. Visualized thyroid unremarkable. CARDIAC: Heart size is normal. There is no pericardial effusion.Caliber of the thoracic aorta is within normal limits. OSSEOUS: There is no rib destruction in the region of the large right upper lobe mass. Also no vertebral destruction and there are no lytic nor blastic osseous lesions evident. ABDOMEN: There is no ascites. LIVER: Again noted is a solitary metastatic lesion in the liver which is in the left hepatic lobe, measuring approximately 4.5 cm wide by 3.5 cm AP . no additional liver lesions noted. Hepatic steatosis again noted but somewhat less than previous. GALLBLADDER/BILIARY: There is now some pericholecystic fluid and enhance mint of the gallbladder wall. Gallbladder is not distended. There are no obvious intraluminal gallstones. CBD is not dilated. PANCREAS: No evidence of pancreatic mass nor dilatation of the pancreatic duct. SPLEEN: Spleen is not enlarged. There are no intrasplenic lesions. Splenic and portal veins are patent. ADRENALS: There are no significant adrenal masses. KIDNEYS: No calculi nor hydronephrosis. No solid renal masses. No cysts evident. ABDOMINAL AORTA: Abdominal aorta is not enlarged. LYMPH NODES: There is no retroperitoneal nor paraaortic adenopathy. ABDOMINAL WALL: There has been subtotal colectomy and there is left-sided colostomy is again noted. There is no evidence of Magaly stomal hernia. No abnormal collection in this region. No bowel obstruction, free air, nor abscess. GI: There is no evidence of bowel obstruction. PELVIS: LYMPH NODES: There is no intrapelvic nor inguinal adenopathy. GI: No evidence of appendicitis.No diverticulitis. URINARY BLADDER: No calculi nor masses evident REPRODUCTIVE: Prostate not enlarged. OSSEOUS: No significant osseous lesions. No fractures. Advanced chronic disc space narrowing at L4-5 and L5-S1 levels noted. IMPRESSION: 1. The previously described large right upper lobe malignant mass is again noted. Is now seen to be invading the right mainstem bronchus to within 1 cm of the aguila. No associated regional rib destruction and no osseous lesions seen elsewhere in the skeleton. 2. Single metastatic lesion left hepatic lobe is again noted, similar size. No new additional liver lesions evident. 3. Gallbladder wall enhances and there is some pericholecystic fluid. Gallbladder is not distended. Cannot exclude cholecystitis. CBD is not dilated. 4. Subtotal colectomy and left-sided colostomy again noted. No evidence of bowel obstruction, free air, nor abscess. 5. Chronic disc space narrowing at L4-5 and L5-S1 levels again noted. No lytic nor blastic osseous lesions in the lumbar and thoracic spines. No compression fractures. Called by myself to ER provider. Lab Data Lab results reviewed: Yes I reviewed the patient's lab results. Quality:[facility] Related Social Needs: No Data to Display PFSH All Active Problems Cancer, metastatic to lung (Acute) Transient weakness of lower extremity (Acute) Metastatic colon cancer to liver (Acute) Chews tobacco (Acute) Prostatism (Acute) Shoulder pain, right (Acute) Erectile dysfunction (Acute) Alcoholic hepatitis without ascites (Acute) Vomiting (Acute) Alcoholism (Chronic) Alcoholic pancreatitis (Acute) Alcoholic gastritis (Acute) Acute pancreatitis (Acute) Alcohol withdrawal (Acute) Excessive drinking alcohol (Acute) Medical History Port-A-Cath in place removed 12/2022 History of radiation therapy History of chemotherapy Acute postoperative anemia due to greater than expected blood loss Colostomy in place Alcohol abuse Rectal cancer Surgical History History of colon resection H/O esophagogastroduodenoscopy Hx of colonoscopy Family History Father Colon cancer Paternal Uncle Brain malignancy Maternal Grandmother Brain malignancy Social History Smoking/Tobacco Use Status: Current every day Tobacco Type: smokeless tobacco Smoking risk assessment performed?: Yes Alcohol Intake: current Alcohol Intake frequency: 3 or more drinks per day Alcohol type: beer Drug use: Never Substance use type: does not use Details: 12 pack a day. Cut self down to 6 or 7 beers today Housing: house Do you feel safe at home: Yes Do you feel safe in your relationship?: Yes Discharge Plan Disposition Patient Disposition: Home Discharge Details Clinical Impression: Transient weakness of lower extremity, Alcoholism, Metastatic colon cancer to liver, Cancer, metastatic to lung Primary Care Provider: Freddy Juarez ED Provider: Woo Ponce Home Meds and New Rx's Prescriptions: Continued lidocaine 5 % adhesive patch,medicated 1 patch topical DAILY Qty: 30 2RF Rx Instructions: leave on most painful area for up to 12 hrs acetaminophen [Tylenol Extra Strength] 500 mg tablet 1,000 mg PO Q6H PRN ondansetron HCl 8 mg tablet 8 mg PO Q8H PRN Discharge Instructions Instructions: Weakness (ED) Additional Instructions: At this time no emergent findings were noted to cause your lower extremity intermittent weakness. Please use a cane to help with stability and to prevent falls during these episodes. It is important to stay well-hydrated and eat a nutritious diet Please return immediately to the emergency department for any new or significant worsening of symptoms otherwise follow-up with your primary care provider for recheck of your symptoms and further workup as needed Referrals: Freddy Juarez MD [Primary Care Provider] - 1 week Discharge Data Discharge Date/Time-TO BE ENTERED AT DEPARTURE: 11/25/23 16:01
--- NOTE | 2023-11-25 15:08 | NUR.NOTE ---
Referral faxed to Primary Care Provider requesting a recheck on lower extremely weakness. within 1 week.
== END 2023-11-25 16:01 | disposition home or self-care (01) ==
PROVIDERS: Emergency Provider Nurse Practitioner Family; PCP Family Medicine
DX: M62.81 Muscle weakness (generalized) (principal); C21.8 Malignant neoplasm of overlapping sites of rectum, anus and anal canal; C78.00 Secondary malignant neoplasm of unspecified lung; C78.7 Secondary malignant neoplasm of liver and intrahepatic bile duct; F10.20 Alcohol dependence, uncomplicated; F17.290 Nicotine dependence, other tobacco product, uncomplicated; Z92.21 Personal history of antineoplastic chemotherapy; Z92.3 Personal history of irradiation; Z93.3 Colostomy status
CPT/HCPCS: 74177; 80053; 96360; 96361; 99285; 70450; 71260; 80320; 81003; 82140; 83735; 85025; 99284